=== PATIENT | female | born 1965 | race Caucasian/White ===

== ENCOUNTER 2023-12-18 06:44 | Day surgery (SDC) | payer MEDICARE, SELFPAY ==
[2023-11-27 14:46] VITALS: BMI 37.6
[2023-12-01 10:49] VITALS: BMI 36.8
--- NOTE | 2023-12-17 11:23 | P.PNAN_ITS ---
Anes - Initial Pre Proc Eval Procedure: Operation Date: 12/18/23 08:30 Proposed Procedures p Colonoscopy - Rosalino Hamlin MD Date/Time: 12/17/23 11:23 Surgeon: Rosalino Hamlin MD Pre Op Diagnosis: History of Colon Polyps Patient Data Age: 58 Gender: F Height: 1.73 m Weight: 110 kg Allergies Allergy/AdvReac Type Severity Reaction Status Date / Time lisinopril Allergy Severe Other Verified 12/18/23 07:38 erythromycin base Allergy Other Verified 12/18/23 07:38 metformin AdvReac Other Verified 12/18/23 07:38 thimerosal AdvReac Other Verified 12/18/23 07:38 Home Medications Medication Instructions Recorded Confirmed Type sodium,potassium,mag sulfates 17.5 See Rx Instructions PO .COMPLEX 11/27/23 12/18/23 Rx gram-3.13 gram-1.6 gram oral soln #354 mL (Suprep Bowel Prep Kit) Aleve 1 tab-cap PO PRN pain 12/01/23 12/18/23 History Colace 1 cap PO DAILY PRN Constipation 12/01/23 12/18/23 History Dulcolax (bisacodyl) 1 tablet PO DAILY PRN Constipation 12/01/23 12/18/23 History Laxative 1 tablet PO DAILY PRN Constipation 12/01/23 12/18/23 History amlodipine 5 mg tablet 5 mg PO DAILY 12/01/23 12/18/23 History atorvastatin 40 mg tablet 40 mg PO DAILY 12/01/23 12/18/23 History empagliflozin 25 mg tablet 25 mg PO DAILY 12/01/23 12/18/23 History (Jardiance) furosemide 20 mg tablet 20 mg PO PRN PRN swelling 12/01/23 12/18/23 History glimepiride 4 mg tablet 4 mg PO BID 12/01/23 12/18/23 History insulin detemir U-100 100 unit/mL 44 unit subcut HS 12/01/23 12/18/23 History (3 mL) subcutaneous pen (Levemir FlexPen) levothyroxine 150 mcg tablet 150 mcg PO DAILY 12/01/23 12/18/23 History sitagliptin phosphate 100 mg 100 mg PO DAILY 12/01/23 12/18/23 History tablet (Januvia) Patient hx anesthesia problems: none Family hx anesthesia problems: none Results Review: All pre-operative results and documents have been reviewed as part of the pre- operative evaluation. [facility] Past Medical History Medical History Diabetes Hyperlipidemia Hypertension Hypothyroid Social History Social History Smoking status: Never smoker Living arrangements: alone Spiritual care concerns: No Anes - Eval Final PreProcedure Day of Procedure 12/17/23 11:23 Patient weight: obese Heart: regular rate and rhythm Lungs: clear to auscultation Airway: Mallampati scale class II Neurological: alert and oriented Last oral intake: >/= 8 hours ASA classification: III Emergent: no Anesthetic plan: proceed Anesthesia type and monitoring: general GIVS and standard monitoring Results Review: All pre-operative results and documents have been reviewed as part of the pre- operative evaluation. Informed Consent: The patient's anesthetic plan and its attendant risks and benefits were discussed with the patient/family/POA. Questions were solicited and answers provided to the satisfaction of the patient/family/POA.
[2023-12-18 07:35] VITALS: BP 148/90; PULSE 80; RESP 20; TEMP 36.7; O2SAT 99
--- NOTE | 2023-12-18 07:52 | PM.HPGS ---
History of Present Illness History of Present Illness Consent: Risks, benefits, and alternatives have been discussed and questions answered. Patient agrees to proceed with procedure. Chief complaint: History of Colon Polyps Narrative: Monica Felder is a 58 year old female presents for screening colonoscopy. Patient was found to have adenomatous polyps at time of previous colonoscopy in [address] [place] [address]. Reports her current weight and appetite are normal does have a tendency towards constipation. Occasionally has left-sided abdominal pain. She is on no specific regimes. Family history noncontributory. Review of Systems Review of Systems: Review of systems noncontributory. [facility] Past Medical History Medical History Diabetes Hyperlipidemia Hypertension Hypothyroid Social History Social History Smoking status: Never smoker Living arrangements: alone Spiritual care concerns: No Meds Home Medications and Allergies Home Medications Medication Instructions Recorded Confirmed Type sodium,potassium,mag sulfates 17.5 See Rx Instructions PO .COMPLEX 11/27/23 12/18/23 Rx gram-3.13 gram-1.6 gram oral soln #354 mL (Suprep Bowel Prep Kit) Aleve 1 tab-cap PO PRN pain 12/01/23 12/18/23 History Colace 1 cap PO DAILY PRN Constipation 12/01/23 12/18/23 History Dulcolax (bisacodyl) 1 tablet PO DAILY PRN Constipation 12/01/23 12/18/23 History Laxative 1 tablet PO DAILY PRN Constipation 12/01/23 12/18/23 History amlodipine 5 mg tablet 5 mg PO DAILY 12/01/23 12/18/23 History atorvastatin 40 mg tablet 40 mg PO DAILY 12/01/23 12/18/23 History empagliflozin 25 mg tablet 25 mg PO DAILY 12/01/23 12/18/23 History (Jardiance) furosemide 20 mg tablet 20 mg PO PRN PRN swelling 12/01/23 12/18/23 History glimepiride 4 mg tablet 4 mg PO BID 12/01/23 12/18/23 History insulin detemir U-100 100 unit/mL 44 unit subcut HS 12/01/23 12/18/23 History (3 mL) subcutaneous pen (Levemir FlexPen) levothyroxine 150 mcg tablet 150 mcg PO DAILY 12/01/23 12/18/23 History sitagliptin phosphate 100 mg 100 mg PO DAILY 12/01/23 12/18/23 History tablet (Januvia) Allergies Allergy/AdvReac Type Severity Reaction Status Date / Time lisinopril Allergy Severe Other Verified 12/18/23 07:38 erythromycin base Allergy Other Verified 12/18/23 07:38 metformin AdvReac Other Verified 12/18/23 07:38 thimerosal AdvReac Other Verified 12/18/23 07:38 Vital Signs Vital Signs - 24 hr 12/18/23 07:35 Temperature 98.0 F Pulse Rate 80 Respiratory Rate 20 Blood Pressure 148/90 H Pulse Oximetry 99 Oxygen Delivery Room Air Exam Narrative: Physical exam reveals patient to be signs stable. HEENT exam is unremarkable. Patient is anicteric. Lungs are clear to auscultation and percussion. Heart is without murmur or extra sounds. Abdomen bowel sounds are present soft nontender with no organomegaly. Digital external rectal exam normal. Assessment and Plan Assessment and plan (1) History of colon polyps: Code(s): Z86.010 - Personal history of colonic polyps Status: Acute Assessment and Plan: Has a history of colon polyps most recently 2016. Plan for surveillance colonoscopy now. Consider follow-up at intervals (2) Constipation: Code(s): K59.00 - Constipation, unspecified Status: Acute Assessment and Plan: Patient with ongoing constipation. I would advise Metamucil or other stool softener daily. She should try MiraLax every 2-3 days as needed to maintain regular bowel movements.
[2023-12-18 08:05] LABS: Glucose Point of Care 255 mg/dl (65-105)
[2023-12-18] MEDS: LACTATED RINGERS 1,000 ML 150 ML IV CONT (08:08)
[2023-12-18 08:45] VITALS: BP 122/66; PULSE 70; RESP 16; O2SAT 99
[2023-12-18 08:55] VITALS: BP 132/72; PULSE 74; RESP 16; O2SAT 100
[2023-12-18 09:05] VITALS: BP 135/82; PULSE 75; RESP 18; O2SAT 100
--- NOTE | 2023-12-18 09:47 | WPDANESPN ---
Anes - Prog Note Post-Op Date/Time: 12/18/23 09:47 Cardiovascular status: normal Respiratory status: normal Airway patency: baseline Mental status: baseline Post-Op hydration status: normal Vital Signs: Last Vital Signs Temp 36.7 C 12/18/23 07:35 Pulse 75 12/18/23 09:05 Resp 18 12/18/23 09:05 BP 135/82 12/18/23 09:05 Pulse Ox 100 12/18/23 09:05 O2 Del Method Room Air 12/18/23 09:05 Pain Score (VAS): 0 I/O: Intake & Output 12/17/23 12/18/23 12/18/23 23:59 07:59 15:59 Intake Total 650 Balance 650 12/18/23 08:02 POC Capillary Glucose 255 H Patient Feedback: Patient satisfied with anesthetic care.
== END 2023-12-18 09:20 | disposition home or self-care (01) ==
PROVIDERS: PCP Internal Medicine; Visit Provider Internal Medicine Gastroenterology
PROC: 0DJD8ZZ Inspection of Lower Intestinal Tract, Via Natural or Artificial Opening Endoscopic (ICD-10-PCS; CPT 45378; principal; 2023-12-18 08:30)
DX: Z86.010 Personal history of colon polyps (principal); D12.2 Benign neoplasm of ascending colon; D12.3 Benign neoplasm of transverse colon; D12.5 Benign neoplasm of sigmoid colon; K64.8 Other hemorrhoids
CPT/HCPCS: 45385

== ENCOUNTER 2023-12-18 07:00 | Outpatient (NON) | payer MEDICARE, SELFPAY | END 2023-12-18 07:01 | disposition home or self-care (01) | PROVIDERS: PCP Internal Medicine; Visit Provider Internal Medicine Gastroenterology | DX: Z86.010 Personal history of colon polyps (principal) | CPT/HCPCS: 88305 ==

== ENCOUNTER 2024-01-15 08:52 | Day surgery (SDC) | payer MEDICARE, SELFPAY ==
[2024-01-02 13:05] VITALS: BMI 36.5
[2024-01-15 09:58] VITALS: BP 126/93; PULSE 79; RESP 20; TEMP 36.8; O2SAT 96
[2024-01-15 10:18] LABS: Glucose Point of Care 254 mg/dl (65-105)
[2024-01-15] MEDS: LACTATED RINGERS 1,000 ML 150 ML IV CONT (10:19)
--- NOTE | 2024-01-15 10:21 | PM.HPGS ---
History of Present Illness History of Present Illness Consent: Risks, benefits, and alternatives have been discussed and questions answered. Patient agrees to proceed with procedure. Chief complaint: Unspecified Abdominal Pain Narrative: Monica Felder is a 58 year old female is for EGD. Patient has rather vague epigastric discomfort. Occurs intermittently the epigastric and right upper quadrant she had has recently noticed some dysphagia with food catching in the upper portion of the esophagus. This happens with more solid foods. She denies any overt heartburn. She has had no weight loss or bleeding. Family history noncontributory. Review of Systems Review of Systems: Review of systems noncontributory. [facility] Past Medical History Medical History Diabetes Hyperlipidemia Hypertension Hypothyroid Social History Social History Smoking status: Never smoker Substance use type: does not use Living arrangements: alone Spiritual care concerns: No Meds Home Medications and Allergies Home Medications Medication Instructions Recorded Confirmed Type sodium,potassium,mag sulfates 17.5 See Rx Instructions PO .COMPLEX 11/27/23 01/15/24 Rx gram-3.13 gram-1.6 gram oral soln #354 mL (Suprep Bowel Prep Kit) Aleve 1 tab-cap PO PRN pain 12/01/23 01/15/24 History Colace 1 cap PO DAILY PRN Constipation 12/01/23 01/15/24 History Dulcolax (bisacodyl) 1 tablet PO DAILY PRN Constipation 12/01/23 01/15/24 History Laxative 1 tablet PO DAILY PRN Constipation 12/01/23 01/15/24 History amlodipine 5 mg tablet 5 mg PO DAILY 12/01/23 01/15/24 History atorvastatin 40 mg tablet 40 mg PO DAILY 12/01/23 01/15/24 History empagliflozin 25 mg tablet 25 mg PO DAILY 12/01/23 01/15/24 History (Jardiance) furosemide 20 mg tablet 20 mg PO PRN PRN swelling 12/01/23 01/15/24 History glimepiride 4 mg tablet 4 mg PO BID 12/01/23 01/15/24 History insulin detemir U-100 100 unit/mL 44 unit subcut HS 12/01/23 01/15/24 History (3 mL) subcutaneous pen (Levemir FlexPen) levothyroxine 150 mcg tablet 150 mcg PO DAILY 12/01/23 01/15/24 History sitagliptin phosphate 100 mg 100 mg PO DAILY 12/01/23 01/15/24 History tablet (Januvia) liraglutide 0.6 mg/0.1 mL (18 mg/3 0.3 mg subcut DIRECTED 01/05/24 01/15/24 History mL) subcutaneous pen injector (Victoza 2-Low) Allergies Allergy/AdvReac Type Severity Reaction Status Date / Time lisinopril Allergy Severe Other Verified 01/15/24 09:57 erythromycin base Allergy Other Verified 01/15/24 09:57 metformin AdvReac Other Verified 01/15/24 09:57 thimerosal AdvReac Other Verified 01/15/24 09:57 Vital Signs Vital Signs - 24 hr 01/15/24 09:58 Temperature 98.2 F Pulse Rate 79 Respiratory Rate 20 Blood Pressure 126/93 H Pulse Oximetry 96 Oxygen Delivery Room Air Exam Narrative: Physical exam reveals patient to be alert. Vital signs stable. HEENT exam is unremarkable. Patient is anicteric. Lungs are clear to auscultation and percussion sounds. Abdomen sounds are present soft nontender with no organomegaly. Assessment and Plan Assessment and plan (1) Dysphagia: Code(s): R13.10 - Dysphagia, unspecified Status: Acute Assessment and Plan: Patient with food catching on swallowing suggesting possible esophageal narrowing. EGD will be Performed. further recommendation will be given after endoscopy. (2) Epigastric abdominal pain: Code(s): R10.13 - Epigastric pain Status: Acute Assessment and Plan: Patient with rather vague epigastric pain. Not specifically related to eating. EGD is to be performed to evaluate more thoroughly.
--- NOTE | 2024-01-15 10:29 | SUR.PREOP ---
DR EDEN NOTIFIED OF PT'S BLOOD SUGAR OF 254.
--- NOTE | 2024-01-15 11:02 | WPDANESEPPF ---
Anes - Initial Pre Proc Eval Procedure: Operation Date: 01/15/24 11:30 Proposed Procedures p Esophagogastroduodenoscopy - Rosalino Hamlin MD Date/Time: 01/15/24 11:02 Surgeon: Rosalino Hamlin MD Pre Op Diagnosis: Unspecified Abdominal Pain Patient Data Age: 58 Gender: F Height: 1.73 m Weight: 108.8 kg Last Vital Signs Temp 36.8 C 01/15/24 09:58 Pulse 79 01/15/24 09:58 Resp 20 01/15/24 09:58 BP 126/93 H 01/15/24 09:58 Pulse Ox 96 01/15/24 09:58 O2 Del Method Room Air 01/15/24 09:58 Allergies Allergy/AdvReac Type Severity Reaction Status Date / Time lisinopril Allergy Severe Other Verified 01/15/24 09:57 erythromycin base Allergy Other Verified 01/15/24 09:57 metformin AdvReac Other Verified 01/15/24 09:57 thimerosal AdvReac Other Verified 01/15/24 09:57 Home Medications Medication Instructions Recorded Confirmed Type sodium,potassium,mag sulfates 17.5 See Rx Instructions PO .COMPLEX 11/27/23 01/15/24 Rx gram-3.13 gram-1.6 gram oral soln #354 mL (Suprep Bowel Prep Kit) Aleve 1 tab-cap PO PRN pain 12/01/23 01/15/24 History Colace 1 cap PO DAILY PRN Constipation 12/01/23 01/15/24 History Dulcolax (bisacodyl) 1 tablet PO DAILY PRN Constipation 12/01/23 01/15/24 History Laxative 1 tablet PO DAILY PRN Constipation 12/01/23 01/15/24 History amlodipine 5 mg tablet 5 mg PO DAILY 12/01/23 01/15/24 History atorvastatin 40 mg tablet 40 mg PO DAILY 12/01/23 01/15/24 History empagliflozin 25 mg tablet 25 mg PO DAILY 12/01/23 01/15/24 History (Jardiance) furosemide 20 mg tablet 20 mg PO PRN PRN swelling 12/01/23 01/15/24 History glimepiride 4 mg tablet 4 mg PO BID 12/01/23 01/15/24 History insulin detemir U-100 100 unit/mL 44 unit subcut HS 12/01/23 01/15/24 History (3 mL) subcutaneous pen (Levemir FlexPen) levothyroxine 150 mcg tablet 150 mcg PO DAILY 12/01/23 01/15/24 History sitagliptin phosphate 100 mg 100 mg PO DAILY 12/01/23 01/15/24 History tablet (Januvia) liraglutide 0.6 mg/0.1 mL (18 mg/3 0.3 mg subcut DIRECTED 01/05/24 01/15/24 History mL) subcutaneous pen injector (Victoza 2-Low) Laboratory Tests 01/15/24 10:15 POC Capillary Glucose 254 H mg/dl (65-105) Patient hx anesthesia problems: none Family hx anesthesia problems: none Results Review: All pre-operative results and documents have been reviewed as part of the pre-operative evaluation. [facility] Past Medical History Medical History Diabetes Hyperlipidemia Hypertension Hypothyroid Social History Social History Smoking status: Never smoker Substance use type: does not use Living arrangements: alone Spiritual care concerns: No Anes - Eval Final PreProcedure Day of Procedure 01/15/24 11:02 Patient weight: obese Heart: regular rate and rhythm Lungs: clear to auscultation Airway: Mallampati scale class III Neurological: alert and oriented Last oral intake: >/= 8 hours ASA classification: III Emergent: no Anesthetic plan: proceed Anesthesia type and monitoring: general GIVS and standard monitoring Results Review: All pre-operative results and documents have been reviewed as part of the pre-operative evaluation. Informed Consent: The patient's anesthetic plan and its attendant risks and benefits were discussed with the patient/family/POA. Questions were solicited and answers provided to the satisfaction of the patient/family/POA.
[2024-01-15 11:19] VITALS: BP 95/79; PULSE 65; RESP 14; O2SAT 97
--- NOTE | 2024-01-15 11:26 | WPDANESPN ---
Anes - Prog Note Post-Op Date/Time: 01/15/24 11:26 Cardiovascular status: normal Respiratory status: normal Airway patency: baseline Mental status: baseline Post-Op hydration status: normal Vital Signs: Last Vital Signs Temp 36.8 C 01/15/24 09:58 Pulse 65 01/15/24 11:19 Resp 14 01/15/24 11:19 BP 95/79 L 01/15/24 11:19 Pulse Ox 97 01/15/24 11:19 O2 Del Method Room Air 01/15/24 11:19 Pain Score (VAS): 0/10 I/O: Intake & Output 01/14/24 01/15/24 01/15/24 23:59 07:59 15:59 Intake Total 400 Balance 400 01/15/24 10:15 POC Capillary Glucose 254 H Patient Feedback: Patient satisfied with anesthetic care.
[2024-01-15 11:29] VITALS: BP 134/73; PULSE 64; RESP 14; O2SAT 96
[2024-01-15 11:39] VITALS: BP 131/81; PULSE 68; RESP 16; O2SAT 99
== END 2024-01-15 11:51 | disposition home or self-care (01) ==
PROVIDERS: PCP Internal Medicine; Visit Provider Internal Medicine Gastroenterology
PROC: 0DJ08ZZ Inspection of Upper Intestinal Tract, Via Natural or Artificial Opening Endoscopic (ICD-10-PCS; CPT 43235; principal; 2024-01-15 11:30)
DX: R10.13 Epigastric pain (principal); R13.19 Other dysphagia; K31.84 Gastroparesis
CPT/HCPCS: 43239; 43450

== ENCOUNTER 2024-02-03 07:18 | Outpatient (CLI) | payer MEDICARE, SELFPAY ==
--- NOTE | ~2024-02-03 | NM_ITS ---
EXAM: NM gastric emptying study DATE: 02/03/2024 12:43 INDICATION: Functional dyspepsia. TECHNIQUE: A gastric emptying study was performed using the methodology of Kristin LAZO, et al. J Nucl Med 2007; 48:568-572. The patient was given a meal consisting of 2 scrambled eggs labeled with 1.01 mCi Tc-99m sulfur colloid, 2 slices of toast, two packages of jam, and approximately 120 mL of water. Simultaneous anterior and posterior 1-min images of the abdomen were obtained with the patient supin e at multiple time points over a total period of 4 hours. The geometric mean of anterior and posterio r views was determined, and the percentage retention was calculated for each time point. COMPARISON: None. FINDINGS: Gastric retention of the radiotracer-labeled meal was 79%, 44%, and 28% at the 1-hour, 2-h our, and 4-hour time points, respectively. With this technique, apparent rapid gastric emptying is roman ggested by <30% gastric retention at 1 hour. Delayed gastric emptying is defined by gastric retention of >90% at 1 hour, >60% retention at 2 hours, or >10% retention at 4 hours. IMPRESSION: 1. Delayed gastric emptying. Reviewed, dictated and finalized at location E.
== END 2024-02-03 07:19 | disposition home or self-care (01) ==
PROVIDERS: Visit Provider Internal Medicine Gastroenterology
DX: K30 Functional dyspepsia (principal)
CPT/HCPCS: 78264; A9541

== ENCOUNTER 2024-04-29 07:50 | Outpatient (CLI) | payer MEDICARE, MEDICAID, SELFPAY ==
--- NOTE | ~2024-04-29 | XR_ITS ---
EXAMINATION: XR barium swallow w SBFT DATE: 04/29/2024 12:03 INDICATION: Dysphagia. Constipation. Epigastric abdominal pain. Vomiting. 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 TECHNIQUE: The patient drank thick barium, gas-producing crystals, and thin barium. Fluoroscopy of th e esophagus, stomach, and small bowel was performed. Fluoroscopy exposure time was 0.6 minutes. Radio graphs of the abdomen were obtained. The total number of images was 205. COMPARISON: None. FINDINGS: ESOPHAGRAM: There is no mass or stricture of the esophagus. There is decreased primary and secondary esophageal p eristalsis. Abnormal tertiary waves are noted. There is no hiatal hernia. There was no gastroesophage al reflux with provocative maneuvers. The stomach shows a normal folding pattern. SMALL BOWEL SERIES: The small bowel shows a normal folding pattern. Specifically, the terminal ileum is normal. Transit t mike to the colon was 3 hours and 30 minutes. IMPRESSION: 1. Severe esophageal dysmotility. 2. Normal small bowel series. Reviewed, dictated and finalized at location A.
== END 2024-04-29 07:51 | disposition home or self-care (01) ==
PROVIDERS: PCP Physician Assistant Medical; Visit Provider Nurse Practitioner Family
DX: E11.43 Type 2 diabetes mellitus with diabetic autonomic (poly)neuropathy (principal); K31.84 Gastroparesis; R10.13 Epigastric pain; R13.10 Dysphagia, unspecified
CPT/HCPCS: 74240

== ENCOUNTER 2024-12-17 07:51 | Observation (INO) | payer MEDICARE, SELFPAY ==
[2024-12-17] VITALS (33 sets, daily range): BP systolic 142–194; BP diastolic 57–97; PULSE 83–100; RESP 10–23; TEMP 36.6–36.7; O2SAT 41–100; BMI 35.4
--- NOTE | ~2024-12-17 | CT_ITS ---
EXAMINATION: CT abdomen pelvis w con DATE: 12/17/2024 09:56 INDICATION: Generalized abdominal pain. TECHNIQUE: Computed tomography (CT) of the abdomen and pelvis was performed with 100 mL Omnipaque 350 intravenous contrast. Automated exposure control and iterative reconstruction technique were employe d. The dose-length product was 1206.64 mGy-cm. COMPARISON: None. FINDINGS: The visualized portions of the lung bases demonstrate mild atelectasis. No pleural effusion . The heart size is normal. There are coronary artery calcifications. No pericardial effusion. The li kimmie, gallbladder, spleen, pancreas, adrenal glands, and right kidney are normal. There is a 2.0 cm ma ss in left kidney measuring soft tissue attenuation. The appendix is normal. There are no dilated loo ps of bowel. There are no pathologically enlarged lymph nodes. There is no free intraperitoneal fluid . There are widespread arterial calcifications. There are chronic bilateral L5 pars defects. There is 7 mm anterolisthesis of L5 on S1. There is severe lower lumbar spondylosis. IMPRESSION: 1. 2.0 cm left kidney mass, most likely a hemorrhagic cyst, but renal cell carcinoma cannot be exclud ed. Abdomen MRI without and with contrast is recommended. Reviewed, dictated and finalized at location A. ITY CLERK IMPRESSION: 1. 2.0 cm left kidney mass, most likely a hemorrhagic cyst, but renal cell carc inoma cannot be excluded. Abdomen MRI without and with contrast is recommended.
--- NOTE | ~2024-12-17 | MR_ITS ---
EXAMINATION: MR renal wo/w con DATE: 12/18/2024 13:10 INDICATION: Left kidney mass. TECHNIQUE: Magnetic resonance imaging (MRI) of the abdomen was performed without and with 20 mL Multi Ilana intravenous contrast. COMPARISON: CT abdomen and pelvis 12/17/2024 FINDINGS: There is diffuse hepatic steatosis. The gallbladder, spleen, pancreas, adrenal glands, and right kidn ey are normal. There is a 2.0 cm hemorrhagic cyst in left kidney. There are simple cysts in left kidn ey measuring up to 7 mm. There are no dilated loops of bowel. IMPRESSION: 1. Benign cysts in left kidney. Reviewed, dictated and finalized at location A. E CLEANER
--- NOTE | ~2024-12-17 | US_ITS ---
EXAMINATION: US abdomen limited DATE: 12/17/2024 10:08 INDICATION: Right upper quadrant abdominal pain. TECHNIQUE: Multiple grayscale and Doppler ultrasound images of the abdomen were obtained. COMPARISON: CT abdomen and pelvis 12/17/2024 FINDINGS: The visualized portions of the head, body, and tail of the pancreas are normal. There is di ffuse hepatic steatosis. There is normal flow in main portal vein. The gallbladder is normal in size. No gallstones or gallbladder wall thickening. There is no sonographic Anthony's sign. The common duct is normal and measures 3 mm. IMPRESSION: 1. Diffuse hepatic steatosis. Reviewed, dictated and finalized at location A. ATRIC PHYSICIAN
[2024-12-17 08:16] LABS: Basophils Percent Auto 0.1 % (0.2-1.2); Hematocrit 43.4 % (37.0-47.0); Hemoglobin 15.3 g/dL (12.0-15.0); Immature Granulocyte Absolute 0.08 K/mm3 (0.00-0.031); Immature Granulocyte Percent A 0.5 % (0-0.5); Lymphocytes Absolute Auto 2.37 K/mm3 (0.9-3.2); Mean Corpuscular HGB Conc 35.3 g/dl (32-36); Mean Corpuscular Hemoglobin 31.7 pg (26-34); Mean Corpuscular Volume 89.9 fl (80-100); Mean Platelet Volume 10.8 fl (7.4-10.4); Monocytes Absolute Auto 1.5 K/mm3 (0.1-0.6); Monocytes Percent Auto 8.6 % (2.6-8.5); Neutrophils Percent Auto 76.8 % (45.5-73.1); Platelet Count Result 276 k/mm3 (150-375); Red Blood Count 4.83 M/mm3 (4.2-5.4); Red Cell Distribution Width 11.9 % (11.5-14.5)
--- OUTSIDE RECORDS SUMMARY | 2024-12-17 08:22 | XMS_ITS | Data Portability ---
Author Organization [facility] Main Office Address [address] [place] [address] Assessment No assessment recorded. Plan of Treatment Reminders Order Date Submit Date Provider Last Modified By Organization Details Last Modified Time Details Appointments None record ed. Lab None record ed. Referral None record ed. Procedures None record ed. Surgeries None record ed. Imaging None record ed. Medication Orders None record ed. Patient TargetsNo targets recorded. Patient InstructionsNo instructions recorded. Reason for Referral None Reported. Results Created Date Observation Date Name Description Value Unit Range Abnormal Flag Note LastModifiedBy Organization Detail LastModifiedTime Result Notes None recorded. Problems Name Problem SNOMED Code Status Onset Date Resolution Date Notes Provider Name and Address Organization Details Recorded Time Paronychi a of toe of left foot 97111727433 056589 Active 2020 Not Available [facility] 3 00:54:47 Benign essential hypertens ion 3638554 Active Not Available [facility] 3 00:54:47 Celluliti s of foot 562230005 Completed 201902/14/2021 Not Available [facility] 3 00:54:47 Postopera tive visit 964384945 Active 2020 Not Available [facility] 3 00:54:47 Pure hyperchol esterolem ia 494187580 Active Not Available [facility] 3 00:54:47 Osteomyel itis of ankle AND/OR foot 80645205 Active 2019 Not Available [facility] 3 00:54:47 Ulcer of toe 837973045 Active 2020 Not Available [facility] 3 00:54:48 Diabetic foot ulcer 379940074 Active 2019 Not Available [facility] 3 00:54:48 Migraine 03266099 Active Not Available [facility] 3 00:54:48 Adhesive capsuliti s of shoulder 118687589 Active Not Available [facility] 3 00:54:48 Hypothyro idism 86307344 Active Not Available [facility] 3 00:54:48 Angioedem a 98759953 Active Not Available [facility] 3 00:54:48 Obesity 836706926 Active Not Available [facility] 3 00:54:48 Diabetic periphera l neuropath y 355653108 Active 2019 Not Available [facility] 3 00:54:48 Type 2 diabetes mellitus 80644771 Active Not Available [facility] 3 00:54:48 Uncontrol led type 2 diabetes mellitus 298034748 Active Not Available [facility] 3 00:54:48 Celluliti s of toe 06040306 Active 2020 Not Available [facility] 3 00:54:48 Diabetes mellitus 28376760 Active Not Available [facility] 3 00:54:48 Problem Notes None recorded. Medical Equipment None Reported. Allergies Allergen ID Allergen Name Allergen Category Reaction Reaction Severity Criticality Documentation Date Start Date Code Code System Note Provider Name and Address Organization Details Recorded Time 1207 thimerosa l medicatio n Not available Not available Not available 01/08/2023 26513 RxNorm Not Available [facility] 3 01:01:19 1208 tetracycl ine medicatio n other Not available Not available 01/08/2023 59043 RxNorm Not Available [facility] 3 01:01:19 1209 metformin medicatio n vomiting severe Not available 01/08/2023 6809 RxNorm Not Available [facility] 3 01:01:19 1210 lisinopri l medicatio n Not available Not available Not available 01/08/2023 26923 RxNorm Not Available [facility] 3 01:01:19 1211 erythromy norbert medicatio n Not available Not available Not available 01/08/2023 4053 RxNorm Not Available [facility] 3 01:01:19 Medications Name Sig Start Date Stop Date Status Note LastModified by Organization Details LastModified Time cyclobenzap rine 10 mg tablet 10/30 completed Not Available Not Available Not Available amoxicillin 500 mg capsule Take 1 capsule 3 times a day by oral route for 10 days. 01/02 completed Not Available Not Available Not Available atorvastati n 40 mg tablet 10/30 completed Not Available Not Available Not Available Augmentin 875 mg-125 mg tablet Take 1 tablet every 12 hours by oral route. 01/02 completed Not Available Not Available Not Available levothyroxi ne 137 mcg tablet 10/30 completed Not Available Not Available Not Available piperacilli n-tazobacta m 40.5 gram intravenous solution 10/30 completed Not Available Not Available Not Available Normal Saline Flush 0.9 % injection syringe 10/30 completed Not Available Not Available Not Available atorvastati n 10 mg tablet Take 1 tablet every day by oral route. 10/30 completed Not Available Not Available Not Available pravastatin 40 mg tablet Take 1 tablet every day by oral route at bedtime. 10/30 completed Not Available Not Available Not Available hydrocodone 5 mg-acetamin ophen 325 mg tablet 10/30 completed Not Available Not Available Not Available lisinopril 20 mg tablet TAKE ONE TABLET BY MOUTH ONCE DAILY active Not Available Not Available No t Available Lantus U-100 Insulin 100 unit/mL subcutaneou s solution inject 60 units at bedtime 01/02 completed Not Available Not Available Not Available Accu-Chek Softclix Lancets 10/30 completed Not Available Not Available Not Available amlodipine 5 mg tablet TAKE 1 TABLET BY MOUTH ONCE DAILY 10/30 completed Not Available Not Available Not Available simvastatin 40 mg tablet TAKE ONE TABLET BY MOUTH ONCE DAILY 01/02 completed Not Available Not Available Not Available Tessalon Perles 100 mg capsule Take 1 capsule 3 times a day by oral route. 01/02 completed Not Available Not Available Not Available prednisolon e acetate 1 % eye drops,suspe nsion 10/30 completed Not Available Not Available Not Available Silvadene 1 % topical cream APPLY A 1/16 INCH (1.5 MM) THICK LAYER TO ENTIRE wound AREA BY TOPICALRO CELESTINA 2 TIMES PER DAY 10/30 completed Not Available Not Available Not Available OneTouch Ultra Test strips 10/30 completed Not Available Not Available Not Available cephalexin 500 mg capsule 10/30 completed Not Available Not Available Not Available piperacilli n-tazobacta m 4.5 gram intravenous solution 10/30 completed Not Available Not Available Not Available levothyroxi ne 125 mcg tablet TAKE 1 TABLET BY MOUTH ONCE DAILY 01/02 completed Not Available Not Available Not Available glimepiride 4 mg tablet TAKE ONE TABLET BY MOUTH TWICE DAILY 10/30 completed Not Available Not Available Not Available Keflex 500 mg tablet Take 1 capsule every 6 hours by oral route. 10/30 completed Not Available Not Available Not Available levothyroxi ne 150 mcg tablet Take 1 tablet every day by oral route. 10/30 completed Not Available Not Available Not Available cephalexin 500 mg tablet Take 1 tablet every 6 hours by oral route for 30 days. 10/30 completed Not Available Not Available Not Available gabapentin 100 mg capsule 10/30 completed Not Available Not Available Not Available methylpredn isolone 4 mg tablets in a dose pack Take by oral route as per package insert active Not Available Not Available No t Available AmLactin 12 % lotion apply to affected are as needed daily 10/30 completed Not Available Not Available Not Available amoxicillin 500 mg-potassiu m clavulanate 125 mg tablet Take 1 tablet every 12 hours by oral route as directed for 10 days. 10/30 completed Not Available Not Available Not Available Novolog Mix 70-30 FlexPen U-100 Insulin 100 unit/mL subcutaneou s pen 07/03 completed Not Available Not Available Not Available Pen Needle 31 gauge x 5/16 07/03 completed Not Available Not Available Not Available heparin, porcine (PF) 10 unit/mL intravenous syringe 10/30 completed Not Available Not Available Not Available Januvia 50 mg tablet Take 1 tablet every day by oral route. 10/30 completed Not Available Not Available Not Available Januvia 100 mg tablet 10/30 completed Not Available Not Available Not Available Accu-Chek Mandi Plus Meter 10/30 completed Not Available Not Available Not Available TRUEplus Lancets 33 gauge 10/30 completed Not Available Not Available Not Available Levemir FlexTouch U-100 Insulin 100 unit/mL (3 mL) subcutaneou s pen Inject 30 units every day by subcutane ous route in the evening. 10/30 completed Not Available Not Available Not Available Jardiance 10 mg tablet Take 1 tablet every day by oral route. 10/30 completed Not Available Not Available Not Available Jardiance 25 mg tablet 10/30 completed Not Available Not Available Not Available TRUEplus Pen Needle 31 gauge x 3/16 10/30 completed Not Available Not Available Not Available OneTouch Delica Plus Lancet 30 gauge 10/30 completed Not Available Not Available Not Available Vitals Date Recorded Body height Body height Body height Body height Body height Heart rate Heart rate Heart rate Heart rate Heart rate Systolic blood pressure Diastolic blood pressure Systolic blood pressure Diastolic blood pressure Systolic blood pressure Diastolic blood pressure Systolic blood pressure Diastolic blood pressure Systolic blood pressure Diastolic blood pressure Provider Name and Address Organization Details Last Updated DateTime 3 175.26 cm 175.26 cm 175.26 cm 175.26 cm 175.26 cm 88 /min 85 /min 80 /min 80 /min 78 /min 137 mm[Hg] 76 mm[Hg] 129 mm[Hg] 92 mm[Hg] 134 mm[Hg] 89 mm[Hg] 109 mm[Hg] 81 mm[Hg] 153 mm[Hg] 94 mm[Hg] Not Available [facility] 3 00:52:38 Social History None recorded. Functional Status None recorded. Mental Status None recorded. Family History Nothing Reported Notes:Mother 68 Hyp othyroidism, DM, coronary artery disease and from metastatic ovarian cancer. Father 73 living with hx of HTN Brothers three one has hx of lymphoma Medical History No medical history recorded. Gynecological HistoryNo gynecological history recorded. Obstetrics History GPAL:G 0 P 0 0 0 0 Immunizations Vaccine Type Date Status Note Provider Nam e and Address Organization Details Recorded Time Influenza, split virus, trivalent, preservative 4 completed Not Available [facility] 01/08/2023 01:01:09 Past Encounters Encounter ID Performer Location Encounter Start Date Encounter Closed Date Diagnosis/Indication Diagnosis SNOMED-CT Code Diagnosis ICD10 Code Diagnosis Note [id number] [facility] [address] [place] [address] 01/17/2021 00:00:00 01/17/2021 15:12:48 [id number] [facility] [address] [place] [address] 01/24/2021 00:00:00 01/24/2021 16:16:00 [id number] [facility] [address], [place] [address] [place] [address] 01/31/2021 00:00:00 01/31/2021 09:44:47 [id number] [facility] [address] [place] [address] 02/14/2021 00:00:00 02/14/2021 15:32:55 [id number] [facility] [address] [place] [address] 02/21/2021 00:00:00 02/21/2021 15:04:55 [id number] [facility] [address] [place] [address] 02/28/2021 00:00:00 02/28/2021 16:02:56 [id number] [facility] [address] [place] [address] Rd, [facility] 4 [place] [address] 03/15/2021 00:00:00 03/15/2021 16:30:24 [id number] [facility] [address] [place] [address] 03/21/2021 00:00:00 03/21/2021 14:38:02 [id number] [facility] [address] [place] [address] 04/04/2021 00:00:00 04/04/2021 14:17:18 [id number] [facility] [address] [place] [address] Rd, [place] [address] [place] [address] 04/12/2021 00:00:00 04/12/2021 14:28:08 [id number] [facility] [address] [place] [address] Rd, [place] [address] [place] [address] 04/19/2021 00:00:00 04/20/2021 13:41:29 [id number] [facility] [address], [place] [address] [place] [address] 04/26/2021 00:00:00 04/26/2021 10:58:31 [id number] [facility] [address], [facility] 4 [place] [address] 06/28/2021 00:00:00 06/28/2021 10:59:03 [id number] [facility] [address], [facility] 4 [place] [address] 08/31/2021 00:00:00 09/06/2021 09:09:58 [id number] [facility] [address], [address] [address] 10/08/2021 00:00:00 10/08/2021 10:28:54 Health Concerns Section Related Observation LastModified by Organization Detai ls LastModified Time None Recorded Concern Status LastModified by Organization Details LastModified Time None Recorded Advance Directives Directive None Recorded Payers None recorded. OBGyn Episode No OBEpisode recorded.
--- OUTSIDE RECORDS SUMMARY | 2024-12-17 08:22 | XMS_ITS | Encounter Summary ---
Author Organization [facility] Address [address] [place] [address] Care Team Providers Care Cross Country/Track And Field Coach Name Role Phone Carlos Eduardo Chase Primary Care Provider Unavailabl e Encounter Details Date Type Department Care Team (Late st Contact Info) Description 09/30/2001 Outpatient Historical [facility] Bj Ayala MD [facility] [place] [address] Er, Authorized P NO ADDRESS ON FILE [place] (Primary Dx) Social History Tobacco Use Types Packs/Day Years Used Date Smoking Tobacco: Never Assessed Comments Unknown Sex and Gender Information Value Date Recorded Sex Assigned at Not on file Legal Sex Female 5:17 AM BILINGUAL CASE MANAGER Gender Identity Not on file Sexual Orientation Not on file documented as of this encounter Plan of Treatment Not on file documented as of this encounter Visit Diagnoses Diagnosis Sprain of thoracic region- Primary documented in this encounter Care Teams Cross Country/Track And Field Coach Relationship Specialty Start Date End Date Carlos Eduardo Chase PCP - General 09/30/01 documented as of this encounter
--- OUTSIDE RECORDS SUMMARY | 2024-12-17 08:22 | XMS_ITS | Encounter Summary ---
Author Organization [facility] Address [address] [place] [address] Care Team Providers Care [employer] Art Teacher Name Role Phone Carlos Eduardo Chase Primary Care Provider Unavailabl e Encounter Details Date Type Department Care Team (Late st Contact Info) Description 12/17/2000 Outpatient Historical [facility], [address] Social History Tobacco Use Types Packs/Day Years Used Date Smoking Tobacco: Never Assessed Comments Unknown Sex and Gender Information Value Date Recorded Sex Assigned at Not on file Legal Sex Female 5:17 AM SECURITIES COUNSELOR Gender Identity Not on file Sexual Orientation Not on file documented as of this encounter Plan of Treatment Not on file documented as of this encounter Visit Diagnoses Not on filedocumented in this encounter Care Teams [employer] Art Teacher Relationship Specialty Start Date End Date Carlos Eduardo Chase PCP - General 09/30/01 documented as of this encounter
--- OUTSIDE RECORDS SUMMARY | 2024-12-17 08:22 | XMS_ITS | Clinical Summary ---
Author Organization [facility] Address [address] [facility] Attn: Epic Prelude ADT [place] [phone] Care Team Providers Care Sinter Feeder Name Role Phone Carlos Eduardo Chase Primary Care Provider Unavailabl e Social History Tobacco Use Types Packs/Day Years Used Date Smoking Tobacco: Never Assessed Comments Unknown Sex and Gender Information Value Date Recorded Sex Assigned at Not on file Legal Sex Female 5:17 AM SOFTWARE IMPLEMENTATION SPECIALIST Gender Identity Not on file Sexual Orientation Not on file Plan of Treatment Health Maintenance Due Date Last Done Comments DTAP/TDAP/TD VACCINES (1 - Tdap) 1984 HEPATITIS B VACCINES (1 of 3 - 19+ 3-dose series) 10/12 CERVICAL CANCER SCREENING 1995 BREAST CANCER SCREENING 2005 COLORECTAL SCREENING 2010 Colorectal Cancer Screening 2010 FIT-DNA Q 3 years 2010 FIT/FOBT Q 1 year 2010 Flex Sig/CT Colonography Q 5 years 2010 ZOSTER VACCINE (1 of 2) 2015 INFLUENZA VACCINE (#1) 2024 Care Teams Sinter Feeder Relationship Specialty Start Date End Date Carlos Eduardo Chase PCP - General 09/30/01
--- OUTSIDE RECORDS SUMMARY | 2024-12-17 08:22 | XMS_ITS | Patient Health Record ---
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 Name Role Phone Ronny Mathew Unavailable [phone] REASON FOR REFERRAL No Information MEDICATIONS Medication SIG (Take, Route, Frequency, Duration) Notes Start Date End Date Status Ergocalciferol 1.25 MG (91742 UT) 1 capsule Orally Once a week for 90 day(s) 04/02/2024 12/27/2024 Active Calcitriol 0.25 MCG 1 capsule Orally Onc e a day for 90 day(s) 04/02/2024 12/27/2024 Active Losartan Potassium 25 MG 1 tablet Orally Once a day for 90 day(s) 04/02/2024 Active SOCIAL HISTORY Sex Assigned At : Social History Observation Description Sex Assigned At Female PROBLEMS Problem Type ICD Code Onset Dates Problem Status W/U Status Risk SNOMED Code Notes Problem Type 2 diabetes mellitus with hyperglycemia (E11.65) Active confirmed Hyperglycemia d ue to type 2 diabetes mellitus (945414024478768) Problem Obesity, unspecified (E66.9) Active confirmed Obesity (288402788) Problem Anxiety disorder, unspecified (F41.9) Active confirmed Anxiety disorde r (111792736) Problem Essential (primary) hypertension (I10) Active confirmed Essential hypertension (33477046) Problem Renal osteodystrophy (N25.0) Active confirmed Renal osteodystrophy (24512094) Problem Edema, unspecified (R60.9) Active confirmed Edema (71426147) Problem Chronic kidney disease, stage 3 unspecified (N18.30) Active confirmed Chronic kidney disease stage 3 (disorder) (005848557) Problem Chronic kidney disease, stage 3a (N18.31) Active confirmed Chronic kidney disease stage 3A (disorder) (384355464) Encounters Encounter Location Date Provider Diagnosis [facility] [address] [facility] [address] [place] [address] 03/17/2024 Ronny Mathew Chronic kidney disea se, stage 3a N18.31 ; Anxiety disorder, unspecified F41.9 ; Obesity, unspecified E66.9 ; Edema, unspecified R60.9 and Essential (primary) hypertension I10 [facility] [address] [place] [address] 04/02/2024 Ronny Mathew Chronic kidney disea se, stage 3a N18.31 ; Anxiety disorder, unspecified F41.9 ; Obesity, unspecified E66.9 ; Edema, unspecified R60.9 and Essential (primary) hypertension I10 [facility] [address] [place] [address] 06/25/2024 Ronny Singh Chronic kidney disea se, stage 3 unspecified N18.30 ; Essential (primary) hypertension I10 ; Type 2 diabetes mellitus with hyperglycemia E11.65 ; Renal osteodystrophy N25.0 ; Anxiety disorder, unspecified F41.9 ; Obesity, unspecified E66.9 and Edema, unspecified R60.9 [facility] [address] [place] [address] 08/27/2024 Ronny [facility] [address] [place] [address] 04/02/2024 Ronny Mathew ASSESSMENTS Encounter Date Diagnosis Assessment Notes Treatment Notes Treatment Clinical Notes Section Notes 03/17/2024 Chronic kidney disease, stage 3a (ICD-10 - N18.31) 04/02/2024 Chronic kidney disease, stage 3a (ICD-10 - N18.31) 06/25/2024 Chronic kidney disease, stage 3 unspecified (ICD-10 - N18.30) 06/25/2024 Essential (primary) hypertension (ICD-10 - I10) 04/02/2024 Anxiety disorder, unspecified (ICD-10 - F41.9) 03/17/2024 Anxiety disorder, unspecified (ICD-10 - F41.9) 03/17/2024 Obesity, unspecified (ICD-10 - E66.9) 04/02/2024 Obesity, unspecified (ICD-10 - E66.9) 06/25/2024 Type 2 diabetes mellitus with hyperglycemia (ICD-10 - E11.65) 04/02/2024 Edema, unspecified (ICD-10 - R60.9) 06/25/2024 Renal osteodystrophy (ICD-10 - N25.0) 03/17/2024 Edema, unspecified (ICD-10 - R60.9) 03/17/2024 Essential (primary) hypertension (ICD-10 - I10) 04/02/2024 Essential (primary) hypertension (ICD-10 - I10) 06/25/2024 Anxiety disorder, unspecified (ICD-10 - F41.9) 06/25/2024 Obesity, unspecified (ICD-10 - E66.9) 06/25/2024 Edema, unspecified (ICD-10 - R60.9) PLAN OF TREATMENT No Information
--- OUTSIDE RECORDS SUMMARY | 2024-12-17 08:22 | XMS_ITS | Encounter Summary ---
Author Organization [facility] Address 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
--- OUTSIDE RECORDS SUMMARY | 2024-12-17 08:23 | XMS_ITS | Patient Health Summary ---
Author Organization [facility] Address [address] [place] [address] Care Team Providers Care Color Weigher Name Role Phone Martín Gusman MD Primary Care Provider [phone] Note from [facility],non-owned Affiliates and Associated Physician Practices is amultiple site organization consisting of ambulatory clinics and hospital sitesin [place], [place], [place] and [place]. This disclosure is being madepursuant to the Care Everywhere program and may not contain all information available regarding this patient. Last updated 18.[facility] Allergies * Azithromycin(Unknown) * Glipizide(Nausea and/or Vomiting) * Lisinopril(Angioedema) -High Criticality Social History Tobacco Use Types Packs/Day Years Used Date Smoking Tobacco: Never Smokeless Tobacco: Never Alcohol Use Standard Drinks/Week Comments Never 0 (1 standard drink = 0.6 oz pur e alcohol) AUDIT-C Answer Date Recorded Frequency of Alcohol Consumption Never 08/18/2019 Average Number of Drinks Not on file 019 Frequency of Binge Drinking Not on file 07/2019 Sex and Gender Information Value Date Recorded Sex Assigned at Not on file Gender Identity Not on file Sexual Orientation Not on file Last Filed Vital Signs Vital Sign Reading Time Taken Comments Blood Pressure 139/67 08/18/2019 8:00 PM CDT Pulse 79 08/18/2019 8:00 PM CDT Temperature 36.5 C (97.7 F) 08/18/2019 4:59 PM CDT Respiratory Rate 24 08/18/2019 5:15 PM CDT Oxygen Saturation 99% 08/18/2019 8:00 PM CDT Inhaled Oxygen Concentration - - Weight - - Height - - Body Mass Index - - Procedures * URINE DRUG SCREEN IMMUNOASSAY(Performed 08/18/2019) * CT LUMBAR SPINE WO CONTRAST(Performed 08/18/2019) Performed for Fall (on) (from) other stairs and steps, initial encounter * CT THORACIC SPINE WO CONTRAST(Performed 08/18/2019) Performed for Fall (on) (from) other stairs and steps, initial encounter * CT CERVICAL SPINE WO CONTRAST(Performed 08/18/2019) Performed for Fall (on) (from) other stairs and steps, initial encounter * CT CHEST ABDOMEN PELVIS W CONT(Performed 08/18/2019) Performed for Fall (on) (from) other stairs and steps, initial encounter * CT HEAD WO CONTRAST(Performed 08/18/2019) Performed for Fall (on) (from) other stairs and steps, initial encounter * XR CHEST 1VW PORTABLE(Performed 08/18/2019) Performed for Fall (on) (from) other stairs and steps, initial encounter * XR PELVIS 1 OR 2VW(Performed 08/18/2019) Performed for Fall (on) (from) other stairs and steps, initial encounter * TYPE + SCREEN PANEL(Performed 08/18/2019) * CK BLOOD(Performed 08/18/2019) * PTT [facility](Performed 08/18/2019) * PT-INR [facility](Performed 08/18/2019) * COMPREHENSIVE METABOLIC PANEL(Performed 08/18/2019) * CBC W AUTO DIFFERENTIAL(Performed 08/18/2019) * ALCOHOL ETHYL BLOOD(Performed 08/18/2019) Results * DRUG SCREEN TOX URINE PANEL (08/18/2019 6:30 PM CDT) Pathologist [facility] Amphetamines Screen Urine Negative Negative: < 1000 ng/mL 08/18/2019 7:04 PM CDT [facility] Barbiturates Screen Urine Negative Negative: < 200 ng/mL 08/18/2019 7:04 PM [facility] Benzodiazepine Screen Urine Negative Negative: < 200 ng/mL 08/18/2019 7:04 PM [facility] Opiates Urine Negative Negative: < 300 ng/mL 08/18/2019 7:04 PM [facility] Cocaine Metabolites Urine Negative Negative: < 300 ng/mL 08/18/2019 7:04 PM CDT [facility] Phencyclidine Screen Urine Negative Negative: < 25 ng/ml 08/18/2019 7:04 PM CDT [facility] Cannabinoids Screen Urine Negative Negative: <50 ng/mL 08/18/2019 7:04 PM CDT [facility] Methadone Screen Urine Negative Negative: < 300 ng/mL 08/18/2019 7:04 PM CDT [facility] Urine URINE / Unknown Collection / Unknown 08/18/2019 6:30 PM CDT 08/18/2019 6:42 PM CDT Narrative [facility] - 08/18/2019 7:04 PM CDT The Urine Toxicology Screening Panel does not screen for Propoxyphene, Meprobamate, Carisoprodol, Trazodone, [id number] medications and/or volatiles (Acetone, Isopropanol, Methanol or Ethylene Glycol). Ethanol, Salicylate, Acetaminophen, Tricyclic Antidepressants and several therapeutic drugs may be individually assayed in serum or plasma specimen. Toxicology testing by the [facility] is an aid to medical diagnosis and treatment of patients. No documented chain of custody was maintained. Results are intended to be used for clinical purposes only. Maxine Porter MD LAB - URINE CHEMISTR Y ORDERABLES [address] [phone] * CT CHEST ABDOMEN PELVIS W CONT (08/18/2019 5:49 PM CDT) Anatomical Region Laterality Modality Chest, Abdomen, Pelvis Computed Tomography 08/18/2019 6:04 PM CDT Impressions 08/19/2019 8:52 AM CDT IMPRESSION: 1. No acute visceral, vascular, or osseus injury identified in the chest, abdomen, or pelvis. 2. Bilateral rim calcified thyroid nodules. Recommend further evaluation with nonemergent thyroid ultrasound. 3. Diffuse hepatic steatosis. 4. Hypoattenuating 1.2 cm lesion within the left kidney lower pole is difficult to adequately characterize due to small size but is likely benign. Follow-up renal ultrasound may be obtained to further characterize. 5. A 3 mm right perifissural nodule is likely benign. If the patient has risk factors for lung malignancy, a follow-up CT chest may be considered in one year. An incidental findings note regarding the left renal lesion in the right lung nodule was placed in the ED communication system at 8:51 AM 08/19/2019 Dictated by Ondina Ferrari MD (global president). I, Dr. CHRISTINA BOATENG M.D. have personally reviewed and interpreted this examination/study. This report was electronically signed by CHRISTINA BOATENG M.D. on 08/19/2019 8:52 AM . Narrative 08/19/2019 8:52 AM CDT EXAMINATION: Computed tomography (CT) of the chest, abdomen, and pelvis with contrast HISTORY: Chest, abdomen, and pelvic pain after injury TECHNIQUE: CT of the chest, abdomen, and pelvis was performed after the uneventful administration of 100 mL of Isovue-370 intravenous contrast according to standard protocol. COMPARISON: No prior study is available for comparison. FINDINGS: Vascular: There is a left-sided three-vessel aortic arch. The aorta and main pulmonary arteries are normal in course and caliber. The coronary arteries and aorta are atherosclerotic. Chest: The lungs are clear of focal consolidation. No pleural effusion or focal pleural thickening is identified. There is no evidence of pneumothorax. There is 3 mm nodule along the right horizontal fissure (series 3 image 55). The trachea is patent and midline. The heart size is normal. No pericardial effusion is present. No mediastinal, hilar, supraclavicular, or axillary lymphadenopathy is seen. There are bilateral rim calcified thyroid nodules, the largest on the left measures 1.5 cm. Abdomen/pelvis: The liver is diffusely hypoattenuating consistent with diffuse hepatic steatosis. Focal sparing is noted adjacent to the gallbladder fossa. Otherwise the liver enhances homogenously without focal lesion. The gallbladder is normal without evidence of wall thickening, pericholecystic fluid, or gallstones. The intrahepatic and extrahepatic bile ducts are nondilated. The spleen enhances homogenously without focal lesion. The pancreas and adrenal glands are normal. The kidneys enhance symmetrically. There is no evidence of renal calculus or hydronephrosis. Hypoattenuating lesion within the left kidney lower pole is difficult to characterize due to small size but is statistically benign. The esophagus and stomach appear normal. A few scattered colonic diverticula are present. Otherwise, the small bowel and large bowel are normal in caliber without evidence of wall thickening or obstruction. The appendix appears normal without appendicolith or surrounding inflammatory changes. No free air or free fluid is identified within the abdomen. There is no abdominal lymphadenopathy. The urinary bladder is distended with fluid and appears normal. The uterus is normal. No free fluid is seen within the pelvis. There is no pelvic lymphadenopathy. Few scattered sclerotic foci in the pelvis likely representing bone island. The visible osseous structures are intact. Mild multilevel degenerative changes are noted in the spine. There is a linear band of soft tissue attenuation in the left back subcutaneous tissues (series 4 image 80), likely posttraumatic. Procedure Note Christina Boateng MD - 08/19/2019 EXAMINATION: Computed tomography (CT) of the chest, abdomen, and pelvis with contrast HISTORY: Chest, abdomen, and pelvic pain after injury TECHNIQUE: CT of the chest, abdomen, and pelvis was performed after the uneventful administration of 100 mL of Isovue-370 intravenous contrast according to standard protocol. COMPARISON: No prior study is available for comparison. FINDINGS: Vascular: There is a left-sided three-vessel aortic arch. The aorta and main pulmonary arteries are normal in course and caliber. The coronaryarteries and aorta are atherosclerotic. Chest: The lungs are clear of focal consolidation. No pleural effusion or focal pleural thickening is identified. There is no evidence of pneumothorax. There is 3 mm nodule along the right horizontal fissure (series 3 image 55). The trachea is patent and midline. The heart size is normal. No pericardial effusion is present. No mediastinal, hilar, supraclavicular, or axillary lymphadenopathy isseen. There are bilateral rim calcified thyroid nodules, the largest on theleft measures 1.5 cm. Abdomen/pelvis: The liver is diffusely hypoattenuating consistent with diffuse hepatic steatosis. Focal sparing is noted adjacent to the gallbladder fossa. Otherwise the liver enhances homogenously without focal lesion. The gallbladder is normal without evidence of wall thickening,pericholecystic fluid, or gallstones. The intrahepatic and extrahepatic bile ducts are nondilated. The spleen enhances homogenously without focal lesion. The pancreas and adrenal glands are normal. The kidneys enhancesymmetrically. There is no evidence of renal calculus or hydronephrosis.Hypoattenuating lesion within the left kidney lower pole is difficult to characterizedue to small size but is statistically benign. The esophagus and stomach appear normal. A few scattered colonic diverticula are present. Otherwise, the small bowel and large bowel are normal in caliber without evidence of wall thickening or obstruction.The appendix appears normal without appendicolith or surroundinginflammatory changes. No free air or free fluid is identified within the abdomen.There is no abdominal lymphadenopathy. The urinary bladder is distended with fluid and appears normal. Theuterus is normal. No free fluid is seen within the pelvis. There is no pelvic lymphadenopathy. Few scattered sclerotic foci in the pelvis likely representing bone island. The visible osseous structures are intact. Mild multilevel degenerative changes are noted in the spine. There is a linear band of soft tissue attenuation in the left back subcutaneous tissues (series 4 image 80), likely posttraumatic. IMPRESSION: 1. No acute visceral, vascular, or osseus injury identified in thechest, abdomen, or pelvis. 2. Bilateral rim calcified thyroid nodules. Recommend further evaluation with nonemergent thyroid ultrasound. 3. Diffuse hepatic steatosis. 4. Hypoattenuating 1.2 cm lesion within the left kidney lower pole is difficult to adequately characterize due to small size but is likely benign. Follow-up renal ultrasound may be obtained to further characterize. 5. A 3 mm right perifissural nodule is likely benign. If the patient has risk factors for lung malignancy, a follow-up CT chest may be considered in one year. An incidental findings note regarding the left renal lesion in the right lung nodule was placed in the ED communication system at 8:51 AM 08/19/2019 Dictated by Ondina Ferrari MD (global president). I, Dr. CHRISTINA BOATENG M.D. have personally reviewed and interpretedthis examination/study. This report was electronically signed by CHRISTINA BOATENG M.D. on 08/19/2019 8:52 AM . Maxine Porter MD CT ORDERABLES * CT LUMBAR SPINE WO CONTRAST (08/18/2019 5:49 PM CDT) Anatomical Region Laterality Modality Spine Computed Tomogra phy 08/19/2019 7:11 AM CDT Impressions 08/19/2019 12:39 PM CDT IMPRESSION: 1.No acute intracranial hemorrhage, midline shift, or mass effect. 2.No evidence of acute fracture in the cervical, thoracic, or lumbar spine. 3.Calcified nodules in the thyroid gland. A nonemergent thyroid ultrasound is recommended for further evaluation. Please refer to dedicated body CT report for findings in the chest, abdomen, and pelvis. Report dictated by Ulises Ferguson MD (global president) This report was approved by Ulises Ferguson on 08/19/2019 12:39 PM . I, Dr. RAND PARRY have personally reviewed and interpreted this examination/study. This report was electronically signed by RAND PARRY on 08/19/2019 12:39 PM . Narrative 08/19/2019 12:[address] HEAD WO CONTRAST, CT LUMBAR SPINE WO CONTRAST, CT THORACIC SPINE WO CONTRAST, CT CERVICAL SPINE WO CONTRAST DATE: 08/18/2019 5:49 PM EXAMINATION: 1.Computed tomography (CT) of the head without contrast 2.CT of the cervical spine without contrast 3.CT of the thoracic spine without contrast 4.CT of the lumbar spine without contrast HISTORY: TRAUMA TECHNIQUE: CT of the head and cervical spine was performed without contrast according to standard protocol. Reformatted axial, sagittal, and coronal images of the thoracic and lumbar spine were obtained by the technologist from a concurrently performed body CT and sent to the workstation for review. FINDINGS: No prior study is available for comparison at the time of this dictation. Head: No acute intra- or extra-axial fluid collections are identified. There is subjective mild age-appropriate cerebral volume loss with associated ex vacuo ventricular dilatation. The basilar cisterns are patent. No mass effect or midline shift is seen. The howell-white matter differentiation is normal. Periventricular white matter hypoattenuation is indicative of chronic small vessel ischemic disease. There is vascular calcification of the carotid siphons. No acute calvarial fracture is identified.. The orbits appear normal. A nasal septal bony spur projects to the right. There is mild paranasal sinus disease. There is mild mucosal periosteal thickening of the maxillary sinuses. Mild sclerosis of the right mastoid air cells. The remaining right mastoid air cells are grossly clear. The left mastoid air cells are grossly clear. No soft tissue abnormality is identified. Cervical spine: The alignment is normal. Vertebral bodies are normal in height without evidence of acute fracture. Other than middle atlantoaxial joint osteoarthritis, the craniocervical junction appears normal. There is mild degenerative disc disease. Mild to moderate central canal stenosis seen at varying levels, likely congenital, and worse at C4-C5 due to disc bulge. There are varying degrees of mild facet osteoarthritis. There are varying degrees of mild uncovertebral joint osteoarthritis with the same degree of neural foraminal stenosis at these levels. There are multiple calcified thyroid nodules in bilateral thyroid lobes. Thoracic spine: The alignment is maintained. Vertebral bodies are normal in height without evidence of acute fracture. The intervertebral discs appear normal. No central canal stenosis is seen. There is mild facet osteoarthritis at multiple levels. No significant neural foraminal stenosis is seen. There is atherosclerotic calcification of the thoracic aorta and its branch vessels. Lumbar spine: Mild anterolisthesis of L5 over S1 with uncovering of the disc. Chronic appearing bilateral pars defect of the L5 vertebral body with. The remaining vertebral bodies are normal in height without evidence of acute fracture. There is mild degenerative disc disease, worst at L5-S1. Mild spinal canal stenosis at L1-L2 and L2-L3 related to disc bulge, facet hypertrophy, and ligamentum flavum thickening. There is moderate facet osteoarthritis at multiple levels. There are varying degrees of neural foraminal stenosis at multiple levels, worst at L5-S1 bilaterally. There is atherosclerotic calcification of the abdominal aorta and its branch vessels. Nonspecific outpouching adjacent to the distal splenic artery with associated calcifications, (series 1, images 195-198) is nonspecific but may represent a small aneurysm. Additional findings in the abdomen and pelvis are detailed in the concurrent dedicated CT chest, abdomen and pelvis. Procedure Note Rand Parry MD - 08/19/2019 CT HEAD WO CONTRAST, CT LUMBAR SPINE WO CONTRAST, CT THORACIC SPINE WO CONTRAST, CT CERVICAL SPINE WO CONTRAST DATE: 08/18/2019 5:49 PM EXAMINATION: 1.Computed tomography (CT) of the head without contrast 2.CT of the cervical spine without contrast 3.CT of the thoracic spine without contrast 4.CT of the lumbar spine without contrast HISTORY: TRAUMA TECHNIQUE: CT of the head and cervical spine was performed without contrast according to standard protocol. Reformatted axial, sagittal,and coronal images of the thoracic and lumbar spine were obtained by the technologist from a concurrently performed body CT and sent to the workstation for review. FINDINGS: No prior study is available for comparison at the time of this dictation. Head: No acute intra- or extra-axial fluid collections are identified. Thereis subjective mild age-appropriate cerebral volume loss with associated ex vacuo ventricular dilatation. The basilar cisterns are patent. No mass effect or midline shift is seen. The howell-white matter differentiationis normal. Periventricular white matter hypoattenuation is indicative of chronic small vessel ischemic disease. There is vascular calcificationof the carotid siphons. No acute calvarial fracture is identified.. The orbits appear normal. A nasal septal bony spur projects to the right. There is mild paranasal sinus disease. There is mild mucosal periosteal thickening of the maxillary sinuses. Mild sclerosis of the right mastoid air cells. The remaining right mastoid air cells are grossly clear. The left mastoid air cells are grossly clear. No soft tissue abnormality is identified. Cervical spine: The alignment is normal. Vertebral bodies are normal in height without evidence of acute fracture. Other than middle atlantoaxial joint osteoarthritis, the craniocervical junction appears normal. There ismild degenerative disc disease. Mild to moderate central canal stenosis seenat varying levels, likely congenital, and worse at C4-C5 due to disc bulge. There are varying degrees of mild facet osteoarthritis. There arevarying degrees of mild uncovertebral joint osteoarthritis with the same degreeof neural foraminal stenosis at these levels. There are multiple calcified thyroid nodules in bilateral thyroid lobes. Thoracic spine: The alignment is maintained. Vertebral bodies are normal in heightwithout evidence of acute fracture. The intervertebral discs appear normal. No central canal stenosis is seen. There is mild facet osteoarthritis at multiple levels. No significant neural foraminal stenosis is seen. There is atherosclerotic calcification of the thoracic aorta and its branch vessels. Lumbar spine: Mild anterolisthesis of L5 over S1 with uncovering of the disc. Chronic appearing bilateral pars defect of the L5 vertebral body with. The remaining vertebral bodies are normal in height without evidence ofacute fracture. There is mild degenerative disc disease, worst at L5-S1. Mild spinal canal stenosis at L1-L2 and L2-L3 related to disc bulge, facet hypertrophy, and ligamentum flavum thickening. There is moderate facet osteoarthritis at multiple levels. There are varying degrees of neural foraminal stenosis at multiple levels, worst at L5-S1 bilaterally. There is atherosclerotic calcification of the abdominal aorta and its branch vessels. Nonspecific outpouching adjacent to the distal splenic artery with associated calcifications, (series 1, images [id number]) isnonspecific but may represent a small aneurysm. Additional findings in the abdomenand pelvis are detailed in the concurrent dedicated CT chest, abdomen and pelvis. IMPRESSION: 1.No acute intracranial hemorrhage, midline shift, or mass effect. 2.No evidence of acute fracture in the cervical, thoracic, or lumbarspine. 3.Calcified nodules in the thyroid gland. A nonemergent thyroidultrasound is recommended for further evaluation. Please refer to dedicated body CT report for findings in the chest, abdomen, and pelvis. Report dictated by Ulises Ferguson MD (global president) This report was approved by Ulises Ferguson on 08/19/2019 12:39 PM . I, Dr. RAND PARRY have personally reviewed and interpreted this examination/study. This report was electronically signed by RAND PARRY on 08/19/2019 12:39 PM . Maxine Porter MD CT ORDERABLES * CT THORACIC SPINE WO CONTRAST (08/18/2019 5:49 PM CDT) Anatomical Region Laterality Modality Spine Computed Tomogra phy 08/19/2019 7:11 AM CDT Impressions 08/19/2019 12:39 PM CDT IMPRESSION: 1.No acute intracranial hemorrhage, midline shift, or mass effect. 2.No evidence of acute fracture in the cervical, thoracic, or lumbar spine. 3.Calcified nodules in the thyroid gland. A nonemergent thyroid ultrasound is recommended for further evaluation. Please refer to dedicated body CT report for findings in the chest, abdomen, and pelvis. Report dictated by Ulises Ferguson MD (global president) This report was approved by Ulises Ferguson on 08/19/2019 12:[address] RAND Ojeda have personally reviewed and interpreted this examination/study. This report was electronically signed by RAND PARRY on 08/19/2019 12:39 PM . Narrative 08/19/2019 12:[address] HEAD WO CONTRAST, CT LUMBAR SPINE WO CONTRAST, CT THORACIC SPINE WO CONTRAST, CT CERVICAL SPINE WO CONTRAST DATE: 08/18/2019 5:49 PM EXAMINATION: 1.Computed tomography (CT) of the head without contrast 2.CT of the cervical spine without contrast 3.CT of the thoracic spine without contrast 4.CT of the lumbar spine without contrast HISTORY: TRAUMA TECHNIQUE: CT of the head and cervical spine was performed without contrast according to standard protocol. Reformatted axial, sagittal, and coronal images of the thoracic and lumbar spine were obtained by the technologist from a concurrently performed body CT and sent to the workstation for review. FINDINGS: No prior study is available for comparison at the time of this dictation. Head: No acute intra- or extra-axial fluid collections are identified. There is subjective mild age-appropriate cerebral volume loss with associated ex vacuo ventricular dilatation. The basilar cisterns are patent. No mass effect or midline shift is seen. The howell-white matter differentiation is normal. Periventricular white matter hypoattenuation is indicative of chronic small vessel ischemic disease. There is vascular calcification of the carotid siphons. No acute calvarial fracture is identified.. The orbits appear normal. A nasal septal bony spur projects to the right. There is mild paranasal sinus disease. There is mild mucosal periosteal thickening of the maxillary sinuses. Mild sclerosis of the right mastoid air cells. The remaining right mastoid air cells are grossly clear. The left mastoid air cells are grossly clear. No soft tissue abnormality is identified. Cervical spine: The alignment is normal. Vertebral bodies are normal in height without evidence of acute fracture. Other than middle atlantoaxial joint osteoarthritis, the craniocervical junction appears normal. There is mild degenerative disc disease. Mild to moderate central canal stenosis seen at varying levels, likely congenital, and worse at C4-C5 due to disc bulge. There are varying degrees of mild facet osteoarthritis. There are varying degrees of mild uncovertebral joint osteoarthritis with the same degree of neural foraminal stenosis at these levels. There are multiple calcified thyroid nodules in bilateral thyroid lobes. Thoracic spine: The alignment is maintained. Vertebral bodies are normal in height without evidence of acute fracture. The intervertebral discs appear normal. No central canal stenosis is seen. There is mild facet osteoarthritis at multiple levels. No significant neural foraminal stenosis is seen. There is atherosclerotic calcification of the thoracic aorta and its branch vessels. Lumbar spine: Mild anterolisthesis of L5 over S1 with uncovering of the disc. Chronic appearing bilateral pars defect of the L5 vertebral body with. The remaining vertebral bodies are normal in height without evidence of acute fracture. There is mild degenerative disc disease, worst at L5-S1. Mild spinal canal stenosis at L1-L2 and L2-L3 related to disc bulge, facet hypertrophy, and ligamentum flavum thickening. There is moderate facet osteoarthritis at multiple levels. There are varying degrees of neural foraminal stenosis at multiple levels, worst at L5-S1 bilaterally. There is atherosclerotic calcification of the abdominal aorta and its branch vessels. Nonspecific outpouching adjacent to the distal splenic artery with associated calcifications, (series 1, images [id number]) is nonspecific but may represent a small aneurysm. Additional findings in the abdomen and pelvis are detailed in the concurrent dedicated CT chest, abdomen and pelvis. Procedure Note Rand Parry MD - 08/19/2019 CT HEAD WO CONTRAST, CT LUMBAR SPINE WO CONTRAST, CT THORACIC SPINE WO CONTRAST, CT CERVICAL SPINE WO CONTRAST DATE: 08/18/2019 5:49 PM EXAMINATION: 1.Computed tomography (CT) of the head without contrast 2.CT of the cervical spine without contrast 3.CT of the thoracic spine without contrast 4.CT of the lumbar spine without contrast HISTORY: TRAUMA TECHNIQUE: CT of the head and cervical spine was performed without contrast according to standard protocol. Reformatted axial, sagittal,and coronal images of the thoracic and lumbar spine were obtained by the technologist from a concurrently performed body CT and sent to the workstation for review. FINDINGS: No prior study is available for comparison at the time of this dictation. Head: No acute intra- or extra-axial fluid collections are identified. Thereis subjective mild age-appropriate cerebral volume loss with associated ex vacuo ventricular dilatation. The basilar cisterns are patent. No mass effect or midline shift is seen. The howell-white matter differentiationis normal. Periventricular white matter hypoattenuation is indicative of chronic small vessel ischemic disease. There is vascular calcificationof the carotid siphons. No acute calvarial fracture is identified.. The orbits appear normal. A nasal septal bony spur projects to the right. There is mild paranasal sinus disease. There is mild mucosal periosteal thickening of the maxillary sinuses. Mild sclerosis of the right mastoid air cells. The remaining right mastoid air cells are grossly clear. The left mastoid air cells are grossly clear. No soft tissue abnormality is identified. Cervical spine: The alignment is normal. Vertebral bodies are normal in height without evidence of acute fracture. Other than middle atlantoaxial joint osteoarthritis, the craniocervical junction appears normal. There ismild degenerative disc disease. Mild to moderate central canal stenosis seenat varying levels, likely congenital, and worse at C4-C5 due to disc bulge. There are varying degrees of mild facet osteoarthritis. There arevarying degrees of mild uncovertebral joint osteoarthritis with the same degreeof neural foraminal stenosis at these levels. There are multiple calcified thyroid nodules in bilateral thyroid lobes. Thoracic spine: The alignment is maintained. Vertebral bodies are normal in heightwithout evidence of acute fracture. The intervertebral discs appear normal. No central canal stenosis is seen. There is mild facet osteoarthritis at multiple levels. No significant neural foraminal stenosis is seen. There is atherosclerotic calcification of the thoracic aorta and its branch vessels. Lumbar spine: Mild anterolisthesis of L5 over S1 with uncovering of the disc. Chronic appearing bilateral pars defect of the L5 vertebral body with. The remaining vertebral bodies are normal in height without evidence ofacute fracture. There is mild degenerative disc disease, worst at L5-S1. Mild spinal canal stenosis at L1-L2 and L2-L3 related to disc bulge, facet hypertrophy, and ligamentum flavum thickening. There is moderate facet osteoarthritis at multiple levels. There are varying degrees of neural foraminal stenosis at multiple levels, worst at L5-S1 bilaterally. There is atherosclerotic calcification of the abdominal aorta and its branch vessels. Nonspecific outpouching adjacent to the distal splenic artery with associated calcifications, (series 1, images [id number]) isnonspecific but may represent a small aneurysm. Additional findings in the abdomenand pelvis are detailed in the concurrent dedicated CT chest, abdomen and pelvis. IMPRESSION: 1.No acute intracranial hemorrhage, midline shift, or mass effect. 2.No evidence of acute fracture in the cervical, thoracic, or lumbarspine. 3.Calcified nodules in the thyroid gland. A nonemergent thyroidultrasound is recommended for further evaluation. Please refer to dedicated body CT report for findings in the chest, abdomen, and pelvis. Report dictated by Ulises Ferguson MD (global president) This report was approved by Ulises Ferguson on 08/19/2019 12:39 PM . I, Dr. RAND PARRY have personally reviewed and interpreted this examination/study. This report was electronically signed by RAND PARRY on 08/19/2019 12:39 PM . Maxine Porter MD CT ORDERABLES * CT CERVICAL SPINE WO CONTRAST (08/18/2019 5:49 PM CDT) Anatomical Region Laterality Modality Spine Computed Tomogra phy 08/19/2019 7:11 AM CDT Impressions 08/19/2019 12:39 PM CDT IMPRESSION: 1.No acute intracranial hemorrhage, midline shift, or mass effect. 2.No evidence of acute fracture in the cervical, thoracic, or lumbar spine. 3.Calcified nodules in the thyroid gland. A nonemergent thyroid ultrasound is recommended for further evaluation. Please refer to dedicated body CT report for findings in the chest, abdomen, and pelvis. Report dictated by Ulises Ferguson MD (global president) This report was approved by Ulises Ferguson on 08/19/2019 12:39 PM . I, Dr. RAND PARRY have personally reviewed and interpreted this examination/study. This report was electronically signed by RAND PARRY on 08/19/2019 12:39 PM . Narrative 08/19/2019 12:[address] HEAD WO CONTRAST, CT LUMBAR SPINE WO CONTRAST, CT THORACIC SPINE WO CONTRAST, CT CERVICAL SPINE WO CONTRAST DATE: 08/18/2019 5:49 PM EXAMINATION: 1.Computed tomography (CT) of the head without contrast 2.CT of the cervical spine without contrast 3.CT of the thoracic spine without contrast 4.CT of the lumbar spine without contrast HISTORY: TRAUMA TECHNIQUE: CT of the head and cervical spine was performed without contrast according to standard protocol. Reformatted axial, sagittal, and coronal images of the thoracic and lumbar spine were obtained by the technologist from a concurrently performed body CT and sent to the workstation for review. FINDINGS: No prior study is available for comparison at the time of this dictation. Head: No acute intra- or extra-axial fluid collections are identified. There is subjective mild age-appropriate cerebral volume loss with associated ex vacuo ventricular dilatation. The basilar cisterns are patent. No mass effect or midline shift is seen. The howell-white matter differentiation is normal. Periventricular white matter hypoattenuation is indicative of chronic small vessel ischemic disease. There is vascular calcification of the carotid siphons. No acute calvarial fracture is identified.. The orbits appear normal. A nasal septal bony spur projects to the right. There is mild paranasal sinus disease. There is mild mucosal periosteal thickening of the maxillary sinuses. Mild sclerosis of the right mastoid air cells. The remaining right mastoid air cells are grossly clear. The left mastoid air cells are grossly clear. No soft tissue abnormality is identified. Cervical spine: The alignment is normal. Vertebral bodies are normal in height without evidence of acute fracture. Other than middle atlantoaxial joint osteoarthritis, the craniocervical junction appears normal. There is mild degenerative disc disease. Mild to moderate central canal stenosis seen at varying levels, likely congenital, and worse at C4-C5 due to disc bulge. There are varying degrees of mild facet osteoarthritis. There are varying degrees of mild uncovertebral joint osteoarthritis with the same degree of neural foraminal stenosis at these levels. There are multiple calcified thyroid nodules in bilateral thyroid lobes. Thoracic spine: The alignment is maintained. Vertebral bodies are normal in height without evidence of acute fracture. The intervertebral discs appear normal. No central canal stenosis is seen. There is mild facet osteoarthritis at multiple levels. No significant neural foraminal stenosis is seen. There is atherosclerotic calcification of the thoracic aorta and its branch vessels. Lumbar spine: Mild anterolisthesis of L5 over S1 with uncovering of the disc. Chronic appearing bilateral pars defect of the L5 vertebral body with. The remaining vertebral bodies are normal in height without evidence of acute fracture. There is mild degenerative disc disease, worst at L5-S1. Mild spinal canal stenosis at L1-L2 and L2-L3 related to disc bulge, facet hypertrophy, and ligamentum flavum thickening. There is moderate facet osteoarthritis at multiple levels. There are varying degrees of neural foraminal stenosis at multiple levels, worst at L5-S1 bilaterally. There is atherosclerotic calcification of the abdominal aorta and its branch vessels. Nonspecific outpouching adjacent to the distal splenic artery with associated calcifications, (series 1, images [id number]) is nonspecific but may represent a small aneurysm. Additional findings in the abdomen and pelvis are detailed in the concurrent dedicated CT chest, abdomen and pelvis. Procedure Note Rand Parry MD - 08/19/2019 CT HEAD WO CONTRAST, CT LUMBAR SPINE WO CONTRAST, CT THORACIC SPINE WO CONTRAST, CT CERVICAL SPINE WO CONTRAST DATE: 08/18/2019 5:49 PM EXAMINATION: 1.Computed tomography (CT) of the head without contrast 2.CT of the cervical spine without contrast 3.CT of the thoracic spine without contrast 4.CT of the lumbar spine without contrast HISTORY: TRAUMA TECHNIQUE: CT of the head and cervical spine was performed without contrast according to standard protocol. Reformatted axial, sagittal,and coronal images of the thoracic and lumbar spine were obtained by the technologist from a concurrently performed body CT and sent to the workstation for review. FINDINGS: No prior study is available for comparison at the time of this dictation. Head: No acute intra- or extra-axial fluid collections are identified. Thereis subjective mild age-appropriate cerebral volume loss with associated ex vacuo ventricular dilatation. The basilar cisterns are patent. No mass effect or midline shift is seen. The howell-white matter differentiationis normal. Periventricular white matter hypoattenuation is indicative of chronic small vessel ischemic disease. There is vascular calcificationof the carotid siphons. No acute calvarial fracture is identified.. The orbits appear normal. A nasal septal bony spur projects to the right. There is mild paranasal sinus disease. There is mild mucosal periosteal thickening of the maxillary sinuses. Mild sclerosis of the right mastoid air cells. The remaining right mastoid air cells are grossly clear. The left mastoid air cells are grossly clear. No soft tissue abnormality is identified. Cervical spine: The alignment is normal. Vertebral bodies are normal in height without evidence of acute fracture. Other than middle atlantoaxial joint osteoarthritis, the craniocervical junction appears normal. There ismild degenerative disc disease. Mild to moderate central canal stenosis seenat varying levels, likely congenital, and worse at C4-C5 due to disc bulge. There are varying degrees of mild facet osteoarthritis. There arevarying degrees of mild uncovertebral joint osteoarthritis with the same degreeof neural foraminal stenosis at these levels. There are multiple calcified thyroid nodules in bilateral thyroid lobes. Thoracic spine: The alignment is maintained. Vertebral bodies are normal in heightwithout evidence of acute fracture. The intervertebral discs appear normal. No central canal stenosis is seen. There is mild facet osteoarthritis at multiple levels. No significant neural foraminal stenosis is seen. There is atherosclerotic calcification of the thoracic aorta and its branch vessels. Lumbar spine: Mild anterolisthesis of L5 over S1 with uncovering of the disc. Chronic appearing bilateral pars defect of the L5 vertebral body with. The remaining vertebral bodies are normal in height without evidence ofacute fracture. There is mild degenerative disc disease, worst at L5-S1. Mild spinal canal stenosis at L1-L2 and L2-L3 related to disc bulge, facet hypertrophy, and ligamentum flavum thickening. There is moderate facet osteoarthritis at multiple levels. There are varying degrees of neural foraminal stenosis at multiple levels, worst at L5-S1 bilaterally. There is atherosclerotic calcification of the abdominal aorta and its branch vessels. Nonspecific outpouching adjacent to the distal splenic artery with associated calcifications, (series 1, images [id number]) isnonspecific but may represent a small aneurysm. Additional findings in the abdomenand pelvis are detailed in the concurrent dedicated CT chest, abdomen and pelvis. IMPRESSION: 1.No acute intracranial hemorrhage, midline shift, or mass effect. 2.No evidence of acute fracture in the cervical, thoracic, or lumbarspine. 3.Calcified nodules in the thyroid gland. A nonemergent thyroidultrasound is recommended for further evaluation. Please refer to dedicated body CT report for findings in the chest, abdomen, and pelvis. Report dictated by Ulises Ferguson MD (global president) This report was approved by Ulises Ferguson on 08/19/2019 12:39 PM . IDr. RAND have personally reviewed and interpreted this examination/study. This report was electronically signed by RAND PARRY on 08/19/2019 12:39 PM . Maxine Porter MD CT ORDERABLES * CT HEAD WO CONTRAST (08/18/2019 5:49 PM CDT) Anatomical Region Laterality Modality Head Computed Tomogra phy 08/19/2019 7:11 AM CDT Impressions 08/19/2019 12:39 PM CDT IMPRESSION: 1.No acute intracranial hemorrhage, midline shift, or mass effect. 2.No evidence of acute fracture in the cervical, thoracic, or lumbar spine. 3.Calcified nodules in the thyroid gland. A nonemergent thyroid ultrasound is recommended for further evaluation. Please refer to dedicated body CT report for findings in the chest, abdomen, and pelvis. Report dictated by Ulises Ferguson MD (global president) This report was approved by Ulises Ferguson on 08/19/2019 12:39 PM . I, Dr. RAND PARRY have personally reviewed and interpreted this examination/study. This report was electronically signed by RAND PARRY on 08/19/2019 12:39 PM . Narrative 08/19/2019 12:[address] HEAD WO CONTRAST, CT LUMBAR SPINE WO CONTRAST, CT THORACIC SPINE WO CONTRAST, CT CERVICAL SPINE WO CONTRAST DATE: 08/18/2019 5:49 PM EXAMINATION: 1.Computed tomography (CT) of the head without contrast 2.CT of the cervical spine without contrast 3.CT of the thoracic spine without contrast 4.CT of the lumbar spine without contrast HISTORY: TRAUMA TECHNIQUE: CT of the head and cervical spine was performed without contrast according to standard protocol. Reformatted axial, sagittal, and coronal images of the thoracic and lumbar spine were obtained by the technologist from a concurrently performed body CT and sent to the workstation for review. FINDINGS: No prior study is available for comparison at the time of this dictation. Head: No acute intra- or extra-axial fluid collections are identified. There is subjective mild age-appropriate cerebral volume loss with associated ex vacuo ventricular dilatation. The basilar cisterns are patent. No mass effect or midline shift is seen. The howell-white matter differentiation is normal. Periventricular white matter hypoattenuation is indicative of chronic small vessel ischemic disease. There is vascular calcification of the carotid siphons. No acute calvarial fracture is identified.. The orbits appear normal. A nasal septal bony spur projects to the right. There is mild paranasal sinus disease. There is mild mucosal periosteal thickening of the maxillary sinuses. Mild sclerosis of the right mastoid air cells. The remaining right mastoid air cells are grossly clear. The left mastoid air cells are grossly clear. No soft tissue abnormality is identified. Cervical spine: The alignment is normal. Vertebral bodies are normal in height without evidence of acute fracture. Other than middle atlantoaxial joint osteoarthritis, the craniocervical junction appears normal. There is mild degenerative disc disease. Mild to moderate central canal stenosis seen at varying levels, likely congenital, and worse at C4-C5 due to disc bulge. There are varying degrees of mild facet osteoarthritis. There are varying degrees of mild uncovertebral joint osteoarthritis with the same degree of neural foraminal stenosis at these levels. There are multiple calcified thyroid nodules in bilateral thyroid lobes. Thoracic spine: The alignment is maintained. Vertebral bodies are normal in height without evidence of acute fracture. The intervertebral discs appear normal. No central canal stenosis is seen. There is mild facet osteoarthritis at multiple levels. No significant neural foraminal stenosis is seen. There is atherosclerotic calcification of the thoracic aorta and its branch vessels. Lumbar spine: Mild anterolisthesis of L5 over S1 with uncovering of the disc. Chronic appearing bilateral pars defect of the L5 vertebral body with. The remaining vertebral bodies are normal in height without evidence of acute fracture. There is mild degenerative disc disease, worst at L5-S1. Mild spinal canal stenosis at L1-L2 and L2-L3 related to disc bulge, facet hypertrophy, and ligamentum flavum thickening. There is moderate facet osteoarthritis at multiple levels. There are varying degrees of neural foraminal stenosis at multiple levels, worst at L5-S1 bilaterally. There is atherosclerotic calcification of the abdominal aorta and its branch vessels. Nonspecific outpouching adjacent to the distal splenic artery with associated calcifications, (series 1, images [id number]) is nonspecific but may represent a small aneurysm. Additional findings in the abdomen and pelvis are detailed in the concurrent dedicated CT chest, abdomen and pelvis. Procedure Note Rand Parry MD - 08/19/2019 CT HEAD WO CONTRAST, CT LUMBAR SPINE WO CONTRAST, CT THORACIC SPINE WO CONTRAST, CT CERVICAL SPINE WO CONTRAST DATE: 08/18/2019 5:49 PM EXAMINATION: 1.Computed tomography (CT) of the head without contrast 2.CT of the cervical spine without contrast 3.CT of the thoracic spine without contrast 4.CT of the lumbar spine without contrast HISTORY: TRAUMA TECHNIQUE: CT of the head and cervical spine was performed without contrast according to standard protocol. Reformatted axial, sagittal,and coronal images of the thoracic and lumbar spine were obtained by the technologist from a concurrently performed body CT and sent to the workstation for review. FINDINGS: No prior study is available for comparison at the time of this dictation. Head: No acute intra- or extra-axial fluid collections are identified. Thereis subjective mild age-appropriate cerebral volume loss with associated ex vacuo ventricular dilatation. The basilar cisterns are patent. No mass effect or midline shift is seen. The howell-white matter differentiationis normal. Periventricular white matter hypoattenuation is indicative of chronic small vessel ischemic disease. There is vascular calcificationof the carotid siphons. No acute calvarial fracture is identified.. The orbits appear normal. A nasal septal bony spur projects to the right. There is mild paranasal sinus disease. There is mild mucosal periosteal thickening of the maxillary sinuses. Mild sclerosis of the right mastoid air cells. The remaining right mastoid air cells are grossly clear. The left mastoid air cells are grossly clear. No soft tissue abnormality is identified. Cervical spine: The alignment is normal. Vertebral bodies are normal in height without evidence of acute fracture. Other than middle atlantoaxial joint osteoarthritis, the craniocervical junction appears normal. There ismild degenerative disc disease. Mild to moderate central canal stenosis seenat varying levels, likely congenital, and worse at C4-C5 due to disc bulge. There are varying degrees of mild facet osteoarthritis. There arevarying degrees of mild uncovertebral joint osteoarthritis with the same degreeof neural foraminal stenosis at these levels. There are multiple calcified thyroid nodules in bilateral thyroid lobes. Thoracic spine: The alignment is maintained. Vertebral bodies are normal in heightwithout evidence of acute fracture. The intervertebral discs appear normal. No central canal stenosis is seen. There is mild facet osteoarthritis at multiple levels. No significant neural foraminal stenosis is seen. There is atherosclerotic calcification of the thoracic aorta and its branch vessels. Lumbar spine: Mild anterolisthesis of L5 over S1 with uncovering of the disc. Chronic appearing bilateral pars defect of the L5 vertebral body with. The remaining vertebral bodies are normal in height without evidence ofacute fracture. There is mild degenerative disc disease, worst at L5-S1. Mild spinal canal stenosis at L1-L2 and L2-L3 related to disc bulge, facet hypertrophy, and ligamentum flavum thickening. There is moderate facet osteoarthritis at multiple levels. There are varying degrees of neural foraminal stenosis at multiple levels, worst at L5-S1 bilaterally. There is atherosclerotic calcification of the abdominal aorta and its branch vessels. Nonspecific outpouching adjacent to the distal splenic artery with associated calcifications, (series 1, images [id number]) isnonspecific but may represent a small aneurysm. Additional findings in the abdomenand pelvis are detailed in the concurrent dedicated CT chest, abdomen and pelvis. IMPRESSION: 1.No acute intracranial hemorrhage, midline shift, or mass effect. 2.No evidence of acute fracture in the cervical, thoracic, or lumbarspine. 3.Calcified nodules in the thyroid gland. A nonemergent thyroidultrasound is recommended for further evaluation. Please refer to dedicated body CT report for findings in the chest, abdomen, and pelvis. Report dictated by Ulises Ferguson MD (global president) This report was approved by Ulises Ferguson on 08/19/2019 12:[address] RAND Ojeda have personally reviewed and interpreted this examination/study. This report was electronically signed by RAND PARRY on 08/19/2019 12:39 PM . Maxine Porter MD CT ORDERABLES * XR CHEST 1VW PORTABLE (08/18/2019 5:32 PM CDT) Anatomical Region Laterality Modality Chest Radiographic Rosa ging 08/18/2019 5:26 PM CDT Impressions 08/19/2019 8:11 AM CDT IMPRESSION: 1.No acute pulmonary process is seen. Report drafted by Ajay Whitehead M.D. (resident) Dr. MICHAEL Ojeda have personally reviewed and interpreted this examination/study. This report was electronically signed by MICHAEL FREDERICK on 08/19/2019 8:11 AM . Narrative 08/19/2019 8:11 AM CDT EXAMINATION: XR CHEST 1VW PORTABLE HISTORY: trauma COMPARISON: None. FINDINGS: No focal consolidation, pleural effusion, or pneumothorax is seen. The cardiomediastinal silhouette is normal. No acute fractures are seen. Procedure Note Michael Frederick, DO - 08/19/2019 EXAMINATION: XR CHEST 1VW PORTABLE HISTORY: trauma COMPARISON: None. FINDINGS: No focal consolidation, pleural effusion, or pneumothorax is seen. The cardiomediastinal silhouette is normal. No acute fractures are seen. IMPRESSION: 1.No acute pulmonary process is seen. Report drafted by Ajay Whitehead M.D. (resident) Dr. MICHAEL Ojeda have personally reviewed and interpreted this examination/study. This report was electronically signed by MICHAEL FREDERICK on 08/19/2019 8:11 AM . Maxine Porter MD DIAGNOSTIC IMAGING O RDERABLES * XR PELVIS 1 OR 2VW (08/18/2019 5:31 PM CDT) Anatomical Region Laterality Modality Pelvis Radiographic Rosa ging 08/18/2019 5:27 PM CDT Impressions 08/19/2019 8:10 AM CDT IMPRESSION: No acute osseous abnormality. Report drafted by Ajay Whitehead M.D. (resident) Dr. MICHAEL Ojeda have personally reviewed and interpreted this examination/study. This report was electronically signed by MICHAEL FREDERICK on 08/19/2019 8:10 AM . Narrative 08/19/2019 8:10 AM CDT EXAMINATION: XR PELVIS 1 OR 2VW HISTORY: trauma COMPARISON: None. FINDINGS: No acute fracture is identified. The femoral heads appear well-seated within their respective acetabula. The joint spaces are preserved. The pubic symphysis is intact. The osseous architecture and density are normal. The sacroiliac joints are normal. Procedure Note Michael Frederick DO - 08/19/2019 EXAMINATION: XR PELVIS 1 OR 2VW HISTORY: trauma COMPARISON: None. FINDINGS: No acute fracture is identified. The femoral heads appear well-seated within their respective acetabula. The joint spaces are preserved. The pubic symphysis is intact. The osseous architecture and density are normal. The sacroiliac joints are normal. IMPRESSION: No acute osseous abnormality. Report drafted by Ajay Whitehead M.D. (resident) Dr. MICHAEL Ojeda have personally reviewed and interpreted this examination/study. This report was electronically signed by MICHAEL FREDERICK on 08/19/2019 8:10 AM . Maxine Porter MD DIAGNOSTIC IMAGING O RDERABLES * PTT [facility] (08/18/2019 5:11 PM CDT) APTT 26.6 23.0 - 38.4 Seconds 08/18/2019 5:37 PM CDT [facility] Comment: * Please Note: New therapeutic range for heparin therapy. * Suggested therapeutic range for full dose I.V. heparin therapy for venous thromboembolism is 65 to 103 seconds. Blood BLOOD SPECIMEN / Unknown Venipuncture / Unknown 08/18/2019 5:11 PM CDT 08/18/2019 5:21 PM CDT Maxine Porter MD LAB - COAGULATION OR DERABLES Performing Organization Address [facility] Co de Phone Number [address] [phone] * PT-INR [facility] (08/18/2019 5:11 PM CDT) Pathologist [facility] PT 12.6 12.1 - 14.8 Seconds 08/18/2019 5:43 PM CDT [facility] INR 1.0 See Comment 08/18/2019 5:43 PM CDT [facility] Comment: The suggested therapeutic range for standard coumadin (warfarin) therapy is an INR of 2.0-3.0. For high-risk patients (Mechanical Mitral Valve Prosthesis, etc.), the suggested prophylactic therapeutic range is an INR of 2.5-3.5. Blood BLOOD SPECIMEN / Unknown Venipuncture / Unknown 08/18/2019 5:11 PM CDT 08/18/2019 5:21 PM CDT Maxine Porter MD LAB - COAGULATION OR DERABLES Performing Organization Address [facility] Co de Phone Number [address] [phone] * TYPE + SCREEN PANEL (08/18/2019 5:11 PM CDT) Antibody Screen NEG 9 6:17 PM CDT [facility] B[facility]OD [facility]ANK LAB ABO Rh O POS 08/18/2019 6:17 PM CDT [facility] LAB Blood Bank BLOOD SPECIMEN / Unknown Venipuncture / Unknown 08/18/2019 5:11 PM CDT 08/18/2019 5:29 PM CDT Maxine Porter MD LAB - BLOOD BANK ORD ERABLES [facility] [address] [place] [address], [facility] * (ABNORMAL) CBC W AUTO DIFFERENTIAL (08/18/2019 5:11 PM CDT) WBC 11.6(H) 3.5 - 10.5 10 3/uL 08/18/2019 5:23 PM [facility] RBC 5.27(H) 3.90 - 5.00 10 6/uL 08/18/2019 5:23 PM [facility] Hemoglobin 16.3(H) 12.0 - 15.5 g/dL 08/18/2019 5:23 PM [facility] Hematocrit 46.7(H) 35.0 - 45.0 % 08/18/2019 5:23 PM [facility] MCV 88.6 81.0 - 97.0 fL 08/18/2019 5:23 PM [facility] MCH 30.9 28.0 - 34.0 pg 08/18/2019 5:23 PM [facility] MCHC 34.9 32.0 - 36.0 g/dL 08/18/2019 5:23 PM [facility] Platelet Count 216 150 - 400 10 3/uL 08/18/2019 5:23 PM [facility] RDW-SD 39.5 36.0 - 50.0 fL 08/18/2019 5:23 PM [facility] RDW-CV 12.2 11.2 - 14.8 % 08/18/2019 5:23 PM [facility] MPV 11.0 9.3 - 12.8 fL 08/18/2019 5:23 PM [facility] nRBC Absolute 0.00 0 10 3/uL 08/18/2019 5:23 PM [facility] nRBC Auto 0.0 0 /100 WBC 08/18/2019 5:23 PM [facility] Neutrophils % 71.2(H) 35.0 - 70.0 % 08/18/2019 5:23 PM [facility] Lymphocytes % 18.9(L) 19.7 - 55.1 % 08/18/2019 5:23 PM T [facility] Monocytes % 7.1 3.0 - 15.0 % 08/18/2019 5:23 PM [facility] Eosinophils % 1.7 0.0 - 6.0 % 08/18/2019 5:23 PM T [facility] Basophil % 0.5 0.0 - 1.5 % 08/18/2019 5:23 PM T [facility] Neutrophils Absolute 8.3(H) 1.6 - 7.0 10 3/uL 08/18/2019 5:23 PM T [facility] Lymphocyte Absolute 2.2 0.8 - 2.9 10 3/uL 08/18/2019 5:23 PM T [facility] Monocytes Absolute 0.83(H) 0.14 - 0.66 10 3/uL 08/18/2019 5:23 PM T [facility] Eosinophils Absolute 0.20 0.00 - 0.45 10 3/uL 08/18/2019 5:23 PM T [facility] Basophils Absolute 0.06 0.00 - 0.06 10 3/uL 08/18/2019 5:23 PM T [facility] Immature Granulocytes % 0.6 0.0 - 1.0 % 08/18/2019 5:23 PM [facility] Blood BLOOD SPECIMEN / Unknown Venipuncture / Unknown 08/18/2019 5:11 PM CDT 08/18/2019 5:20 PM CDT Maxine Porter MD LAB - HEMATOLOGY ORD ERABLES [facility] [address] [phone] * (ABNORMAL) COMPREHENSIVE METABOLIC PANEL (08/18/2019 5:11 PM CDT) BUN 13 7 - 26 mg/dL 08/18/2019 5:45 PM [facility] Creatinine 0.9 0.6 - 1.2 mg/dL 08/18/2019 5:45 PM [facility] Sodium 136 136 - 145 mmol/L 08/18/2019 5:45 PM [facility] Potassium 4.3 3.5 - 4.5 mmol/L 08/18/2019 5:45 PM [facility] Chloride 96(L) 98 - 107 mmol/L 08/18/2019 5:45 PM [facility] CO2 25 22 - 29 mmol/L 08/18/2019 5:45 PM [facility] Glucose 348(H) 70 - 115 mg/dL 08/18/2019 5:45 PM [facility] Calcium 10.3(H) 8.4 - 10.2 mg/dL 08/18/2019 5:45 PM [facility] Protein Total 7.8 6.0 - 8.3 g/dL 08/18/2019 5:45 PM [facility] Albumin 3.9 3.4 - 5.0 g/dL 08/18/2019 5:45 PM [facility] Bilirubin Total 0.7 0.2 - 1.2 mg/dL 08/18/2019 5:45 PM [facility] Alkaline Phosphatase 117 40 - 150 Units/L 08/18/2019 5:45 PM [facility] ALT 43 0 - 55 Units/L 08/18/2019 5:45 PM [facility] AST 25 5 - 34 Units/L 08/18/2019 5:45 PM [facility] Anion Gap 19(H) 8 - 18 08/18/2019 5:45 PM [facility] BUN/Creatinine Ratio 14 7 - 23 08/18/2019 5:45 PM [facility] Osmolality Calculated 296 270 - 300 mOsm/kg 08/18/2019 5:45 PM [facility] Albumin/Globulin Ratio 1.0(L) 1.1 - 2.3 08/18/2019 5:45 PM [facility] eGFR >60 >60 mL/min/1.7 3 m2 08/18/2019 5:45 PM [facility] Blood BLOOD SPECIMEN / Unknown Venipuncture / Unknown 08/18/2019 5:11 PM CDT 08/18/2019 5:20 PM CDT Maxine Porter MD LAB - [place] [address], [facility] [phone] * CK BLOOD (08/18/2019 5:11 PM CDT) CK Total 103 30 - 200 Units/L 08/18/2019 7:22 PM CDT [facility] Blood BLOOD SPECIMEN / Unknown Venipuncture / Unknown 08/18/2019 5:11 PM CDT 08/18/2019 6:57 PM CDT Elgin Lira MD LAB - CHEMISTRY OLLIE ROGEL Performing Organization Address [facility]/[place] [address], [facility] [phone] * ALCOHOL ETHYL BLOOD (08/18/2019 5:11 PM CDT) Pathologist [facility] Interpretation Ethanol None Detected None Detected mg/dL 08/18/2019 5:45 PM CDT [facility] Comment: Ethanol levels less than 10 mg/dL are resulted as None detected . Blood BLOOD SPECIMEN / Unknown Venipuncture / Unknown 08/18/2019 5:11 PM CDT 08/18/2019 5:20 PM CDT Maxine Porter MD LAB - [place] [address], [facility] [phone] Care Teams Color Weigher Relationship Specialty Start Date End Date Martín Gusman MD [address] [place] [address] PCP - General Internal Medicine 08/18/19
--- OUTSIDE RECORDS SUMMARY | 2024-12-17 08:23 | XMS_ITS | Encounter Summary ---
Author Organization [facility] Address [address] [facility] Attn: Epic Prelude ADT [place] [address] Care Team Providers Care Simonizer Name Role Phone Carlos Eduardo Chase Primary Care Provider Unavailabl e Encounter Details Date Type Department Care Team (Late st Contact Info) Description 06/29/1998 Outpatient Historical Conversion, History Social History Tobacco Use Types Packs/Day Years Used Date Smoking Tobacco: Never Assessed Comments Unknown Sex and Gender Information Value Date Recorded Sex Assigned at Not on file Legal Sex Female 5:17 AM MEDICAL LIBRARY ASSISTANT Gender Identity Not on file Sexual Orientation Not on file documented as of this encounter Plan of Treatment Not on file documented as of this encounter Visit Diagnoses Not on filedocumented in this encounter Care Teams Simonizer Relationship Specialty Start Date End Date Carlos Eduardo Chase PCP - General 09/30/01 documented as of this encounter
--- OUTSIDE RECORDS SUMMARY | 2024-12-17 08:23 | XMS_ITS ---
Author Organization [facility] Address [address] [address] [place] [address] Care Team Providers Care Elementary Vocal Music Teacher Name Role Phone Ronny Mathew Unavailable [phone] MEDICATIONS Medication SIG (Take, Route, Frequency, Duration) Notes Start Date End Date Status Calcitriol 0.25 MCG 1 capsule Orally Onc e a day for 90 day(s) 04/02/2024 12/27/2024 Active Ergocalciferol 1.25 MG (15398 UT) 1 capsule Orally Once a week for 90 day(s) 04/02/2024 12/27/2024 Active Losartan Potassium 25 MG 1 tablet Orally Once a day for 90 day(s) 04/02/2024 Active SOCIAL HISTORY Sex Assigned At : Social History Observation Description Sex Assigned At Female Encounters Encounter Location Date Provider Diagnosis [place] [facility] [address] [facility] [address] [place] [address] 04/02/2024 Ronny Mathew PLAN OF TREATMENT Medication Medication Name Sig Start Date Stop Date Notes Calcitriol 0.25 MCG 1 capsule Orally Onc e a day for 90 day(s) 04/02/2024 12/27/2024 Ergocalciferol 1.25 MG (5000 0 UT) 1 capsule Orally Once a week for 90 day(s) 04/02/2024 12/27/2024 Losartan Potassium 25 MG 1 tablet Orally Once a day for 90 day(s) 04/02/2024 Progress Notes * Clifford CHANDRAAnnamarieB: [birth year] (58 yo F)Acc No.[id number]:04/02/2024 Patient: Monica CHANDRA :1965 Age:58 Y Sex:Female Address:[address] [place] [address] * Refills Start Ergocalciferol Capsule, 1.25 MG (03626 UT), Orally, 13, 1 capsule, Once a week, 90 day(s), Refills=2 Start Losartan Potassium Tablet, 25 MG, Orally, 90 Tablet, 1 tablet, Once a day, 90 day(s), Refills=2 Start Calcitriol Capsule, 0.25 MCG, Orally, 90 Capsule, 1 capsule, Once a day, 90 day(s), Refills=2 * true * Date:
--- OUTSIDE RECORDS SUMMARY | 2024-12-17 08:23 | XMS_ITS | Referral Summary ---
Author Organization [facility] Address [address] [place] [address] Care Team Providers Care Chemistry Physics Teacher Name Role Phone Martín Gusman MD Primary Care Provider [phone] Source Comments [facility],non-owned Affiliates and Associated Physician Practices is amultiple site organization consisting of ambulatory clinics and hospital sitesin [place], [place], [place] and [place]. This disclosure is being madepursuant to the Care Everywhere program and may not contain all information available regarding this patient. Last updated 18.[facility] Encounters Date Type Department Care Team Description 09/20/2024 Transcribe Orders [facility] - Centralized Scheduling [address] [place] [address] Donte Landaverde Type 2 diabetes mellitus with hyperglycemia, unspecified whether usp insulin use (HCC) from Last 3 Months Allergies Active Allergy Reactions Criticality Noted Date Comments Azithromycin Unknown 08/18/2019 Glipizide Nausea and/or Vomiting 08/18/2019 Lisinopril Angioedema High 08/18/2019 Social History Tobacco Use Types Packs/Day Years [...] - - Body Mass Index - - Plan of Treatment Not on file Care Teams Chemistry Physics Teacher Relationship Specialty Start Date End Date Martín Gusman MD [address] [place] [address] PCP - General Internal Medicine 08/18/19
--- OUTSIDE RECORDS SUMMARY | 2024-12-17 08:23 | XMS_ITS | Encounter Summary ---
Author Organization [facility] Address [address] [place] [address] Care Team Providers Care Cab Supervisor Name Role Phone Carlos Eduardo Chase Primary Care Provider Unavailabl e Encounter Details Date Type Department Care Team (Late st Contact Info) Description 02/11/2000 Outpatient Historical [facility] Srinivasa Graham [place] [facility] [place] [address] Er, Authorized P NO ADDRESS ON FILE Other specified noninflammatory disorder of vagina (Primary Dx) Social History Tobacco Use Types Packs/Day Years Used Date Smoking Tobacco: Never Assessed Comments Unknown Sex and Gender Information Value Date Recorded Sex Assigned at Not on file Legal Sex Female 5:17 AM HACKLER DOLL WIGS Gender Identity Not on file Sexual Orientation Not on file documented as of this encounter Plan of Treatment Not on file documented as of this encounter Visit Diagnoses Diagnosis Other specified noninflammatory disorder of vagina- Primary documented in this encounter Care Teams Cab Supervisor Relationship Specialty Start Date End Date Carlos Eduardo Chase PCP - General 09/30/01 documented as of this encounter
--- OUTSIDE RECORDS SUMMARY | 2024-12-17 08:23 | XMS_ITS | Encounter Summary ---
Author Organization [facility] Address [address] [place] [address] Care Team Providers Care Dynamite Shooter Name Role Phone Carlos Eduardo Chase Primary Care Provider Unavailabl e Encounter Details Date Type Department Care Team (Latest Contact Info) Description 02/15/2000 Outpatient Historical [facility] LUCY Turner, Vivian Ball MD NO ADDRESS ON FILE Absence of menstruation (Primary Dx) Social History Tobacco Use Types Packs/Day Years Used Date Smoking Tobacco: Never Assessed Comments Unknown Sex and Gender Information Value Date Recorded Sex Assigned at Not on file Legal Sex Female 5:17 AM STATISTICIAN APPLIED Gender Identity Not on file Sexual Orientation Not on file documented as of this encounter Plan of Treatment Not on file documented as of this encounter Visit Diagnoses Diagnosis Absence of menstruation- Primary documented in this encounter Care Teams Dynamite Shooter Relationship Specialty Start Date End Date Carlos Eduardo Chase PCP - General 09/30/01 documented as of this encounter
--- OUTSIDE RECORDS SUMMARY | 2024-12-17 08:23 | XMS_ITS | Encounter Summary ---
Author Organization [facility] Address [address] [place] [address] Care Team Providers Care Cloth Layer Name Role Phone Carlos Eduardo Chase Primary Care Provider Unavailabl e Encounter Details Date Type Department Care Team (Late st Contact Info) Description 02/11/2000 Outpatient Historical [facility] Deysi Brennan MD NO ADDRESS ON FILE Er, Authorized P NO ADDRESS ON FILE Excessive or frequent menstruation (Primary Dx) Social History Tobacco Use Types Packs/Day Years Used Date Smoking Tobacco: Never Assessed Comments Unknown Sex and Gender Information Value Date Recorded Sex Assigned at Not on file Legal Sex Female 5:17 AM RECOVERY COLLECTOR Gender Identity Not on file Sexual Orientation Not on file documented as of this encounter Plan of Treatment Not on file documented as of this encounter Visit Diagnoses Diagnosis Excessive or frequent menstruation- Primary documented in this encounter Care Teams Cloth Layer Relationship Specialty Start Date End Date Carlos Eduardo Chase PCP - General 09/30/01 documented as of this encounter
--- OUTSIDE RECORDS SUMMARY | 2024-12-17 08:23 | XMS_ITS | Clinical Summary ---
Author Organization [facility] Address [address] [facility] [place] [address] Care Team Providers Care Fitter Welder Name Role Phone Martín Gusman MD Primary Care Provider [phone] Source Comments [facility],non-owned Affiliates and Associated Physician Practices is amultiple site organization consisting of ambulatory clinics and hospital sitesin [place], [place], [place] and [place]. This disclosure is being madepursuant to the Care Everywhere program and may not contain all information available regarding this patient. Last updated 18.[facility] Kuaidi Dache Allergies Active Allergy Reactions Criticality Noted Date Comments Azithromycin Unknown 08/18/2019 Glipizide Nausea and/or Vomiting 08/18/2019 Lisinopril Angioedema High 08/18/2019 Encounters Date Type Department Care Team Description 09/20/2024 Transcribe Orders [facility] - Centralized Scheduling [address] [place] [address] Donte Landaverde Type 2 diabetes mellitus with hyperglycemia, unspecified whether intermediate insulin use (HCC) from Last 3 Months Social History Tobacco Use Types Packs/Day Years [...] Mass Index - - Plan of Treatment Health Maintenance Due Date Last Done Comments COLOGUARD (AGES 45-75) - COL ON CA SCREENING 1965 COLON MONITORING 1965 COLONOSCOPY - COLON CA SCREENING 1965 CT COLONOGRAPHY - COLON CA SCREENING 1965 Colorectal Cancer Screening 1965 FIT - COLON CA SCREENING 1965 FLEX SIG - COLON CA SCREENING 1965 LIPID TESTING 1965 MAMMOGRAM 1965 PAP SMEAR 1965 HIV SCREENING 1980 HEPATITIS C SCREENING 11/05/1983 DTAP/TDAP/TD VACCINES (1 - Tdap) 1984 HEPATITIS B VACCINE (1 of 3 - 19+ 3-dose series) 1984 PNEUMOCOCCAL VACCINE 50+ (1 of 2 - PCV) 1984 PNEUMOCOCCAL VACCINE (1 of 2 - PCV) 1984 ZOSTER VACCINE (1 of 2) 2015 COVID-19 VACCINE (1 - 2023-2 5 season) 2024 INFLUENZA VACCINE (#1) 2024 10/11/2014 DEPRESSION SCREENING 11/10/2024 MEDICARE AWV CALENDAR YEAR 2024 HIB VACCINE Aged Out No longer eligi ble based on patient's age to complete this topic HPV VACCINE Aged Out No longer eligi ble based on patient's age to complete this topic MENINGOCOCCAL (Group B) VACCINE Aged Out No longer eligible based on patient's age to complete this topic MENINGOCOCCAL VACCINE Aged Out No jonas grisel eligible based on patient's age to complete this topic Care Teams Fitter Welder Relationship Specialty Start Date End Date Martín Gusman MD [address] [place] [address] PCP - General Internal Medicine 08/18/19
--- OUTSIDE RECORDS SUMMARY | 2024-12-17 08:23 | XMS_ITS ---
Author Organization [facility] Address [address] [address] [place] [address] Care Team Providers Care Laborer Cement Gun Placing Name Role Phone Quincy Ronny Unavailable [phone] MEDICATIONS Medication SIG (Take, Route, Frequency, Duration) Notes Start Date End Date Status Ergocalciferol 1.25 MG (07132 UT) 1 capsule Orally Once a week [...] W/U Status Risk SNOMED Code Notes Problem Chronic kidney disease, stage 3 unspecified (N18.30) Active confirmed Chronic kidney disease stage 3 (disorder) (399658432) Problem Type 2 diabetes mellitus with hyperglycemia (E11.65) Active confirmed Hyperglycemia d ue to type 2 diabetes mellitus (894047636648211) Problem Renal osteodystrophy (N25.0) Active confirmed Renal osteodystrophy (81925622) Encounters Encounter Location Date Provider Diagnosis [place] [facility] [address] [facility] [address] [place] [address] 06/25/2024 Ronny Mathew Chronic kidney disea se, stage 3 unspecified N18.30 ; Essential (primary) hypertension I10 ; Type 2 diabetes mellitus with hyperglycemia E11.65 ; Renal osteodystrophy N25.0 ; Anxiety disorder, unspecified F41.9 ; Obesity, unspecified E66.9 and Edema, unspecified R60.9 ASSESSMENTS Encounter Date Diagnosis Assessment Notes Treatment [...] - R60.9) PLAN OF TREATMENT No Information Progress Notes * Clifford FELDERaDOB: [birth year] (59 yo F)Acc No.[id number]:06/25/2024 Progress Notes Patient: Monica FELDER Provider: MD SARA, F.A.C.P, F.A.S.N. :1965 Age:58 Y Sex:Female Date:06/25/2024 Address:[address] [place] [address] Subjective: * Chief Complaints: * * Medical History: * Medications: Taking Ergocalciferol 1.25 MG (74709 UT) Capsule 1 capsule Orally Once a week , stop date 12/27/2024, Taking Losartan Potassium 25 MG Tablet 1 tablet Orally Once a day , Taking Calcitriol 0.25 MCG Capsule 1 capsule Orally Once a day , stop date 12/27/2024 Objective: Assessment: * Assessment: 1. Chronic kidney disease, stage 3 unspecified - N18.30 2. Essential (primary) hypertension - I10 3. Type 2 diabetes mellitus with hyperglycemia - E11.65 4. Renal osteodystrophy - N25.0 5. Anxiety disorder, unspecified - F41.9 6. Obesity, unspecified - E66.9 7. Edema, unspecified - R60.9 Plan: * Treatment: * Billing Information: * Visit Code: 41282 Office Visit, Est Pt., Level 4. * Procedure Codes: * EL STAVE INSPECTOR Sign off status: Pending * Provider: MD SARA, F.A.C.P, F.A.S.N. Date: 06/25/2024
--- OUTSIDE RECORDS SUMMARY | 2024-12-17 08:23 | XMS_ITS | Encounter Summary ---
Author Organization [facility] Address [address] [facility] [place] [address] Care Team Providers Care Mold Closer Helper Name Role Phone Martín Gusman MD Primary Care Provider [phone] Reason for Referral * Consultation (Routine) - Closed Specialty Diagnoses / Procedures Referred By Contac t Referred To Contact Endocrinology Diagnoses Type 2 diabetes mellitus with hyperglycemia, unspecified whether moth exterminator insulin use (HCC) Unknown, Provider Lou Sheppard [facility] [address] [place] [address] Referral ID Status Reason Start Date Expiration Date V isits Requested Visits Authorized [id number] Closed Specialty Services Required 09/20/2024 09/20/2025 1 1 VISION REPAIRER Encounter Details Date Type Department Care Team (Latest Contact Info) Description 09/20/2024 Transcribe Orders [facility] - Centralized Scheduling [address] [place] [id number] Donte Landaverde [address] [place] [address] Type 2 diabetes mellitus with hyperglycemia, unspecified whether moth exterminator insulin use (HCC) Social History Tobacco Use Types Packs/Day Years [...] as of this encounter Plan of Treatment Scheduled Referrals Name Type Priority Associated Diagnoses Order Schedule AMB REFERRAL TO ENDOCRINOLOGY Outpatient Referral Routine Type 2 diabetes mellitus with hyperglycemia, unspecified whether assisted insulin use (HCC) 1 Occurrences starting 09/20/2024 until 09/20/2025 documented as of this encounter Visit Diagnoses Diagnosis Type 2 diabetes mellitus with hyperglycemia, unspecified whether moth exterminator insulin use (HCC)- Primary documented in this encounter Care Teams Mold Closer Helper Relationship Specialty Start Date End Date Martín Gusman MD [address] [place] [address] PCP - General Internal Medicine 08/18/19 documented as of this encounter
--- OUTSIDE RECORDS SUMMARY | 2024-12-17 08:23 | XMS_ITS | Encounter Summary ---
[facility] Organization [facility] Address [address] [place] [address] Care Team Providers Care Utilization Supervisor Name Role Phone Carlos Eduardo Chase Primary Care Provider Unavailabl e Encounter Details Date Type Department Care Team (Latest Contact Info) Description 12/08/2000 Outpatient Historical [facility] Conversion, History Sprain of hand, unspecified site (Primary Dx) Social History Tobacco Use Types Packs/Day Years Used Date Smoking Tobacco: Never Assessed Comments Unknown Sex and Gender Information Value Date Recorded Sex Assigned at Not on file Legal Sex Female 5:17 AM PROSTHETIC AIDES TEACHER Gender Identity Not on file Sexual Orientation Not on file documented as of this encounter Plan of Treatment Not on file documented as of this encounter Visit Diagnoses Diagnosis Sprain of hand, unspecified site- Primary documented in this encounter Care Teams Utilization Supervisor Relationship Specialty Start Date End Date Carlos Eduardo Chase PCP - General 09/30/01 documented as of this encounter
--- OUTSIDE RECORDS SUMMARY | 2024-12-17 08:23 | XMS_ITS ---
Author Organization [facility] Address [address] [place] [address] Care Team Providers Care Linux Engineer Name Role Phone Ronny Mathew Unavailable [phone] SOCIAL HISTORY Sex Assigned At : Social History Observation Description Sex Assigned At Female Encounters Encounter Location Date Provider Diagnosis [facility] [address] [facility] [address] [place] [address] 08/27/2024 Ronny Mathew PLAN OF TREATMENT No Information Progress Notes * José Miguel FELDERB: 965 (59 yo F)Acc No.[id number]:08/27/2024 Progress Notes Patient: Monica FELDER Provider: MD SARA, Ulysses.Marko.C.P, F.A.S.N. :1965 Age:58 Y Sex:Female Date:08/27/2024 Address:[address] [place] [address] Subjective: * Chief Complaints: * * Medical History: Objective: Assessment: Plan: * Treatment: * Billing Information: * Visit Code: * Procedure Codes: * EE SHOP MANAGER Sign off status: Pending * Provider: MD SARA, F.Marko.C.P, F.A.S.N. Date: 08/27/2024
--- OUTSIDE RECORDS SUMMARY | 2024-12-17 08:24 | XMS_ITS | Continuity of Care Document ---
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 [address] [place] [address] , [address], [place], [address], [place]. tel:[phone] [facility], [address] [place] [address] [address], [place], [place], [id number], [place] tel:[phone] [facility] No Information 0 [facility] . [address], [address], [place], [place], [id number], [place]. tel:[phone] Referring Provider: Rosalino Zhu, [address] [place] [address] [address], [place], [address]. tel:[phone] sulting Provider: Madeline Remy, [address] [place], [address]. tel:[phone] Family History Family Member Type Diagnosis Age At Onset No Information Payers Payer name Insurance type Covered alliance party ID Authoriza tion(s) No Information Social History Type Description Quantity Date Captured Comments Sex Female Smoking Status No Information Chief Complaint And Reason For Visit No Information Reason For Referral Reason For Referral No Information History Of Present Illness Encounter Date Complaint History Of Prese nt Illness No Information Functional Status Date Functional Assessmen t No Information Instructions Date Instruction Additional Infor mation No Information Assessments Type Assessment Date No Information Patient Care Teams Name Effective Dates (start - stop) Status Members No Information
--- OUTSIDE RECORDS SUMMARY | 2024-12-17 08:24 | XMS_ITS | Data Portability ---
Author Organization [facility] Address [address] [place] [address] Care Team Providers Care Surgical Services Manager Name Role Phone MARTÍN ESPARZA Primary Care Provider [phone] Assessment No assessment recorded. Plan of Treatment Reminders Order Date Submit Date Provider Last Modified By Organization Details Last Modified Time Details Appointments ANY 30 2024 01:30P M JERROD BARLOW PA-C Not available Not available Not available Lab HbA1c (hemoglo bin A1c), blood 2022 023 [facility] In-Office Order, Internal Use Only DO Not Attach Compendium DO Not Attach Compendium, Do Not Delete/merge, [id number] 03/03/2023 17:39:59 HbA1c (hemoglo bin A1c), blood 2023 024 [facility] In-Office Order, Internal Use Only DO Not Attach Compendium DO Not Attach Compendium, Do Not Delete/merge, [id number] 11/18/2023 18:25:14 HbA1c (hemoglo bin A1c), blood 2023 024 [email or web address] In-Office Order, Internal Use Only DO Not Attach Compendium DO Not Attach Compendium, Do Not Delete/merge, [id number] 02/17/2024 15:08:49 albumin/ creatini ne, mass ratio, urine 2023 024 [facility], [address] [place] [address], [address], [place], [address], 02/18/2024 11:14:25 CMP, serum or plasma 2023 024 [facility], [address], [address], [place], [address], 02/18/2024 11:14:27 TSH + free T4, serum 2023 024 [facility], [place] [address], [address], [place], [address], 02/18/2024 11:14:26 T3, free, serum or plasma 2023 024 [facility], [address], [address], [place], [address], 02/18/2024 11:14:28 lipid panel, serum 2023 024 [facility], [address], [address], [place], [address], 02/18/2024 11:14:26 HbA1c (hemoglo bin A1c), blood 2023 024 In-Office Order, Internal Use Only DO Not Attach Compendium DO Not Attach Compendium, Do Not Delete/merge, [id number] 08/03/2024 15:51:23 HbA1c (hemoglo bin A1c), blood 2024 025 In-Office Order, Internal Use Only DO Not Attach Compendium DO Not Attach Compendium, Do Not Delete/merge, [id number] 12/06/2024 15:21:06 CBC w/ auto diff 2024 025 [facility], [address], [address], [place], [address], 12/06/2024 15:21:24 iron + total iron-bin ding capacity (TIBC), serum 2024 025 [facility], [place] [address], [address], [place], [address], 12/06/2024 15:21:25 cobalami n and folate panel, serum 2024 025 [facility], [address], [address], [place], [address], 12/06/2024 15:21:23 ferritin , serum or plasma 2024 025 [facility], [address], [address], [place], [address], 12/06/2024 15:21:24 albumin/ creatini ne, mass ratio, urine 2024 025 [facility], [address], [address], [place], [address], 12/06/2024 15:21:24 TSH + free T4, serum 2024 025 [facility], [address], [address], [place], [address], 12/06/2024 15:21:23 T3, free, serum or plasma 2024 025 [facility], [address] [facility], [address], [place], [address], 12/06/2024 15:21:[address] referral - Please call patient for appointm ent, thanks! EGD 2023 024 [facility] Hamlin MD, [address], [address], [place], [address], 10/06/2024 10:27:[address] referral - Please call patient for appointm ent, ]thanks! 2023 024 [email or web address] Mallory MD, [address], [address], [place], [address], 06/21/2024 17:01:37 Procedures None recorded . Surgeries None recorded . Imaging MAMMO, screenin g, bilatera l 2023 024 [facility] ([facility]), [address] [place], [address], 01/05/2024 08:45:29 Medication Orders amoxicil liset 500 mg-potas sium clavulan ate 125 mg tablet 2022 023 [facility], [address] [place] [address], [id number], 11/18/2023 17:57:31 Ozempic 0.25 mg or 0.5 mg (2 mg/1.5 mL) subcutan eous pen injector 2022 023 [facility], [address] [place] [address], [id number], 03/25/2023 10:11:21 furosemi de 20 mg tablet 2022 023 [facility], [address] [place] [address], [id number], 07/03/2023 12:09:50 glimepir valerio 4 mg tablet 2023 024 [facility], [address] [place] [address], [id number], 12/22/2023 12:31:05 Januvia 100 mg tablet 2023 024 [facility], [address] [place] [address], [id number], 12/22/2023 12:31:04 Jardianc e 25 mg tablet 2023 024 [facility], [address] [place] [address], [id number], 12/22/2023 12:31:07 Ozempic 0.25 mg or 0.5 mg (2 mg/1.5 mL) subcutan eous pen injector 2023 024 [facility], [address] [place] [address], [id number], 11/20/2023 14:56:53 Victoza 2-Low 0.6 mg/0.1 mL (18 mg/3 mL) subcutan eous pen injector 2023 024 [facility], [address] [place] [address], [id number], 08/03/2024 15:41:36 Levemir FlexPen 100 unit/mL (3 mL) solution subcutan eous insulin pen [address] [facility], [address] [place] [address], [id number], 09/13/2024 14:34:05 atorvast atin 40 mg tablet 2023 024 [facility], [address] [place] [address], [id number], 12/22/2023 12:31:08 amlodipi ne 5 mg tablet 2023 024 [facility], [address] [place] [address], [id number], 12/22/2023 12:31:06 levothyr oxine 150 mcg tablet 2023 024 [facility], [address] [place] [address], [id number], 12/22/2023 12:31:06 furosemi de 20 mg tablet 2023 024 [facility], [address] [place] [address], [id number], 12/22/2023 12:31:02 glimepir valerio 4 mg tablet 2023 024 [facility], [address] [place] [address], [id number], 08/06/2024 13:10:59 Januvia 100 mg tablet 2023 024 [facility], [address] [place] [address], [id number], 08/06/2024 13:11:02 Jardianc e 25 mg tablet 2023 024 [facility], [address] [place] [address], [id number], 08/06/2024 13:11:03 amlodipi ne 5 mg tablet 2023 024 [facility], [address] [place] [address], [id number], 08/06/2024 13:11:01 levothyr oxine 150 mcg tablet 2023 024 [facility], [address] [place] [address], [id number], 08/06/2024 13:11:00 atorvast atin 40 mg tablet 2023 024 [facility], [address] [place] [address], [id number], 08/06/2024 13:11:01 glimepir valerio 4 mg tablet 2023 024 [facility], [address] [place] [address], [id number], 11/05/2024 15:38:34 Januvia 100 mg tablet 2023 024 [facility], [address] [place] [address], [id number], 11/05/2024 15:38:33 Jardianc e 25 mg tablet 2023 024 [facility], [address] [place] [address], [id number], 11/05/2024 15:38:32 Ozempic 0.25 mg or 0.5 mg (2 mg/1.5 mL) subcutan eous pen injector 2023 024 [facility], [address] [place] [address], [id number], 08/06/2024 13:11:00 Ozempic 1 mg/dose (4 mg/3 mL) subcutan eous pen injector 2023 024 [facility], [address] [place] [address], [id number], 12/01/2024 16:33:47 atorvast atin 40 mg tablet 2023 024 [facility], [address] [place] [address], [id number], 11/05/2024 15:38:33 amlodipi ne 5 mg tablet 2023 024 [facility], [address] [place] [address], [id number], 11/05/2024 15:38:35 levothyr oxine 150 mcg tablet 2023 024 [facility], [address] [place] [address], [id number], 11/05/2024 15:38:32 furosemi de 20 mg tablet 2023 024 [facility], [address] [place] [address], [id number], 11/05/2024 15:38:34 glimepir valerio 4 mg tablet 2024 025 [facility], [address] [place] [address], [id number], 12/06/2024 17:09:37 Januvia 100 mg tablet 2024 025 [facility], [address] [place] [address], [id number], 12/06/2024 17:09:36 Jardianc e 25 mg tablet 2024 025 [facility], [address] [place] [address], [id number], 12/06/2024 17:09:36 Ozempic 2 mg/dose (8 mg/3 mL) subcutan eous pen injector 2024 [facility], [address] [place] [address], [id number], 12/06/2024 17:19:39 atorvast atin 40 mg tablet 2024 025 [facility], [address] [place] [address], [id number], 12/06/2024 17:09:37 amlodipi ne 5 mg tablet 2024 025 [facility], [address] [place] [address], [id number], 12/06/2024 17:09:38 levothyr oxine 150 mcg tablet 2024 025 [facility], [address] [place] [address], [id number], 12/06/2024 17:09:35 furosemi de 20 mg tablet 2024 025 [facility], [address] [place] [address], [id number], 12/06/2024 17:09:38 Patient TargetsNo targets recorded. Patient Instructions Encounter Date Encounter Id Patient Instructions Last Modified By Organization Details Last Modified Time 03/03/2023 [id number] learning about type 2 diabetes jhsieh Not available 03/03/2023 17:39:59 type 2 diabetes: care instructions jhsieh Not available 03/03/2023 17:39:59 tetanus and diphtheria booster: care instructions sieh Not available 03/03/2023 17:39:59 11/18/2023 [id number] mammogram: about this test si Not available 11/18/2023 17:44:27 type 2 diabetes: care instructions jhsieh Not available 11/18/2023 18:25:09 02/17/2024 [id number] learning about type 2 diabetes [email or web address] Not available 02/17/2024 15:08:46 type 2 diabetes: care instructions [email or web address] Not available 02/17/2024 15:08:46 body mass index: care instructions [email or web address] Not available 02/17/2024 15:08:46 learning about healthy weight [email or web address] Not available 02/17/2024 15:08:46 08/03/2024 [id number] influenza (flu) vaccine: care instructions [email or web address] Not available 08/03/2024 15:51:19 learning about type 2 diabetes [email or web address] Not available 08/03/2024 15:51:19 type 2 diabetes: care instructions Not available 08/03/2024 15:51:19 albumin-creatini n e ratio: about this test [email or web address] Not available 08/03/2024 15:51:19 body mass index: care instructions [email or web address] Not available 08/03/2024 15:51:19 learning about healthy weight [email or web address] Not available 08/03/2024 15:51:19 12/06/2024 [id number] learning about type 2 diabetes [email or web address] Not available 12/06/2024 15:21:06 type 2 diabetes: care instructions [email or web address] Not available 12/06/2024 15:21:07 A healthy lifestyle: care instructions [email or web address] Not available 12/06/2024 15:21:07 albumin-creatini n e ratio: about this test Not available 12/06/2024 15:21:07 Reason for Referral Cap Sewer Referral for Adenomatous polyp of colon Please call patient for appointment, ]thanks! Referring Physician: Martín Esparza, Internal Medicine, Encounter Date: 11/18/2023 Cap Sewer Referral for Chronic abdominal pain Please call patient for appointment, thanks! EGD Referring Physician: Martín Esparza, Internal Medicine, Encounter Date: 11/18/2023 Results Created Date Observation Date Name Description Value Unit Range Abnormal Flag Note LastModifiedBy Organization Detail LastModifiedTime 03/03/20 23 03/03/2023 HbA1c (hemo globi n A1c), blood HbA1c 10.0% Not Available In-Office Order Internal Use Only DO Not Attach Compendium DO Not Attach Compendium, Do Not Delete/merge, [id number] 03/03/2023 17:15:50 11/18/19 24 11/18/2023 HbA1c (hemo globi n A1c), blood HbA1c 10.8 Not Available In-Office Order Internal Use Only DO Not Attach Compendium DO Not Attach Compendium, Do Not Delete/merge, [id number] 11/18/2023 17:45:17 02/17/20 24 02/18/2024 ALBUM IN/CR EATIN INE RATIO ,URIN E creatinine, urine 52.7 mg/dL notest ab. Not Available [facility] ([facility]) [address] [facility], [place], [address], 02/18/2024 11:14:25 02/17/20 24 02/18/2024 ALBUM IN/CR EATIN INE RATIO ,URIN E albumin, urine 631.6 ug/mL notest ab. Resul ts confi rmed on dilut ion. Not Available [facility] ([facility]) [address] [facility], [place], [address], 02/18/2024 11:14:25 02/17/20 24 02/18/2024 ALBUM IN/CR EATIN INE RATIO ,URIN E alb/creat ratio 1198 mg/g_ creat 0-29 above high normal Maria Del Rosario l: 0 - 29 Moder ately incre ased: 30 - 300 Sever tee incre ased: >300 Not Available [facility] ([facility]) [address] [facility], [place], [address], 02/18/2024 11:14:25 02/17/20 24 02/18/2024 TSH+F REE T4 TSH 5.130 uIU/m L 0.450- 4.500 above high normal Not Available [facility] ([facility]) [address] [place], [address], 02/18/2024 11:14:25 02/17/20 24 02/18/2024 TSH+F REE T4 T4,free(dire ct) 1.20 NG/dL 0.82-1 .77 Not Available [facility] ([facility]) [address] [place], [address], 02/18/2024 11:14:25 02/17/20 24 02/18/2024 LIPID PANEL cholesterol, total 209 mg/dL 100-19 9 above high normal Not Available [facility] ([facility]) [address] [place], [address], 02/18/2024 11:14:26 02/17/20 24 02/18/2024 LIPID PANEL triglyceride s 189 mg/dL 0-149 above high normal Not Available [facility] ([facility]) [address] [place], [address], 02/18/2024 11:14:26 02/17/20 24 02/18/2024 LIPID PANEL HDL cholesterol 35 mg/dL >39 below low normal Not Available [facility] ([facility]) [address] [place], [address], 02/18/2024 11:14:26 02/17/20 24 02/18/2024 LIPID PANEL VLDL cholesterol maurisio 34 mg/dL 5-40 Not Available [facility] ([facility]) [address] [place], [address], 02/18/2024 11:14:26 02/17/20 24 02/18/2024 LIPID PANEL LDL chol calc ([facility]) 140 mg/dL 0-99 above high normal Not Available [facility] ([facility]) [address] [facility] [place], [address], 02/18/2024 11:14:26 02/17/20 24 02/18/2024 COMP. METAB OLIC PANEL (14) glucose 212 mg/dL 70-99 above high normal Not Available [facility] ([facility]) [address] [facility] [place], [address], 02/18/2024 11:14:27 02/17/20 24 02/18/2024 COMP. METAB OLIC PANEL (14) BUN 27 mg/dL 6-24 above high normal Not Available [facility] ([facility]) [address] [facility] [place], [address], 02/18/2024 11:14:27 02/17/20 24 02/18/2024 COMP. METAB OLIC PANEL (14) creatinine 1.01 mg/dL 0.57-1 .00 above high normal Not Available [facility] ([facility]) [address] [facility] [place], [address], 02/18/2024 11:14:27 02/17/20 24 02/18/2024 COMP. METAB OLIC PANEL (14) eGFR 65 mL/mi n/1.7 3 >59 Not Available [facility] ([facility]) [address] [facility] [place], [address], 02/18/2024 11:14:27 02/17/20 24 02/18/2024 COMP. METAB OLIC PANEL (14) BUN/creatini ne ratio 27 9-23 above high normal Not Available [facility] ([facility]) [address] [place] [place], [address], 02/18/2024 11:14:27 02/17/20 24 02/18/2024 COMP. METAB OLIC PANEL (14) sodium 141 mmol/ L 134-14 4 Not Available [facility] ([facility]) [address] [place] [place], [address], 02/18/2024 11:14:27 02/17/20 24 02/18/2024 COMP. METAB OLIC PANEL (14) potassium 4.8 mmol/ L 3.5-5. 2 Not Available [facility] ([facility]) [address] [facility], [place], [address], 02/18/2024 11:14:27 02/17/20 24 02/18/2024 COMP. METAB OLIC PANEL (14) chloride 100 mmol/ L 96-106 Not Available [facility] ([facility]) [address] [place], [address], 02/18/2024 11:14:27 02/17/20 24 02/18/2024 COMP. METAB OLIC PANEL (14) carbon dioxide, total 24 mmol/ L 20-29 Not Available [facility] ([facility]) [address] [place] [place], [address], 02/18/2024 11:14:27 02/17/20 24 02/18/2024 COMP. METAB OLIC PANEL (14) calcium 9.7 mg/dL 8.7-10 .2 Not Available [facility] ([facility]) [address] [facility], [place], [address], 02/18/2024 11:14:27 02/17/20 24 02/18/2024 COMP. METAB OLIC PANEL (14) protein, total 6.7 g/dL 6.0-8. 5 Not Available [facility] ([facility]) [address] [place] [place], [address], 02/18/2024 11:14:27 02/17/20 24 02/18/2024 COMP. METAB OLIC PANEL (14) albumin 3.9 g/dL 3.8-4. 9 Not Available [facility] ([facility]) [address] [place], [address], 02/18/2024 11:14:27 02/17/20 24 02/18/2024 COMP. METAB OLIC PANEL (14) globulin, total 2.8 g/dL 1.5-4. 5 Not Available [facility] ([facility]) [address] [place], [address], 02/18/2024 11:14:27 02/17/20 24 02/18/2024 COMP. METAB OLIC PANEL (14) A/G ratio 1.4 1.2-2. 2 Not Available [facility] ([facility]) [address] [facility], [place], [address], 02/18/2024 11:14:27 02/17/20 24 02/18/2024 COMP. METAB OLIC PANEL (14) bilirubin, total 0.6 mg/dL 0.0-1. 2 Not Available [facility] ([facility]) [address] [place], [address], 02/18/2024 11:14:27 02/17/20 24 02/18/2024 COMP. METAB OLIC PANEL (14) alkaline phosphatase 106 IU/L 44-121 Not Available [facility] ([facility]) [address] [place], [address], 02/18/2024 11:14:27 02/17/20 24 02/18/2024 COMP. METAB OLIC PANEL (14) AST (SGOT) 16 IU/L 0-40 Not Available [facility] ([facility]) [address] [place], [address], 02/18/2024 11:14:27 02/17/20 24 02/18/2024 COMP. METAB OLIC PANEL (14) ALT (SGPT) 21 IU/L 0-32 Not Available [facility] ([facility]) [address] [place], [address], 02/18/2024 11:14:27 02/17/20 24 02/18/2024 TRIIO DOTHY ROCK E (T3), FREE triiodothyro nine (T3), free 2.3 pg/mL 2.0-4. 4 Not Available [facility] ([facility]) [address] [facility], [place], [address], 02/18/2024 11:14:28 02/17/20 24 02/17/2024 HbA1c (hemo globi n A1c), blood HbA1c 9.7% Not Available In-Office Order Internal Use Only DO Not Attach Compendium DO Not Attach Compendium, Do Not Delete/merge, [id number] 02/17/2024 14:18:26 08/03/20 24 08/03/2024 HbA1c (hemo globi n A1c), blood HbA1c 10.6 Not Available In-Office Order Internal Use Only DO Not Attach Compendium DO Not Attach Compendium, Do Not Delete/merge, [id number] 08/03/2024 15:26:16 12/06/19 25 12/06/2024 HbA1c (hemo globi n A1c), blood HbA1c 11.1 Not Available In-Office Order Internal Use Only DO Not Attach Compendium DO Not Attach Compendium, Do Not Delete/merge, [id number] 12/06/2024 14:53:20 01/05/20 24 01/02/2024 MAMMO , scree maureen, bilat eral No observ ation record ed. [facility] [address] [place], [address], 01/05/2024 10:47:21 03/24/20 24 03/24/2024 US, renal No observ ation record ed. [address] [place], [address], 03/30/2024 08:29:54 04/29/20 24 04/29/2024 alfa cuevas study No observ ation record ed. [address] [facility] [address], [place], [address], 05/11/2024 14:05:08 Result Notes None recorded. Problems Name Problem SNOMED Code Status Onset Date Resolution Date Notes Provider Name and Address Organization Details Recorded Time Acute folliculi tis 042705468 Completed 201703/03/2020 ARTIE DUFF Attn: Accounting ,[address] [place], [address] , [facility] 0 09:19:10 Type 2 diabetes mellitus 54421883 Active 2017 JERROD BARLOW PA-C Attn: Accounting ,[address] [place], [address] , [facility] 4 15:52:38 Hypothyro idism 28975999 Active 2017 JERROD BARLOW PA-C Attn: Accounting ,[address] [place], [address] , [facility] 4 15:51:49 Essential hypertens ion 12224386 Active 2017 JERROD BARLOW PA-C Attn: Accounting ,[address] [place], [address] , [facility] 4 14:50:34 History of angioedem a 16680022528 08 Active 2017 Not Available [facility] 3 21:30:28 Adult health examinati on Active 2017 Not Available [facility] 3 21:30:28 Hyperlipi demia 90390027 Active 2017 JERROD BARLOW PA-C Attn: Accounting ,[address] [place], [address] , [facility] 4 15:51:46 Insomnia 884025475 Active 2017 Not Available [facility] 3 21:30:27 Neuropath y 427039089 Active 2017 Not Available [facility] 3 21:30:28 Spasm of back muscles 408352547 Active 2017 Not Available [facility] 3 21:30:27 Hammer toe 613861451 Active 2018 Not Available [facility] 3 21:30:27 Contact dermatiti s 60843683 Active 2018 Not Available [facility] 3 21:30:28 Microalbu minuria 956838783 Active 2019 Not Available [facility] 3 21:30:28 Uncontrol led type 2 diabetes mellitus 811727345 Active 2023 JERROD BARLOW PA-C Attn: Accounting ,[address] [facility], [place], [address] , [facility] 4 15:33:10 Notes:Some problems listed i n Document: #[id number] could not be added to this patient's chart. Please review this document and add these problems to the patient's chart manually as needed. Problem Notes None recorded. Procedures Surgical History Date Name Laterality Status Provider Name and Address Organization Details Recorded Time 02/09/20 20 amputation of toe completed Kath Tuttle [facility] 03/03/2023 17:00:13 01/09/20 20 amputation of toe completed Kath Tuttle [facility] 03/03/2023 16:59:57 11/10/19 20 amputation of toe completed Kath Tuttle [facility] 03/03/2023 16:59:30 10/10/20 19 amputation of toe completed Kath Tuttle [facility] 03/03/2023 16:59:14 11/10/18 83 Dilation and Curettage completed Usha Beckwith [facility] 08/26/2018 11:02:35 11/10/18 72 Tonsillectomy completed Usha Beckwith MA [facility] 08/26/2018 11:01:36 Imaging Results Imaging Date Name Status LastModified by Organiz ation Details LastModified Time 01/02/2024 MAMMO, screening, bilateral completed [email or web address] [address] [place], [address], 01/05/2024 10:47:21 03/24/2024 US, renal completed [email or web address] [place] [address] [address] [place], [address], 03/30/2024 08:29:54 04/29/2024 barium swallow study completed [address], [place], [address], 05/11/2024 14:05:08 Procedure Notes None recorded. Medical Equipment None Reported. Allergies Allergen ID Allergen Name Allergen Category Reaction Reaction Severity Criticality Documentation Date Start Date Code Code System Note Provider Name and Address Organization Details Recorded Time 628652 erythromy norbert medicatio n Not available Not available Not available 08/26/2018 4053 RxNorm Other react ions and sever ities : 'Adve rse react ion to subst ance' . Not Available Not Available Not Available 622683 lisinopri l medicatio n Not available Not available Not available 08/26/2018 93768 RxNorm Other react ions and sever ities : 'Adve rse react ion to subst ance - Sever e'. Not Available Not Available Not Available 925176 metformin medicatio n Not available Not available Not available 08/26/2018 6809 RxNorm Other react ions and sever ities : 'Drug -conrad destiney nause a and vomit ing - Sever e', and 'Adve rse react ion to subst ance' . Not Available Not Available Not Available 530439 thimerosa l medicatio n Not available Not available Not available 08/26/2018 92439 RxNorm Other react ions and sever ities : 'Adve rse react ion to subst ance' . Not Available Not Available Not Available Medications Name Sig Start Date Stop Date Status Note LastModified by Organization Details LastModified Time cyclobenzap rine 10 mg tablet TAKE ONE TABLET BY MOUTH AT BEDTIME NEEDED FOR MUSCLE SPASMS 03/03 completed Not Available Not Available Not Available atorvastati n 40 mg tablet Take 1 tablet every day by oral route at bedtime for 301 days, for Cholester ol. 2024 active Not Available Not Available Not Avai lable silver sulfadiazin e 1 % topical cream 12/20 completed Not Available Not Available Not Available levothyroxi ne 137 mcg tablet TAKE 1 TABLET(S) EVERY DAY BY ORAL ROUTE IN THE MORNING FOR THYROID 03/08 completed Not Available Not Available Not Available gabapentin 600 mg tablet Take 1 tablet 3 times a day by oral route as directed for 30 days. 03/03 completed Not Available Not Available Not Available piperacilli n-tazobacta m 40.5 gram intravenous solution 02/05 completed Not Available Not Available Not Available atorvastati n 20 mg tablet Take 1 tablet every day by oral route at dinner for 30 days. 03/03 completed Not Available Not Available Not Available clindamycin HCl 300 mg capsule Take 1 capsule every 6 hours by oral route after meals for 10 days. 03/03 completed Not Available Not Available Not Available Normal Saline Flush 0.9 % injection syringe 02/05 completed Not Available Not Available Not Available triamcinolo ne acetonide 0.5 % topical cream APPLY TO THE AFFECTED AREA(S) ON SKIN every 6-8 hours NEEDED UP TO FOUR TIMES DAILY FOR itching/i rritation 06/06 completed Not Available Not Available Not Available pravastatin 40 mg tablet TAKE 1 TABLET(S) EVERY DAY BY ORAL ROUTE WITH MEALS TO LOWER CHOLESTER OL 03/08 completed Not Available Not Available Not Available benzonatate 200 mg capsule Take 1 capsule 3 times a day by oral route as needed for 10 days. 12/20 completed Not Available Not Available Not Available hydrocodone 5 mg-acetamin ophen 325 mg tablet 08/30 completed Not Available Not Available Not Available prednisone 20 mg tablet Take 2 tablets twice a day by oral route for 2 days. 03/03 completed Not Available Not Available Not Available Lantus U-100 Insulin 100 unit/mL subcutaneou s solution Inject 30 units every day by subcutane ous route at bedtime for 30 days. 11/08 completed Not Available Not Available Not Available Accu-Chek Softclix Lancets 03/03 completed Not Available Not Available Not Available amlodipine 5 mg tablet Take 1 tablet every day by oral route for 30 days, for blood pressure. 2024 active Not Available Not Available Not Avai lable allopurinol 100 mg tablet TAKE ONE TABLET BY MOUTH EVERY MORNING FOR GOUT active Not Available Not Available No t Available sulfamethox azole 800 mg-trimetho prim 160 mg tablet Take 1 tablet every 12 hours by oral route for 10 days. 03/03 completed Not Available Not Available Not Available acyclovir 800 mg tablet Take 1 tablet 5 times a day by oral route as directed for 10 days. 03/03 completed Not Available Not Available Not Available prednisolon e acetate 1 % eye drops,suspe nsion 06/06 completed Not Available Not Available Not Available cephalexin 500 mg capsule 02/05 completed Not Available Not Available Not Available piperacilli n-tazobacta m 4.5 gram intravenous solution 02/05 completed Not Available Not Available Not Available diphenhydra mine 25 mg capsule Take 1 capsule twice a day by oral route as needed for 30 days. 03/03 completed Not Available Not Available Not Available levothyroxi ne 125 mcg tablet Take 1 tablet every day by oral route in the morning for 30 days. 03/03 completed Not Available Not Available Not Available glimepiride 4 mg tablet Take 1 tablet twice a day by oral route before meal(s) for 30 days, for diabetes. 2024 active Not Available Not Available Not Avai lable levothyroxi ne 150 mcg tablet Take 1 tablet every day by oral route for 30 days, for thyroid. 2024 active Not Available Not Available Not Avai lable losartan 25 mg tablet TAKE ONE TABLET BY MOUTH EVERY DAY FOR BLOOD PRESSURE active Not Available Not Available No t Available alcohol swabs USE TO CLEAN THE INJECTION SITE OF INSULIN AND WHEN CHECKING BLOOD SUGAR active Not Available Not Available No t Available furosemide 20 mg tablet Take 1 tablet every day by oral route as needed for 30 days. 2024 active Not Available Not Available Not Avai lable gabapentin 100 mg capsule TAKE 1 CAPSULE 3 TIMES A DAY BY ORAL ROUTE DIRECTED FOR 30 DAYS. 03/03 completed Not Available Not Available Not Available ergocalcife rol (vitamin D2) 1,250 mcg (50,000 unit) capsule TAKE ONE CAPSULE BY MOUTH EVERY WEEK FOR VITAMIN DEFICIANC Y active Not Available Not Available No t Available epinephrine 0.3 mg/0.3 mL injection, auto-inject or TAKE 1 AUTO NEEDED BY INJECTION ROUTE FOR 1 DAY. active Not Available Not Available No t Available levofloxaci n 750 mg tablet TAKE 1 TABLET EVERY DAY BY ORAL ROUTE AFTER MEALS FOR 7 DAYS. 03/03 completed Not Available Not Available Not Available calcitriol 0.25 mcg capsule TAKE ONE CAPSULE BY MOUTH EVERY DAY active Not Available Not Available No t Available metoclopram valerio 10 mg tablet TAKE ONE TABLET BY MOUTH THREE TIMES DAILY, MORNING, MIDDAY & IN THE EVENING active Not Available Not Available No t Available amoxicillin 500 mg-potassiu m clavulanate 125 mg tablet TAKE ONE TABLET EVERY TWELVE HOURS BY MOUTH WITH MEALS FOR 7 DAYS 11/18 completed Not Available Not Available Not Available omega-3 acid ethyl esters 1 gram capsule 02/05 completed Not Available Not Available Not Available Lyrica 50 mg capsule Take 1 capsule every day by oral route at bedtime for 7 days. 03/03 completed Not Available Not Available Not Available Lyrica 150 mg capsule Take 1 capsule twice a day by oral route for 30 days. 03/03 completed Not Available Not Available Not Available Levemir FlexPen 100 unit/mL (3 mL) solution subcutaneou s insulin pen INJECT 10 UNITS UNDER THE SKIN EVERY MORNING AND 40 UNITS AT BEDTIME FOR DIABETES 09/13 completed Not Available Not Available Not Available heparin, porcine (PF) 10 unit/mL intravenous syringe 02/05 completed Not Available Not Available Not Available Fish Oil 300 mg-1,000 mg capsule Take 1 capsule twice a day by oral route with meals for 30 days. 02/05 completed Not Available Not Available Not Available Januvia 100 mg tablet Take 1 tablet every day by oral route for 30 days, for diabetes. 2024 active Not Available Not Available Not Avai lable Lantus Solostar U-100 Insulin 100 unit/mL (3 mL) subcutaneou s pen INJECT 10 UNITS SUBCUTANE OUSLY EVERY MORNING AND 40 UNITS EVERY NIGHT AT BEDTIME FOR DIABETES active Not Available Not Available No t Available sodium,pota ssium,mag sulfates 17.5 gram-3.13 gram-1.6 gram oral soln DIRECTED active Not Available Not Available No t Available OneTouch Verio test strips USE TO CHECK BLOOD SUGAR THREE TIMES DAILY active Not Available Not Available No t Available Linzess 145 mcg capsule TAKE ONE CAPSULE BY MOUTH EVERY DAY active Not Available Not Available No t Available Victoza 2-Low 0.6 mg/0.1 mL (18 mg/3 mL) subcutaneou s pen injector INJECT 0.3 MG UNDER THE SKIN EVERY DAY 08/03 completed Not Available Not Available Not Available Nesina 25 mg tablet 02/16 completed Not Available Not Available Not Available Jardiance 25 mg tablet Take 1 tablet every day by oral route for 30 days, for diabetes. 2024 active Not Available Not Available Not Avai lable OneTouch Verio Flex Meter USE DIRECTED active Not Available Not Available No t Available TRUEplus Pen Needle 31 gauge x 3/16 USE DIRECTED active Not Available Not Available No t Available Linzess 72 mcg capsule TAKE ONE CAPSULE DAILY active Not Available Not Available No t Available Ozempic 0.25 mg or 0.5 mg (2 mg/1.5 mL) subcutaneou s pen injector Inject 0.5 mg every week by subcutane ous route for 30 days, for diabetes. 2023 active Not Available Not Available Not Avai lable OneTouch Delica Plus Lancet 33 gauge USE TO CHECK BLOOD SUGAR FOUR TIMES DAILY active Not Available Not Available No t Available OneTouch Delica Plus Lancet 30 gauge USE TO CHECK BLOOD SUGAR FOUR TIMES DAILY active Not Available Not Available No t Available Ozempic 1 mg/dose (4 mg/3 mL) subcutaneou s pen injector INJECT 1mg UNDER THE SKIN EVERY WEEK FOR DIABETES active Not Available Not Available No t Available Ozempic 2 mg/dose (8 mg/3 mL) subcutaneou s pen injector Inject 2 mg every week by subcutane ous route for 30 days, for diabetes. 2024 active Not Available Not Available Not Avai lable Ozempic 0.25 mg or 0.5 mg (2 mg/3 mL) subcutaneou s pen injector INJECT 0.5MG SUBCUTANE OUSLY EVERY WEEK DIRECTED FOR DIABETES active Not Available Not Available No t Available Vitals Date Recorded Body height Body mass index (BMI) Body weight Oxygen saturation Oxygen saturation in Arterial blood by Pulse oximetry Heart rate Systolic blood pressure Diastolic blood pressure Provider Name and Address Organization Details Last Updated DateTime 3 170.82 cm 39.1 kg/m2 328331. 56 g 96 % 96 % 77 /min 138 mm[Hg] 70 mm[Hg] Kath Tuttle MA [facility] 3 17:05:32 Date Recorded Body height Body mass index (BMI) Body weight Heart rate Oxygen saturation Oxygen saturation in Arterial blood by Pulse oximetry Systolic blood pressure Diastolic blood pressure Provider Name and Address Organization Details Last Updated DateTime 4 170.82 cm 37.6 kg/m2 869079. 35 g 96 /min 96 % 96 % 116 mm[Hg] 76 mm[Hg] Alem Silva MA [facility] 4 17:03:22 Date Recorded Body height Body mass index (BMI) Body weight Oxygen saturation Oxygen saturation in Arterial blood by Pulse oximetry Heart rate Systolic blood pressure Diastolic blood pressure Provider Name and Address Organization Details Last Updated DateTime 4 170.82 cm 37.6 kg/m2 982912. 35 g 95 % 95 % 76 /min 128 mm[Hg] 76 mm[Hg] Kath Tuttle MA [facility] 4 14:12:40 Date Recorded Body height Body mass index (BMI) Body weight Oxygen saturation Oxygen saturation in Arterial blood by Pulse oximetry Heart rate Systolic blood pressure Diastolic blood pressure Provider Name and Address Organization Details Last Updated DateTime 4 170.82 cm 37.7 kg/m2 964550. 51 g 97 % 97 % 79 /min 122 mm[Hg] 68 mm[Hg] Kath Tuttle MA [facility] 4 15:20:46 Date Recorded Body height Body mass index (BMI) Body weight Body temperature Oxygen saturation Oxygen saturation in Arterial blood by Pulse oximetry Heart rate Systolic blood pressure Diastolic blood pressure Provider Name and Address Organization Details Last Updated DateTime 5 170.82 cm 38.8 kg/m2 548555. 73 g 97.9 [degF] 95 % 95 % 77 /min 126 mm[Hg] 64 mm[Hg] Kath Tuttle MA [facility] 5 14:47:12 Social History Question Answer Notes LastModified by Organizat ion Details LastModified Time Tobacco Smoking Status Never Smoker PRISCILA Desai, [facility] 08/26/2018 11:01:13 Do You Have An Advance Directive? No Information not available 11/18/2023 What Is Your Level Of Alcohol Consumption? None Information not available 11/18/2023 Are You Blind Or Do You Have Difficulty Seeing? Yes Wears Glasses Information not available 11/18/2023 What Is Your Level Of Caffeine Consumption? None Information not available 11/18/2023 Are You Currently Employed? No Information not available 11/18/2023 Are You Deaf Or Do You Have Serious Difficulty Hearing? No Information not available 11/18/2023 What Type Of Diet Are You Following? REGULAR Information not available 11/18/2023 What Is The Highest Grade Or Level Of School You Have Completed Or The Highest Degree You Have Received? [id number] Information not available 11/18/2023 What Was The Date Of Your Most Recent Tobacco Screening? 12/06/2024 [email or web address] Information not available 12/06/2024 What Is Your Relationship Status? Single Information not available 11/18/2023 Do You Use Your Seat Belt Or Car Seat Routinely? Yes Information not available 11/18/2023 Do You Feel Stressed (tense, Restless, Nervous, Or Anxious, Or Unable To Sleep At Night)? [id number] Information not available 11/18/2023 Do You Use Any Illicit Or Recreational Drugs? No Information not available 11/18/2023 Sex: Female Functional Status Question Answer Note LastModified by Organization D etails LastModified Time Are you able to care for yourself? Yes Information n ot available 11/18/2023 What is your exercise level? None Information not available 11/18/2023 Mental Status None recorded. Family History Nothing Reported. Medical History Condition Response Coronary Artery Disease N High Blood Pressure Y Atrial Fibrillation N Kidney or Bladder Problems N Thyroid Problems Y GI Problems N Depression Y COPD N Blood Clots N Skin Problems N Anemia N Heart Attack (SC) N Anxiety Disorder N Diabetes Y Muscle, Joint, or Bone Problems Y Seizures/Epilepsy N Acid Reflux (GERD) N Cancer N Stroke N Asthma N Allergies N High Cholesterol Y Hepatitis N Liver Disease Y Headaches Y Heart Failure N Osteoporosis N Gynecological History Statement/Question Response Menses Monthly N Obstetrics History GPAL:G 0 P 0 0 0 0 Immunizations Vaccine Type Date Status Note Provider Nam e and Address Organization Details Recorded Time COVID-19 vaccine, vector-nr, rS-Ad26, PF, 0.5 mL 1 completed Not Available [facility] 10/27/2023 21:30:28 COVID-19 vaccine, vector-nr, rS-Ad26, PF, 0.5 mL 1 completed Not Available [facility] 10/27/2023 21:30:28 Influenza, split virus, quadrivalent, PF 0 completed Not Available [facility] 10/27/2023 21:30:28 Pneumococcal conjugate PCV20, polysaccharide PGP691 conjugate, adjuvant, PF 4 completed PRISCILA Serrano, [place] - [facility] 12/06/2024 14:43:09 Influenza, split virus, quadrivalent, preservative 1 completed Martín Esparza MD Attn: [address] [place], [address], [place] - [facility] 08/30/2021 18:05:17 Tdap 3 completed PRISCILA Serrano, [place] - [facility] 03/04/2023 12:01:30 Influenza, split virus, trivalent, preservative 4 completed JERROD BARLOW PA-C Attn: [address] [place], [address], [place] - [facility] 08/03/2024 17:15:01 Past Encounters Encounter ID Performer Location Encounter Start Date Encounter Closed Date Diagnosis/Indication Diagnosis SNOMED-CT Code Diagnosis ICD10 Code Diagnosis Note [id number] MOISÉS Andres (Adult Med) [address] [place] [address] [id number] 08/26/2018 10:46:47 08/26/2018 11:22:44 Acute folliculitis 851882357 L73.9 Type 2 shari betes mellitus 51572281 E11.42 [id number] MOISÉS Andres (Adult Med) [address] [place] [address] [id number] 10/20/2018 15:39:23 10/21/2018 10:20:17 Type 2 diabetes mellitus 60969337 E11.42 Hyperlipidemia 35292687 E78.5 Insomnia 576344266 G47.0 0 Neuropathy 696981469 G62 .9 Essential hypertension 56259449 I10 Hypothyroidism 58853628 E03.9 [id number] MOISÉS Andres (Adult Med) [address] [place] [address] [id number] 01/20/2019 12:20:18 01/21/2019 11:50:14 Essential hypertension 34835511 I10 Hypothyroidism 25171255 E03.9 Type 2 shari betes mellitus 56037613 E11.42 Accucheck Glucometer Hyperlipidemia 20751308 E78.5 Insomnia 690786350 G47.0 0 Neuropathy 812072241 G62 .9 Hammer toe 934684730 M20 .40 Spasm of back muscles 20 7173496 M62.830 Low back pain 629228199 M54.5 [id number] MD Iwona Wise (Adult Med) [address] [place] [address] [id number] 07/01/2019 14:11:36 07/02/2019 12:15:56 Type 2 diabetes mellitus 21360236 E11.40 Diabetic diet, excercise and lose weight. Has enough medication s refill. She will see a ophthalmol ogit in the near future. Dyslipidem ia due to type 2 diabetes mellitus 2193882907 02 E78.5 Will change to atorvastat in [facility] [place]. She agreed. Diabetic p eripheral neuropathy 927851969 E11.40 lyrica not working, she stopped. Essential hypertension 35889792 I10 Low salt dist. On amlodipine . [id number] ARTIE DUFF (Adult Med) [address] [place] [address] [id number] 03/03/2020 09:13:50 03/06/2020 12:29:50 Essential hypertension 15761756 I10 BP Today: 128/60c/w amlodipine 5 mg Discussed DASH diet Advised 30 minutes of exercise minimum daily Advised tobacco, alcohol, caffeine all increase BP Advised goal for BP is <140/90 Contact office if BP is > 140/90 consistent ly DIscussed consequenc es of HTN including kidney, eye, heart damage, stroke, and even - RTC 6 months for BP check Type 2 shari fred mellitus 46291440 E11.21 Last A1C: 11.1% today in the office Fasting BG range: does not check at home Current Therapy: Taking glimepirid e 4 mg BID, Januvia 100 mg qd, and jardiance 25 mg qd, supposed to be taking 65 units of insulin but has not been taking x many months Statin: pravastati n 40 mg LITA/ARB: Had angioedema with lisinopril Pt was counseled on low carbohydra te diet to better manage diabetes. We went discussed pt's diet at length and I made specific dietary recommenda tions. I also encouraged regular exercise of 30-60 minutes most days of the week. Pt was encouraged to get yearly diabetic eye exams as well. - discussed her diabetes in depth and the severity of the complicati ons that can occur if she does not get her diabetes better controlled - will check labs- will renew medication s- will restart her on insulin, was on 65 units at one time but since she does not check her BS at home, I encouraged her to restart with 30 units and gradually increase Spasm of back muscles 20 7281818 M62.830 C/w cyclobenza rosa daily for back spasms Hypothyroidism 57150222 E03.9 Hx of hypothyroi dismCurren tly taking levothyrox ine 137 mcg- will check levels Hyperlipidemia 31271897 E78.5 - c/w statin therapy Adult heal th examination 922911824 Z00.00 Body mass index 30+ - obesity 720620573 Z68.38 BMI 38.1- Advised decreased portion sizes, good food choices, limited eating out or fast food and eliminate soda and juice from diet. Advised physical activity daily and offered encouragem ent to continue with positive changes made so far. Screening for malignant neoplasm of breast 969056886 Z12.39 No prior mammograms - discussed the importance of breast cancer screenings - Provided patient with mammogram order, she understand s she needs to call and schedule appointmen t Screening for malignant neoplasm of colon 438411923 Z12.11 Due for repeat colonoscop y- encouraged her to f/u with GI once COVID-19 crisis has calmed down Screening for malignant neoplasm of cervix 521045104 Z12.4 It has been many many years since I have completed my last pap smear - encouraged patient to make f/u visit with me or OBGYN for screening [id number] MD Iwona Wise (Adult Med) [address] [place] [address] [id number] 10/17/2020 16:16:22 10/18/2020 14:20:27 Acute respiratory infections 192716493 J22 Discussed with patient, she agreed to try antibiotic s as ordered. [id number] MD Iwona Wise (Adult Med) [address] [place] [address] [id number] 02/05/2021 08:16:20 02/06/2021 11:36:11 Essential hypertension 83848176 I10 Low salt dist. On amlodipine . Hyperlipidemia 64325737 E78.5 Low animal fat diet. and atorvastat in Hypothyroidism 33796579 E03.9 On thyroid hormone. Insomnia 359502210 G47.0 0 On cyclobenza prin. Microalbuminuria 8637746 06 R80.9 On amlodipine . Neuropathy 476226068 G62 .9 Stable. Type 2 shari betes mellitus 81084211 E11.40 Diabetic diet, exercise and lose weight. Has enough medication s refill. She will see a ophthalmol ogit in the near future. Increase levemir to 30 units./day . Amputee 12424125 Z89.9 Toes of right foot. amputated. Under the care of her podiatry. [id number] [facility] [address] [place] [address] [id number] 03/27/2021 15:58:09 03/29/2021 10:14:21 Type 2 diabetes mellitus 63949426 E11.40 Diabetic diet, exercise and lose weight. Has enough medication s refill. She will see a ophthalmol ogist in the near future. Increase levemir to 30 units./day . Wants diabetic shoes. 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 Peripheral arterial occlusive disease 448272213 I73.9 impalpable pulses of dorsalis and posterior tibalis. Will do the arterial dupple. Dyslipidem ia due to type 2 diabetes mellitus 7747388984 02 E78.5 Will change to atorvastat in for marie pathak. She agreed. [id number] Martín Esparza MD [facility] (Adult Med) [address] [place] [address] [id number] 08/30/2021 15:14:41 09/05/2021 13:26:22 Type 2 diabetes mellitus 37262640 E11.40 Diabetic diet, exercise and lose weight. Has enough medication s refill. She will see a ophthalmol ogist in the near future. Increase levemir to 30 units./day . Wants diabetic shoes. Diabetic p eripheral neuropathy 657891870 E11.40 lyrica not working, she stopped. Screening mammography 24 786016 Z12.31 Wants mammogram. Administra tion of influenza vaccine 13499743 Z23 Patient tolerated shot well. Amputee 93629229 Z89.9 Toes of right foot. amputated. Under the care of her podiatry. 4 toes are gone, wound well healed. [id number] Martín Esparza MD [facility] (Adult Med) [address] [place] [address] [id number] 12/20/2021 12:07:13 12/21/2021 11:28:40 Essential hypertension 43895555 I10 Low salt dist. On amlodipine . blood pressure is well controlled . Hyperlipidemia 48634159 E78.5 Low animal fat diet. and atorvastat in Hypothyroidism 75220405 E03.9 On thyroid hormone. Insomnia 549062124 G47.0 0 On cyclobenza prin. Microalbuminuria 4141954 06 R80.9 On amlodipine . Neuropathy 722544410 G62 .9 Stable. Type 2 shari betes mellitus 75652705 E11.40 Diabetic diet, exercise and lose weight. Has enough medication s refill. She will see a ophthalmol ogist in the near future. Increase levemir to 30 units./day . Wants diabetic shoes. History of angioedema 63 53052855 108 Z86.79 Stable. Diabetic p eripheral neuropathy 835944391 E11.40 lyrica not working, she stopped. Renewal of prescription 549062689 Z76.0 Will increase levemir and will renew. Spasm of back muscles 20 0163378 M62.830 Controlled with cyclobenza prim. Unsteady w hen standing 879771141 R26.81 Due to amputee of right foot, first , second , 3rd and 4th toes. [id number] MD Iwona Wise (Adult Med) [address] [place] [address] [id number] 02/28/2022 09:58:08 03/01/2022 13:04:50 Essential hypertension 08504080 I10 Low salt dist. On amlodipine . blood pressure is well controlled . 114/70 mm HG today 02-28-2022 . Hyperlipidemia 33512233 E78.5 Low animal fat diet. and atorvastat in Insomnia 188554695 G47.0 0 On cyclobenza prin. Microalbuminuria 1577540 06 R80.9 On amlodipine . Neuropathy 951342366 G62 .9 Stable. Type 2 shari betes mellitus 75849031 E11.40 Diabetic diet, exercise and lose weight. Has enough medication s refill. She will see a ophthalmol ogist in the near future. Increase levemir to 30 units./day . Wants diabetic shoes. [id number] [facility] [address] [place] [address] [id number] 06/06/2022 11:05:09 06/07/2022 14:53:12 Type 2 diabetes mellitus 41867373 E11.40 patient needs new glucometer . Edema of l ower extremity 216748499 R60.0 Will chek renal functions. 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 Under the care of her retina specialist , Amputated toe of right foot 902849984 Z89.421 Wounds healed. [id number] MD Iwona Wise (Adult Med) [address] [place] [address] [id number] 12/09/2022 12:46:04 12/10/2022 14:23:30 Obesity 524302903 E66.9 Last BMI is 37.5, diabetic diet, exercise and keep the weight down. Type 2 shari betes mellitus 20885201 E11.40 patient needs new glucometer . Done. Diabetic diet, exercise and keep the weight down. )n glimepirid e, januvia, jardiance and levemir insulin shot. and nesina . Amputated toe of right foot 075234523 Z89.421 Wounds healed. Acquired p tosis of left eyelid 2406452876 6665357 H02.402 She is concering the myasthenia gravis, appointmen t with ophthalmol ogist made. Dyslipidem ia due to type 2 diabetes mellitus 1486136926 02 E78.5 Will change to atorvastat in for pravastati n. She agreed. Hypothyroidism 56756419 E03.9 On thyroid hormone. [id number] Martín Esparza MD [facility] (Adult Med) [address] [place] [address] [id number] 03/03/2023 16:39:03 03/04/2023 11:40:21 Administration of diphtheria, pertussis, and tetanus vaccine 714632679 Z23 She tolerated shot well. Type 2 shari betes mellitus 97043954 E11.40 patient needs new glucometer . Done. Diabetic diet, exercise and keep the weight down. )n glimepirid e, januvia, jardiance and levemir insulin shot. and nesina . Bilateral lower leg edema 742948671 R60.0 She agreed for the furosemide . Acute resp iratory infections 104819643 J22 Discussed with patient, she agreed to try antibiotic s as ordered. [id number] Martín Esparza MD [facility] (Adult Med) [address] [place] [address] [id number] 11/18/2023 16:27:10 11/20/2023 12:11:29 Chronic abdominal pain [id number] R10.9 Will refer to to her GI specialist , she agreed. Right and left upper quadrants. Will refer to Her GI to evaluate. She agreed. Adenomatou s polyp of colon [id number] D12.6 Had colonoscop ic ex about 5 years ago. needs to be repeat, Dr Mallory. Chronic insomnia 3722561 04 F51.04 She wants to try OTC benadryl to go to sleep. Screening mammography 24 911293 Z12.31 Wants mammogram. Uncontroll ed type 2 diabetes mellitus [id number] E11.65 Out of all med for one month. Essential hypertension 10734399 I10 Low salt dist. On amlodipine . blood pressure is well controlled . 114/70 mm HG today 02-28-2022 . Hyperlipidemia 96832444 E78.5 Low animal fat diet. and atorvastat in History of angioedema 63 [id number] 108 Z86.79 Stable.. SHE HAS NOT REFILL FOR ONE YEAR. Bilateral lower leg edema 379544883 R60.0 She agreed for the furosemide . Type 2 shari betes mellitus 34932552 E11.40 patient needs new glucometer . Done. Diabetic diet, exercise and keep the weight down. )n glimepirid e, januvia, jardiance and levemir insulin shot. and nesina . Renewal of prescription 968805507 Z76.0 Will increase levemir and will renew. Hypothyroidism 64557472 E03.9 On thyroid hormone. Amputated toe of right foot 216139632 Z89.421 Wounds healed. [id number] MOISÉS IBANEZ (Adult Med) [address] [place] [address] [phone] 02/17/2024 14:00:50 02/19/2024 09:55:51 Type 2 diabetes mellitus 64004792 E11.40 Last A1C:Today 9.7 (02/17/24)Go al A1C less than:{{7.0 %* 8.0%}}C urrent Therapy:gl imepiride 4mg, januvia 100mg, jardiance 25mg, Victoza/Oz empic (insurance stopped paying for victoza and switched patient to ozempic)St atin: Atorvastat in 40mgACE/AR B:{{yes no * no due to negative nephropath y screening contraindi cated decl ined due to adverse reaction/a llergy dec lined}}Jaqueline t Exam: Completed 11/18/23Neph ropathy Screening: {{complete d in the past 12 months- negative c ompleted in the past 12 months- positive d ue*}} ordered todayPneum ovax 23:{{UTD D eclined No t given*}}Ey e Exam:{{com pleted in the last 12 months- negative c ompleted in the last 12 months- positive* completed per patient report due - recommende d annual dilated eye exam}} due ati ent Education: healthy diet:yesex ercise:yes weight loss:yesfo ot care:yesco mplication s of uncontroll ed diabetes:y esmedicati on compliance :yes Keep a food diaryFollo w a healthy heart low fat low cholestero l dietExerci se 50-60 minutes 5-6 times per weekIncrea se water intakeStop concentrat ed sugarsTake your diabetes medication dailyCheck blood sugars fasting and post prandial --keep a log--bring to next appointmen tStop concentrat ed sugars--fo llow 1500 meal planExerci se 50-60 minutes daily on most daysCheck your feet for sores, cuts, etc.See eye doctor once a yearsee dentist every 6 months Next Visit: {{1 2 3* 4 5 6 7 8 9 10 11 12} } {{week(s) month(s)*} }C/W glimepirid e 4mg, januvia 100mg, jardiance 25mg, OzempicPat ient to get labs today- will call with results Body mass index 30+ - obesity [id number] Z68.37 BMI 37.6 Depression screening 171 686469 Z13.31 PHQ9- {{Negative * Positive Mild Mode rate Sever e}} (2 out of 27) Mental hea lth screening 639959970 Z13.39 GAD7- {{Negative * Positive Mild Mode rate Sever e}} (0 out of 21) Essential hypertension 08568575 I10 BP today 128/76 BP Goal: {{Less than 140/90* Le ss than 150/90}}BP Controlled : {{yes* no} }Healthy Weight: {{4'10= 91-118 lbs 4'11= 94-123 lbs 5'= 97-127 lbs 5'1= 100-131 lbs 5'2= 104-135 5' 3= 107-140 lbs 5'4= 110-144 lbs 5'5= 115-149 lbs 5'6= 118-154 lbs 5'7= 121-158 lbs* 5'8= 125-163 lbs 5'9= 128-168 lbs 5'10= 132-173 lbs 5'11= 136-178 lbs 6'= 140-183 lbs 6'1= 144-188 lbs 6'2= 148-193 lbs 6'3= 152-199 lbs 6'4= 156-204 lbs}}Discu ssed: Low sodium balanced diet, moderate exercise at least 3-4 times per week for an average of 40 minutes, limiting alcohol to 1 drink per day (F) or 2 drinks per day (M), and smoking cessation if currently smoking. Uncontroll ed Hypertensi on potential risks, heart attack, , stroke, kidney failure etc. Hypertensi on is the silent Killer Take your Hypertensi on medication daily keep appointmen ts stop concentrat ed sugars--fo llow 1500 meal plan exercise 50-60 minutes daily on most days see eye doctor once a year see dentist every 6 monthsNext Visit: {{1 2 3* 4 5 6 7 8 9 10 11 12} }{{week(s) month(s)* }}C/W amlodipine 5mg Hyperlipidemia 69663885 E78.5 C/w atorvastat in 40mg dailyLabs today Hypothyroidism 24919615 E03.9 labs todayC/w levothyrox ine 150mcg [id number] MOISÉS IBANEZ (Adult Med) [address] [place] [address] [phone] 08/03/2024 14:28:36 08/06/2024 15:26:12 Type 2 diabetes mellitus 02644881 E11.40 Last A1C:Today 10.6 (08/03/24). 9.7 (02/17/24)Go al A1C less than:{{7.0 %* 8.0%}}C urrent Therapy:gl imepiride 4mg, januvia 100mg, jardiance 25mg, OzempicSta tin: Atorvastat in 40mgACE/AR B:Losartan 25mgFoot Exam: Completed 11/18/23Neph ropathy Screening: {{complete d in the past 12 months- negative c ompleted in the past 12 months- positive* due}} 02/17/24 Pneumovax 23:{{UTD D eclined No t given*}}Ey e Exam:{{com pleted in the last 12 months- negative c ompleted in the last 12 months- positive* completed per patient report due - recommende d annual dilated eye exam}} due ati ent Education: healthy diet:yesex ercise:yes weight loss:yesfo ot care:yesco mplication s of uncontroll ed diabetes:y esmedicati on compliance :yes Keep a food diaryFollo w a healthy heart low fat low cholestero l dietExerci se 50-60 minutes 5-6 times per weekIncrea se water intakeStop concentrat ed sugarsTake your diabetes medication dailyCheck blood sugars fasting and post prandial --keep a log--bring to next appointmen tStop concentrat ed sugars--fo llow 1500 meal planExerci se 50-60 minutes daily on most daysCheck your feet for sores, cuts, etc.See eye doctor once a yearsee dentist every 6 months Next Visit: {{1 2 3* 4 5 6 7 8 9 10 11 12} } {{week(s) month(s)*} }C/W glimepirid e 4mgC/W januvia 100mgC/W jardiance 25mgIncrea se Ozempic to 0.5mg weekly x 4 weeks then to 1mg weekly Essential hypertension 89376684 I10 BP today 122/68 BP Goal: {{Less than 140/90* Le ss than 150/90}}BP Controlled : {{yes* no} }Healthy Weight: {{4'10= 91-118 lbs 4'11= 94-123 lbs 5'= 97-127 lbs 5'1= 100-131 lbs 5'2= 104-135 5' 3= 107-140 lbs 5'4= 110-144 lbs 5'5= 115-149 lbs 5'6= 118-154 lbs 5'7= 121-158 lbs* 5'8= 125-163 lbs 5'9= 128-168 lbs 5'10= 132-173 lbs 5'11= 136-178 lbs 6'= 140-183 lbs 6'1= 144-188 lbs 6'2= 148-193 lbs 6'3= 152-199 lbs 6'4= 156-204 lbs}}Discu ssed: Low sodium balanced diet, moderate exercise at least 3-4 times per week for an average of 40 minutes, limiting alcohol to 1 drink per day (F) or 2 drinks per day (M), and smoking cessation if currently smoking. Uncontroll ed Hypertensi on potential risks, heart attack, , stroke, kidney failure etc. Hypertensi on is the silent Killer Take your Hypertensi on medication daily keep appointmen ts stop concentrat ed sugars--fo llow 1500 meal plan exercise 50-60 minutes daily on most days see eye doctor once a year see dentist every 6 monthsNext Visit: {{1 2 3* 4 5 6 7 8 9 10 11 12} }{{week(s) month(s)* }}C/W amlodipine 5mg Hyperlipidemia 63475195 E78.5 C/w atorvastat in 40mg daily Hypothyroidism 77420699 E03.9 C/w levothyrox ine 150mcg Body mass index 30+ - obesity 719638788 Z68.37 BMI 37.7 Depression screening 171 208410 Z13.31 PHQ9- {{Negative * Positive Mild Mode rate Sever e}} (2 out of 27) Mental hea lth screening 371817914 Z13.39 GAD7- {{Negative * Positive Mild Mode rate Sever e}} (0 out of 21) Administra tion of influenza vaccine 37261385 Z23 Microalbuminuria 3814149 06 R80.9 Advised patient to increase water intake and to have better control of DM and HTN Bilateral lower leg edema 063277558 R60.0 [id number] MOISÉS IBANEZ (Adult Med) [address] [place] [address] [phone] 12/06/2024 14:30:56 12/09/2024 09:56:46 Type 2 diabetes mellitus 49310930 E11.40 Last A1C:Today 11.1 (12/06/24) 10.6 (08/03/24). 9.7 (02/17/24)Go al A1C less than:{{7.0 %* 8.0%}}C urrent Therapy:gl imepiride 4mg, januvia 100mg, jardiance 25mg, OzempicSta tin: Atorvastat in 40mgACE/AR B:Losartan 25mgFoot Exam: Completed 12/06/24Nep hropathy Screening: {{complete d in the past 12 months- negative c ompleted in the past 12 months- positive* due}} 02/17/24Pneu movax 23:Prevnar 20 09/02/24Ey e Exam:{{com pleted in the last 12 months- negative c ompleted in the last 12 months- positive* completed per patient report due - recommende d annual dilated eye exam}} due ati ent Education: healthy diet:yesex ercise:yes weight loss:yesfo ot care:yesco mplication s of uncontroll ed diabetes:y esmedicati on compliance :yes Keep a food diaryFollo w a healthy heart low fat low cholestero l dietExerci se 50-60 minutes 5-6 times per weekIncrea se water intakeStop concentrat ed sugarsTake your diabetes medication dailyCheck blood sugars fasting and post prandial --keep a log--bring to next appointmen tStop concentrat ed sugars--fo llow 1500 meal planExerci se 50-60 minutes daily on most daysCheck your feet for sores, cuts, etc.See eye doctor once a yearsee dentist every 6 months Next Visit: {{1 2 3* 4 5 6 7 8 9 10 11 12} } {{week(s) month(s)*} }C/W glimepirid e 4mgC/W januvia 100mgC/W jardiance 25mgIncrea se Ozempic from 1mg weekly to 2mg weekly Essential hypertension 50344442 I10 BP today 126/64 BP Goal: {{Less than 140/90* Le ss than 150/90}}BP Controlled : {{yes* no} }Healthy Weight: {{4'10= 91-118 lbs 4'11= 94-123 lbs 5'= 97-127 lbs 5'1= 100-131 lbs 5'2= 104-135 5' 3= 107-140 lbs 5'4= 110-144 lbs 5'5= 115-149 lbs 5'6= 118-154 lbs 5'7= 121-158 lbs* 5'8= 125-163 lbs 5'9= 128-168 lbs 5'10= 132-173 lbs 5'11= 136-178 lbs 6'= 140-183 lbs 6'1= 144-188 lbs 6'2= 148-193 lbs 6'3= 152-199 lbs 6'4= 156-204 lbs}}Discu ssed: Low sodium balanced diet, moderate exercise at least 3-4 times per week for an average of 40 minutes, limiting alcohol to 1 drink per day (F) or 2 drinks per day (M), and smoking cessation if currently smoking. Uncontroll ed Hypertensi on potential risks, heart attack, , stroke, kidney failure etc. Hypertensi on is the silent Killer Take your Hypertensi on medication daily keep appointmen ts stop concentrat ed sugars--fo llow 1500 meal plan exercise 50-60 minutes daily on most days see eye doctor once a year see dentist every 6 monthsNext Visit: {{1 2 3* 4 5 6 7 8 9 10 11 12} }{{week(s) month(s)* }}C/W amlodipine 5mg Hyperlipidemia 00832898 E78.5 C/w atorvastat in 40mg daily Hypothyroidism 24076751 E03.9 Labs 02/17/24: TSH 5.130, T4 1.20, T3 2.3C/w levothyrox ine 150mcgrepe at labs today Microalbuminuria 5966719 06 R80.9 Advised patient to increase water intake and to have better control of DM and HTN Depression screening 171 988016 Z13.31 PHQ9- {{Negative * Positive Mild Mode rate Sever e}} (2 out of 27) Mental hea [facility] screening 495288170 Z13.39 GAD7- {{Negative * Positive Mild Mode rate Sever e}} (0 out of 21) Bilateral lower leg edema 420973884 R60.0 Intolerant of cold 93699 000 R68.89 Obesity 376118073 E66.9 BMI 38.8 Health Concerns Section Related Observation LastModified by Organization Detai ls LastModified Time None Recorded Concern Status LastModified by Organization Details LastModified Time None Recorded Advance Directives Directive N: Payers Encounter Date Sequence Insurance Name Policy Number Policy Akins Covered Member ID Akins Member ID Guarantor Name 03/03/2023 1 [facility] (MEDICAID REPLACEMENT - HMO) [id number] Monica Felder [id number] Monica Felder 11/18/2023 1 [facility] (MEDICARE REPLACEMENT/A DVANTAGE - HMO) [id number] Monica Porter Emerita [id number] Monica Felder 02/17/2024 1 [facility] (MEDICARE REPLACEMENT/A DVANTAGE - HMO) [id number] Monica Porter Naheedjose [id number] Monica Felder 08/03/2024 1 [facility] (MEDICARE REPLACEMENT/A DVANTAGE - HMO) [id number] Monica Porter Emerita [id number] Monica Felder 12/06/2024 1 [facility] (MEDICARE REPLACEMENT/A DVANTAGE - HMO) [id number] Monica Porter Naheedjose [id number] Monica Porter Naheedjose Notes Date Note Type Note Provider Name and Address Organization Details Recorded Time 03/03/2023 text/html Office visit, al lergic to erythromycin base, lisinopril , metformin and thimerosal. cough, not a smoker, going to have laser therapy for the left eye diabetic retinopathy next week. Will adjust therapy to help her A1 c to go under 7%. Martín Esparza MD Attn: Accounting,[address], [place], [address], [facility] 03/03/2023 17:46:06 11/18/2023 text/html Office visit,all ergic to erythromycin base. lisinopril , metformin and thimerosal, Ran out all med for one month, A1c went up to 10.05 today. Type 2 DM, macular edema. 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 No pain on hands or feet, can not sleep well. no chest pain, no shortness of breathing. no fever, ROS as noted in HPI. Martín Esparza MD Attn: Accounting,[address] [facility], [place], [address], [facility] 11/18/2023 18:25:17 02/17/2024 text/html 58-year-old Cauc female here to establish care. Pt was seeing Dr. Flowers for chronic conditions. Patient is needing refills on medication. Patient denies any new problems or concerns. Denies LAZO, CP, SOB. Does have N/D but d/t gastroparesis. JERROD BARLOW PA-C Attn: Accounting,[address], [place], [address], [facility] 02/17/2024 15:53:04 08/03/2024 text/html Diabetes F/URepo rted bypatient.Labs:last A1C result: 10.6 Context:seeing eye doctor regularly; checking feet regularly;home blood sugar range high Associated Symptoms:no weight gain; no weight loss; no dizziness; no sweats; no headaches; no confusion; no increased thirst; no increased appetite; no increased urination; no blurred vision; no numbness of feet; no calluses on feetHypertension F/UReported bypatient.Associated Symptoms:no dizziness; no lightheadedness; no chest pain; no shortness of breath; no palpitations; no edema; no calf pain with exertion Lifestyle:regular exercise; limiting/avoiding salt Medications:taking medications as directed; no side effects from medication 58 y/o F here for f/u. Pt states that her blood sugars have been high ever since she was switched over to the Ozempic from Victoza. She does not understand why this medication has not been helping with her blood sugars. She has been using the 0.25mg weekly and does not think it has been helping her lose weight either. She is drinking plenty of water. Pt needs paperwork filled out for mckenzie. JERROD BARLOW PA-C Attn: Accounting,[address], [place], [address], [facility] 08/03/2024 17:16:13 12/06/2024 text/html Diabetes F/URepo rted bypatient.Labs:last A1C result: 11.1 Context:missing doses of medication Associated Symptoms:no weight gain; no weight loss; no dizziness; no sweats; no headaches; no confusion; no increased thirst; no increased appetite; no increased urination; no blurred vision; no numbness of feet; no calluses on feetHypertension F/UReported bypatient.Associated Symptoms:no dizziness; no lightheadedness; no chest pain; no shortness of breath; no palpitations; no edema; no calf pain with exertion Lifestyle:regular exercise; limiting/avoiding salt Medications:taking medications as directed; no side effects from medication 59-year-old female here for follow-up chronic conditions. Patient admits to not taking medication daily, misses dosages sometimes. Patient also states she has not been doing well with diet. States blood sugar is high a lot. Denies FRANCOISE, LAZO, CP. Does admit that she has been very cold recently. JERROD BARLOW PA-C Attn: Accounting,[address] [place], [address], [facility] 12/06/2024 15:21:50 OBGyn Episode No OBEpisode recorded.
--- OUTSIDE RECORDS SUMMARY | 2024-12-17 08:24 | XMS_ITS | Clinical Summary ---
Author Organization [facility] Address [address] [place] [address] Care Team Providers Care Medical Appointment Scheduler Name Role Phone Unavailable Primary Care Provider Unavailabl e Social History Tobacco Use Types Packs/Day Years Used Date Smoking Tobacco: Never Assessed Comments Unknown Sex and Gender Information Value Date Recorded Sex Assigned at Not on file Legal Sex Female 12:08 PM [employer] Gender Identity Not on file Sexual Orientation Not on file Plan of Treatment Health Maintenance Due Date Last Done Comments Hepatitis C Virus (HCV) Screening 1965 TdaP Immunization 1965 Hepatitis B Immunization (1 of 3 - 19+ 3-dose series) 1984 Pap Smear 1986 Cervical Cancer Screening (CCS) 1995 HPV/Cotest 1995 Colonoscopy 2010 Colorectal Cancer Screening 2010 Cologuard 2015 Immunochemical Fecal Occult Blood 2015 Mammogram 2015 Pneumococcal Immunization (5 0+ years) (1 of 1 - PCV) 2015 Zoster Immunization (1 of 2) 2015 Influenza Immunization (#1) 2024 SARS-COV-2 Immunization ( season) 2024 Respiratory Syncytial Virus (RSV) Immunization (Adult) (1 - 1-dose 75+ series) 2040 Meningococcal Immunization (ACWY) Aged Out No longer eligible based on patient's age to complete this topic Pneumococcal Immunization Combined Aged Out No longer eligible based on patient's age to complete this topic Rotavirus Immunization Aged Out No lo nger eligible based on patient's age to complete this topic
[2024-12-17 08:28] LABS: Alanine Aminotransferase 22 U/L (6-35); Albumin Level 4.3 g/dL (3.5-5.1); Alkaline Phosphatase 89 U/L (38-126); Anion Gap 19 mmol/L (4-12); Aspartate Amino Transferase 26 U/L (14-36); Bilirubin,Total 1.5 mg/dL (0.2-1.3); Blood Urea Nitrogen 52 mg/dL (7-17); Calcium 10.9 mg/dL (8.4-10.2); Carbon Dioxide 25 mmol/L (22-30); Chloride 89 mmol/L (98-107); Estimated CRCL calculation 47 ml/min; Estimated Glomerular Filt Rate 36; Glucose 308 mg/dL (65-110); Potassium 4.3 mmol/L (3.4-5.0); Sodium 133 mmol/L (137-145)
[2024-12-17] MEDS: SODIUM CHLORIDE 0.9% IV 1,000 ML 999 ML IV CONT (08:51)
[2024-12-17] MEDS: ONDANSETRON INJ 4 MG/2 ML VIAL IV PUSH (08:51)
[2024-12-17] MEDS: HYDROmorphone HCL INJ (*CRX) 1 MG/ML SYR 0.5 MG IV PUSH (09:22)
--- NOTE | 2024-12-17 09:24 | ED_ITS ---
HPI - General Adult General Chief complaint: Nausea/Vomiting/Diarrhea Stated complaint: N/V Time Seen by Provider: 12/17/24 07:57 History of Present Illness HPI narrative: 59-year-old female presenting to the emergency department for evaluation for nausea vomiting diarrhea and diffuse abdominal pain. Patient reports that she did have a fall last night but patient denies any current pain or injury. Patient states he did not strike her head and had loss of consciousness. Patient states he did have abrasions to her knees but declined imaging of her knees. Patient does have a history of poorly controlled diabetes and states her blood sugars typically run in the 200s. Related Data Home Medications ?Medication ?Instructions ?Recorded ?Confirmed ?Last Taken ?Type Laxative 1 tablet PO DAILY PRN Constipation 12/01/23 12/17/24 Unknown History amlodipine 5 mg tablet 5 mg PO DAILY 12/01/23 12/17/24 01/15/24 History atorvastatin 40 mg tablet 40 mg PO DAILY 12/01/23 12/17/24 01/05/24 History empagliflozin 25 mg tablet 25 mg PO DAILY 12/01/23 12/17/24 01/05/24 History (Jardiance) furosemide 20 mg tablet 20 mg PO PRN PRN swelling 12/01/23 12/17/24 12/01/23 History glimepiride 4 mg tablet 4 mg PO BID 12/01/23 12/17/24 01/05/24 History levothyroxine 150 mcg tablet 150 mcg PO DAILY 12/01/23 12/17/24 01/15/24 History sitagliptin phosphate 100 mg 100 mg PO DAILY 12/01/23 12/17/24 01/05/24 History tablet (Januvia) semaglutide 0.25 mg or 0.5 mg (2 2 mg subcut WEEKLY 04/13/24 12/17/24 12/09/24 History mg/3 mL) subcutaneous pen injector (Ozempic) allopurinol 100 mg tablet 100 mg PO Q12H 12/17/24 12/17/24 Unknown History calcitriol 0.25 mcg capsule 0.25 mcg PO DAILY 12/17/24 12/17/24 Unknown History ergocalciferol (vitamin D2) 1,250 50,000 unit PO WEEKLY 12/17/24 12/17/24 12/06/24 History mcg (50,000 unit) capsule insulin detemir U-100 100 unit/mL 48 unit subcut HS 12/17/24 12/17/24 Unknown History (3 mL) subcutaneous pen losartan 25 mg tablet 25 mg PO DAILY 12/17/24 12/17/24 Unknown History Allergies Allergy/AdvReac Type Severity Reaction Status Date / Time lisinopril Allergy Severe Other Verified 12/17/24 08:01 erythromycin base Allergy Other Verified 12/17/24 08:01 metformin AdvReac Other Verified 12/17/24 08:01 thimerosal AdvReac Other Verified 12/17/24 08:01 Review of Systems 2 Review of Systems: All systems reviewed & are unremarkable except as noted in HPI and below PMFSH Past Medical History Medical History Gout Hypothyroid Diabetes Hypertension Hyperlipidemia Social History Social History Smoking status: Never smoker Alcohol intake: never Substance use: never Substance use type: does not use Do You Feel Safe in your Home?: Yes Lack of Transportation: No Lack of Food: Never True Current Housing: I Have Housing Concerned About Future Housing: No Difficulty Paying Gas/Electric Bills: No Difficulty Paying for Meds: No Currently Unemployed: No Education: Bachelor's Degree Difficulty w/ Childcare or Family Care: YES Living arrangements: alone Spiritual care concerns: No Exam 2 Narrative: APPEARANCE: Well appearing, no pain, no distress, well-nourished. HEAD: normocephalic, atraumatic. EYES: PERRLA/EOMI, conjunctivae clear. NOSE: Normal no drainage EARS:TMS clear with good light reflex. THROAT: Pharynx clear, no exudate. NECK: Supple. No adenopathy, no masses. RESPIRATORY: Airway patent, respirations nonlabored. Clear to auscultation bilaterally, no rales, rhonchi, wheezing. CARDIOVASCULAR: Regular rate and rhythm without murmurs rubs or gallops. ABDOMINAL: Soft, nontender, nondistended, normal bowel sounds MUSCULOSKELETAL: Moves all extremities. Strength/ROM intact, No edema, No calf tenderness. NEURO: Alert. Cranial nerves II through XII intact. SKIN: Warm, dry. Normal Color Course Vital Signs Vital signs: Vital Signs Temperature 97.8 F 12/17/24 07:46 Pulse Rate 93 12/17/24 07:46 Respiratory Rate 20 12/17/24 07:46 Blood Pressure 162/91 H 12/17/24 07:46 Pulse Oximetry 100 12/17/24 07:46 Oxygen Delivery Room Air 12/17/24 07:46 Temperature 98.1 F 12/17/24 14:38 Pulse Rate 89 12/17/24 14:38 Respiratory Rate 10 L 12/17/24 14:38 Blood Pressure 183/86 H 12/17/24 14:38 Pulse Oximetry 94 12/17/24 14:38 Oxygen Delivery Room Air 12/17/24 15:30 Oxygen Flow Rate 2 12/17/24 10:53 Medical Decision Making MDM Narrative Medical decision making narrative: 59-year-old female presents emergency department for evaluation for epigastric abdominal pain associated with nausea vomiting and diarrhea. Patient is afebrile but does have a white blood cell count of 17 and a stable hemoglobin 15.3. Patient has a creatinine of 1.48 and a BUN of 52. No previous lab values are on file. Patient does have history of gastroparesis and poorly controlled diabetes with associated hypertension hypertension high cholesterol. Was treated with IV fluids. UA does have some hematuria with otherwise negative. Ultrasound of the gallbladder showed diffuse hepatic steatosis. CT of abdomen pelvis showed a 2 cm kidney mass most likely hemorrhagic cyst but renal cell carcinoma cannot be excluded. 2 cm left kidney mass was identified, most likely hemorrhagic cyst, but renal cell carcinoma cannot be excluded. Abdomen MRI without and with contrast is recommended. Patient has no pain at left CVA but patient does have epigastric and right upper chronic abdominal pain. Suspect this is gastritis, esophagitis secondary to her nausea and vomiting. Patient was unable to ambulate due to persistent weakness. I discussed the case with hospitalist patient was accepted for admission. Differential Diagnosis Differential Diagnosis: Hyperglycemia, nausea, vomiting, dehydration, and generalized weakness Vital Signs Vital Signs: Vital Signs Temperature 97.8 F 12/17/24 07:46 Pulse Rate 93 12/17/24 07:46 Respiratory Rate 20 12/17/24 07:46 Blood Pressure 162/91 H 12/17/24 07:46 Pulse Oximetry 100 12/17/24 07:46 Oxygen Delivery Room Air 12/17/24 07:46 Temperature 98.1 F 12/17/24 14:38 Pulse Rate 89 12/17/24 14:38 Respiratory Rate 10 L 12/17/24 14:38 Blood Pressure 183/86 H 12/17/24 14:38 Pulse Oximetry 94 12/17/24 14:38 Oxygen Delivery Room Air 12/17/24 15:30 Oxygen Flow Rate 2 12/17/24 10:53 Lab Data Lab results reviewed: Yes I reviewed the patient's lab results. 12/17/24 08:11 12/17/24 14:31 Labs: Lab Results 12/17/24 12/17/24 12/17/24 Range/Units 08:11 09:08 12:12 WBC 17.0 H (4.5-10.0) K/mm3 RBC 4.83 (4.2-5.4) M/mm3 Hgb 15.3 H (12.0-15.0) g/dL Hct 43.4 (37.0-47.0) % MCV 89.9 (80-100) fl MCH 31.7 (26-34) pg MCHC 35.3 (32-36) g/dl RDW 11.9 (11.5-14.5) % Plt Count 276 (150-375) k/mm3 MPV 10.8 H (7.4-10.4) fl Immature Gran % (Auto) 0.5 (0-0.5) % Neut % (Auto) 76.8 H (45.5-73.1) % Lymph % (Auto) 14.0 L (18.3-44.2) % Gilliam % (Auto) 8.6 H (2.6-8.5) % Eos % (Auto) 0.0 (0-4.4) % Baso % (Auto) 0.1 L (0.2-1.2) % Lymph # (Auto) 2.37 (0.9-3.2) K/mm3 Gilliam # (Auto) 1.5 H (0.1-0.6) K/mm3 Eos # (Auto) 0.0 (0-0.3) K/mm3 Baso # (Auto) 0.0 (0.0-0.1) K/mm3 Abs Immat Gran (auto) 0.08 H (0.00-0.031) K/mm3 Absolute Neuts (auto) 13.0 H (1.3-6.7) K/mm3 Absolute Nucleated RBC 0.000 (0.0-0.012) K/mm3 Nucleated RBC % 0.0 (0.0-0.2) % Sodium 133 L (137-145) mmol/L Potassium 4.3 (3.4-5.0) mmol/L Chloride 89 L (98-107) mmol/L Carbon Dioxide 25 (22-30) mmol/L Anion Gap 19 H (4-12) mmol/L BUN 52 H (7-17) mg/dL Creatinine 1.48 H (0.7-1.0) mg/dL Estim Creat Clear Calc 47 ml/min Estimated GFR 36 L (59 - ) Glucose 308 H (65-110) mg/dL Calcium 10.9 H (8.4-10.2) mg/dL Total Bilirubin 1.5 H (0.2-1.3) mg/dL AST 26 (14-36) U/L ALT 22 (6-35) U/L Alkaline Phosphatase 89 (38-126) U/L Total Creatine Kinase 129 (30-135) U/L Total Protein 8.0 (6.3-8.2) g/dL Albumin 4.3 (3.5-5.1) g/dL TSH (Reflex) 7.550 H (0.465-4.68) uIU/mL Free T4 Pending Urine Color Yellow (Yellow) Urine Appearance Clear (Clear) Urine pH 5.0 (5.0-9.0) Ur Specific [place] 1.029 (1.001-1.035) Urine Protein 3+ H (Negative) mg/dL Urine Glucose (UA) 3+ H (Negative) mg/dL Urine Ketones 2+ H (Negative) mg/dL Ur Blood (Man) 2+ H (Negative) Urine Nitrate Negative (Negative) Urine Bilirubin Negative (Negative) Urine Urobilinogen 0.2 (<2.0) mg/dL Add Ur Microanalysis Reviewed Leukocyte Esterase Rfl Negative (Negative) OANH/UL Urine RBC 0-2 (0-2) /hpf Urine WBC 0-5 (0-3) /hpf Ur Squamous Epith Cells None seen (Few) /hpf Urine Bacteria None seen /hpf Urine Casts 11-20 Influenza A (RT-PCR) Negative (Negative) Influenza B (RT-PCR) Negative (Negative) RSV (RT-PCR) Negative (Negative) SARS-CoV-2 RNA (RT-PCR) Negative (Negative) Imaging Data Radiologist's impression: Impressions Abdomen/Pelvis CT 12/17/24 09:56 IMPRESSION: 1. 2.0 cm left kidney mass, most likely a hemorrhagic cyst, but renal cell carcinoma cannot be excluded. Abdomen MRI without and with contrast is recommended. Abdomen Ultrasound 12/17/24 10:14 IMPRESSION: 1. Diffuse hepatic steatosis. Discharge Plan Discharge Clinical Impression: Diabetic gastroparesis, Nausea vomiting and diarrhea, Generalized weakness, ULYSSES (acute kidney injury) Patient Disposition: Still a Patient Condition: Serious
[2024-12-17 09:27] LABS: Add Urine Microscopic? YES; Appearance Urine Clear (Clear); Bacteria Urine None Seen /hpf; Bilirubin Urine Negative (Negative); Blood Urine 2+ (Negative); Color Urine Yellow (Yellow); Glucose Urine UA 3+ mg/dL (Negative); Ketones Urine 2+ mg/dL (Negative); Leukocyte Esterase Ur Negative LEU/UL (Negative); Need Manual Microscopic Reviewed; Nitrate Urine Negative (Negative); Protein Urine 3+ mg/dL (Negative); RBC Urine 0-2 /hpf (0-2); Specific Grav Ur 1.029 (1.001-1.035); Squamous Epithelial Cell Urine None Seen /hpf (Few); Urobilinogen Urine 0.2 mg/dL (<2.0); WBC Urine 0-5 /hpf (0-3)
[2024-12-17] MEDS: LACTATED RINGERS 1,000 ML 999 ML IV CONT (10:08)
[2024-12-17] MEDS: FAMOTIDINE 20 MG/2 ML VIAL IV PUSH (12:20)
[2024-12-17] MEDS: METOCLOPRAMIDE HCL INJ 10 MG/2 ML VIAL IV PUSH (12:20)
[2024-12-17] MEDS: PANTOPRAZOLE SODIUM IV 40 MG VIAL IV PUSH (12:21)
--- NOTE | 2024-12-17 12:35 | PC.NURSE ---
1230--Dr Thomas made aware that patient failed her road test - only made it to end of stretcher before feeling very weak and dizzy with a headache. Patient placed back on stretcher, call ortega in reach
[2024-12-17 12:56] LABS: Influenza A QL RT-PCR Negative (Negative); Influenza B QL RT-PCR Negative (Negative); RSV RNA, RT-PCR Negative (Negative); SARS-CoV-2 RNA PCR Negative (Negative)
[2024-12-17 13:03] LABS: Creatine Kinase 129 U/L (30-135)
[2024-12-17] MEDS: SODIUM CHLORIDE 0.9% IV 1,000 ML 125 ML IV CONT ×2 (13:32→22:23)
[2024-12-17 14:51] LABS: Lactic Acid Reflex 1.1 mmol/L (0.7-2.0)
[2024-12-17 14:52] LABS: Anion Gap 13 mmol/L (4-12); Blood Urea Nitrogen 49 mg/dL (7-17); Calcium 9.7 mg/dL (8.4-10.2); Carbon Dioxide 27 mmol/L (22-30); Chloride 94 mmol/L (98-107); Estimated CRCL calculation 58 ml/min; Estimated Glomerular Filt Rate 46; Glucose 295 mg/dL (65-110); Potassium 3.9 mmol/L (3.4-5.0); Sodium 134 mmol/L (137-145)
[2024-12-17 14:54] LABS: Hemoglobin A1C 10.5 % (<5.7)
[2024-12-17 15:00] LABS: Beta-Hydroxybutyrate/Acetoacetate 3.84 mmol/L (0.02-0.27)
--- NOTE | 2024-12-17 15:10 | ADMGEN ---
This patient, Monica Felder, was admitted to 2 Medical Room 241-01. Patient/family oriented to hospital policies and general routines including ID bracelet, bed and alarms, visiting hours, pain management, procedures, bathroom and other care routines, personal items, smoking policy, room service/diet, and visiting hours. Information on how to activate the Rapid Response Team has been discussed. Patient/Family are encouraged to report perceived risks to care and to ask questions if they do not understand what they are told or what they should do.
--- NOTE | 2024-12-17 15:14 | PM.IMHP ---
H&P: HPI History of Present Illness Date/Time: 12/17/24 15:14 Chief Complaint: Vomiting, abdominal pain and weakness Narrative: This is a 59-year-old female patient with a past history of diabetes gout gastroparesis hypothyroidism hyperlipidemia who is brought to the emergency department today due to severe weakness, fall last night and spent all night on the ground as well as vomiting for the last 8 days. Patient states that she is on Ozempic as well as multiple other diabetic medications with poor control of her diabetes. Recently her Ozempic dose was increased from 1 mg to 2 mg and she took that new dose on December 09. The following day patient began vomiting and has been unable to eat any food since. She has felt anorexia as well as ongoing vomiting. She has forced herself to drink some water but has not taken any of her home medications including her Levemir insulin for the last 8 days. Last night patient stated that she began to get shaky all over with increased generalized weakness. She states that when she was walking back from the bathroom she fell to her knees and was too weak to get herself off the ground. Patient states that she found some nearby clothing and used it to make a pillow and slept on the floor all night. She also continued to vomit overnight. This morning she was able to muster enough strength to sit up and reach her cellphone that was on the bedside table to call for help. Patient lives alone. She denies injury from her fall states that she landed on knees has small abrasions but otherwise no injury. Patient declined imaging of the knees while in the emergency department. She did receive CT scan of the head which was unremarkable as well as CT scan of the abdomen and pelvis which found an incidental finding of a 2 cm left renal mass versus hemorrhagic cyst. Radiology recommended MRI with and without contrast for further evaluation. Laboratory assessment in the emergency department notes elevated creatinine at 1.48 elevated BUN at 52 elevated anion gap at 19 elevated glucose at 308 and elevated white blood cell count at 17. Patient received 2 L of IV fluids and started on fluids at 125 mL/hr. She did not receive any insulin while in the emergency department. Urinalysis showed 3+ urine glucose and 2+ ketones. On review of labs I noticed an elevated anion gap and ketones in the urine. I requested beta hydroxybutyrate, lactic acid and repeat metabolic panel prior to patient coming to the floor. On repeat metabolic panel anion gap had decreased to 13 while the ULYSSES made some improvement. Patient was on the floor before ED provider could order any insulin. Review of Systems Review of Systems: All systems reviewed & are unremarkable except as noted in HPI and below PMFSH Past Medical History Medical History Gout Hypothyroid Diabetes Hypertension Hyperlipidemia Social History Social History Smoking status: Never smoker Alcohol intake: never Substance use: never Substance use type: does not use Do You Feel Safe in your Home?: Yes Lack of Transportation: No Lack of Food: Never True Current Housing: I Have Housing Concerned About Future Housing: No Difficulty Paying Gas/Electric Bills: No Difficulty Paying for Meds: No Currently Unemployed: No Education: Bachelor's Degree Difficulty w/ Childcare or Family Care: YES Living arrangements: alone Spiritual care concerns: No Meds Home Medications and Allergies Home Medications ?Medication ?Instructions ?Recorded ?Confirmed ?Type Laxative 1 tablet PO DAILY PRN Constipation 12/01/23 12/17/24 History amlodipine 5 mg tablet 5 mg PO DAILY 12/01/23 12/17/24 History atorvastatin 40 mg tablet 40 mg PO DAILY 12/01/23 12/17/24 History empagliflozin 25 mg tablet 25 mg PO DAILY 12/01/23 12/17/24 History (Jardiance) furosemide 20 mg tablet 20 mg PO PRN PRN swelling 12/01/23 12/17/24 History glimepiride 4 mg tablet 4 mg PO BID 12/01/23 12/17/24 History levothyroxine 150 mcg tablet 150 mcg PO DAILY 12/01/23 12/17/24 History sitagliptin phosphate 100 mg 100 mg PO DAILY 12/01/23 12/17/24 History tablet (Januvia) semaglutide 0.25 mg or 0.5 mg (2 2 mg subcut WEEKLY 04/13/24 12/17/24 History mg/3 mL) subcutaneous pen injector (Ozempic) metoclopramide HCl 10 mg tablet See Rx Instructions .Route 08/19/24 12/17/24 Rx .COMPLEX #90 tabs linaclotide 72 mcg capsule See Rx Instructions .Route 09/30/24 12/17/24 Rx (Linzess) .COMPLEX #30 caps allopurinol 100 mg tablet 100 mg PO Q12H 12/17/24 12/17/24 History calcitriol 0.25 mcg capsule 0.25 mcg PO DAILY 12/17/24 12/17/24 History ergocalciferol (vitamin D2) 1,250 50,000 unit PO WEEKLY 12/17/24 12/17/24 History mcg (50,000 unit) capsule insulin detemir U-100 100 unit/mL 48 unit subcut HS 12/17/24 12/17/24 History (3 mL) subcutaneous pen losartan 25 mg tablet 25 mg PO DAILY 12/17/24 12/17/24 History Allergies Allergy/AdvReac Type Severity Reaction Status Date / Time lisinopril Allergy Severe Other Verified 12/17/24 08:01 erythromycin base Allergy Other Verified 12/17/24 08:01 metformin AdvReac Other Verified 12/17/24 08:01 thimerosal AdvReac Other Verified 12/17/24 08:01 Vital Signs Vital Signs - 24 hr 12/17/24 07:46 12/17/24 08:01 12/17/24 08:15 Temperature 36.6 C Pulse Rate 93 92 88 Respiratory Rate 20 21 H 15 Blood Pressure 162/91 H Pulse Oximetry 100 100 99 Oxygen Delivery Room Air Oxygen Flow Rate 12/17/24 08:53 12/17/24 08:53 12/17/24 09:00 Temperature Pulse Rate 92 91 91 Respiratory Rate 20 23 H 17 Blood Pressure 180/94 H Pulse Oximetry 99 99 97 Oxygen Delivery Oxygen Flow Rate 12/17/24 09:17 12/17/24 09:32 12/17/24 10:01 Temperature Pulse Rate 89 83 88 Respiratory Rate 12 16 12 Blood Pressure Pulse Oximetry 97 93 93 Oxygen Delivery Oxygen Flow Rate 12/17/24 10:09 12/17/24 10:19 12/17/24 10:30 Temperature Pulse Rate 89 86 86 Respiratory Rate 16 12 10 L Blood Pressure 186/97 H Pulse Oximetry 96 81 L 41 L Oxygen Delivery Oxygen Flow Rate 12/17/24 10:47 12/17/24 10:53 12/17/24 10:54 Temperature Pulse Rate 85 86 Respiratory Rate 12 12 Blood Pressure 194/89 H Pulse Oximetry 98 96 96 Oxygen Delivery Nasal Cannula Oxygen Flow Rate 2 12/17/24 11:09 12/17/24 11:15 12/17/24 11:42 Temperature Pulse Rate 84 84 85 Respiratory Rate 12 12 12 Blood Pressure Pulse Oximetry 98 98 Oxygen Delivery Oxygen Flow Rate 12/17/24 11:51 12/17/24 12:01 12/17/24 12:15 Temperature Pulse Rate 85 92 86 Respiratory Rate 12 11 L 11 L Blood Pressure Pulse Oximetry 96 89 L Oxygen Delivery Oxygen Flow Rate 12/17/24 12:30 12/17/24 12:31 12/17/24 12:45 Temperature Pulse Rate 91 88 84 Respiratory Rate 13 11 L 12 Blood Pressure 142/84 H Pulse Oximetry 94 92 88 L Oxygen Delivery Oxygen Flow Rate 12/17/24 12:57 12/17/24 13:00 12/17/24 13:19 Temperature Pulse Rate 100 85 85 Respiratory Rate 16 11 L 12 Blood Pressure 142/84 H Pulse Oximetry 93 91 90 Oxygen Delivery Oxygen Flow Rate 12/17/24 13:31 12/17/24 14:00 12/17/24 14:12 Temperature Pulse Rate 84 85 83 Respiratory Rate 13 12 12 Blood Pressure 169/80 H Pulse Oximetry 89 L 93 91 Oxygen Delivery Oxygen Flow Rate 12/17/24 14:15 12/17/24 14:30 12/17/24 14:38 Temperature 36.7 C Pulse Rate 84 87 89 Respiratory Rate 12 13 10 L Blood Pressure 183/86 H Pulse Oximetry 90 97 94 Oxygen Delivery Oxygen Flow Rate Exam Narrative: GENERAL: Well-appearing, well-nourished, and in no acute distress. HEAD: Normocephalic, atraumatic. ENT:? Mucous membranes tacky. CHEST: Clear to auscultation.? No respiratory distress. HEART: Regular rate and rhythm. ? Normal peripheral pulses. ABDOMEN: Soft, nondistended, epigastric tenderness to palpation, occasional hiccups EXTREMITIES: Normal range of motion. No peripheral edema. SKIN: Warm dry normal color NEURO: Alert and oriented x3. PSYCH: Normal mood and affect H&P: Results Labs Labs: Short CBC 12/17/24 Range/Units 08:11 WBC 17.0 H (4.5-10.0) K/mm3 Hgb 15.3 H (12.0-15.0) g/dL Hct 43.4 (37.0-47.0) % Plt Count 276 (150-375) k/mm3 [facility] 12/17/24 12/17/24 08:11 14:31 Sodium 133 L 134 L Potassium 4.3 3.9 Chloride 89 L 94 L Carbon Dioxide 25 27 BUN 52 H 49 H Creatinine 1.48 H 1.20 H Glucose 308 H 295 H Calcium 10.9 H 9.7 Cardiac Enzymes 12/17/24 Range/Units 08:11 Total Creatine Kinase 129 (30-135) U/L Liver Function 12/17/24 Range/Units 08:11 Total Bilirubin 1.5 H (0.2-1.3) mg/dL AST 26 (14-36) U/L ALT 22 (6-35) U/L Alkaline Phosphatase 89 (38-126) U/L Albumin 4.3 (3.5-5.1) g/dL Urine 12/17/24 Range/Units 09:08 Urine Color Yellow (Yellow) Urine Appearance Clear (Clear) Urine pH 5.0 (5.0-9.0) Ur Specific [place] 1.029 (1.001-1.035) Urine Protein 3+ H (Negative) mg/dL Urine Glucose (UA) 3+ H (Negative) mg/dL Pulse Oximetry SpO2 results: 94-100% on room air Attestation: I personally reviewed and interpreted this pulse oximetry as follows: Interpretation: No need for supplemental oxygenation at this time Imaging CT scan - abdomen: Radiologist's impression: EXAMINATION: CT abdomen pelvis w con DATE: 12/17/2024 09:56 INDICATION: Generalized abdominal pain. TECHNIQUE: Computed tomography (CT) of the abdomen and pelvis was performed with 100 mL Omnipaque 350 intravenous contrast. Automated exposure control and iterative reconstruction technique were employed. The dose-length product was 1206.64 mGy-cm. COMPARISON: None. FINDINGS: The visualized portions of the lung bases demonstrate mild atelectasis. No pleural effusion. The heart size is normal. There are coronary artery calcifications. No pericardial effusion. The liver, gallbladder, spleen, pancreas, adrenal glands, and right kidney are normal. There is a 2.0 cm mass in left kidney measuring soft tissue attenuation. The appendix is normal. There are no dilated loops of bowel. There are no pathologically enlarged lymph nodes. There is no free intraperitoneal fluid. There are widespread arterial calcifications. There are chronic bilateral L5 pars defects. There is 7 mm anterolisthesis of L5 on S1. There is severe lower lumbar spondylosis. IMPRESSION: 1. 2.0 cm left kidney mass, most likely a hemorrhagic cyst, but renal cell carcinoma cannot be excluded. Abdomen MRI without and with contrast is recommended. Reviewed, dictated and finalized at location A. KMAN US - abdomen: Radiologist's impression: EXAMINATION: US abdomen limited DATE: 12/17/2024 10:08 INDICATION: Right upper quadrant abdominal pain. TECHNIQUE: Multiple grayscale and Doppler ultrasound images of the abdomen were obtained. COMPARISON: CT abdomen and pelvis 12/17/2024 FINDINGS: The visualized portions of the head, body, and tail of the pancreas are normal. There is diffuse hepatic steatosis. There is normal flow in main portal vein. The gallbladder is normal in size. No gallstones or gallbladder wall thickening. There is no sonographic Anthony's sign. The common duct is normal and measures 3 mm. IMPRESSION: 1. Diffuse hepatic steatosis. Reviewed, dictated and finalized at location A. KMAN Assessment and Plan Assessment and plan (1) DKA (diabetic ketoacidosis): Code(s): E11.10 - Type 2 diabetes mellitus with ketoacidosis without coma Status: Acute Assessment and Plan: -Anion gap 19, urine ketones 2+, beta-hydroxybuturate added after 2 liters of fluids was 3.84 -This is likely starvation ketosis due to no oral intake for 8 days rather than a result of elevated blood glucose -Repeat anion gap was 13, patient was moved to the floor before receiving insulin in ER -Lantus 40 units at night and every 4 hour fingerstick glucose with high-dose sliding scale (2) Nausea vomiting and diarrhea: Code(s): R11.2 - Nausea with vomiting, unspecified; R19.7 - Diarrhea, unspecified Status: Acute Assessment and Plan: -Stop Ozempic; patient states increased from 1 mg to 2 mg on 12/09/24 -Started vomiting on 12/10/24 with no food intake and forced water intake only -History of gastroparesis due to diabetes -Patient stopped all meds including Levemir insulin while she was vomiting (3) ULYSSES (acute kidney injury): Code(s): N17.9 - Acute kidney failure, unspecified Status: Acute Assessment and Plan: -Related to dehydration from vomiting and unable to tolerate oral intake for 8 days -Improvement already noted after 2 liters IV fluids -Initial eGFR 36 and increased to 46 after fluids -No baseline labs on file (4) Diabetic gastroparesis: Code(s): E11.43 - Type 2 diabetes mellitus with diabetic autonomic (poly)neuropathy; K31.84 - Gastroparesis Status: Acute Assessment and Plan: -Resume metoclopramide TIDWM -Clear liquid diet to start (5) Left kidney mass: Code(s): N28.89 - Other specified disorders of kidney and ureter Status: Acute Assessment and Plan: -New finding of left renal mass, incidental finding s/p scan for diffuse abdominal pain -MRI with and without contrast recommended by Radiology (6) Generalized weakness: Code(s): R53.1 - Weakness Status: Acute Assessment and Plan: -Reports history of right leg weakness diagnosed as myasthenia gravis -Patient fell on 12/16 at home due to full body weakness/shaking, unable to get up for 10 hours -Finally able to reach cell phone to call for help after 10 hours on the ground -PT/OT consult, SNF may be needed (7) Hypertension: Code(s): I10 - Essential (primary) hypertension Status: Acute Assessment and Plan: -Elevated blood pressure on admit, resume home medications and give daily dose this evening and tomorrow -Patient reports she has not taken her home medications since 12/09/24 due to vomiting and no food intake (8) Hyperlipidemia: Code(s): E78.5 - Hyperlipidemia, unspecified Status: Chronic Assessment and Plan: -Resume home medications (9) Hypothyroid: Code(s): E03.9 - Hypothyroidism, unspecified Status: Chronic Assessment and Plan: -Resume home medications -Check TSH with Reflex T4 Plan Patient had vomiting for 8 days, not taking home medications This put her in to ketoacidosis with elevated anion gap but normal CO2 Patient will require continued IV fluids as well as advanced diet as tolerated She will need carbohydrates to get her out of ketosis but this will also raise her glucose Monitor closely as patient may end up requiring insulin drip with dextrose containing fluids if vomiting continues Quality VTE Prophylaxis VTE prophylaxis: pharmacologic ordered Due to a high probability of clinically significant, life threatening deterioration, the patient required my highest level of preparedness to intervene emergently and I personally spent this critical care time directly and personally managing the patient. This critical care time included obtaining a history; examining the patient; pulse oximetry; ordering and review of studies; arranging urgent treatment with development of a management plan; evaluation of patient's response to treatment; frequent reassessment; and discussions with other providers. It was exclusive of separately billable procedures and treating other patients and teaching time. Please see Assessment and Plan section and the rest of the note for further information on patient assessment and treatment. Critical Care time: 40 minutes Hospitalist MIPS Advance Care Plan I have confirmed that the patient's Advanced Care Plan is present, code status is documented, or surrogate decision maker is listed in patient medical record.: Yes Medication Reconciliation I have utilized all available resources to obtain, update and review the patients current medications (includes all prescriptions, OTC, herbals, cannabis, and nutritional supplements).: Yes
[2024-12-17 17:43] LABS: Creatine Kinase 132 U/L (30-135)
[2024-12-17 17:49] LABS: Glucose Point of Care 341 mg/dl (65-105)
[2024-12-17] MEDS: amLODIPine BESYLATE 5 MG TABLET PO (18:15)
[2024-12-17] MEDS: INSULIN ASPART (*BKC) 100 UNITS/ML SUB-Q ×2 (18:16→21:32)
[2024-12-17] MEDS: METOCLOPRAMIDE HCL 10 MG TABLET PO (18:16)
[2024-12-17] MEDS: LOSARTAN POTASSIUM 25 MG TABLET PO (18:16)
[2024-12-17 18:18] LABS: Lipase 125 U/L (23-300)
[2024-12-17] MEDS: INSULIN GLARGINE (*BKC) 100 UNITS/ML 40 UNITS SUB-Q (21:33)
[2024-12-17 21:39] LABS: Glucose Point of Care 306 mg/dl (65-105)
[2024-12-18] MEDS: INSULIN ASPART (*BKC) 100 UNITS/ML SUB-Q ×2 (01:11→11:53)
[2024-12-18 01:12] LABS: Glucose Point of Care 208 mg/dl (65-105)
[2024-12-18 04:48] VITALS: BP 136/60; PULSE 76; RESP 14; TEMP 36.9; O2SAT 93
[2024-12-18 05:37] LABS: Basophils Percent Auto 0.2 % (0.2-1.2); Eosinophils Percent Auto 0.4 % (0-4.4); Hematocrit 38.3 % (37.0-47.0); Hemoglobin 12.9 g/dL (12.0-15.0); Immature Granulocyte Absolute 0.03 K/mm3 (0.00-0.031); Immature Granulocyte Percent A 0.4 % (0-0.5); Lymphocytes Absolute Auto 2.85 K/mm3 (0.9-3.2); Lymphocytes Percent Auto 34.3 % (18.3-44.2); Mean Corpuscular HGB Conc 33.7 g/dl (32-36); Mean Corpuscular Hemoglobin 31.3 pg (26-34); Mean Platelet Volume 10.6 fl (7.4-10.4); Monocytes Absolute Auto 1.1 K/mm3 (0.1-0.6); Monocytes Percent Auto 12.9 % (2.6-8.5); Neutrophils Absolute Auto 4.3 K/mm3 (1.3-6.7); Neutrophils Percent Auto 51.8 % (45.5-73.1); Platelet Count Result 184 k/mm3 (150-375); Red Blood Count 4.12 M/mm3 (4.2-5.4); White Blood Count 8.3 K/mm3 (4.5-10.0)
[2024-12-18 06:02] LABS: Alanine Aminotransferase 16 U/L (6-35); Albumin Level 3.2 g/dL (3.5-5.1); Alkaline Phosphatase 65 U/L (38-126); Anion Gap 6 mmol/L (4-12); Aspartate Amino Transferase 22 U/L (14-36); Bilirubin,Total 0.9 mg/dL (0.2-1.3); Blood Urea Nitrogen 42 mg/dL (7-17); Carbon Dioxide 33 mmol/L (22-30); Chloride 97 mmol/L (98-107); Estimated CRCL calculation 60 ml/min; Estimated Glomerular Filt Rate 48; Glucose 161 mg/dL (65-110); Lipase 186 U/L (23-300); Magnesium 2.3 mg/dL (1.6-2.3); Potassium 3.3 mmol/L (3.4-5.0); Sodium 136 mmol/L (137-145)
[2024-12-18] MEDS: LEVOTHYROXINE SODIUM 150 MCG TABLET PO (06:13)
[2024-12-18] MEDS: SODIUM CHLORIDE 0.9% IV 1,000 ML 125 ML IV CONT (06:13)
[2024-12-18 06:45] LABS: Free T4 Free Thyroxine Reflex 1.53 ng/dL (0.78-2.19)
[2024-12-18 07:07] LABS: Glucose Point of Care 168 mg/dl (65-105)
[2024-12-18 07:41] LABS: Total Triiodothyronine (T3) 0.82 NG/ML (0.97-1.69)
[2024-12-18 08:11] LABS: Glucose Point of Care 168 mg/dl (65-105)
[2024-12-18] MEDS: METOCLOPRAMIDE HCL 10 MG TABLET PO ×3 (08:38→17:25)
[2024-12-18] MEDS: amLODIPine BESYLATE 5 MG TABLET PO (08:38)
[2024-12-18] MEDS: SITagliptin PHOSPHATE 100 MG TABLET PO (08:39)
[2024-12-18] MEDS: ATORVASTATIN 40 MG TABLET PO (08:39)
[2024-12-18] MEDS: GLIMEPIRIDE 2 MG TABLET 4 MG PO (08:39)
[2024-12-18] MEDS: ENOXAPARIN 40 MG/0.4 ML SYRINGE SUB-Q (08:39)
[2024-12-18] MEDS: EMPAGLIFLOZIN 25 MG TABLET PO (08:39)
[2024-12-18] MEDS: LOSARTAN POTASSIUM 25 MG TABLET PO (08:39)
[2024-12-18] MEDS: PANTOPRAZOLE SODIUM IV 40 MG VIAL IV PUSH (08:40)
[2024-12-18] MEDS: calcitrioL 0.25 MCG CAPSULE PO (08:45)
[2024-12-18 11:42] LABS: Glucose Point of Care 295 mg/dl (65-105)
--- NOTE | 2024-12-18 11:49 | PM.IMPN ---
Progress Note: A&P Assessment and Plan (1) DKA (diabetic ketoacidosis): Code(s): E11.10 - Type 2 diabetes mellitus with ketoacidosis without coma Status: Acute Assessment and Plan: DC insulin drip continue IVF -Lantus 40 units at night - SSI (2) Nausea vomiting and diarrhea: Code(s): R11.2 - Nausea with vomiting, unspecified; R19.7 - Diarrhea, unspecified Status: Acute Assessment and Plan: -Stop Ozempic; patient states increased from 1 mg to 2 mg on 12/09/24 -Started vomiting on 12/10/24 with no food intake and forced water intake only -History of gastroparesis due to diabetes -continue antiemetics (3) ULYSSES (acute kidney injury): Code(s): N17.9 - Acute kidney failure, unspecified Status: Acute Assessment and Plan: -resolved creat is 1.1 on fluids (4) Diabetic gastroparesis: Code(s): E11.43 - Type 2 diabetes mellitus with diabetic autonomic (poly)neuropathy; K31.84 - Gastroparesis Status: Acute Assessment and Plan: -Resume metoclopramide TIDWM -Clear liquid diet to start (5) Left kidney mass: Code(s): N28.89 - Other specified disorders of kidney and ureter Status: Acute Assessment and Plan: -New finding of left renal mass, incidental finding s/p scan for diffuse abdominal pain -MRI with and without contrast recommended by Radiology of renal system (6) Generalized weakness: Code(s): R53.1 - Weakness Status: Acute Assessment and Plan: -Reports history of right leg weakness diagnosed as myasthenia gravis -PT/OT consult, SNF may be needed (7) Hypertension: Code(s): I10 - Essential (primary) hypertension Status: Acute Assessment and Plan: -Elevated blood pressure on admit, resume home medications and give daily dose this evening and tomorrow -Patient reports she has not taken her home medications since 12/09/24 due to vomiting and no food intake (8) Hyperlipidemia: Code(s): E78.5 - Hyperlipidemia, unspecified Status: Chronic Assessment and Plan: -Resume home medications (9) Hypothyroid: Code(s): E03.9 - Hypothyroidism, unspecified Status: Chronic Assessment and Plan: -Resume home medications -Check TSH with Reflex T4 Plan Patient had vomiting for 8 days, not taking home medications This put her in to ketoacidosis with elevated anion gap but normal CO2 Patient will require continued IV fluids as well as advanced diet as tolerated She will need carbohydrates to get her out of ketosis but this will also raise her glucose Monitor closely as patient may end up requiring insulin drip with dextrose containing fluids if vomiting continues Subjective Date/time seen: 12/18/24 11:49 Interval history: 59-year-old female patient with a past history of diabetes, MS gout gastroparesis hypothyroidism hyperlipidemia who is brought to the emergency department today due to severe weakness, fall last night and spent all night on the ground as well as vomiting for the last 8 days. Patient states that she is on Ozempic as well as multiple other diabetic medications with poor control of her diabetes. Pt having severe nausea and vomiting secondary ? to increasing her Ozempic dosing Pt states her diarrhea is better today but still feels nauseated today Sugars are stable today at 161. Pt advised to continue clear diet. Review of Systems Review of Systems: Ongoing nausea and vomiting Exam Narrative: GENERAL: Well-appearing, well-nourished, and in no acute distress. Overweight tired weak lying in bed CHEST: Clear to auscultation.? No respiratory distress. HEART: Regular rate and rhythm. ? Normal peripheral pulses. ABDOMEN: Soft, nondistended, epigastric tenderness to palpation, occasional hiccups EXTREMITIES: Normal range of motion. No peripheral edema. SKIN: Warm dry normal color NEURO: Alert and oriented x3. PSYCH: Normal mood and affect Objective Data Vital Signs Vital Signs: Vital Signs - 24 hr 12/17/24 11:51 12/17/24 12:01 12/17/24 12:15 Temperature Pulse Rate 85 92 86 Respiratory Rate 12 11 L 11 L Blood Pressure Pulse Oximetry 96 89 L Oxygen Delivery 12/17/24 12:30 12/17/24 12:31 12/17/24 12:45 Temperature Pulse Rate 91 88 84 Respiratory Rate 13 11 L 12 Blood Pressure 142/84 H Pulse Oximetry 94 92 88 L Oxygen Delivery 12/17/24 12:57 12/17/24 13:00 12/17/24 13:19 Temperature Pulse Rate 100 85 85 Respiratory Rate 16 11 L 12 Blood Pressure 142/84 H Pulse Oximetry 93 91 90 Oxygen Delivery 12/17/24 13:31 12/17/24 14:00 12/17/24 14:12 Temperature Pulse Rate 84 85 83 Respiratory Rate 13 12 12 Blood Pressure 169/80 H Pulse Oximetry 89 L 93 91 Oxygen Delivery 12/17/24 14:15 12/17/24 14:30 12/17/24 14:38 Temperature 36.7 C Pulse Rate 84 87 89 Respiratory Rate 12 13 10 L Blood Pressure 183/86 H Pulse Oximetry 90 97 94 Oxygen Delivery 12/17/24 15:30 12/17/24 19:54 12/18/24 04:48 Temperature 36.6 C 36.9 C Pulse Rate 88 76 Respiratory Rate 14 14 Blood Pressure 148/57 H 136/60 Pulse Oximetry 93 93 Oxygen Delivery Room Air 12/18/24 08:40 Temperature Pulse Rate Respiratory Rate Blood Pressure Pulse Oximetry Oxygen Delivery Room Air Intake/Output Intake/Output: Intake & Output 12/15/24 12/16/24 12/17/24 12/18/24 23:59 23:59 23:59 23:59 Intake Total 4030 2209.2 Output Total 150 400 Balance 3880 1809.2 Meds/Results Medications: Active Medications Generic Name Dose Route Start Last Admin Trade Name Freq PRN Reason Stop Dose Admin Amlodipine Besylate 5 mg 12/17/24 17:10 12/18/24 08:38 Amlodipine Besylate 5 Mg Tablet PO 5 mg DAILY MARLON Administration Atorvastatin Calcium 40 mg 12/18/24 09:00 12/18/24 08:39 Atorvastatin 40 Mg Tablet PO 40 mg DAILY MARLON Administration Calcitriol 0.25 mcg 12/18/24 09:00 12/18/24 08:45 Calcitriol 0.25 Mcg Capsule PO 0.25 mcg DAILY MARLON Administration Dextrose 12.5 gm 12/17/24 17:01 Dextrose 50% 25 Gm/50 Ml Syringe IV PUSH PRN PRN Hypoglycemia Protocol Empagliflozin 25 mg 12/18/24 09:00 12/18/24 08:39 Empagliflozin 25 Mg Tablet PO 25 mg DAILY MARLON Administration Enoxaparin Sodium 40 mg 12/18/24 09:00 12/18/24 08:39 Enoxaparin 40 Mg/0.4 Ml Syringe SUB-Q 40 mg DAILY MARLON Administration Glimepiride 4 mg 12/18/24 09:00 12/18/24 08:39 Glimepiride 2 Mg Tablet PO 4 mg BID MARLON Administration Glucagon 1 mg 12/17/24 17:01 Glucagon For Inj 1 Mg Vial IM PRN PRN Hypoglycemia Protocol Glucose 15 gm 12/17/24 17:01 Glucose Oral Gel 15 Gm Of Glucse In 37.5 Gm Tube PO PRN PRN Hypoglycemia Protocol Sodium Chloride 1,000 mls @ 125 mls/hr 12/17/24 12:55 12/18/24 06:13 Normal Saline Iv IV CONT 125 mls/hr .Q8H MARLON Administration Dextrose 1,000 mls @ 100 mls/hr 12/17/24 17:01 Dextrose 5% 1,000 Ml IVPB PRN PRN Hypoglycemia Protocol Insulin Aspart 4 - 8 units 12/18/24 08:00 12/18/24 08:31 Insulin Aspart (*Bkc) 100 Units/Ml SUB-Q Not Given Q4H MARLON Protocol Insulin Glargine 40 units 12/17/24 21:00 12/17/24 21:33 Insulin Glargine (*Bkc) 100 Units/Ml SUB-Q 40 units HS MARLON Administration Levothyroxine Sodium 150 mcg 12/18/24 06:30 12/18/24 06:13 Levothyroxine Sodium 150 Mcg Tablet PO 150 mcg DAILY@0630 MARLON Administration Losartan Potassium 25 mg 12/17/24 17:10 12/18/24 08:39 Losartan Potassium 25 Mg Tablet PO 25 mg DAILY MARLON Administration Metoclopramide HCl 10 mg 12/17/24 17:10 12/18/24 08:38 Metoclopramide Hcl 10 Mg Tablet PO 10 mg TIDWM MARLON Administration Ondansetron HCl 4 mg 12/17/24 12:54 Ondansetron Inj 4 Mg/2 Ml Vial IV PUSH Q4H PRN Nausea Pantoprazole Sodium 40 mg 12/18/24 09:00 12/18/24 08:40 Pantoprazole Sodium Iv 40 Mg Vial IV PUSH 40 mg QAM MARLON Administration Sitagliptin Phosphate 100 mg 12/18/24 09:00 12/18/24 08:39 Sitagliptin Phosphate 100 Mg Tablet PO 100 mg DAILY MARLON Administration Radiology Results: ITS Impressions Abdomen/Pelvis CT 12/17/24 09:56 IMPRESSION: 1. 2.0 cm left kidney mass, most likely a hemorrhagic cyst, but renal cell carcinoma cannot be excluded. Abdomen MRI without and with contrast is recommended. Abdomen Ultrasound 12/17/24 10:14 IMPRESSION: 1. Diffuse hepatic steatosis. Labs Labs: Laboratory Results - last 24 hr 12/17/24 12/17/24 12/17/24 08:11 12:12 14:31 WBC RBC Hgb Hct MCV MCH MCHC RDW Plt Count MPV Immature Gran % (Auto) Neut % (Auto) Lymph % (Auto) [place] % (Auto) Eos % (Auto) Baso % (Auto) Lymph # (Auto) [place] # (Auto) Eos # (Auto) Baso # (Auto) Abs Immat Gran (auto) Absolute Neuts (auto) Absolute Nucleated RBC Nucleated RBC % Sodium 134 L Potassium 3.9 Chloride 94 L Carbon Dioxide 27 Anion Gap 13 H BUN 49 H Creatinine 1.20 H Estim Creat Clear Calc 58 Estimated GFR 46 L Glucose 295 H POC Capillary Glucose Hemoglobin A1c 10.5 H Lactic Acid 1.1 Calcium 9.7 Magnesium Total Bilirubin AST ALT Alkaline Phosphatase Total Creatine Kinase 129 132 Total Protein Albumin Lipase 125 Beta-Hydroxybutyrate/Acetoacetate 3.84 H TSH (Reflex) 7.550 H Free T4 1.53 Total T3 0.82 L Influenza A (RT-PCR) Negative Influenza B (RT-PCR) Negative RSV (RT-PCR) Negative SARS-CoV-2 RNA (RT-PCR) Negative 12/17/24 12/17/24 12/18/24 17:46 21:22 00:53 WBC RBC Hgb Hct MCV MCH MCHC RDW Plt Count MPV Immature Gran % (Auto) Neut % (Auto) Lymph % (Auto) [place] % (Auto) Eos % (Auto) Baso % (Auto) Lymph # (Auto) [place] # (Auto) Eos # (Auto) Baso # (Auto) Abs Immat Gran (auto) Absolute Neuts (auto) Absolute Nucleated RBC Nucleated RBC % Sodium Potassium Chloride Carbon Dioxide Anion Gap BUN Creatinine Estim Creat Clear Calc Estimated GFR Glucose POC Capillary Glucose 341 H 306 H 208 H Hemoglobin A1c Lactic Acid Calcium Magnesium Total Bilirubin AST ALT Alkaline Phosphatase Total Creatine Kinase Total Protein Albumin Lipase Beta-Hydroxybutyrate/Acetoacetate TSH (Reflex) Free T4 Total T3 Influenza A (RT-PCR) Influenza B (RT-PCR) RSV (RT-PCR) SARS-CoV-2 RNA (RT-PCR) 12/18/24 12/18/24 12/18/24 04:48 05:24 08:09 WBC 8.3 RBC 4.12 L Hgb 12.9 Hct 38.3 MCV 93.0 MCH 31.3 MCHC 33.7 RDW 12.0 Plt Count 184 MPV 10.6 H Immature Gran % (Auto) 0.4 Neut % (Auto) 51.8 Lymph % (Auto) 34.3 [place] % (Auto) 12.9 H Eos % (Auto) 0.4 Baso % (Auto) 0.2 Lymph # (Auto) 2.85 [place] # (Auto) 1.1 H Eos # (Auto) 0.0 Baso # (Auto) 0.0 Abs Immat Gran (auto) 0.03 Absolute Neuts (auto) 4.3 Absolute Nucleated RBC 0.000 Nucleated RBC % 0.0 Sodium 136 L Potassium 3.3 L Chloride 97 L Carbon Dioxide 33 H Anion Gap 6 BUN 42 H Creatinine 1.15 H Estim Creat Clear Calc 60 Estimated GFR 48 L Glucose 161 H POC Capillary Glucose 168 H 168 H Hemoglobin A1c Lactic Acid Calcium 9.0 Magnesium 2.3 Total Bilirubin 0.9 AST 22 ALT 16 Alkaline Phosphatase 65 Total Creatine Kinase Total Protein 6.0 L Albumin 3.2 L Lipase 186 Beta-Hydroxybutyrate/Acetoacetate TSH (Reflex) Free T4 Total T3 Influenza A (RT-PCR) Influenza B (RT-PCR) RSV (RT-PCR) SARS-CoV-2 RNA (RT-PCR) 12/18/24 11:35 WBC RBC Hgb Hct MCV MCH MCHC RDW Plt Count MPV Immature Gran % (Auto) Neut % (Auto) Lymph % (Auto) [place] % (Auto) Eos % (Auto) Baso % (Auto) Lymph # (Auto) [place] # (Auto) Eos # (Auto) Baso # (Auto) Abs Immat Gran (auto) Absolute Neuts (auto) Absolute Nucleated RBC Nucleated RBC % Sodium Potassium Chloride Carbon Dioxide Anion Gap BUN Creatinine Estim Creat Clear Calc Estimated GFR Glucose POC Capillary Glucose 295 H Hemoglobin A1c Lactic Acid Calcium Magnesium Total Bilirubin AST ALT Alkaline Phosphatase Total Creatine Kinase Total Protein Albumin Lipase Beta-Hydroxybutyrate/Acetoacetate TSH (Reflex) Free T4 Total T3 Influenza A (RT-PCR) Influenza B (RT-PCR) RSV (RT-PCR) SARS-CoV-2 RNA (RT-PCR)
--- NOTE | 2024-12-18 12:25 | PC.NURSE ---
Patient to MRI via wheelchair.
[2024-12-18 14:00] VITALS: BP 88/54; PULSE 82; RESP 14; TEMP 36.6; O2SAT 96
[2024-12-18 16:57] LABS: Glucose Point of Care 144 mg/dl (65-105)
[2024-12-18] MEDS: POTASSIUM CHLORIDE 20 MEQ PACKET (FOR LIQUID) 40 MEQ PO (17:25)
[2024-12-18] MEDS: SODIUM CHLORIDE 0.9% IV 1,000 ML 70 ML IV CONT (19:58)
[2024-12-18] MEDS: INSULIN GLARGINE (*BKC) 100 UNITS/ML 40 UNITS SUB-Q (21:25)
[2024-12-18 21:30] VITALS: PULSE 78; RESP 18; O2SAT 98
[2024-12-18 21:31] LABS: Glucose Point of Care 172 mg/dl (65-105)
[2024-12-18 21:39] VITALS: BP 150/62; PULSE 78; RESP 18; TEMP 36.6; O2SAT 98
[2024-12-19 00:02] LABS: Glucose Point of Care 121 mg/dl (65-105)
[2024-12-19 04:41] VITALS: BP 150/57; PULSE 73; RESP 16; TEMP 36.4; O2SAT 96
[2024-12-19 05:35] LABS: Anion Gap 5 mmol/L (4-12); Blood Urea Nitrogen 27 mg/dL (7-17); Calcium 8.5 mg/dL (8.4-10.2); Carbon Dioxide 30 mmol/L (22-30); Chloride 102 mmol/L (98-107); Estimated CRCL calculation 77 ml/min; Estimated Glomerular Filt Rate > 60; Glucose 79 mg/dL (65-110); Magnesium 2.3 mg/dL (1.6-2.3); Potassium 3.1 mmol/L (3.4-5.0); Sodium 137 mmol/L (137-145)
[2024-12-19] MEDS: LEVOTHYROXINE SODIUM 150 MCG TABLET PO (05:43)
[2024-12-19 06:15] LABS: Glucose Point of Care 81 mg/dl (65-105)
[2024-12-19 08:13] VITALS: BP 176/90; PULSE 78; RESP 16; TEMP 36.3; O2SAT 98
[2024-12-19] MEDS: amLODIPine BESYLATE 5 MG TABLET PO (08:17)
[2024-12-19] MEDS: ENOXAPARIN 40 MG/0.4 ML SYRINGE SUB-Q (08:17)
[2024-12-19] MEDS: POTASSIUM CHLORIDE 20 MEQ PACKET (FOR LIQUID) 40 MEQ PO ×2 (08:17→16:23)
[2024-12-19 08:18] VITALS: O2SAT 98
[2024-12-19] MEDS: LOSARTAN POTASSIUM 25 MG TABLET PO (08:18)
[2024-12-19] MEDS: PANTOPRAZOLE SOD SESQUIHYDRATE 20 MG TAB PO (08:18)
[2024-12-19] MEDS: METOCLOPRAMIDE HCL 10 MG TABLET PO ×3 (08:18→16:23)
[2024-12-19] MEDS: ATORVASTATIN 40 MG TABLET PO (08:18)
[2024-12-19] MEDS: calcitrioL 0.25 MCG CAPSULE PO (08:18)
[2024-12-19 08:29] LABS: Glucose Point of Care 102 mg/dl (65-105)
[2024-12-19 12:23] LABS: Glucose Point of Care 205 mg/dl (65-105)
[2024-12-19] MEDS: INSULIN ASPART (*BKC) 100 UNITS/ML SUB-Q ×2 (12:30→20:10)
--- NOTE | 2024-12-19 14:10 | PM.IMPN ---
Progress Note: A&P Assessment and Plan (1) DKA (diabetic ketoacidosis): Code(s): E11.10 - Type 2 diabetes mellitus with ketoacidosis without coma Status: Acute Assessment and Plan: S/p Insulin and IVF infusion -Lantus 40 units at night - SSI monitor resolved (2) Nausea vomiting and diarrhea: Code(s): R11.2 - Nausea with vomiting, unspecified; R19.7 - Diarrhea, unspecified Status: Acute Assessment and Plan: -Stop Ozempic; patient states increased from 1 mg to 2 mg on 12/09/24 resolved (3) ULYSSES (acute kidney injury): Code(s): N17.9 - Acute kidney failure, unspecified Status: Acute Assessment and Plan: -resolved creat is 1.1 on fluids (4) Diabetic gastroparesis: Code(s): E11.43 - Type 2 diabetes mellitus with diabetic autonomic (poly)neuropathy; K31.84 - Gastroparesis Status: Acute Assessment and Plan: -Resume metoclopramide TIDWM -tolerating regular diet (5) Left kidney mass: Code(s): N28.89 - Other specified disorders of kidney and ureter Status: Acute Assessment and Plan: ruled out MRI showed benign renal cyst (6) Generalized weakness: Code(s): R53.1 - Weakness Status: Acute Assessment and Plan: -Reports history of right leg weakness diagnosed as myasthenia gravis -PT/OT improved (7) Hypertension: Code(s): I10 - Essential (primary) hypertension Status: Acute Assessment and Plan: Continue Amlodipine and Losartan started on HCTZ adjust with clinical course (8) Hyperlipidemia: Code(s): E78.5 - Hyperlipidemia, unspecified Status: Chronic Assessment and Plan: -Resume home medications (9) Hypothyroid: Code(s): E03.9 - Hypothyroidism, unspecified Status: Chronic Assessment and Plan: -Resume home medications -Check TSH with Reflex T4 Plan DVT prophylaxis on Sq Lovenox Subjective Date/time seen: 12/19/24 14:10 Interval history: Patient noted she is feeling quite well today however noted she does not have any help at home today adn will like to discharge tomorrow when help will be available Review of Systems Review of Systems: Ongoing nausea and vomiting All systems reviewed & are unremarkable except as noted in HPI and below Exam Narrative: GENERAL: Well-appearing, well-nourished, and in no acute distress. Overweight tired weak lying in bed CHEST: Clear to auscultation.? No respiratory distress. HEART: Regular rate and rhythm. ? Normal peripheral pulses. ABDOMEN: Soft, nondistended, epigastric tenderness to palpation, occasional hiccups EXTREMITIES: Normal range of motion. No peripheral edema. SKIN: Warm dry normal color NEURO: Alert and oriented x3. PSYCH: Normal mood and affect Objective Data Vital Signs Vital Signs: Vital Signs - 24 hr 12/18/24 15:01 12/18/24 15:45 12/18/24 21:30 Temperature Pulse Rate 78 Respiratory Rate 18 Blood Pressure Pulse Oximetry 98 Oxygen Delivery Room Air Room Air Room Air 12/18/24 21:39 12/19/24 04:41 12/19/24 08:13 Temperature 97.8 F 97.6 F 97.4 F L Pulse Rate 78 73 78 Respiratory Rate 18 16 16 Blood Pressure 150/62 H 150/57 H 176/90 H Pulse Oximetry 98 96 98 Oxygen Delivery 12/19/24 08:18 Temperature Pulse Rate Respiratory Rate Blood Pressure Pulse Oximetry 98 Oxygen Delivery Room Air Intake/Output Intake/Output: Intake & Output 12/16/24 12/17/24 12/18/24 12/19/24 23:59 23:59 23:59 23:59 Intake Total 4030 4169.2 800 Output Total 150 850 Balance 3880 3319.2 800 Meds/Results Medications: Active Medications Generic Name Dose Route Start Last Admin Trade Name Freq PRN Reason Stop Dose Admin Amlodipine Besylate 5 mg 12/17/24 17:10 12/19/24 08:17 Amlodipine Besylate 5 Mg Tablet PO 5 mg DAILY MARLON Administration Atorvastatin Calcium 40 mg 12/18/24 09:00 12/19/24 08:18 Atorvastatin 40 Mg Tablet PO 40 mg DAILY MARLON Administration Calcitriol 0.25 mcg 12/18/24 09:00 12/19/24 08:18 Calcitriol 0.25 Mcg Capsule PO 0.25 mcg DAILY MARLON Administration Dextrose 12.5 gm 12/17/24 17:01 Dextrose 50% 25 Gm/50 Ml Syringe IV PUSH PRN PRN Hypoglycemia Protocol Enoxaparin Sodium 40 mg 12/18/24 09:00 12/19/24 08:17 Enoxaparin 40 Mg/0.4 Ml Syringe SUB-Q 40 mg DAILY MARLON Administration Glucagon 1 mg 12/17/24 17:01 Glucagon For Inj 1 Mg Vial IM PRN PRN Hypoglycemia Protocol Glucose 15 gm 12/17/24 17:01 Glucose Oral Gel 15 Gm Of Glucse In 37.5 Gm Tube PO PRN PRN Hypoglycemia Protocol Dextrose 1,000 mls @ 100 mls/hr 12/17/24 17:01 Dextrose 5% 1,000 Ml IVPB PRN PRN Hypoglycemia Protocol Insulin Aspart 4 - 8 units 12/18/24 08:00 12/19/24 12:30 Insulin Aspart (*Bkc) 100 Units/Ml SUB-Q 4 units Q4H MARLON Administration Protocol Insulin Glargine 40 units 12/17/24 21:00 12/18/24 21:25 Insulin Glargine (*Bkc) 100 Units/Ml SUB-Q 40 units HS MARLON Administration Levothyroxine Sodium 150 mcg 12/18/24 06:30 12/19/24 05:43 Levothyroxine Sodium 150 Mcg Tablet PO 150 mcg DAILY@0630 MARLON Administration Loperamide HCl 2 mg 12/18/24 11:55 Loperamide Hcl 2 Mg Capsule PO PRN PRN Diarrhea Losartan Potassium 25 mg 12/17/24 17:10 12/19/24 08:18 Losartan Potassium 25 Mg Tablet PO 25 mg DAILY MARLON Administration Metoclopramide HCl 10 mg 12/17/24 17:10 12/19/24 12:31 Metoclopramide Hcl 10 Mg Tablet PO 10 mg TIDWM MARLON Administration Ondansetron HCl 4 mg 12/17/24 12:54 Ondansetron Inj 4 Mg/2 Ml Vial IV PUSH Q4H PRN Nausea Pantoprazole Sodium 20 mg 12/19/24 09:00 12/19/24 08:18 Pantoprazole Sod Sesquihydrate 20 Mg Tab PO 20 mg QAM MARLON Administration Potassium Chloride 40 meq 12/18/24 17:00 12/19/24 08:17 Potassium Chloride 20 Meq Packet (For Liquid) PO 40 meq BID MARLON Administration Radiology Results: ITS Impressions Abdomen/Pelvis CT 12/17/24 09:56 IMPRESSION: 1. 2.0 cm left kidney mass, most likely a hemorrhagic cyst, but renal cell carcinoma cannot be excluded. Abdomen MRI without and with contrast is recommended. Abdomen Ultrasound 12/17/24 10:14 IMPRESSION: 1. Diffuse hepatic steatosis. Kidney MRI 12/18/24 13:16 IMPRESSION: 1. Benign cysts in left kidney. Labs Labs: Laboratory Results - last 24 hr 12/18/24 12/18/24 12/18/24 16:39 21:23 23:45 Sodium Potassium Chloride Carbon Dioxide Anion Gap BUN Creatinine Estim Creat Clear Calc Estimated GFR Glucose POC Capillary Glucose 144 H 172 H 121 H Calcium Magnesium 12/19/24 12/19/24 12/19/24 04:45 04:46 07:46 Sodium 137 Potassium 3.1 L Chloride 102 Carbon Dioxide 30 Anion Gap 5 BUN 27 H D Creatinine 0.88 Estim Creat Clear Calc 77 Estimated GFR > 60 Glucose 79 POC Capillary Glucose 81 102 Calcium 8.5 Magnesium 2.3 12/19/24 12:13 Sodium Potassium Chloride Carbon Dioxide Anion Gap BUN Creatinine Estim Creat Clear Calc Estimated GFR Glucose POC Capillary Glucose 205 H Calcium Magnesium Quality VTE Prophylaxis VTE prophylaxis: pharmacologic ordered
[2024-12-19 15:10] VITALS: BP 147/67; PULSE 87; RESP 16; TEMP 36.3; O2SAT 94
[2024-12-19] MEDS: hydroCHLOROthiazide 12.5 MG CAPSULE PO (15:12)
[2024-12-19 17:03] LABS: Glucose Point of Care 199 mg/dl (65-105)
[2024-12-19 20:05] VITALS: BP 149/63; PULSE 84; RESP 18; TEMP 37; O2SAT 97
[2024-12-19 20:10] VITALS: PULSE 84; RESP 18; O2SAT 97
[2024-12-19] MEDS: INSULIN GLARGINE (*BKC) 100 UNITS/ML 40 UNITS SUB-Q (20:10)
[2024-12-19 22:12] LABS: Glucose Point of Care 262 mg/dl (65-105)
[2024-12-20 00:18] LABS: Glucose Point of Care 181 mg/dl (65-105)
[2024-12-20 04:16] LABS: Glucose Point of Care 172 mg/dl (65-105)
[2024-12-20 05:00] VITALS: BP 153/77; PULSE 80; RESP 18; TEMP 37.1; O2SAT 95
[2024-12-20] MEDS: LEVOTHYROXINE SODIUM 150 MCG TABLET PO (05:49)
[2024-12-20 08:07] VITALS: BP 164/67; PULSE 83; RESP 16; TEMP 37; O2SAT 95
[2024-12-20] MEDS: ACETAMINOPHEN 325 MG TABLET 650 MG PO (08:09)
[2024-12-20] MEDS: amLODIPine BESYLATE 5 MG TABLET PO (08:10)
[2024-12-20] MEDS: hydroCHLOROthiazide 12.5 MG CAPSULE PO (08:10)
[2024-12-20] MEDS: METOCLOPRAMIDE HCL 10 MG TABLET PO ×2 (08:10→12:23)
[2024-12-20] MEDS: ATORVASTATIN 40 MG TABLET PO (08:10)
[2024-12-20] MEDS: PANTOPRAZOLE SOD SESQUIHYDRATE 20 MG TAB PO (08:10)
[2024-12-20] MEDS: ENOXAPARIN 40 MG/0.4 ML SYRINGE SUB-Q (08:11)
[2024-12-20] MEDS: calcitrioL 0.25 MCG CAPSULE PO (08:11)
[2024-12-20] MEDS: LOSARTAN POTASSIUM 25 MG TABLET PO (08:11)
[2024-12-20] MEDS: POTASSIUM CHLORIDE 20 MEQ PACKET (FOR LIQUID) 40 MEQ PO (08:11)
[2024-12-20 08:27] LABS: Glucose Point of Care 121 mg/dl (65-105)
[2024-12-20 12:15] LABS: Glucose Point of Care 203 mg/dl (65-105)
[2024-12-20] MEDS: INSULIN ASPART (*BKC) 100 UNITS/ML SUB-Q (12:23)
--- NOTE | 2024-12-20 13:02 | P.DS_ITS ---
DS: Admitting Diagnosis Discharge Date 12/20/24 Admitting Diagnosis Vomiting, abdominal pain and weakness DS: Discharge Diagnosis Discharge Diagnosis (1) DKA (diabetic ketoacidosis): Code(s): E11.10 - Type 2 diabetes mellitus with ketoacidosis without coma Status: Acute (2) ULYSSES (acute kidney injury): Code(s): N17.9 - Acute kidney failure, unspecified Status: Acute DS: Summary Hospital Course Hospital Course: This is a 59-year-old female patient with a past history of diabetes gout gastroparesis hypothyroidism hyperlipidemia who is brought to the emergency department today due to severe weakness, fall last night and spent all night on the ground as well as vomiting for the last 8 days. Patient states that she is on Ozempic as well as multiple other diabetic medications with poor control of her diabetes. Recently her Ozempic dose was increased from 1 mg to 2 mg and she took that new dose on December 09. The following day patient began vomiting and has been unable to eat any food since. She has felt anorexia as well as ongoing vomiting. She has forced herself to drink some water but has not taken any of her home medications including her Levemir insulin for the last 8 days. Last night patient stated that she began to get shaky all over with increased generalized weakness. She states that when she was walking back from the bathroom she fell to her knees and was too weak to get herself off the ground. Patient states that she found some nearby clothing and used it to make a pillow and slept on the floor all night. She also continued to vomit overnight. This morning she was able to muster enough strength to sit up and reach her cellphone that was on the bedside table to call for help. Patient lives alone. She denies injury from her fall states that she landed on knees has small abrasions but otherwise no injury. ER eval Cr 1.48, BUN 58, anion gap 19, BG 308 and elevated WBC 17. CT head and AP were unremarkable except ofr 2 cm renal mass. Patient was managed for DKA with IVF and insulin drip, successfully transitioned to subcut regimen and today discharged on her home regimen except for Ozempic. Given that increment in dose of Ozempic appeared to have caused her vomiting which led to her not taking her antidiabetics for 7 days leading to DKA, patient will stay off meds for now and follow up with her PCP and endocrinology. nausea and vomiting resolved, Ulysses resolved with rehydration. MRI abd showed simple renal cyst thus renal mass ruled out. Adjust antihypertensives by adding HCTZ 12.5mg, f/u wi PCP for further adjustment. F/u wt PCP in 3-5 days, continue follow up with primary endocrinology patient counseled about diabetic diet Time Spent with Patient Time attestation: Total time spent providing and/or coordinating discharge services: DS: Data Data Completed and Pending Labs on day of discharge: Labs from last 24 hours 12/20/24 12/20/24 12/20/24 11:55 08:07 04:04 POC Capillary Glucose 203 H 121 H 172 H 12/20/24 12/19/24 12/19/24 00:08 20:03 16:46 POC Capillary Glucose 181 H 262 H 199 H Discharge Plan Discharge Diet: diabetic Patient Language: [place] Follow-up/Referrals: Akhil,ARTIE Michelle [Primary Care Provider] - (F/u with PCP in 3-5 days ) Discharge Medications: New hydrochlorothiazide 12.5 mg Capsule 12.5 mg PO QAM 30 Days Qty: 30 0RF Continued Ozempic 0.25 mg or 0.5 mg (2 mg/3 mL) pen injector 2 mg subcut WEEKLY Rx Instructions: for 4 weeks allopurinol 100 mg tablet 100 mg PO Q12H calcitriol 0.25 mcg capsule 0.25 mcg PO DAILY losartan 25 mg tablet 25 mg PO DAILY ergocalciferol (vitamin D2) 1,250 mcg (50,000 unit) capsule 50,000 unit PO WEEKLY Patient Comments: Takes on Mondays insulin detemir U-100 100 unit/mL (3 mL) insulin pen 48 unit subcut HS metoclopramide HCl 10 mg tablet See Rx Instructions .ROUTE .COMPLEX Qty: 90 2RF Dose Instruction: TAKE ONE TABLET BY MOUTH THREE TIMES DAILY Rx Instructions: TAKE ONE TABLET BY MOUTH THREE TIMES DAILY Linzess 72 mcg capsule See Rx Instructions .ROUTE .COMPLEX Qty: 30 3RF Dose Instruction: TAKE ONE CAPSULE DAILY Rx Instructions: TAKE ONE CAPSULE DAILY atorvastatin 40 mg tablet 40 mg PO DAILY amlodipine 5 mg tablet 5 mg PO DAILY glimepiride 4 mg tablet 4 mg PO BID levothyroxine 150 mcg tablet 150 mcg PO DAILY furosemide 20 mg tablet 20 mg PO PRN PRN (Reason: swelling) Januvia 100 mg tablet 100 mg PO DAILY Jardiance 25 mg tablet 25 mg PO DAILY Laxative 1 tablet PO DAILY PRN (Reason: Constipation) Date of admission: 12/17/24 12:54 Primary Care Provider: AkhilDonte Admitting Provider: Alexandria Moya Attending physician on admission: Alexandria Moya Condition: Serious
== END 2024-12-20 13:57 | disposition home or self-care (01) ==
LOC: ANHED 12:54 → ANH3MEDSUR 13:35 → ANH2MED 14:42
PROVIDERS: Family Medicine; Nurse Practitioner; Admitting Provider Internal Medicine; Emergency Provider Emergency Medicine; PCP Physician Assistant Medical; Visit Provider Internal Medicine
DX: E11.10 Type 2 diabetes mellitus with ketoacidosis without coma (principal); N17.9 Acute kidney failure, unspecified; R53.1 Weakness; R11.2 Nausea with vomiting, unspecified; R19.7 Diarrhea, unspecified; W18.30XA Fall on same level, unspecified, initial encounter; E11.43 Type 2 diabetes mellitus with diabetic autonomic (poly)neuropathy; K31.84 Gastroparesis; G70.00 Myasthenia gravis without (acute) exacerbation; N28.1 Cyst of kidney, acquired; M10.9 Gout, unspecified; E03.9 Hypothyroidism, unspecified; I10 Essential (primary) hypertension; E78.5 Hyperlipidemia, unspecified; Z20.822 Contact with and (suspected) exposure to COVID-19; Z79.4 Long term (current) use of insulin; Z79.84 Long term (current) use of oral hypoglycemic drugs; Z79.85 Long-term (current) use of injectable non-insulin antidiabetic drugs
CPT/HCPCS: 36415; 74177; 74183; 76705; 80048; 80053; 81001; 82010; 82550; 82948; 83036; 83605; 83690; 83735; 84439; 84443; 84480; 85025; 87637; 96361; 96372; 96374; 96375; 96376; 97161; 97165; 99285; A9270; A9577; G0378; J1171; J1650; J1815; J2405; J2470; J2765; J7030; J7120; Q9967

== ENCOUNTER 2025-05-23 14:14 | Outpatient (CLI) | payer MEDICARE, SELFPAY ==
--- OUTSIDE RECORDS SUMMARY | 2025-05-23 14:24 | XMS_ITS | Encounter Summary ---
Author Organization [facility] Address [address] [place] [address] Care Team Providers Care Internship Coordinator Name Role Phone Carlos Eduardo Chase Primary [...] on file Legal Sex Female 5:17 AM SCRIPT READER Gender Identity Not on file Sexual Orientation Not on file documented as of this encounter Plan of Treatment Not on file documented as of this encounter Visit Diagnoses Diagnosis Sprain of hand, unspecified site- Primary documented in this encounter Care Teams Internship Coordinator Relationship Specialty Start Date End Date Carlos Eduardo Chase PCP - General 09/30/01 documented as of this encounter
--- OUTSIDE RECORDS SUMMARY | 2025-05-23 14:24 | XMS_ITS | Clinical Summary ---
Author Organization [facility] Address 5 [facility] Attn: Epic Prelude ADT [place] [phone] Care Team Providers Care Die Presser Name Role Phone Carlos Eduardo Chase Primary Care Provider Unavailabl e Social History Tobacco Use Types Packs/Day Years Used Date Smoking Tobacco: Never Assessed Comments Unknown Sex and Gender Information Value Date Recorded Sex Assigned at Not on file Legal Sex Female 5:17 AM BOX PRINTER Gender Identity Not on file Sexual Orientation Not on file Plan of Treatment Health Maintenance Due Date Last Done Comments DTAP/TDAP/TD VACCINES (1 - Tdap) 1984 HEPATITIS B VACCINES (1 of 3 - 19+ 3-dose series) 10/12 HPV/Cotest (21-29) 1986 CERVICAL CANCER SCREENING 1995 HPV/Cotest (30-65) 1995 PAP SMEAR 1995 BREAST CANCER SCREENING 2005 COLORECTAL SCREENING 2010 Colorectal Cancer Screening 2010 FIT-DNA Q 3 years 2010 FIT/FOBT Q 1 year 2010 Flex Sig/CT Colonography Q 5 years 2010 ZOSTER VACCINE (1 of 2) 2015 INFLUENZA VACCINE (#1) 2025 Care Teams Die Presser Relationship Specialty Start Date End Date Carlos Eduardo Chase PCP - General 09/30/01
--- OUTSIDE RECORDS SUMMARY | 2025-05-23 14:24 | XMS_ITS | Continuity of Care Document ---
Author Organization [facility] Address [address] [place] [address] Phone Care Team Providers Care Stone Rubber Name Role Phone Tariq RODRIGUEZ, FACC, Chetan Unavailable Unavail able Allergies, Adverse Reactions, Alerts Substance Reaction Status Criticality thimerosal Active No Information azithromycin Active No Information metformin Active No Information lisinopril Active No Information Medications Medication Instructions Dosage Effective Dates (start - stop) Status Comments losartan 50 mg tablet take 1 tablet by oral route every day 50 MG - Active furosemide 40 mg tablet - Ac tive acetaminophen 300 mg-codeine 30 mg tablet - Active atorvastatin 40 mg tablet TAKE ONE TABLE T BY MOUTH EVERY NIGHT AT BEDTIME TO LOWER CHOLESTEROL - Active calcitriol 0.25 mcg capsule - Active ergocalciferol (vitamin D2) 1,250 mcg (50,000 unit) capsule TAKE ONE CAPSULE BY MOUTH EVERY WEEK FOR VITAMIN DEFICIANCY - Active levothyroxine 150 mcg tablet - Active metoclopramide 10 mg tablet - Active amlodipine 5 mg tablet - No Longer Active ciprofloxacin 500 mg tablet TAKE ONE TABLET BY MOUTH TWICE DAILY EVERY MORNING & EVENING FOR INFECTION - No Longer Active losartan 25 mg tablet - No Longer Active furosemide 20 mg tablet - No Longer Active glimepiride 4 mg tablet - No Longer Active alcohol swabs No Longer Active ketorolac 0.5 % eye drops Ap No Longer Active Lantus Solostar U-100 Insulin 100 unit/mL (3 mL) subcutaneous pen No Longer Active OneTouch Delica Plus Lancet 33 gauge USE TO CHECK BLOOD SUGAR THREE TIMES A DAY, MORNING, MIDDAY AND BEDTIME No Longer Active OneTouch Ultra Test strips No Longer Active pioglitazone 30 mg tablet TAKE 1 TABLET BY MOUTH ONCE DAILY IN THE MORNING FOR DIABETES No Longer Active TRUEplus Pen Needle 31 gauge x 16 No Longer Active pioglitazone 15 mg tablet TAKE 1 TABLET BY MOUTH ONCE DAILY FOR 30 DAYS FOR DIABETES No Longer Active ClikthroughTouch Ultra2 Meter No Longer Active lactulose 10 gram/15 mL oral solution No Longer Active hydrochlorothiazide 12.5 mg capsule No Longer Active Januvia 100 mg tablet TAKE 1 TABLET BY MOUTH ONCE DAILY FOR DIABETES No Longer Active Jardiance 25 mg tablet TAKE 1 TABLET BY MOUTH ONCE DAILY FOR DIABETES No Longer Active Linzess 72 mcg capsule TAKE ONE CAPSULE DAILY No Longer Active Ozempic 1 mg/dose (4 mg/3 mL) subcutaneous pen injector INJECT 1mg UNDER THE SKIN EVERY WEEK FOR DIABETES No Longer Active allopurinol 100 mg tablet TAKE ONE TABLE T BY MOUTH EVERY MORNING FOR GOUT No Longer Active Ozempic 0.25 mg or 0.5 mg (2 mg/3 mL) subcutaneous pen injector INJECT 0.5MG SUBCUTANEOUSLY EVERY WEEK DIRECTED FOR DIABETES - No Longer Active Levemir FlexPen 100 unit/mL (3 mL) solution subcutaneous insulin pen INJECT 10 UNITS UNDER THE SKIN EVERY MORNING AND 40 UNITS AT BEDTIME FOR DIABETES - No Longer Active Procedures Procedure Date Complex e/m visit add on OFFICE/OUTPATIENT VISIT, NEW ELECTROCARDIOGRAM, COMPLETE Advance Directives Directive Yes / No Effective Date File Name No Information Encounters Encounter Description Practice Location Reason(s) For Visit Diagnoses Date Provider Providers Copied on Encounter OFFICE/OUTPAT IENT VISIT, [facility], [address] [place] [address], [id number], tel:[phone] [facility] swelling amanda legs (chief complaint)f luid on neck and back (chief complaint)p alpitations (chief complaint) Essential (primary) hypertension Tariq Benton. [address] [place] [address], [id number], . tel:[phone] Referring Provider: Ronny Mathew, [address], [place], [address]. tel:[phone] Family History Family Member Type Diagnosis Age At Onset Mother Problem (finding) Cancer, lung Father Problem (finding) Cancer, prostate Mother Problem (finding) Coronary artery disease Father Problem (finding) Hypertension Brother Problem (finding) Diabetes mellitus Mother Problem (finding) 8 bypasses Payers Payer name Insurance type Covered constitution party ID Authorteresaa rios(s) [facility]TE [facility]ARE [id number] O C [id number] Social History Type Description Quantity Date Captured Comments Alcohol Use Details No Caffeine Use Details soda 24 oz per day Tobacco Use Status Current non-smoker Smoking Status Never smoker Non-Smoking Tobacco Use Details : No Details Available : No Details Available Sex Female Vital Signs Date / Time: Height Weight BMI Pulse Rate Blood Pressure Temperature Respiratory Rate Body Surface Area Head Circumference Head Circ. Percentile Wt./Abraham. Percentile BMI percentile Pulse Ox Inhaled Ox 3:47 PM 68.00 in 129.727 kg (286.00 lbs) 43.4 9 kg/m eter (2) 75 /min 172/82 mm[Hg] 12 /min 97 % Chief Complaint And Reason For Visit From encounter dated '05/17/2025 14:30'. swelling amanda legs (chief complaint) fluid on neck and back (chief complaint) palpitations (chief complaint). Description: The patient complains of palpitations. Reason For Referral Reason For Referral No Information Plan Of Treatment Date Type Action Status Appointment Monica Felder BOOKED Appointment Monica Felder BOOKED Appointment Monica Felder BOOKED Future Order: Lab Order BNP-B Ty pe Natriaretic Peptide ([id number]), Ordered on: Ordered Future Order: Lab Order PT/INR ( [id number]), Ordered on: Ordered Future Order: Lab Order Thyroid [place] Profile ([id number]), Ordered on: Ordered Future Order: Lab Order Lipid Pa vikki ([id number]), Ordered on: Ordered Future Order: Radiology Order Ec hocardiogram, Complete Transthoracic ([id number]), Ordered on: Ordered Future Order: Radiology Order Du plex scan of extremity veins; unilateral or limited study ([id number]), Ordered on: Ordered Future Order: Radiology Order PE T/CT ([id number]), Ordered on: Ordered Future Order: Lab Order CMP ([id number]), Ordered on: Ordered Future Order: Lab Order Lipid Pr ofile ([id number]), Ordered on: Ordered Future Order: Lab Order Hemoglob in A1c ([id number]), Ordered on: Ordered History Of Present Illness Encounter Date Complaint History Of Prese nt Illness swelling amanda legs fluid on neck and back palpitations The patient comp lains of palpitations. Functional Status Date Functional Assessmen t No Information Instructions Date Instruction Additional Infor mation No Information Assessments Type Assessment Date assessment Essential (primary) hypertension Patient Care Teams Name Effective Dates (start - stop) Status Members No Information
--- OUTSIDE RECORDS SUMMARY | 2025-05-23 14:24 | XMS_ITS | Patient Health Record ---
Author Organization [facility] Address [address] [place] [address] Care Team Providers Care Engineering Design Manager Name Role Phone Ronny Mathew Unavailable [phone] Reason For Referral No Information Medications Medication SIG (Take, Route, Frequency, Duration) Notes Start Date End Date Status Losartan Potassium 25 mg TAKE ONE TABLET BY MOUTH EVERY DAY EVERY NIGHT AT BEDTIME FOR BLOOD PRESSURE; Duration: 90 Active Calcitriol 0.25 mcg TAKE ONE CAPSULE BY MOUTH EVERY DAY IN THE MORNING; Duration: 90 Active Vitamin D (Ergocalciferol) 1.25 MG (46931 UT) TAKE ONE CAPSULE BY MOUTH EVERY WEEK FOR VITAMIN DEFICIANCY; Duration: 90 Active Social History Sex Assigned At : Social History Observation Description Sex Assigned At Female Problems Problem Type SNOMED Code ICD Code Onset Dates Problem Status W/U Status Risk Notes Problem Type 2 diabetes mellitus with hyperglycemia (E11.65) Active confirmed Problem Obesity (439160910) Obesity, unspecified (E66.9) Active confirmed Problem Metabolic disorder (90458122) Metabolic disorder, unspecified (E88.9) Active confirmed Problem Anxiety disorder (985386879) Anxiety disorder, unspecified (F41.9) Active confirmed Problem Essential hypertension (22772242) Essential (primary) hypertension (I10) Active confirmed Problem Renal osteodystrophy (73927710) Renal osteodystrophy (N25.0) Active confirmed Problem Edema (63676800) Edema, unspecified (R60.9) Active confirmed Problem Chronic kidney disease stage 3A (disorder) (101168237) Chronic kidney disease, stage 3a (N18.31) Active confirmed Encounters Encounter Location Date Provider Diagnosis [place] [facility] 2043 [facility] 15 [place] [address] 06/25/2024 Ronny Mathew Chronic kidney disea se, stage 3 unspecified N18.30 ; Essential (primary) hypertension I10 ; Type 2 diabetes mellitus with hyperglycemia E11.65 ; Renal osteodystrophy N25.0 ; Anxiety disorder, unspecified F41.9 ; Obesity, unspecified E66.9 and Edema, unspecified R60.9 [facility] [address] [address] 04/08/2025 Ronny Mathew Chronic kidney disea se, stage 3a N18.31 ; Anxiety disorder, unspecified F41.9 ; Obesity, unspecified E66.9 ; Edema, unspecified R60.9 ; Essential (primary) hypertension I10 ; Chronic kidney disease, stage 3 unspecified N18.30 ; Type 2 diabetes mellitus with hyperglycemia E11.65 and Renal osteodystrophy N25.0 [facility] [address] [address] 05/11/2025 Ronny Mathew Assessments Encounter Date Diagnosis (ICD Code) Assessment Notes Treatment Notes Treatment Clinical Notes Section Notes 06/25/2024 Chronic kidney disease, stage 3 unspecified (ICD-10 - N18.30) 04/08/2025 Chronic kidney disease, stage 3a (ICD-10 - N18.31) 04/08/2025 Anxiety disorder, unspecified (ICD-10 - F41.9) 06/25/2024 Essential (primary) hypertension (ICD-10 - I10) 06/25/2024 Type 2 diabetes mellitus with hyperglycemia (ICD-10 - E11.65) 04/08/2025 Obesity, unspecified (ICD-10 - E66.9) 04/08/2025 Edema, unspecified (ICD-10 - R60.9) 06/25/2024 Renal osteodystrophy (ICD-10 - N25.0) 06/25/2024 Anxiety disorder, unspecified (ICD-10 - F41.9) 04/08/2025 Essential (primary) hypertension (ICD-10 - I10) 04/08/2025 Chronic kidney disease, stage 3 unspecified (ICD-10 - N18.30) 06/25/2024 Obesity, unspecified (ICD-10 - E66.9) 06/25/2024 Edema, unspecified (ICD-10 - R60.9) 04/08/2025 Type 2 diabetes mellitus with hyperglycemia (ICD-10 - E11.65) 04/08/2025 Renal osteodystrophy (ICD-10 - N25.0) Plan Of Treatment Next Appt Details Provider Name:Ronny Mathew , 06/15/2025 03:45:00 PM, [address] [place], [facility], [place], [address],
--- OUTSIDE RECORDS SUMMARY | 2025-05-23 14:24 | XMS_ITS | Encounter Summary ---
Author Organization [facility] Address 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
--- OUTSIDE RECORDS SUMMARY | 2025-05-23 14:24 | XMS_ITS ---
Author Organization [facility] Address [address] [place] [address] Care Team Providers Care Architect Naval Name Role Phone Quincy Ronny Unavailable [phone] Social History Sex Assigned At : Social History Observation Description Sex Assigned At Female Encounters Encounter Location Date Provider Diagnosis [place] [facility] 2043 [facility] 15 [place] [address] 04/08/2025 Ronny Mathew Chronic kidney disea se, [...] Name:Ronny Mathew , 06/15/2025 03:45:00 PM, 2043 [facility], [facility], [place], [address], Progress Notes * Clifford FELDERaDOB: [birth year] (59 yo F)Acc No.[id number]:04/08/2025 Progress Notes Patient: Monica MORA Provider: Lynette WILDE MD, Ulysses.Marko.C.P, F.A.S.N. :1965 A ge:59 Y S ex:Female Date:04/08/2025 Address:[address] [place] [address] Subjective: * Chief Complaints: * * Medical [...] Treatment: * Billing Information: * Visit Code: 25975 Office Visit, Est Pt., Level 4. * Procedure Codes: * Electronic signature of Kylee Mathew MD on 05/23/2025 at 02:24 PM CDT Sign off status: Pending * Provider: Lynette WILDE MD, F.Marko.C.P, F.A.S.N. Date: 04/08/2025 Generated for Printing/Faxing/eTransmitting on: 0 05/23/2025 02:24 PM CDT
--- OUTSIDE RECORDS SUMMARY | 2025-05-23 14:24 | XMS_ITS | Continuity of Care Document ---
Author Organization [facility] Address [address] [facility] [address] [place] [address] Phone Care Team Providers Care Shake Feeder Name Role Phone Migeul OD, Rosalino Unavailable Unavailable Procedures Procedure Date Eye Exam & Treatment Refraction Progressive Lens, Polycarb Frames Deluxe Tax - Medical Advance Directives Directive Yes / No Effective Date File Name No Information Encounters Encounter Description Practice Location Reason(s) For Visit Diagnoses Date Provider Providers Copied on Encounter [facility], [address] [place] [address] [address], [place], [place], [id number], [place] tel:[phone] [facility] No Information 0 Miguel OD Rosalino. [address] [place] [address] , [address], [place], [address], [place]. tel:[phone] [facility], [address] [place] [address] [address], [place], [place], [id number], [place] tel:[phone] [facility] No Information 0 [facility] . [address] [facility], [address], [place], [place], [id number], [place]. tel:[phone] Referring Provider: Rosalino Zhu, [address] [place] [address] [address], [place], [address]. tel:[phone] sulting Provider: Madeline Remy, [address] [place], [address]. tel:[phone] Family History Family Member Type Diagnosis Age At Onset No Information Payers Payer name Insurance type Covered libertarian ID Authoriza tion(s) No Information Social History [...]
--- OUTSIDE RECORDS SUMMARY | 2025-05-23 14:24 | XMS_ITS | Encounter Summary ---
Author Organization [facility] Address [address] [place] [address] Care Team Providers Care Client Solutions Manager Name Role Phone Carlos Eduardo Chase Primary Care Provider Unavailabl e Encounter Details Date Type Department Care Team (Late st Contact Info) Description 09/30/2001 Outpatient Historical [facility] Bj Ayala MD [facility] [place] [address] Er, Authorized P NO ADDRESS ON FILE [place] (Primary Dx) Social History Tobacco Use Types Packs/Day Years Used Date Smoking Tobacco: Never Assessed Comments Unknown Sex and Gender Information Value Date Recorded Sex Assigned at Not on file 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
--- OUTSIDE RECORDS SUMMARY | 2025-05-23 14:25 | XMS_ITS | Encounter Summary ---
Author Organization [facility] Address [address] [place] [address] Care Team Providers Care Fill Plant Operator Name Role Phone Carlos Eduardo Chase Primary Care Provider Unavailabl e Encounter Details Date Type Department Care Team (Late st Contact Info) Description 02/11/2000 Outpatient Historical [facility] Srinivasa Graham [place] [facility] [place] [address] Er, Authorized P NO ADDRESS ON FILE Other specified noninflammatory disorder of vagina (Primary Dx) Social History Tobacco Use Types Packs/Day Years Used Date Smoking Tobacco: Never Assessed Comments Unknown Sex and Gender Information Value Date Recorded Sex Assigned at Not on file 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
--- OUTSIDE RECORDS SUMMARY | 2025-05-23 14:25 | XMS_ITS ---
Author Organization [facility] Address [address] [facility] [address] [facility] [address] [place] [address] Care Team Providers Care Preparation Operator Name Role Phone Quincy Ronny Unavailable [phone] Social History Sex Assigned At : Social History Observation Description Sex Assigned At Female Problems Problem Type SNOMED Code ICD Code Onset Dates Problem Status W/U Status Risk Notes Problem Chronic kidney disease stage 3A (disorder) (061498776) Chronic kidney disease, stage 3a (N18.31) Active confirmed Problem Metabolic disorder (31894168) Metabolic disorder, unspecified (E88.9) Active confirmed Encounters Encounter Location Date Provider Diagnosis [place] [facility] [address] [place] [address] 05/11/2025 Ronny Mathew Plan Of Treatment Next Appt Details Provider Name:Ronny Mathew , 06/15/2025 03:45:00 PM, [address] [address], [place], [place], [facility], Progress Notes * José Miguel FELDERB: 9[birth year] (59 yo F)Acc No.[id number]:05/11/2025 Progress Notes Patient: Monica MORA Provider: Lynette WILDE MD, F.A.C.P, F.A.S.N. :1965 A ge:59 Y S ex:Female Date:05/11/2025 Address:[address] [place] [address] Subjective: * Chief Complaints: * * Medical History: Objective: * Vitals: Assessment: Plan: * Treatment: * Billing Information: * Visit Code: 44827 Office Visit, Est Pt., Level 4. * Procedure Codes: * Electronic signature of Kylee Mathew MD on 05/23/2025 at 02:24 PM CDT Sign off status: Pending * Provider: Lynette WILDE MD, F.A.C.P, F.A.S.N. Date: 05/11/2025 Generated for Printing/Faxing/eTransmitting on: 05/23/2025 02:24 PM CDT
--- OUTSIDE RECORDS SUMMARY | 2025-05-23 14:25 | XMS_ITS | Clinical Summary ---
Author Organization [facility] Address [address] [facility] [place] [address] Care Team Providers Care Marine Specialist Name Role Phone Martín Gusman MD Primary Care Provider [phone] Source Comments [facility],non-owned Affiliates and Associated Physician Practices is amultiple site organization consisting of ambulatory clinics and hospital sitesin [place], [place], [place] and [place]. This disclosure is being madepursuant to the Care Everywhere program and may not contain all information available regarding this patient. 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 Gender Identity Not on file Sexual [...] SCREENING 1965 LIPID TESTING 1965 MAMMOGRAM 1965 HIV SCREENING 1980 HEPATITIS C SCREENING 11/05/1983 DTAP/TDAP/TD VACCINES (1 - Tdap) 1984 HEPATITIS B VACCINE (1 of 3 - 19+ 3-dose series) 1984 PNEUMOCOCCAL VACCINE 50+ (1 of 2 - PCV) 1984 PAP SMEAR 1986 ZOSTER VACCINE (1 of 2) 2015 COVID-19 VACCINE (1 - 2023-2 5 season) 2024 DEPRESSION SCREENING 11/10/2024 MEDICARE AWV CALENDAR YEAR 2024 INFLUENZA VACCINE (#1) 2025 10/11/2014 HIB VACCINE Aged Out No longer eligi ble based on patient's age to complete this topic HPV VACCINE Aged Out No longer eligi ble based on patient's age to complete this topic MENINGOCOCCAL (Group B) VACC INE SHARED DECISION-MAKING Aged Out No longer eligibl e based on patient's age to complete this topic MENINGOCOCCAL GROUPS A/C/Y/W VACCINE Aged Out No longer eligible b ased on patient's age to complete this topic Insurance [facility] MANAGED MEDICARE [place] [address] [address] [place] [address] [place] [address] Care Teams Marine Specialist Relationship Specialty Start Date End Date Martín Gusman MD [address] [place] [address] PCP - General Internal Medicine 08/18/19
--- OUTSIDE RECORDS SUMMARY | 2025-05-23 14:25 | XMS_ITS ---
Author Organization [facility] Address [address] [facility] [address] [facility] [address] [place] [address] Care Team Providers Care Sales Estimator Name Role Phone Quincy Ronny Unavailable [phone] Social History Sex Assigned At : Social History Observation Description Sex Assigned At Female Encounters Encounter Location Date Provider Diagnosis [facility] [address] [place] [address] 08/27/2024 Ronny Mathew Plan Of Treatment Next Appt Details Provider Name:Ronny Mathew , 06/15/2025 03:45:00 PM, [address], [facility], Progress Notes * Clifford FELDERAnnamareiB: [birth year] (59 yo F)Acc No.[id number]:08/27/2024 Progress Notes Patient: Monica MORA Provider: Lynette WILDE MD, Ulysses.Marko.C.P, F.A.S.N. :1965 A ge:58 Y S ex:Female Date:08/27/2024 Address:[address] [place] [address] Subjective: * Chief Complaints: * * Medical History: Objective: * Vitals: Assessment: Plan: * Treatment: * Billing Information: * Visit Code: * Procedure Codes: * Electronic signature of Kylee Mathew MD on 05/23/2025 at 02:24 PM CDT Sign off status: Pending * Provider: Lynette WILDE MD, F.Marko.C.P, F.A.S.N. Date: Generated for Printing/Faxing/eTransmitting on: 05/23/2025 02:24 PM CDT
--- OUTSIDE RECORDS SUMMARY | 2025-05-23 14:25 | XMS_ITS | Encounter Summary ---
Author Organization [facility] Address 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
--- OUTSIDE RECORDS SUMMARY | 2025-05-23 14:25 | XMS_ITS | Encounter Summary ---
Author Organization [facility] Address [address] [place] [address] Care Team Providers Care Nursery School Teacher Name Role Phone Martín Gusman MD Primary Care Provider [phone] Reason for Referral * Consultation (Routine) - Closed Specialty Diagnoses / Procedures Referred By Contac t Referred To Contact Endocrinology Diagnoses Type 2 diabetes mellitus with hyperglycemia, unspecified whether fci insulin use (HCC) Unknown, Provider [facility] - Endocrinology [address] [place] [address] Phone: tel: fax: Referral ID Status Reason Start Date Expiration Date V isits Requested Visits Authorized [id number] Closed Specialty Services Required 09/20/2024 09/20/2025 1 1 GER OF MAINTENANCE Encounter Details Date Type Department Care Team (Latest Contact Info) Description 09/20/2024 Transcribe Orders [facility] - Centralized Scheduling [facility] [place] [id number] Donte Landaverde [address] [place] [address] Type 2 diabetes mellitus with hyperglycemia, unspecified whether fci insulin use Social History Tobacco Use Types Packs/Day Years [...] on file 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 Gender Identity Not on file Sexual Orientation Not on file documented as of this encounter Plan of Treatment Scheduled Referrals Name Type Priority Associated Diagnoses Order Schedule AMB REFERRAL TO ENDOCRINOLOGY Outpatient Referral Routine Type 2 diabetes mellitus with hyperglycemia, unspecified whether fci insulin use 1 Occurrences starting 09/20/2024 until 09/20/2025 documented as of this encounter Visit Diagnoses Diagnosis Type 2 diabetes mellitus with hyperglycemia, 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
--- OUTSIDE RECORDS SUMMARY | 2025-05-23 14:25 | XMS_ITS | Data Portability ---
Author Organization [facility] Main Office Address [address] [place] [address] Assessment No assessment recorded. Plan of Treatment [...] Paronychi a of toe of left foot [id number] 975970 Active 2020 Not Available [facility] 3 00:54:47 Benign essential hypertens ion 5843652 Active Not Available [facility] 3 00:54:47 Celluliti s of foot 034130363 Completed 201902/14/2021 Not Available [facility] 3 00:54:47 Postopera tive visit 164166882 Active 2020 Not Available [facility] 3 00:54:47 Pure hyperchol esterolem ia 727362116 Active Not Available [facility] 3 00:54:47 Osteomyel itis of ankle AND/OR foot 97107505 Active 2019 Not Available [facility] 3 00:54:47 Ulcer of toe 831226016 Active 2020 Not Available [facility] 3 00:54:48 Diabetic foot ulcer 375592834 Active 2019 Not Available [facility] 3 00:54:48 Migraine 90136600 Active Not Available [facility] 3 00:54:48 Adhesive capsuliti s of shoulder 512004979 Active Not Available [facility] 3 00:54:48 Hypothyro idism 25823644 Active Not Available [facility] 3 00:54:48 Angioedem a 81501350 Active Not Available [facility] 3 00:54:48 Obesity 710149169 Active Not Available [facility] 3 00:54:48 Diabetic periphera l neuropath y 095769535 Active 2019 Not Available [facility] 3 00:54:48 Type 2 diabetes mellitus 92077578 Active Not Available [facility] 3 00:54:48 Uncontrol led type 2 diabetes mellitus 165803748 Active Not Available [facility] 3 00:54:48 Celluliti s of toe 05679073 Active 2020 Not Available [facility] 3 00:54:48 Diabetes mellitus 15543448 Active Not Available [facility] 3 00:54:48 Problem Notes None recorded. Medical Equipment None Reported. Allergies Allergen ID Allergen Name Allergen Category Reaction Reaction Severity Criticality Documentation Date Start Date Code Code System Note Provider Name and Address Organization Details Recorded Time 1207 thimerosa l medicatio n Not available Not available Not available 01/08/2023 01732 RxNorm Not Available [facility] 3 01:01:19 1208 tetracycl ine medicatio n other Not available Not available 01/08/2023 42866 RxNorm Not Available [facility] 3 01:01:19 1209 metformin medicatio n vomiting severe Not available 01/08/2023 6809 RxNorm Not Available [facility] 3 01:01:19 1210 lisinopri l medicatio n Not available Not available Not available 01/08/2023 91217 RxNorm Not Available [facility] 3 01:01:19 1211 erythromy norbert medicatio n Not available Not available Not available 01/08/2023 4053 RxNorm Not Available [facility] 3 01:01:19 Medications Name Sig Start Date [...] Available TRUEplus Pen Needle 31 gauge x 316 10/30 completed Not Available Not Available Not Available OneTouch Delica Plus Lancet 30 gauge 10/30 completed Not Available Not Available Not Available Vitals Date Recorded Body height Heart rate Systolic And Diastolic Provider Name and Address Organization Details Last Updated DateTime 04/19/2021 175.26 cm 88 /min 137/76 mm[Hg] Not Available [facility] 01/08/2023 00:52:37 Date Recorded Body height Heart rate Systolic And Diastolic Provider Name and Address Organization Details Last Updated DateTime 04/26/2021 175.26 cm 85 /min 129/92 mm[Hg] Not Available [facility] 01/08/2023 00:52:38 Date Recorded Body height Heart rate Systolic And Diastolic Provider Name and Address Organization Details Last Updated DateTime 06/28/2021 175.26 cm 80 /min 134/89 mm[Hg] Not Available [facility] 01/08/2023 00:52:38 Date Recorded Body height Heart rate Systolic And Diastolic Provider Name and Address Organization Details Last Updated DateTime 08/31/2021 175.26 cm 80 /min 109/81 mm[Hg] Not Available [facility] 01/08/2023 00:52:38 Date Recorded Body height Heart rate Systolic And Diastolic Provider Name and Address Organization Details Last Updated DateTime 10/08/2021 175.26 cm 78 /min 153/94 mm[Hg] Not Available [facility] 01/08/2023 00:52:38 Social History None recorded. Functional Status [...] virus, trivalent, preservative 4 completed Not Available [facility] 01/08/2023 01:01:09 Past Encounters Encounter ID Performer Location Encounter Start Date Encounter Closed Date Diagnosis/Indication Diagnosis SNOMED-CT Code Diagnosis ICD10 Code Diagnosis Note [id number] Alfredito Muse DPM [facility] [address] [place] [address] 01/17/2021 00:00:00 01/17/2021 15:12:48 [id number] Alfredito Muse DPM [facility] [address] [place] [address] 01/24/2021 00:00:00 01/24/2021 16:16:00 [id number] Alfredito Muse DPM [facility] [address] [place] [id number] 01/31/2021 00:00:00 01/31/2021 09:44:47 [id number] Alfredito Muse DPM [facility] [address] [place] [address] 02/14/2021 00:00:00 02/14/2021 15:32:55 [id number] Alfredito Muse DPM [facility] [address] [place] [address] 02/21/2021 00:00:00 02/21/2021 15:04:55 [id number] Alfredito Muse DPM [facility] [address] [place] [address] 02/28/2021 00:00:00 02/28/2021 16:02:56 [id number] Alfredito Muse DPM [facility] [address] [place] [id number] 03/15/2021 00:00:00 03/15/2021 16:30:24 [id number] Alfredito Muse DPM [facility] [address] [place] [address] 03/21/2021 00:00:00 03/21/2021 14:38:02 [id number] Alfredito Muse DPM [facility] [address] [place] [address] 04/04/2021 00:00:00 04/04/2021 14:17:18 [id number] Alfredito Muse DPM [facility] [address] [place] [address] 04/12/2021 00:00:00 04/12/2021 14:28:08 [id number] Alfredito Muse DPM [facility] [address] [place] [id number] 04/19/2021 00:00:00 04/20/2021 13:41:29 [id number] Alfredito Muse DPM [facility] [address] [place] [address] 04/26/2021 00:00:00 04/26/2021 10:58:31 [id number] Alfredito Muse DPM [facility] [address] [place] [id number] 06/28/2021 00:00:00 06/28/2021 10:59:03 [id number] Alfredito Muse DPM [facility] [address] [place] [id number] 08/31/2021 00:00:00 09/06/2021 09:09:58 [id number] Alfredito Muse DPM [facility] [address] [address] 10/08/2021 00:00:00 10/08/2021 10:28:54 Health Concerns Section Related Observation LastModified by Organization Detai ls LastModified Time None Recorded Concern Status LastModified by Organization Details LastModified Time None Recorded Advance Directives Directive None Recorded Payers Insurance Date Sequence Insurance Name Policy Number Policy Akins Covered Member ID Akins Member ID Guarantor Name 01/08/2023 1 [facility] (MEDICAID REPLACEMENT - HMO) [id number] Monica Felder [id number] Monica Felder OBGyn Episode No OBEpisode recorded.
--- OUTSIDE RECORDS SUMMARY | 2025-05-23 14:25 | XMS_ITS | Encounter Summary ---
Author Organization [facility] Address 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
--- OUTSIDE RECORDS SUMMARY | 2025-05-23 14:25 | XMS_ITS | Encounter Summary ---
Author Organization [facility] Address 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
--- OUTSIDE RECORDS SUMMARY | 2025-05-23 14:25 | XMS_ITS | Encounter Summary ---
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
--- OUTSIDE RECORDS SUMMARY | 2025-05-23 14:26 | XMS_ITS | Clinical Summary ---
Author Organization [facility] Address [address] [place] [address] Care Team Providers Care Video Camera Operator Name Role Phone Unavailable Primary Care Provider Unavailabl e Social History Tobacco Use Types Packs/Day Years Used Date Smoking Tobacco: Never Assessed Comments Unknown Sex and Gender Information Value Date Recorded Sex Assigned at Not on file Legal Sex Female 12:08 PM READING AIDE Gender Identity Not on file Sexual Orientation [...]
--- OUTSIDE RECORDS SUMMARY | 2025-05-23 14:26 | XMS_ITS | Data Portability ---
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 Name Role Phone MARTÍN ESPARZA Primary Care Provider Assessment Encounter Date Assessment Date Assessment LastModified by Organization Details LastModified Time 03/09/2025 03/09/2025 JOVANNI Glez [email or web address] Not available 03/09/2025 15:25:49 Plan of Treatment Reminders Order Date Submit Date Provider Last Modified By Organization Details Last Modified Time Details Appointments ANY 2024 02:45P Lizzy BARLOW PA-C Not available Not available Not available Lab albumin /creati nine, mass ratio, urine 2024 025 KIKO DRISCOLL, [address], [address], [place], [address], 03/10/2025 13:27:25 HbA1c (hemogl obin A1c), blood 2024 025 [email or web address] In-Office Order, Internal Use Only DO Not Attach Compendium DO Not Attach Compendium, Do Not Delete/merge, [id number] 03/09/2025 15:24:14 TSH + free T4, serum 2024 025 KIKO DRISCOLL, Elizabeth [facility] [address], [address], [place], [address], 03/10/2025 13:27:26 T3, free, serum or plasma 2024 025 KIKO DRISCOLL, [address] [place], [place] [address]ot [address], [address], [place], [address], 03/10/2025 13:27:27 HbA1c (hemogl obin A1c), blood 2024 025 [email or web address] In-Office Order, Internal Use Only DO Not Attach Compendium DO Not Attach Compendium, Do Not Delete/merge, [id number] 12/06/2024 15:21:06 CBC w/ auto diff 2024 025 KIKO [facility], [address], [address], [place], [address], 12/28/2024 09:15:26 iron + total iron-bi nding capacit y (TIBC), serum 2024 025 [facility], [facility] [address], [address], [place], [address], 12/28/2024 09:15:23 cobalam in and folate panel, serum 2024 025 [facility], [facility] [address], [address], [place], [address], 12/28/2024 09:15:21 ferriti n, serum or plasma 2024 025 [facility], [facility] [address], [address], [place], [address], 12/28/2024 09:15:25 albumin /creati nine, mass ratio, urine 2024 025 [email or web address] [facility], [address], [address], [place], [address], 03/29/2025 11:40:02 TSH + free T4, serum 2024 025 [facility], [facility] [address], [address], [place], [address], 12/28/2024 09:15:20 T3, free, serum or plasma 2024 025 [facility], [address], [address], [place], [address], 12/28/2024 09:15:28 HbA1c (hemogl obin A1c), blood 2023 024 [email or web address] In-Office Order, Internal Use Only DO Not Attach Compendium DO Not Attach Compendium, Do Not Delete/merge, [id number] 08/03/2024 15:51:23 Referral None recorde d. Procedures None recorde d. Surgeries None recorde d. Imaging None recorde d. Medication Orders amlodip ine 5 mg tablet 2024 025 [facility], [address] [place] [address], [id number], 04/12/2025 16:45:37 levothy roxine 150 mcg tablet 2024 025 [facility], [address] [place] [address], [id number], 04/12/2025 16:45:36 pioglit azone 30 mg tablet 2024 025 [facility], [address] [place] [address], [id number], 04/06/2025 15:05:32 amlodip ine 5 mg tablet 2024 025 [facility], [address] [place] [address], [id number], 03/09/2025 15:35:56 levothy roxine 150 mcg tablet 2024 025 [facility], [address] [place] [address], [id number], 03/09/2025 15:35:58 atorvas tatin 40 mg tablet 2024 025 [facility], [address] [place] [address], [id number], 03/09/2025 15:35:56 furosem valerio 20 mg tablet 2024 025 [facility], [address] [place] [address], [id number], 04/12/2025 15:50:19 pioglit azone 15 mg tablet 2024 025 [facility], [address] [place] [address], [id number], 01/13/2025 14:32:28 pioglit azone 30 mg tablet [address] [facility], [address] [place] [address], [id number], 04/06/2025 14:46:09 cyanoco balamin (vit B-12) 1,000 mcg/mL injecti on solutio n 2024 025 [email or web address] Not available 01/06/2025 16:44:53 glimepi ride 4 mg tablet 2024 025 [facility], [address] [place] [address], [id number], 04/06/2025 15:05:33 Januvia 100 mg tablet 2024 025 [facility], [address] [place] [address], [id number], 01/06/2025 16:38:19 Jardian ce 25 mg tablet 2024 025 [facility], [address] [place] [address], [id number], 01/06/2025 16:38:19 Ozempic 2 mg/dose (8 mg/3 mL) subcuta neous pen injecto r 2024 025 [facility], [address] [place] [address], [id number], 01/06/2025 16:41:30 atorvas tatin 40 mg tablet 2024 025 [facility], [address] [place] [address], [id number], 04/12/2025 15:14:54 amlodip ine 5 mg tablet 2024 025 [facility], [address] [place] [address], [id number], 04/12/2025 15:14:55 levothy roxine 150 mcg tablet 2024 025 [facility], [address] [place] [address], [id number], 05/04/2025 11:09:48 furosem valerio 20 mg tablet 2024 025 [facility] [address] [place] [address], [id number], 04/12/2025 15:25:57 glimepi ride 4 mg tablet 2023 024 [email or web address] [facility], [address] [place] [address], [id number], 04/06/2025 14:45:53 Januvia 100 mg tablet 2023 024 [email or web address] [facility], [address] [place] [address], [id number], 01/06/2025 16:24:17 Jardian ce 25 mg tablet 2023 024 [facility], [address] [place] [address], [id number], 01/06/2025 16:24:10 Ozempic 0.25 mg or 0.5 mg (2 mg/1.5 mL) subcuta neous pen injecto r 2023 025 [facility], [address] [place] [address], [id number], 01/06/2025 16:41:31 Ozempic 1 mg/dose (4 mg/3 mL) subcuta neous pen injecto r 2023 025 [facility], [address] [place] [address], [id number], 01/06/2025 16:41:32 atorvas tatin 40 mg tablet 2023 024 [facility], [address] [place] [address], [id number], 02/03/2025 13:14:34 amlodip ine 5 mg tablet 2023 024 [facility], [address] [place] [address], [id number], 02/03/2025 13:14:28 levothy roxine 150 mcg tablet 2023 024 [facility], [address] [place] [address], [id number], 02/03/2025 13:14:32 furosem valerio 20 mg tablet 2023 024 [facility], [address] [place] [address], [id number], 04/12/2025 15:25:57 Patient TargetsNo targets recorded. Patient Instructions Encounter Date Encounter Id Patient Instructions Last Modified By Organization Details Last Modified Time 08/03/2024 [id number] influenza (flu) vaccine: care instructions [email or web address] Not available 08/03/2024 15:51:19 learning about type 2 diabetes Not available 08/03/2024 15:51:19 type 2 diabetes: care instructions [email or web address] Not available 08/03/2024 15:51:19 albumin-creatini n e ratio: about this test [email or web address] Not available 08/03/2024 15:51:19 body mass index: care instructions [email or web address] Not available 08/03/2024 15:51:19 learning about healthy weight [email or web address] Not available 08/03/2024 15:51:19 12/06/2024 [id number] learning about type 2 diabetes [email or web address] Not available 12/06/2024 15:21:06 type 2 diabetes: care instructions [email or web address] Not available 12/06/2024 15:21:07 A healthy lifestyle: care instructions [email or web address] Not available 12/06/2024 15:21:07 albumin-creatini n e ratio: about this test [email or web address] Not available 12/06/2024 15:21:07 01/06/2025 [id number] A healthy lifestyle: care instructions [email or web address] Not available 01/06/2025 16:38:12 nausea and vomiting: care instructions [email or web address] Not available 01/06/2025 16:38:12 03/09/2025 [id number] A healthy lifestyle: care instructions Not available 03/09/2025 15:24:15 albumin-creatini n e ratio: about this test [email or web address] Not available 03/09/2025 15:24:15 learning about type 2 diabetes [email or web address] Not available 03/09/2025 15:24:15 type 2 diabetes: care instructions [email or web address] Not available 03/09/2025 15:24:15 04/12/2025 [id number] albumin-creatini n e ratio: about this test [email or web address] Not available 04/12/2025 16:08:10 learning about high blood pressure [email or web address] Not available 04/12/2025 16:08:10 A healthy lifestyle: care instructions [email or web address] Not available 04/12/2025 16:08:10 Reason for Referral None Reported. Results Created Date Observation Date Name Description Value Unit Range Abnormal Flag Note LastModifiedBy Organization Detail LastModifiedTime 08/03/20 24 08/03/2024 HbA1c (hemo globi n A1c), blood HbA1c 10.6 Not Available In-Office Order Internal Use Only DO Not Attach Compendium DO Not Attach Compendium, Do Not Delete/merge, [id number] 08/03/2024 15:26:16 12/06/19 12/06/2024 HbA1c (hemo globi n A1c), blood HbA1c 11.1 Not Available In-Office Order Internal Use Only DO Not Attach Compendium DO Not Attach Compendium, Do Not Delete/merge, [id number] 12/06/2024 14:53:20 12/27/19 25 12/28/2024 TSH+F REE T4 TSH 10.300 uIU/m L 0.450- 4.500 above high normal Not Available [facility] ([facility]) [address] [facility], [place], [address], 12/28/2024 09:15:20 12/27/19 25 12/28/2024 TSH+F REE T4 T4,free(dire ct) 0.87 NG/dL 0.82-1 .77 Not Available [facility] ([facility]) [address] [facility], [place], [address], 12/28/2024 09:15:20 12/27/19 25 12/28/2024 VITAM IN B12 AND FOLAT E vitamin B12 487 pg/mL 232-12 45 Not Available [facility] ([facility]) [address] [facility], [place], [address], 12/28/2024 09:15:21 12/27/1912/28/2024 VITAM IN B12 AND FOLAT E folate (folic acid), serum 9.8 NG/mL >3.0 A serum folat e david ntrat ion of less than 3.1 ng/mL is consi dered to repre sent clini maurisio defic iency . Not Available [facility] ([facility]) [address] [facility], [place], [address], 12/28/2024 09:15:21 12/27/1912/28/2024 IRON AND TIBC iron bind.cap.(TI BC) 235 ug/dL 250-45 0 below low normal Not Available [facility] ([facility]) [address] [facility], [place], [address], 12/28/2024 09:15:23 12/27/19 25 12/28/2024 IRON AND TIBC UIBC 170 ug/dL 131-42 5 Not Available [facility] ([facility]) [address] [place], [address], 12/28/2024 09:15:23 12/27/19 25 12/28/2024 IRON AND TIBC iron 65 ug/dL 27-159 Not Available [facility] ([facility]) [address] [place], [address], 12/28/2024 09:15:23 12/27/19 25 12/28/2024 IRON AND TIBC iron saturation 28 % 15-55 Not Available [facility] ([facility]) [address] [place], [address], 12/28/2024 09:15:23 12/27/19 25 12/28/2024 HEMOG LOBIN A1C hemoglobin A1C 10.5 % 4.8-5. 6 above high normal Predi abete s: 5.7 - 6.4 Diabe alin: >6.4 Glyce rob contr ol for adult s with diabe alin: <7.0 Not Available [facility] ([facility]) [address] [place], [address], 12/28/2024 09:15:24 12/27/19 25 12/28/2024 ALFIE TIN ferritin 677 NG/mL 15-150 above high normal Not Available [facility] ([facility]) [address] [place], [address], 12/28/2024 09:15:25 12/27/19 25 12/28/2024 CBC WITH DIFFE RENTI AL/PL ATELE T WBC 6.9 x10e3 /uL 3.4-10 .8 Not Available [facility] ([facility]) [address] [place], [address], 12/28/2024 09:15:26 12/27/19 25 12/28/2024 CBC WITH DIFFE RENTI AL/PL ATELE T RBC 4.42 x10e6 /uL 3.77-5 .28 Not Available [facility] ([facility]) [address] [facility], [place], [address], 12/28/2024 09:15:26 12/27/19 25 12/28/2024 CBC WITH DIFFE RENTI AL/PL ATELE T hemoglobin 13.5 g/dL 11.1-1 5.9 Not Available [facility] ([facility]) [address] [facility], [place], [address], 12/28/2024 09:15:26 12/27/1912/28/2024 CBC WITH DIFFE RENTI AL/PL ATELE T hematocrit 41.1 % 34.0-4 6.6 Not Available [facility] ([facility]) [address] [place], [address], 12/28/2024 09:15:26 12/27/1912/28/2024 CBC WITH DIFFE RENTI AL/PL ATELE T MCV 93 fL 79-97 Not Available [facility] ([facility]) [address] [place], [address], 12/28/2024 09:15:26 12/27/1912/28/2024 CBC WITH DIFFE RENTI AL/PL ATELE T MCH 30.5 pg 26.6-3 3.0 Not Available [facility] ([facility]) [address] [place], [address], 12/28/2024 09:15:26 12/27/1912/28/2024 CBC WITH DIFFE RENTI AL/PL ATELE T MCHC 32.8 g/dL 31.5-3 5.7 Not Available [facility] ([facility]) [address] [place], [address], 12/28/2024 09:15:26 12/27/19 25 12/28/2024 CBC WITH DIFFE RENTI AL/PL ATELE T RDW 12.8 % 11.7-1 5.4 Not Available [facility] ([facility]) [address] [facility], [place], [address], 12/28/2024 09:15:26 12/27/19 25 12/28/2024 CBC WITH DIFFE RENTI AL/PL ATELE T platelets 320 x10e3 /uL 150-45 0 Not Available [facility] ([facility]) [address] [facility], [place], [address], 12/28/2024 09:15:26 12/27/19 25 12/28/2024 CBC WITH DIFFE RENTI AL/PL ATELE T neutrophils 61 % notest ab. Not Available [facility] ([facility]) [address] [facility], [place], [address], 12/28/2024 09:15:26 12/27/19 25 12/28/2024 CBC WITH DIFFE RENTI AL/PL ATELE T lymphs 29 % notest ab. Not Available [facility] ([facility]) [address] [facility], [place], [address], 12/28/2024 09:15:26 12/27/19 25 12/28/2024 CBC WITH DIFFE RENTI AL/PL ATELE T monocytes 8 % notest ab. Not Available [facility] ([facility]) [address] [facility], [place], [address], 12/28/2024 09:15:26 12/27/19 25 12/28/2024 CBC WITH DIFFE RENTI AL/PL ATELE T eos 2 % notest ab. Not Available [facility] ([facility]) [address] [facility], [place], [address], 12/28/2024 09:15:26 12/27/19 25 12/28/2024 CBC WITH DIFFE RENTI AL/PL ATELE T basos 0 % notest ab. Not Available [facility] ([facility]) [address] [facility], [place], [address], 12/28/2024 09:15:26 12/27/19 25 12/28/2024 CBC WITH DIFFE RENTI AL/PL ATELE T neutrophils (absolute) 4.1 x10e3 /uL 1.4-7. 0 Not Available [facility] ([facility]) [address] [facility], [place], [address], 12/28/2024 09:15:26 12/27/19 25 12/28/2024 CBC WITH DIFFE RENTI AL/PL ATELE T lymphs (absolute) 2.0 x10e3 /uL 0.7-3. 1 Not Available [facility] ([facility]) [address] [facility], [place], [address], 12/28/2024 09:15:26 12/27/19 25 12/28/2024 CBC WITH DIFFE RENTI AL/PL ATELE T monocytes(ab solute) 0.5 x10e3 /uL 0.1-0. 9 Not Available [facility] ([facility]) [address] [facility], [place], [address], 12/28/2024 09:15:26 12/27/19 25 12/28/2024 CBC WITH DIFFE RENTI AL/PL ATELE T eos (absolute) 0.2 x10e3 /uL 0.0-0. 4 Not Available [facility] ([facility]) [address] [place], [address], 12/28/2024 09:15:26 12/27/19 25 12/28/2024 CBC WITH DIFFE RENTI AL/PL ATELE T baso (absolute) 0.0 x10e3 /uL 0.0-0. 2 Not Available [facility] ([facility]) [address] [place], [address], 12/28/2024 09:15:26 12/27/19 25 12/28/2024 CBC WITH DIFFE RENTI AL/PL ATELE T immature granulocytes 0 % notest ab. Not Available [facility] ([facility]) [address] [facility], [place], [address], 12/28/2024 09:15:26 12/27/19 25 12/28/2024 CBC WITH DIFFE RENTI AL/PL ATELE T immature grans (abs) 0.0 x10e3 /uL 0.0-0. 1 Not Available [facility] ([facility]) [address] [facility], [place], [address], 12/28/2024 09:15:26 12/27/19 25 12/28/2024 TRIIO DOTHY ROCK E (T3), FREE triiodothyro nine (T3), free 2.5 pg/mL 2.0-4. 4 Not Available [facility] ([facility]) [address] [facility], [place], [address], 12/28/2024 09:15:28 03/09/20 25 03/10/2025 ALBUM IN/CR EATIN INE RATIO ,URIN E creatinine, urine 58.8 mg/dL notest ab. Not Available [facility] ([facility]) [address] [facility], [place], [address], 03/10/2025 13:27:24 03/09/20 25 03/10/2025 ALBUM IN/CR EATIN INE RATIO ,URIN E albumin, urine 732.4 ug/mL notest ab. Resul ts confi rmed on dilut ion. Not Available [facility] ([facility]) [address] [place], [address], 03/10/2025 13:27:24 03/09/20 25 03/10/2025 ALBUM IN/CR EATIN INE RATIO ,URIN E alb/creat ratio 1246 mg/g_ creat 0-29 above high normal Maria Del Rosario l: 0 - 29 Moder ately incre ased: 30 - 300 Sever tee incre ased: >300 Not Available [facility] ([facility]) [address] [facility], [place], [address], 03/10/2025 13:27:24 03/09/20 25 03/10/2025 TSH+F REE T4 TSH 1.560 uIU/m L 0.450- 4.500 Not Available [facility] ([facility]) [address] [facility], [place], [address], 03/10/2025 13:27:26 03/09/20 25 03/10/2025 TSH+F REE T4 T4,free(dire ct) 1.27 NG/dL 0.82-1 .77 Not Available [facility] ([facility]) [address] [facility], [place], [address], 03/10/2025 13:27:26 03/09/20 25 03/10/2025 TRIIO DOTHY ROCK E (T3), FREE triiodothyro nine (T3), free 2.2 pg/mL 2.0-4. 4 Not Available [facility] ([facility]) [address] [facility], [place], [address], 03/10/2025 13:27:27 03/09/20 25 03/09/2025 HbA1c (hemo globi n A1c), blood HbA1c 10.0% Not Available In-Office Order Internal Use Only DO Not Attach Compendium DO Not Attach Compendium, Do Not Delete/merge, [id number] 03/09/2025 15:01:35 12/17/19 25 12/17/2024 US, abdom en No observ ation record ed. [address] [facility] [address], [place], [address], 01/06/2025 16:38:33 12/18/19 25 12/18/2024 MRI, kidne y, w/wo contr ast No observ ation record ed. [address], [place], [address], 01/06/2025 16:38:33 12/21/19 25 12/17/2024 CT, abdom en + pelvi s, w/ contr ast No observ ation record ed. [address], [place], [address], 01/06/2025 16:38:33 12/21/19 25 12/18/2024 imagi ng/di agnos tic resul t No observ ation record ed. [place] [id number] [facility] [address], [place], [address], 01/06/2025 16:38:33 12/21/19 25 12/17/2024 US, abdom en No observ ation record ed. [place] [id number] [facility] [address], [place], [address], 01/06/2025 16:38:33 Result Notes None recorded. Problems Name Problem SNOMED Code Status Onset Date Resolution Date Notes Provider Name and Address Organization Details Recorded Time Acute folliculi tis 142063619 Completed 201703/03/2020 ARTIE DUFF Attn: Accounting ,[address] [place], [address] , [facility] 0 09:19:10 Type 2 diabetes mellitus 24454132 Active 2017 JERROD BARLOW PA-C Attn: Accounting ,[address] [place], [address] , [facility] 4 15:52:38 Hypothyro idism 15742765 Active 2017 JERROD BARLOW PA-C Attn: Accounting ,[address] [place], [address] , [facility] 4 15:51:49 Essential hypertens ion 39659334 Active 2017 JERROD BARLOW PA-C Attn: Accounting ,[address] [place], [address] , [facility] 4 14:50:34 History of angioedem a 64050202302 08 Active 2017 Not Available [facility] 3 21:30:28 Adult health examinati on Active 2017 Not Available [facility] 3 21:30:28 Hyperlipi demia 36125540 Active 2017 JERROD BARLOW PA-C Attn: Accounting ,[address] [facility], [place], [address] , [facility] 4 15:51:46 Insomnia 729465326 Active 2017 Not Available [facility] 3 21:30:27 Neuropath y 282176646 Active 2017 Not Available [facility] 3 21:30:28 Spasm of back muscles 373384302 Active 2017 Not Available [facility] 3 21:30:27 Hammer toe 869984801 Active 2018 Not Available [facility] 3 21:30:27 Contact dermatiti s 35648813 Active 2018 Not Available [facility] 3 21:30:28 Microalbu minuria 982280269 Active 2019 Not Available [facility] 3 21:30:28 Uncontrol led type 2 diabetes mellitus 015007057 Active 2023 JERROD BARLOW PA-C Attn: Accounting ,[address] [facility], [place], [address] , [facility] 4 15:33:10 Notes:Some problems listed i n Document: #[id number] could not be added to this patient's chart. Please review this document and add these problems to the patient's chart manually as needed. Problem Notes None recorded. Procedures Surgical History Date Name Laterality Status Provider Name and Address Organization Details Recorded Time 02/09/20 20 amputation of toe completed Kath Tuttle MA [facility] 03/03/2023 17:00:13 01/09/20 20 amputation of toe completed Kath Tuttle MA [facility] 03/03/2023 16:59:57 11/10/19 20 amputation of toe completed PRISCILA Serrano HF 03/03/2023 16:59:30 10/10/20 19 amputation of toe completed Kathdanish Tuttle MA [facility] 03/03/2023 16:59:14 11/10/18 83 Dilation and Curettage completed Usha BeckwithPRISCILA [facility] 08/26/2018 11:02:35 11/10/18 72 Tonsillectomy completed Usha Beckwith [facility] 08/26/2018 11:01:36 Imaging Results None recorded. Procedure Notes None recorded. Medical Equipment None Reported. Allergies Allergen ID Allergen Name Allergen Category Reaction Reaction Severity Criticality Documentation Date Start Date Code Code System Note Provider Name and Address Organization Details Recorded Time 809318 erythromy norbert medicatio n Not available Not available Not available 08/26/2018 4053 RxNorm Other react ions and sever ities : 'Adve rse react ion to subst ance' . JERROD BARLOW PA-C Attn: Accountbrielle g,[address] [place], [place], [address] [place] [address] 2, [facility] 4 15:32:22 [id number] lisinopri l medicatio n Not available Not available Not available 08/26/2018 51141 RxNorm Other react ions and sever ities : 'Adve rse react ion to subst ance - Sever e'. JERROD BARLOW PA-C Attn: Accountin g,[address] [place], [place], [address] [place] [address] 2, [facility] 4 15:32:22 [id number] metformin medicatio n Not available Not available Not available 08/26/2018 6809 RxNorm Other react ions and sever ities : 'Drug -conrad destiney nause a and vomit ing - Sever e', and 'Adve rse react ion to subst ance' . JERROD BARLOW PA-C Attn: Accountin g,[address] [place], [place], [address] [place] [address] 2, [facility] 4 15:32:22 [id number] thimerosa l medicatio n Not available Not available Not available 08/26/2018 55653 RxNorm Other react ions and sever ities : 'Adve rse react ion to subst ance' . JERROD BARLOW PA-C Attn: Chio medina,[address] [facility], [place], [address], [facility] 4 15:32:22 Medications Name Sig Start Date Stop Date Status Note LastModified by Organization Details LastModified Time cyclobenzap rine 10 mg tablet TAKE ONE TABLET BY MOUTH AT BEDTIME NEEDED FOR MUSCLE SPASMS 03/03 completed Not Available Not Available Not Available furosemide 40 mg tablet Take 1 tablet every day by oral route. active Not Available Not Available No t Available pioglitazon e 15 mg tablet TAKE 1 TABLET BY MOUTH ONCE DAILY FOR 30 DAYS FOR DIABETES active Not Available Not Available No t Available atorvastati n 40 mg tablet TAKE ONE TABLET BY MOUTH EVERY NIGHT AT BEDTIME TO LOWER CHOLESTER OL active Not Available Not Available No t Available silver sulfadiazin e 1 % topical cream [...] completed Not Available Not Available Not Available acetaminoph en 300 mg-codeine 30 mg tablet TAKE ONE TABLET FOUR TIMES DAILY NEEDED FOR PAIN active Not Available Not Available No t Available amlodipine 5 mg tablet Take 1 tablet every day by oral route for 30 days, for blood pressure. 2024 active Not Available Not Available Not Avai lable allopurinol 100 mg tablet TAKE ONE TABLET BY MOUTH EVERY MORNING FOR GOUT active Not Available Not Available No t Available ciprofloxac in 500 mg tablet TAKE ONE TABLET BY MOUTH TWICE DAILY EVERY MORNING & EVENING FOR INFECTION active Not Available Not Available No t Available sulfamethox azole 800 mg-trimetho prim 160 mg tablet Take 1 tablet every 12 hours by oral route for 10 days. 03/03 completed Not Available Not Available Not Available acyclovir 800 mg tablet Take 1 tablet 5 times a day by oral route as directed for 10 days. 03/03 completed Not Available Not Available Not Available ketorolac 0.5 % eye drops INSTILL ONE DROP IN EACH EYE THREE TIMES A DAY, MORNING, MIDDAY AND BEDTIME STARTING AFTER SURGERY. USE FOR TWO WEEKS active Not Available Not Available No t Available prednisolon e acetate 1 % eye [...] completed Not Available Not Available Not Available cyanocobala min (vit B-12) 1,000 mcg/mL injection solution Inject 1 mL every month by subcutane ous route for 1 day. 2024 active Not Available Not Available Not Avai lable levothyroxi ne 125 mcg tablet Take 1 tablet every day by oral route in the morning for 30 days. 03/03 completed Not Available Not Available Not Available glimepiride 4 mg tablet TAKE 1 TABLET BY MOUTH TWICE DAILY BEFORE MEALS FOR DIABETES 04/06 completed Not Available Not Available Not Available levothyroxi ne 150 mcg tablet Take 1 tablet every day by oral route for 30 days, for thyroid. 2024 active Not Available Not Available Not Avai lable losartan 25 mg tablet TAKE ONE TABLET BY MOUTH EVERY MORNING FOR BLOOD PRESSURE active Not Available Not Available No t Available hydrochloro thiazide 12.5 mg capsule TAKE 1 TABLET BY MOUTH EVERY MORNING FOR BLOOD PRESSURE AND FLUID RETENTION active Not Available Not Available No t Available alcohol swabs USE TO CHECK BLOOD SUGAR THREE TIMES A DAY, MORNING, MIDDAY AND BEDTIME active Not Available Not Available No t Available furosemide 20 mg tablet TAKE ONE TABLET BY MOUTH EVERY MORNING FOR FLUID RETENTION 04/12 completed Not Available Not Available Not Available gabapentin 100 mg capsule TAKE 1 CAPSULE [...] completed Not Available Not Available Not Available pioglitazon e 30 mg tablet TAKE 1 TABLET BY MOUTH ONCE DAILY IN THE MORNING FOR DIABETES 04/06 completed Not Available Not Available Not Available calcitriol 0.25 mcg capsule TAKE ONE CAPSULE BY MOUTH EVERY MORNING FOR KIDNEY active Not Available Not Available No t Available metoclopram valerio 10 mg tablet TAKE ONE TABLET BY MOUTH THREE TIMES A DAY, MORNING, MIDDAY AND BEDTIME FOR STOMACH active Not Available Not Available No t Available amoxicillin 500 mg-potassiu m clavulanate 125 mg tablet TAKE ONE TABLET EVERY TWELVE HOURS BY MOUTH WITH MEALS FOR 7 DAYS 11/18 completed Not Available Not Available Not Available lactulose 10 gram/15 mL oral solution TAKE 30ML BY MOUTH EVERY DAY NEEDED FOR CONSTIPAT ION active Not Available Not Available No t Available omega-3 acid ethyl esters 1 gram [...] oral route for 30 days, for diabetes. 01/06 completed Not Available Not Available Not Available Lantus Solostar U-100 Insulin 100 unit/mL (3 mL) subcutaneou s pen INJECT 10 UNITS SUBCUTANE OUSLY EVERY MORNING AND 40 UNITS EVERY NIGHT AT BEDTIME FOR DIABETES 04/06 completed Not Available Not Available Not Available sodium,pota ssium,mag sulfates 17.5 gram-3.13 gram-1.6 gram oral soln DIRECTED active Not Available Not Available No t Available Linzess 145 mcg capsule TAKE ONE CAPSULE BY MOUTH EVERY DAY 01/06 completed Not Available Not Available Not Available Victoza 2-Low 0.6 mg/0.1 mL (18 mg/3 mL) subcutaneou s pen injector INJECT 0.3 MG UNDER THE SKIN EVERY DAY 08/03 completed Not Available Not Available Not Available Nesina 25 mg tablet 02/16 completed Not Available Not Available Not Available Jardiance 25 mg tablet Take 1 tablet every day by oral route for 30 days, for diabetes. 01/06 completed Not Available Not Available Not Available TRUEplus Pen Needle 31 gauge x 3/16 USE DIRECTED 2024 active Not Available Not Available Not Avai lable Linzess 72 mcg capsule TAKE ONE CAPSULE DAILY 01/06 completed Not Available Not Available Not Available Ozempic 0.25 mg or 0.5 mg (2 mg/1.5 mL) subcutaneou s pen injector Inject 0.5 mg every week by subcutane ous route for 30 days, for diabetes. 01/06 completed Not Available Not Available Not Available OneTouch Ultra2 Meter USE TO CHECK BLOOD SUGAR THREE TIMES A DAY, MORNING, MIDDAY AND BEDTIME 05/18 completed Not Available Not Available Not Available OneTouch Delica Plus Lancet 33 gauge USE TO CHECK BLOOD SUGAR THREE TIMES A DAY, MORNING, MIDDAY AND BEDTIME 05/18 completed Not Available Not Available Not Available OneTouch Delica Plus Lancet 30 gauge USE TO CHECK BLOOD SUGAR FOUR TIMES DAILY 05/18 completed Not Available Not Available Not Available Ozempic 1 mg/dose (4 mg/3 mL) subcutaneou s pen injector INJECT 1mg UNDER THE SKIN EVERY WEEK FOR DIABETES 01/06 completed Not Available Not Available Not Available Ozempic 2 mg/dose (8 mg/3 mL) subcutaneou s pen injector Inject 2 mg every week by subcutane ous route for 30 days, for diabetes. 01/06 completed Not Available Not Available Not Available Ozempic 0.25 mg or 0.5 mg (2 mg/3 mL) subcutaneou s pen injector INJECT 0.5MG SUBCUTANE OUSLY EVERY WEEK DIRECTED FOR DIABETES 01/06 completed Not Available Not Available Not Available Contour Plus Test Strip USE TO CHECK BLOOD SUGAR THREE TIMES A DAY, MORNING, MIDDAY AND BEDTIME 2024 active Not Available Not Available Not Avai lable Vitals Date Recorded Body height Body mass index (BMI) Body weight Body temperature Oxygen saturation Oxygen saturation in Arterial blood by Pulse oximetry Heart rate Systolic And Diastolic Provider Name and Address Organization Details Last Updated DateTime 5 170.82 cm 38.8 kg/m2 162072. 73 g 97.9 [degF] 95 % 95 % 77 /min 126/64 mm[Hg] Kath Tuttle MA [facility] 5 14:47:12 Date Recorded Body height Body mass index (BMI) Body weight Body temperature Oxygen saturation Oxygen saturation in Arterial blood by Pulse oximetry Heart rate Systolic And Diastolic Provider Name and Address Organization Details Last Updated DateTime 5 170.82 cm 37.3 kg/m2 435326. 17 g 98 [degF] 98 % 98 % 88 /min 124/62 mm[Hg] Kath Tuttle MA [facility] 5 15:56:23 Date Recorded Body height Body mass index (BMI) Body weight Oxygen saturation Oxygen saturation in Arterial blood by Pulse oximetry Heart rate Systolic And Diastolic Provider Name and Address Organization Details Last Updated DateTime 5 170.82 cm 38.1 kg/m2 468830. 13 g 97 % 97 % 72 /min 140/72 mm[Hg] Usha Beckwith MA [facility] 5 14:45:41 Date Recorded Body height Body mass index (BMI) Body weight Oxygen saturation Oxygen saturation in Arterial blood by Pulse oximetry Heart rate Systolic And Diastolic Provider Name and Address Organization Details Last Updated DateTime 5 170.82 cm 41.8 kg/m2 819242. 35 g 97 % 97 % 74 /min 140/68 mm[Hg] Usha Beckwith MA [facility] 5 15:31:39 Date Recorded Body height Body mass index (BMI) Body weight Oxygen saturation Oxygen saturation in Arterial blood by Pulse oximetry Heart rate Systolic And Diastolic Provider Name and Address Organization Details Last Updated DateTime 4 170.82 cm 37.7 kg/m2 416991. 51 g 97 % 97 % 79 /min 122/68 mm[Hg] Kath Tuttle [place] - [facility] 15:20:46 Social History Question Answer Notes LastModified by Organizat ion Details LastModified Time Tobacco Smoking Status Never Smoker PRISCILA Desai, [place] - [facility] 08/26/2018 11:01:13 Do You Have An Advance Directive? No Information not available 11/18/2023 Are You Blind Or Do You Have Difficulty Seeing? Yes Wears Glasses Information not available 11/18/2023 What Is Your Level Of Caffeine Consumption? None Information not available 11/18/2023 Are You Deaf Or Do You Have Serious Difficulty Hearing? No Information not available 11/18/2023 What Type Of Diet Are You Following? REGULAR Information not available 11/18/2023 What Is The Highest Grade Or Level Of School You Have Completed Or The Highest Degree You Have Received? [id number] Information not available 11/18/2023 What Was The Date Of Your Most Recent Tobacco Screening? 01/06/2025 [email or web address] Information not available 01/06/2025 What Is Your Relationship Status? Single Information not available 11/18/2023 Do You Use Your Seat Belt Or Car Seat Routinely? Yes Information not available 11/18/2023 Sex: Female Functional Status Question Answer Note LastModified by Organizat ion Details LastModified Time Do you use any illicit or recreational drugs? No Information not available 11/18/2023 What is your level of alcohol consumption? None Information not available 11/18/2023 Are you currently employed? No Information not available 11/18/2023 Are you able to care for yourself? Yes Information not available 11/18/2023 What is your exercise level? None Information not available 11/18/2023 Mental Status Question Answer Note LastModified by Organization D etails LastModified Time Do you feel stressed (tense, restless, nervous, or anxious, or unable to sleep at night)? [id number] Information not available 11/18/2023 Family History Nothing Reported. Medical History Condition Response Coronary Artery Disease N High Blood Pressure Y Atrial Fibrillation N Thyroid Problems Y Kidney or Bladder Problems N GI Problems N Depression Y COPD N Blood Clots N Skin Problems N Anemia N Heart Attack (IA) N Diabetes Y Anxiety Disorder N Muscle, Joint, or Bone Problems Y Seizures/Epilepsy N Acid Reflux (GERD) N Cancer N Stroke N Asthma N Allergies N High Cholesterol Y Hepatitis N Liver Disease Y Headaches Y Osteoporosis N Heart Failure N Gynecological History Statement/Question Response Menses Monthly N Obstetrics History GPAL:G 0 P 0 0 0 0 Immunizations Vaccine Type Date Status Note Provider Nam e and Address Organization Details Recorded Time COVID-19 vaccine, vector-nr, rS-Ad26, PF, 0.5 mL 1 completed Not Available [facility] 10/27/2023 21:30:28 COVID-19 vaccine, vector-nr, rS-Ad26, PF, 0.5 mL 1 completed Not Available [facility] 10/27/2023 21:30:28 Influenza, split virus, quadrivalent, PF 0 completed Not Available [facility] 10/27/2023 21:30:28 Pneumococcal conjugate PCV20, polysaccharide [id number] conjugate, adjuvant, PF 4 completed Kath Tuttle [place] null, [place] - [facility] 12/06/2024 14:43:09 Influenza, split virus, quadrivalent, PF 3 completed Not Available [facility] 04/12/2025 15:02:14 Pneumococcal conjugate PCV20, polysaccharide [id number] conjugate, adjuvant, PF 3 completed Not Available [facility] 04/12/2025 15:02:14 Influenza, split virus, quadrivalent, preservative 1 completed Martín Esparza MD Attn: Accounting[address] [place], [address], [place] - [facility] 08/30/2021 18:05:17 Tdap 3 completed Kath Tuttle [place] null, [place] - [facility] 03/04/2023 12:01:30 Influenza, split virus, trivalent, preservative 4 completed JERROD BARLOW PA-C Attn: Accounting[address] [facility], [address], [facility] - [facility] 08/03/2024 17:15:01 Past Encounters Encounter ID Performer Location Encounter Start Date Encounter Closed Date Diagnosis/Indication Diagnosis SNOMED-CT Code Diagnosis ICD10 Code Diagnosis Note [id number] MD [facility] (Adult Med) [address] [place] [address] [phone] 0 08/26/2018 10:46:47 08/26/2018 11:22:44 Acute folliculitis 663265023 L73.9 Type 2 shari betes mellitus 62259236 E11.42 [id number] Martín Esparza MD [facility] (Adult Med) [address] [place] [address] [phone] 10/20/2018 15:39:23 10/21/2018 10:20:17 Type 2 diabetes mellitus 57993210 E11.42 Hyperlipidemia 99854101 E78.5 Insomnia 592196991 G47.0 0 Neuropathy 804921231 G62 .9 Essential hypertension 53771940 I10 Hypothyroidism 05039915 E03.9 [id number] MD [facility] (Adult Med) [address] [place] [address] [phone] 01/20/2019 12:20:18 01/21/2019 11:50:14 Essential hypertension 57886080 I10 Hypothyroidism 53571834 E03.9 Type 2 shair betes mellitus 82261464 E11.42 Accucheck Glucometer Hyperlipidemia 15997129 E78.5 Insomnia 697918998 G47.0 0 Neuropathy 715994351 G62 .9 Hammer toe 960594672 M20 .40 Spasm of back muscles 20 6955817 M62.830 Low back pain 337313937 M54.5 [id number] MD [facility] (Adult Med) [address] [place] [address] [id number] 07/01/2019 14:11:36 07/02/2019 12:15:56 Type 2 diabetes mellitus 29394610 E11.40 Diabetic diet, excercise and lose weight. Has enough medication s refill. She will see a ophthalmol ogit in the near future. Dyslipidem ia due to type 2 diabetes mellitus 7455940363 02 E78.5 Will change to atorvastat in jennifer anayavastati n. She agreed. Diabetic p eripheral neuropathy 764655269 E11.40 lyrica not working, she stopped. Essential hypertension 70059903 I10 Low salt dist. On amlodipine . [id number] ARTIE DUFF (Adult Med) [address] [place] [address] 03/03/2020 09:13:50 03/06/2020 12:29:50 Essential hypertension 46069627 I10 BP Today: 128/60c/w amlodipine 5 mg Discussed DASH diet Advised 30 minutes of exercise minimum daily Advised tobacco, alcohol, caffeine all increase BP Advised goal for BP is <140/90 Contact office if BP is > 140/90 consistent ly DIscussed consequenc es of HTN including kidney, eye, heart damage, stroke, and even - RTC 6 months for BP check Type 2 shari betes mellitus 68221791 E11.21 Last A1C: 11.1% today in the [...] gradually increase Spasm of back muscles 20 5513179 M62.830 C/w cyclobenza rosa daily for back spasms Hypothyroidism 34519227 E03.9 Hx of hypothyroi dismCurren tly taking levothyrox ine 137 mcg- will check levels Hyperlipidemia 78442836 E78.5 - c/w statin therapy Adult heal th examination 880421558 Z00.00 Body mass index 30+ - obesity 582986481 Z68.38 BMI 38.1- Advised decreased portion sizes, good food choices, limited eating out or fast food and eliminate soda and juice from diet. Advised physical activity daily and offered encouragem ent to continue with positive changes made so far. Screening for malignant neoplasm of breast 150723960 Z12.39 No prior mammograms - discussed the importance of breast cancer screenings - Provided patient with mammogram order, she understand s she needs to call and schedule appointmen t Screening for malignant neoplasm of colon 979227623 Z12.11 Due for repeat colonoscop y- encouraged her to f/u with GI once COVID-19 crisis has calmed down Screening for malignant neoplasm of cervix 661632475 Z12.4 It has been many many years since I have completed my last pap smear- encouraged patient to make f/u visit with me or OBGYN for screening [id number] MD [facility] (Adult Med) [address] [place] [address] [phone] 10/17/2020 16:16:22 10/18/2020 14:20:27 Acute respiratory infections 804041713 J22 Discussed with patient, she agreed to try antibiotic s as ordered. [id number] [facility] [address] [place] [address] [phone] 02/05/2021 08:16:20 02/06/2021 11:36:11 Essential hypertension 37403309 I10 Low salt dist. On amlodipine . Hyperlipidemia 59569479 E78.5 Low animal fat diet. and atorvastat in Hypothyroidism 70601998 E03.9 On thyroid hormone. Insomnia 972303834 G47.0 0 On cyclobenza prin. Microalbuminuria 4862333 06 R80.9 On amlodipine . Neuropathy 637891250 G62 .9 Stable. Type 2 shari betes mellitus 21331379 E11.40 Diabetic diet, exercise and lose weight. Has enough medication s refill. She will see a ophthalmol ogit in the near future. Increase levemir to 30 units./day . Amputee 20841645 Z89.9 Toes of right foot. amputated. Under the care of her podiatry. [id number] MD [facility] (Adult Med) [address] [place] [address] [phone] 03/27/2021 15:58:09 03/29/2021 10:14:21 Type 2 diabetes mellitus 92167198 E11.40 Diabetic diet, exercise and lose weight. Has enough medication s refill. She will see a ophthalmol ogist in the near future. Increase levemir to 30 units./day . Wants diabetic shoes. Cellulitis of foot 87773 6007 L03.119 Under the care of here baked and graphite inspector . Peripheral arterial occlusive disease 252655604 I73.9 impalpable pulses of dorsalis and posterior tibalis. Will do the arterial dupple. Dyslipidem ia due to type 2 diabetes mellitus 0705931363 02 E78.5 Will change to atorvastat in for praja pathak. She agreed. [id number] MD [facility] (Adult Med) [address] [place] [address] [phone] 0 08/30/2021 15:14:41 09/05/2021 13:26:22 Type 2 diabetes mellitus 44667983 E11.40 Diabetic diet, exercise and lose weight. Has enough medication s refill. She will see a ophthalmol ogist in the near future. Increase levemir to 30 units./day . Wants diabetic shoes. Diabetic p eripheral neuropathy 669897388 E11.40 lyrica not working, she stopped. Screening mammography 24 677914 Z12.31 Wants mammogram. Administra tion of influenza vaccine 51278443 Z23 Patient tolerated shot well. Amputee 86666434 Z89.9 Toes of right foot. amputated. Under the care of her podiatry. 4 toes are gone, wound well healed. [id number] Martín Esparza MD [facility]Adult [facility] [address] [place] [address] [phone] 0 12/20/2021 12:07:13 12/21/2021 11:28:40 Essential hypertension 49065591 I10 Low salt dist. On amlodipine . blood pressure is well controlled . Hyperlipidemia 68240769 E78.5 Low animal fat diet. and atorvastat in Hypothyroidism 40272973 E03.9 On thyroid hormone. Insomnia 275144060 G47.0 0 On cyclobenza prin. Microalbuminuria 1865755 06 R80.9 On amlodipine . Neuropathy 002457158 G62 .9 Stable. Type 2 shari betes mellitus 26956314 E11.40 Diabetic diet, exercise and lose weight. Has enough medication s refill. She will see a ophthalmol ogist in the near future. Increase levemir to 30 units./day . Wants diabetic shoes. History of angioedema 63 46839435 108 Z86.79 Stable. Diabetic p eripheral neuropathy 658183758 E11.40 lyrica not working, she stopped. Renewal of prescription 013757741 Z76.0 Will increase levemir and will renew. Spasm of back muscles 20 5066882 M62.830 Controlled with cyclobenza prim. Unsteady w hen standing 014483455 R26.81 Due to amputee of right foot, first , second , 3rd and 4th toes. [id number] [facility] [address] [place] [address] [phone] 0 02/28/2022 09:58:08 03/01/2022 13:04:50 Essential hypertension 42280266 I10 Low salt dist. On amlodipine . blood pressure is well controlled . 114/70 mm HG today 02-28-2022 . Hyperlipidemia 34637868 E78.5 Low animal fat diet. and atorvastat in Insomnia 040724184 G47.0 0 On cyclobenza prin. Microalbuminuria 6626124 06 R80.9 On amlodipine . Neuropathy 356828744 G62 .9 Stable. Type 2 shari betes mellitus 57543292 E11.40 Diabetic diet, exercise and lose weight. Has enough medication s refill. She will see a ophthalmol ogist in the near future. Increase levemir to 30 units./day . Wants diabetic shoes. [id number] MD [facility] (Adult Med) [address] [place] [address] [phone] 06/06/2022 11:05:09 06/07/2022 14:53:12 Type 2 diabetes mellitus 65715476 E11.40 patient needs new glucometer . Edema of l ower extremity 638443745 R60.0 Will chek renal functions. 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 Under the care of her retina specialist , Amputated toe of right foot 159700602 Z89.421 Wounds healed. [id number] Martín Esparza MD [facility] (Adult Med) [address] [place] [address] [phone] 0 12/09/2022 12:46:04 12/10/2022 14:23:30 Obesity 596943848 E66.9 Last BMI is 37.5, diabetic diet, exercise and keep the weight down. Type 2 shari betes mellitus 47367083 E11.40 patient needs new glucometer . Done. Diabetic diet, exercise and keep the weight down. )n glimepirid e, januvia, jardiance and levemir insulin shot. and nesina . Amputated toe of right foot 301382847 Z89.421 Wounds healed. Acquired p tosis of left eyelid 5000039641 4352237 H02.402 She is concering the myasthenia gravis, appointmen t with ophthalmol ogist made. Dyslipidem ia due to type 2 diabetes mellitus 4895424029 02 E78.5 Will change to atorvastat in for pravastati n. She agreed. Hypothyroidism 48165626 E03.9 On thyroid hormone. [id number] Martín Esparza MD [facility] (Adult Med) [address] [place] [address] [phone] 0 03/03/2023 16:39:03 03/04/2023 11:40:21 Administration of diphtheria, pertussis, and tetanus vaccine 018595104 Z23 She tolerated shot well. Type 2 shari betes mellitus 43677130 E11.40 patient needs new glucometer . Done. Diabetic diet, exercise and keep the weight down. )n glimepirid e, januvia, jardiance and levemir insulin shot. and nesina . Bilateral lower leg edema 752946712 R60.0 She agreed for the furosemide . Acute resp iratory infections 202509240 J22 Discussed with patient, she agreed to try antibiotic s as ordered. [id number] MD [facility] (Adult Med) [address] [place] [address] 11/18/2023 16:27:10 11/20/2023 12:11:29 Chronic abdominal pain 165912048 R10.9 Will refer to to her GI specialist , she agreed. Right and left upper quadrants. Will refer to Her GI to evaluate. She agreed. Adenomatou s polyp of colon 706806045 D12.6 Had colonoscop ic ex about 5 years ago. needs to be repeat, Dr Mallory. Chronic insomnia 8841536 04 F51.04 She wants to try OTC benadryl to go to sleep. Screening mammography 24 117808 Z12.31 Wants mammogram. Uncontroll ed type 2 diabetes mellitus 606830771 E11.65 Out of all med for one month. Essential hypertension 90763645 I10 Low salt dist. On amlodipine . blood pressure is well controlled . 114/70 mm HG today 02-28-2022 . Hyperlipidemia 85004151 E78.5 Low animal fat diet. and atorvastat in History of angioedema 63 21202241 108 Z86.79 Stable.. SHE HAS NOT REFILL FOR ONE YEAR. Bilateral lower leg edema 209185764 R60.0 She agreed for the furosemide . Type 2 shari betes mellitus 05941199 E11.40 patient needs new glucometer . Done. Diabetic diet, exercise and keep the weight down. )n glimepirid e, januvia, jardiance and levemir insulin shot. and nesina . Renewal of prescription 702757468 Z76.0 Will increase levemir and will renew. Hypothyroidism 88665600 E03.9 On thyroid hormone. Amputated toe of right foot 503059320 Z89.421 Wounds healed. [id number] Terra Franz MD [facility] (Adult Med) [address] [place] [address] 02/17/2024 14:00:50 02/19/2024 09:55:51 Type 2 diabetes mellitus 29098788 E11.40 Last A1C:Today 9.7 (02/17/24)Go al A1C less than:7.0%C urrent Therapy:gl imepiride 4mg, januvia 100mg, jardiance 25mg, Victoza/Oz empic (insurance stopped paying for victoza and switched patient to ozempic)St atin: Atorvastat in 40mgACE/AR B:noFoot Exam: Completed 11/18/23Neph ropathy Screening: due ordered todayPneum ovax 23:Not givenEye Exam:compl eted in the last 12 months- positive due ati ent Education: healthy diet:yesex ercise:yes [...] yearsee dentist every 6 months Next Visit: 3 month(s)C/ W glimepirid e 4mg, januvia 100mg, jardiance 25mg, OzempicPat ient to get labs today- will call with results Body mass index 30+ - obesity 366277941 Z68.37 BMI 37.6 Depression screening 171 417200 Z13.31 PHQ9- Negative (2 out of 27) Mental [facility] screening 604536100 Z13.39 GAD7- Negative (0 out of 21) Essential hypertension 81633171 I10 BP today 128/76 BP Goal: Less than 140/90BP Controlled : yesHealthy Weight: 5'7= 121-158 lbsDiscuss ed: Low sodium balanced diet, moderate exercise at [...] year see dentist every 6 monthsNext Visit: 3month(s)C /W amlodipine 5mg Hyperlipidemia 96090795 E78.5 C/w atorvastat in 40mg dailyLabs today Hypothyroidism 57926868 E03.9 labs todayC/w levothyrox ine 150mcg [id number] Terra Franz MD [facility] (Adult Med) [address] [place] [address] [phone] 08/03/2024 14:28:36 08/06/2024 15:26:12 Type 2 diabetes mellitus 94668976 E11.40 Last A1C:Today 10.6 (08/03/24). 9.7 (02/17/24)Go al A1C less than:7.0%C urrent Therapy:gl imepiride 4mg, januvia 100mg, jardiance 25mg, OzempicSta tin: Atorvastat in 40mgACE/AR B:Losartan 25mgFoot Exam: Completed 11/18/23Neph ropathy Screening: completed in the past 12 months- positive 02/17/24Pneu movax 23:Not givenEye Exam:compl eted in the last 12 months- positive due ati ent Education: healthy diet:yesex ercise:yes [...] yearsee dentist every 6 months Next Visit: 3 month(s)C/ W glimepirid e 4mgC/W januvia 100mgC/W jardiance 25mgIncrea se Ozempic to 0.5mg weekly x 4 weeks then to 1mg weekly Essential hypertension 66326458 I10 BP today 122/68 BP Goal: Less than 140/90BP Controlled : yesHealthy Weight: 5'7= 121-158 lbsDiscuss ed: Low sodium balanced diet, moderate exercise at [...] year see dentist every 6 monthsNext Visit: 3month(s)C /W amlodipine 5mg Hyperlipidemia 40816499 E78.5 C/w atorvastat in 40mg daily Hypothyroidism 34463607 E03.9 C/w levothyrox ine 150mcg Body mass index 30+ - obesity 010622599 Z68.37 BMI 37.7 Depression screening 171 668409 Z13.31 PHQ9- Negative (2 out of 27) Mental hea lth screening 872785979 Z13.39 GAD7- Negative (0 out of 21) Administra tion of influenza vaccine 48405680 Z23 Microalbuminuria 4535896 06 R80.9 Advised patient to increase water intake and to have better control of DM and HTN Bilateral lower leg edema 859987045 R60.0 [id number] Terra Franz MD [facility] (Adult Med) [address] [place] [address] [phone] 12/06/2024 14:30:56 12/09/2024 09:56:46 Type 2 diabetes mellitus 61215754 E11.40 Last A1C:Today 11.1 (12/06/24) 10.6 (08/03/24). 9.7 (02/17/24)Go al A1C less than:7.0%C urrent Therapy:gl imepiride 4mg, januvia 100mg, jardiance 25mg, OzempicSta tin: Atorvastat in 40mgACE/AR B:Losartan 25mgFoot Exam: Completed 12/06/24Nep hropathy Screening: completed in the past 12 months- positive 02/17/24Pneu movax 23:Prevnar 20 09/02/24Ey e Exam:compl eted in the last 12 months- positive due ati ent Education: healthy diet:yesex ercise:yes [...] yearsee dentist every 6 months Next Visit: 3 month(s)C/ W glimepirid e 4mgC/W januvia 100mgC/W jardiance 25mgIncrea se Ozempic from 1mg weekly to 2mg weekly Essential hypertension 68437493 I10 BP today 126/64 BP Goal: Less than 140/90BP Controlled : yesHealthy Weight: 5'7= 121-158 lbsDiscuss ed: Low sodium balanced diet, moderate exercise at [...] year see dentist every 6 monthsNext Visit: 3month(s)C /W amlodipine 5mg Hyperlipidemia 50839563 E78.5 C/w atorvastat in 40mg daily Hypothyroidism 72044206 E03.9 Labs 02/17/24: TSH 5.130, T4 1.20, T3 2.3C/w levothyrox ine 150mcgrepe at labs today Microalbuminuria 8725768 06 R80.9 Advised patient to increase water intake and to have better control of DM and HTN Depression screening 171 039968 Z13.31 PHQ9- Negative (2 out of 27) Mental [facility] screening 829514299 Z13.39 GAD7- Negative (0 out of 21) Bilateral lower leg edema 760497758 R60.0 Intolerant of cold 09132 000 R68.89 Obesity 537430069 E66.9 BMI 38.8 [id number] Terra Franz MD [facility] (Adult Med) [address] [place] [address] [phone] 01/06/2025 15:38:27 01/07/2025 12:02:29 Type 2 diabetes mellitus 62164714 E11.40 Last A1C:11.1 (12/06/24) 10.6 (08/03/24). 9.7 (02/17/24)Go al A1C less than:7.0%C urrent Therapy:gl imepiride 4mg, januvia 100mg, jardiance 25mg, OzempicSta tin: Atorvastat in 40mgACE/AR B:Losartan 25mgFoot Exam: Completed 12/06/24Nep hropathy Screening: completed in the past 12 months- positive 02/17/24Pneu movax 23:Prevnar 20 09/02/24Ey e Exam:compl eted in the last 12 months- positive due ati ent Education: healthy diet:yesex ercise:yes [...] yearsee dentist every 6 months Next Visit: 3 month(s)C/ W glimepirid e 4mgd/c januvia 100mg d/t priced/c jardiance 25mg d/t priced/c Ozempic d/t adverse reactionHa s appt with endocrinol oglise on Februarytart pioglitazo ne 15mg x 30 days then increase to 30mg after Adverse re action to drug 82668777 T50.905A D/c Ozempic Fatigue 11405353 R53.83 B12 injection 1 mL today Nausea 500710260 R11.0 BRAT diet Obesity 015224539 E66.9 BMI 37.3 [id number] Terra Franz MD [facility] (Adult Med) [address] [place] [address] [phone] 03/09/2025 14:31:52 03/11/2025 15:03:12 Type 2 diabetes mellitus 51511403 E11.40 Last A1C:10.0 (03/09/25), 11.1 (12/06/24) 10.6 (08/03/24). 9.7 (02/17/24)Go al A1C less than:7.0%C urrent Therapy:In sulins from endocrinol ogist (obtaining records to get names and dosages), jayy pioglitazo ne 30mg dailyStati n:Atorvast atin 40mgACE/AR B:Losartan 25mgFoot Exam:Compl eted 12/06/24Nep hropathy Screening: completed in the past 12 months- positive 02/17/24Pneu movax 23:Prevnar 20 09/02/24Ey e Exam:compl eted in the last 12 months- positive due 4Pati ent Education: healthy diet:yesex ercise:yes weight loss:yesfo [...] yearsee dentist every 6 months Next Visit: 3 month(s)Pt had appt with endocrinol neo- per pt she was taken off meds and put on insulin (short and long acting)Pt is needing refills on pioglitazo ne 30mg Essential hypertension 69502103 I10 BP today 140/72 BP Goal: Less than 140/90BP Controlled : yesHealthy Weight: 5'7= 121-158 lbsDiscuss ed: Low sodium balanced diet, moderate exercise at [...] year see dentist every 6 monthsNext Visit: 3month(s)C /W amlodipine 5mgc/w medication from cardiologi st Hyperlipidemia 34873104 E78.5 C/w atorvastat in 40mg daily Hypothyroidism 13047541 E03.9 Labs 02/17/24: TSH 5.130, T4 1.20, T3 2.3Labs : TSH 10.30, T4 0.87. T3 2.5C/w levothyrox ine 150mcgrepe at labs today Microalbuminuria 8840749 06 R80.9 Advised patient to increase water intake and to have better control of DM and HTN Bilateral lower leg edema 561786615 R60.0 Depression screening 171 123523 Z13.31 PHQ9- Negative (2 out of 27) Mental [facility] screening 975859921 Z13.39 GAD7- Negative (0 out of 21) Obesity 357817600 E66.9 BMI 38.8 Bilateral proliferative retinopathy due to diabetes mellitus type 2 3534229634 2252421 E11.3593 Pt has surgery scheduled for 03/30/25 [id number] MD [facility] (Adult Med) [address] [place] [address] [phone] 04/12/2025 15:01:13 04/13/2025 10:31:36 Essential hypertension 35079208 I10 BP today 140/68 BP Goal: Less than 140/90BP Controlled : noHealthy Weight: 5'7= 121-158 lbsDiscuss ed: Low sodium balanced diet, moderate exercise at [...] year see dentist every 6 monthsNext Visit: 3month(s)C /W amlodipine 5mgc/w medication from cardiologi st and nephrology Hypothyroidism 25528724 E03.9 Labs 02/17/24: TSH 5.130, T4 1.20, T3 2.3Labs : TSH 10.30, T4 0.87. T3 2.5Labs 03/09/25: TSH 1.560, T4 1.27, T3 2.2C/w levothyrox ine 150mcg Microalbuminuria 6581461 06 R80.9 Labs 03/09/25: alb/creat ratio 1246Advise d patient to increase water intake and to have better control of DM and HTNHad labs done by nephrology - will get DELLA for results Bilateral lower leg edema 603664388 R60.0 Nephrology increased furosemide to 40mgAdvise d pt to elevate legs as much as possible when restingWea r compressio n stocking- ordered for patient today Bilateral proliferative retinopathy due to diabetes mellitus type 2 [id number] 1310941 E11.3593 Pt has surgery 03/30/25- healing well Depression screening 171 421905 Z13.31 PHQ9- Negative (0 out of 27) [facility] screening 224033105 Z13.39 GAD7- Negative (1 out of 21) Obese class III 77548863 5 E66.813 BMI 41.8 Health Concerns Section Related Observation LastModified by Organization Detai ls LastModified Time None Recorded Concern Status LastModified by Organization Details LastModified Time None Recorded Advance Directives Directive N: Payers Insurance Date Sequence Insurance Name Policy Number Policy Akins Covered Member ID Akins Member ID Guarantor Name 09/10/2018 1 *SELF PAY* Gail Porter Emerita 08/31/2018 SLIDING FEE SCHEDULE - DISCOUNT Monica Porter Emerita 03/09/2025 1 [place] [id number] Monica Porter Emerita [id number] Monica Porter Emerita 03/09/2025 1 [employer] - ALLIED BENEFITS - OPEN ACCESS Monica Porter Emerita [id number] Monica Porter Emerita 03/09/2025 1 [place] [facility] (MEDICAID REPLACEMENT - HMO) [id number] Monica German Felder [id number] Monica German Felder 03/09/2025 1 [place] [id number] Monicalyla Felder [id number] Monicalyla Felder 04/10/2025 1 [facility] (MEDICARE REPLACEMENT/A DVANTAGE - HMO) [id number] Monica Felder [id number] Monica Felder Notes Date Note Type Note Provider Name and Address Organization Details Recorded Time 08/03/2024 text/html Diabetes F/URepo rted bypatient.Labs:last A1C [...] mckenzie. JERROD BARLOW PA-C Attn: Accounting,[address] [facility], [place], [address], [facility] 08/03/2024 17:16:13 12/06/2024 text/html Diabetes F/URepo rted [...] blood sugar is high a lot. Denies SOB, LAZO, CP. Does admit that she has been very cold recently. JERROD BARLOW PA-C Attn: Accounting,[address] [facility], [place], [address], [facility] 12/06/2024 15:21:50 01/06/2025 text/html 59-year-old Cauc female here for ER follow-up. Patient started Ozempic 2 mg and had severe nausea and vomiting. Patient was in the hospital and a half days. Patient states she is still feeling weak fatigued. Patient does not want to take that medication anymore. Pt states that while vomiting has subsided, she has still been nauseous a lot. Patient also states that she stopped Jardiance and Januvia due to medication being $800 dollars and she can not afford it. JERROD BRALOW PA-C Attn: Accounting,[address] [facility], [place], [address], [facility] 01/06/2025 16:38:40 03/09/2025 text/html Diabetes F/URepo rted bypatient.Labs:last A1C result: 10 Context:normal range of home blood sugars (in the low 100s); seeing eye doctor regularly; checking feet regularly Associated Symptoms:no weight gain; no weight loss; no dizziness; no sweats; no headaches; no confusion; no increased thirst; no increased appetite; no increased urination; no blurred vision; no numbness of feet; no calluses on feet Patient is a 59 year old female her for a DM F/U. She states that she is doing well with her medications and that her progress man has prescribed her long acting insulin, 48 units, and a short- acting insulin. She states she saw an opthamologist two days ago and will be getting bilateral eye surgery to correct her vision in March.She states that she needs refills on her medications.She denies any fatigue, dizziness or chest pain. JERROD BARLOW PA-C Attn: Accounting, [facility], [place], [address], [facility] 03/09/2025 15:31:07 04/12/2025 text/html 59 y/o F here for f/u appt. Pt saw nephrology last Friday and had medication changes. Pt had not picked up medication until just now before her appointment so has not started it. Pt states she had a lot of labs drawn at appointment with nephrology and would like to get those to us instead of us getting labs here. Pt had surgery for eyes done and had f/u appt- was told she is healing well. Pt denies any SOB, CP, LAZO, N/V/D at this time. JERROD BARLOW PA-C Attn: Accounting,[address] [facility], [place], [address], [facility] 04/12/2025 17:29:08 OBGyn Episode No OBEpisode recorded.
[2025-05-23 16:12] LABS: Uric Acid 8.8 mg/dL (2.5-7.5)
[2025-05-23 16:13] LABS: Alanine Aminotransferase 29 U/L (6-35); Albumin Level 4.0 g/dL (3.5-5.1); Alkaline Phosphatase 100 U/L (38-126); Anion Gap 7 mmol/L (4-12); Aspartate Amino Transferase 30 U/L (14-36); Bilirubin,Total 0.5 mg/dL (0.2-1.3); Blood Urea Nitrogen 36 mg/dL (7-17); Calcium 9.3 mg/dL (8.4-10.2); Carbon Dioxide 32 mmol/L (22-30); Chloride 99 mmol/L (98-107); Cholesterol 141 mg/dL (0-200); Estimated Glomerular Filt Rate 52; Glucose 99 mg/dL (65-110); HDL Direct 32 mg/dL; Potassium 4.4 mmol/L (3.4-5.0); Sodium 138 mmol/L (137-145); Total Protein 7.5 g/dL (6.3-8.2); Triglycerides 69 mg/dL (<150)
[2025-05-23 16:17] LABS: INR 1.0; Prothrombin Time 13.8 Seconds (11.1-14.7)
[2025-05-23 16:45] LABS: Hemoglobin A1C 8.2 % (<5.7)
[2025-05-23 17:05] LABS: Total Protein Urine Random 74 mg/dL; Ur Ttl Prot Creatinine Ratio 0.95 mg/mg (0-0.20)
[2025-05-23 17:24] LABS: MALB Creatinine Ratio 473.3 mg/g (0-30)
[2025-05-23 19:01] LABS: Add Urine Microscopic? YES; Appearance Urine Clear (Clear); Glucose Urine UA Negative (Negative); Leukocyte Esterase Ur 1+ LEU/UL (Negative); Nitrate Urine Negative (Negative); Non Pathogenic Casts 0-2; Specific Grav Ur 1.014 (1.001-1.035)
== END 2025-05-23 14:15 | disposition home or self-care (01) ==
PROVIDERS: PCP Physician Assistant Medical; Referring Provider Specialist; Visit Provider Internal Medicine Cardiovascular Disease
DX: E11.22 Type 2 diabetes mellitus with diabetic chronic kidney disease (principal); I12.9 Hypertensive chronic kidney disease with stage 1 through stage 4 chronic kidney disease, or unspecified chronic kidney disease; N18.30 Chronic kidney disease, stage 3 unspecified; E11.65 Type 2 diabetes mellitus with hyperglycemia; E21.3 Hyperparathyroidism, unspecified; E55.9 Vitamin D deficiency, unspecified; E78.41 Elevated Lipoprotein(a); R82.90 Unspecified abnormal findings in urine; N39.0 Urinary tract infection, site not specified; R35.0 Frequency of micturition; R07.9 Chest pain, unspecified; Z13.1 Encounter for screening for diabetes mellitus
CPT/HCPCS: 36415; 80053; 80061; 81001; 82043; 82306; 82570; 83036; 83970; 84156; 84443; 84480; 84550; 85610; 87086

== ENCOUNTER 2025-09-02 12:30 | Outpatient (CLI) | payer MEDICARE, SELFPAY ==
--- OUTSIDE RECORDS SUMMARY | 2024-03-17 10:45 | XMS_ITS ---
Author Organization [facility] Office Address [address] [place] [address] Care Team Providers Care Chief Internal Auditor Name Role Phone Ronny Mathew Unavailable [phone] Social History Sex Assigned At : Social History Observation Description Sex Assigned At Female Problems Problem Type SNOMED Code ICD Code Onset Dates Problem Status W/U Status Risk Notes Problem Anxiety disorder (849920101) Anxiety disorder, unspecified (F41.9) Active confirmed Problem Obesity (985376200) Obesity, unspecified (E66.9) Active confirmed Problem Edema (49624322) Edema, unspecified (R60.9) Active confirmed Problem Essential hypertension (75217360) Essential (primary) hypertension (I10) Active confirmed Encounters Encounter Location Date Provider Diagnosis [place] [facility] [address] [facility] [address] [place] [address] 03/17/2024 Ronny Mathew Chronic kidney disease, stage 3a N18.31 ; Anxiety disorder, unspecified F41.9 ; Obesity, unspecified E66.9 ; Edema, unspecified R60.9 and Essential (primary) hypertension I10 Assessments Encounter Date Diagnosis (ICD Code) Assessment Notes Treatment Notes Treatment Clinical Notes Section Notes 03/17/2024 Chronic kidney disease, stage 3a (ICD-10 - N18.31) 03/17/2024 Anxiety disorder, unspecified (ICD-10 - F41.9) 03/17/2024 Obesity, unspecified (ICD-10 - E66.9) 03/17/2024 Edema, unspecified (ICD-10 - R60.9) 03/17/2024 Essential (primary) hypertension (ICD-10 - I10) Plan Of Treatment Next Appt Details Provider Name:Ronny Mathew , 09/09/2025 02:00:00 PM, [address] [facility], [facility] [address], [place], [address], Progress Notes * Hiedi FELDER: [birth year] (59 yo F)Acc No.[id number]:03/17/2024 Progress Notes Patient: Monica MORA Provider: Lynette WILDE MD, F.Marko.C.P, F.A.S.N. :1965 A ge:58 Y S ex:Female Date:03/17/2024 Address:[address] [place] [address] Subjective: * Chief Complaints: * * Medical History: Objective: * Vitals: Assessment: * Assessment: 1. C hronic kidney disease, stage 3a - N18.31 2 . A nxiety disorder, unspecified - F41.9 3 . O besity, unspecified - E66.9 4 . E willard, unspecified - R60.9 5 . E ssential (primary) hypertension - I10 Plan: * Treatment: * Billing Information: * Visit Code: 15633 Office Visit, New Pt., Level 5. * Procedure Codes: * Electronic signature of Kylee Mathew MD on 09/02/2025 at 12:36 PM CDT Sign off status: Pending * Provider: Lynette WILDE MD, F.A.C.P, F.A.S.N. Date: 0 03/17/2024 Generated for Printing/Faxing/eTransmitting on: 1 12:36 PM CDT
--- OUTSIDE RECORDS SUMMARY | 2024-04-02 10:15 | XMS_ITS ---
Author Organization [facility] Address [address] [address] [place] [address] Care Team Providers Care Guest Relations Associate Name Role Phone Lorene Mathewt Unavailable [phone] Social History Sex Assigned At : Social History Observation Description Sex Assigned At Female Encounters Encounter Location Date Provider Diagnosis [place] [facility] [address] [facility] [address] [place] [address] 04/02/2024 Ronny Mathew Chronic kidney disease, stage [...] Next Appt Details Provider Name:Ronny Quincy , 09/09/2025 02:00:00 PM, [address] [facility], [facility] [address], [place], [address], Progress Notes * Clifford CHANDRAAnnamarieB: 9[birth year] (59 yo F)Acc No.[id number]:04/02/2024 Progress Notes Patient: Monica MORA Provider: Lynette WILDE MD, F.A.C.P, F.A.S.N. :1965 A ge:58 Y S ex:Female Date:04/02/2024 [facility] Subjective: * Chief Complaints: * * Medical History: Objective: * Vitals: Assessment: * Assessment: 1. C hronic kidney disease, stage 3a - N18.31 (Primary) 2 . A nxiety disorder, unspecified - F41.9 3 . O besity, unspecified - E66.9 4 .?Edema, unspecified - R60.9 5 . E ssential (primary) hypertension - I10 ? Plan: * Treatment: * Billing Information: * Visit Code: 85567 Office Visit, Est Pt., Level 4. * Procedure Codes: * Electronic signature of Kylee Mathew MD on 09/02/2025 at 12:35 PM CDT Sign off status: Pending * Provider: Lynette WILDE MD, F.A.C.P, F.A.S.N. Date: 0 04/02/2024 Generated for Printing/Faxing/eTransmitting on: 12:35 PM CDT
--- OUTSIDE RECORDS SUMMARY | 2024-06-25 09:00 | XMS_ITS ---
Author Organization [facility] Address [address] [address] [place] [address] Care Team Providers Care Cad Developer Name Role Phone Ronny Mathew Unavailable [phone] Medications Medication SIG (Take, Route, Frequency, Duration) Notes Start Date End Date Status Ergocalciferol 1.25 MG (51870 UT) 1 capsule Orally Once a week; [...] Hyperglycemia due to type 2 diabetes mellitus (959625565037326) Type 2 diabetes mellitus with hyperglycemia (E11.65) Active confirmed Problem Renal osteodystrophy (02169819) Renal osteodystrophy (N25.0) Active confirmed Encounters Encounter Location Date Provider Diagnosis [place] [facility] 2043 [facility] 15 [place] [address] 06/25/2024 oRnny Mathew Chronic kidney disea se, stage 3 [...] Name:Ronny Quincy , 09/09/2025 02:00:00 PM, 2043 [facility], [facility] 15, [place], [address], Progress Notes * José Miguel FELDERB: 965 (59 yo F)Acc No.[id number]:06/25/2024 Progress Notes Patient: Monica MORA Provider: Lynette WILDE MD, F.A.C.P, F.A.S.N. :1965 A ge:58 Y S ex:Female Date:06/25/2024 Address:[address] [place] [address] Subjective: * Chief Complaints: * * Medical History: * Medications: T aking Ergocalciferol 1.25 MG (50958 UT) Capsule 1 capsule Orally Once a [...] Treatment: * Billing Information: * Visit Code: 74343 Office Visit, Est Pt., Level 4. * Procedure Codes: * Electronic signature of Kylee Mathew MD on 09/02/2025 at 12:35 PM CDT Sign off status: Pending * Provider: Lynette WILDE MD, F.A.C.P, F.A.S.N. Date: 0 06/25/2024 Generated for Printing/Faxing/eTransmitting on: 1 12:35 PM CDT
--- OUTSIDE RECORDS SUMMARY | 2024-08-27 08:30 | XMS_ITS ---
Author Organization [facility] Address 1400 [facility] 61 [facility] [address] [place] [address] Care Team Providers Care Densitometer Reader Name Role Phone Efren Mathewerjit Unavailable [phone] Social History Sex Assigned At : Social History Observation Description Sex Assigned At Female Encounters Encounter Location Date Provider Diagnosis [place] [facility] [address] [place] [address] 08/27/2024 Ronny Mathew Plan Of Treatment Next Appt Details Provider Name:Ronny Mathew , 09/09/2025 02:00:00 PM, [address], [facility], Progress Notes * José Miguel FELDERB: [birth year] (59 yo F)Acc No.[id number]:08/27/2024 Progress Notes Patient: Monica MORA Provider: Lynette WILDE MD, Ulysses.Marko.C.P, F.A.S.N. :1965 A ge:58 Y S ex:Female Date:08/27/2024 Address:[address] [place] [address] Subjective: * Chief Complaints: * * Medical History: Objective: * Vitals: Assessment: Plan: * Treatment: * Billing Information: * Visit Code: * Procedure Codes: * Electronic signature of Kylee Mathew MD on 09/02/2025 at 12:36 PM CDT Sign off status: Pending * Provider: Lynette WILDE MD, F.Marko.C.P, F.A.S.N. Date: Generated for Printing/Faxing/eTransmitting on: 12:36 PM CDT
--- OUTSIDE RECORDS SUMMARY | 2025-04-08 09:15 | XMS_ITS ---
Author Organization [facility] Address [id number] [place] [address] Care Team Providers Care Gauger Chief Name Role Phone Sg Mathewjit Unavailable [phone] Social History Sex Assigned At : Social History Observation Description Sex Assigned At Female Encounters Encounter Location Date Provider Diagnosis [place] [facility] 2043 [facility] 15 [place] [address] 04/08/2025 Ronny Mathew Chronic kidney disea se, [...] Name:Ronny Mathew , 09/09/2025 02:00:00 PM, 2043 [facility], [facility], [place], [address], Progress Notes * Clifford FELDERaDOB: [birth year] (59 yo F)Acc No.[id number]:04/08/2025 Progress Notes Patient: Monica MORA Provider: Lynette WILDE MD, Ulysses.Marko.C.P, F.A.S.N. :1965 A ge:59 Y S ex:Female Date:04/08/2025 Address:[address] [place] [address] Subjective: * Chief Complaints: * * Medical [...] Treatment: * Billing Information: * Visit Code: 28325 Office Visit, Est Pt., Level 4. * Procedure Codes: * Electronic signature of Kylee Mathew MD on 09/02/2025 at 12:35 PM CDT Sign off status: Pending * Provider: Lynette WILDE MD, F.Marko.C.P, F.A.S.N. Date: 0 04/08/2025 Generated for Printing/Faxing/eTransmitting on: 1 12:35 PM CDT
--- OUTSIDE RECORDS SUMMARY | 2025-05-11 10:15 | XMS_ITS ---
Author Organization [facility] Address 1400 [facility] 61 [facility] [address] [place] [address] Care Team Providers Care Dipper Operator Name Role Phone Mathew Ronny Unavailable [phone] Social History Sex Assigned At : Social History Observation Description Sex Assigned At Female Problems Problem Type SNOMED Code ICD Code Onset Dates Problem Status W/U Status Risk Notes Problem Chronic kidney disease stage 3A (disorder) (436734983) Chronic kidney disease, stage 3a (N18.31) Active confirmed Problem Metabolic disorder (75016235) Metabolic disorder, unspecified (E88.9) Active confirmed Encounters Encounter Location Date Provider Diagnosis [place] [facility] [address] [place] [address] 05/11/2025 Ronny Mathew Plan Of Treatment Next Appt Details Provider Name:Ronny Mathew , 09/09/2025 02:00:00 PM, [address] [place] [address], [place], [place], [facility], Progress Notes * José Miguel FELDERB: [birth year] (59 yo F)Acc No.[id number]:05/11/2025 Progress Notes Patient: Monica MORA Provider: Lynette WILDE MD, F.A.C.P, F.A.S.N. :1965 A ge:59 Y S ex:Female Date:05/11/2025 Address:[address] [place] [address] Subjective: * Chief Complaints: * * Medical History: Objective: * Vitals: Assessment: Plan: * Treatment: * Billing Information: * Visit Code: 79428 Office Visit, Est Pt., Level 4. * Procedure Codes: * Electronic signature of Kylee Mathew MD on 09/02/2025 at 12:35 PM CDT Sign off status: Pending * Provider: Lynette WILDE MD, F.A.C.P, F.A.S.N. Date: 0 05/11/2025 Generated for Printing/Faxing/eTransmitting on: 1 12:35 PM CDT
--- OUTSIDE RECORDS SUMMARY | 2025-06-15 10:45 | XMS_ITS ---
Author Organization [facility] Address [address] [address] [place] [address] Care Team Providers Care Certified Breastfeeding Educator Name Role Phone Quincy Ronny Unavailable [phone] Social History Sex Assigned At : Social History Observation Description Sex Assigned At Female Problems Problem Type SNOMED Code ICD Code Onset Dates Problem Status W/U Status Risk Notes Problem Vitamin D deficiency (90658227) Vitamin D deficiency, unspecified (E55.9) Active confirmed Encounters Encounter Location Date Provider Diagnosis [place] [facility] [address] [facility] 15 [place] [address] 06/15/2025 Ronny Mathew Chronic kidney disea se, [...] Name:Ronny Quincy , 09/09/2025 02:00:00 PM, [address] [facility], [facility] [address], [place], [address], Progress Notes * José Miguel FELDERB: 965 (59 yo F)Acc No.[id number]:06/15/2025 Progress Notes Patient: Monica MORA Provider: Lynette WILDE MD, F.A.C.P, F.A.S.N. :1965 A ge:59 Y S ex:Female Date:06/15/2025 Address:[address] [place] [address] Subjective: * Chief Complaints: * * Medical [...] Treatment: * Billing Information: * Visit Code: 76416 Office Visit, Est Pt., Level 4. * Procedure Codes: * Electronic signature of Kylee Mathew MD on 09/02/2025 at 12:35 PM CDT Sign off status: Pending * Provider: Lynette WILDE MD, F.A.C.P, F.A.S.N. Date: 0 06/15/2025 Generated for Printing/Faxing/eTransmitting on: 1 12:35 PM CDT
--- OUTSIDE RECORDS SUMMARY | 2025-08-17 13:45 | XMS_ITS ---
Author Organization [facility] Address [address] [facility] 61 [facility] [address] [place] [address] Care Team Providers Care Shuttle Spotter Name Role Phone Efren Mathewerjit Unavailable [phone] Social History Sex Assigned At : Social History Observation Description Sex Assigned At Female Encounters Encounter Location Date Provider Diagnosis [place] [facility] [address] [place] [address] 08/17/2025 Ronny Mathew Plan Of Treatment Next Appt Details Provider Name:Ronny Quincy , 09/09/2025 02:00:00 PM, [address], [facility], Progress Notes * Clifford FELDERAnnamarieB: 965 (59 yo F)Acc No.[id number]:08/17/2025 Progress Notes Patient: Monica MORA Provider: Lynette WILDE MD, Ulysses.Marko.C.P, F.A.S.N. :1965 A ge:59 Y S ex:Female Date:08/17/2025 Address:[address] [place] [address] Subjective: * Chief Complaints: Objective: Assessment: Plan: * Billing Information: * Visit Code: * Procedure Codes: * Electronic signature of Kylee Mathew MD on 09/02/2025 at 12:35 PM CDT Sign off status: Pending * Provider: Lynette WILDE MD, F.Marko.C.P, F.A.S.N. Date: Generated for Printing/Faxing/eTransmitting on: 12:35 PM CDT
--- OUTSIDE RECORDS SUMMARY | 2025-09-02 12:35 | XMS_ITS | Encounter Summary ---
Author Organization [facility] Address [address] [place] [address] Care Team Providers Care Clerical Clerk Name Role Phone Unavailable Primary Care Provider Unavailabl e Encounter Details Date Type Department Care Team (Latest Contact Info) Description 02/21/1998 Outpatient Historical HIS ELZBIETA & Jorge A Gomes MD NO ADDRESS ON FILE Unspecified hypothyroidism (Primary Dx) Social History Tobacco Use Types Packs/Day Years Used Date Smoking Tobacco: Never Assessed Comments Unknown Sex and Gender Information Value Date Recorded Sex Assigned at Not on file Legal Sex Female 4:32 AM REMITTANCE CLERK Gender Identity Not on file Sexual Orientation Not on file documented as of this encounter Plan of Treatment Not on file documented as of this encounter Visit Diagnoses Diagnosis Unspecified hypothyroidism- Primary documented in this encounter
--- OUTSIDE RECORDS SUMMARY | 2025-09-02 12:35 | XMS_ITS | Patient Health Record ---
Author Organization [facility] Address [address] [facility] [address] [place] [address] Care Team Providers Care Director Of Community Life Name Role Phone Ronny Mathew Unavailable [phone] Reason For Referral No Information Medications Medication SIG (Take, Route, Frequency, Duration) Notes Start Date End Date Status Losartan Potassium 25 mg TAKE ONE TABLET BY MOUTH EVERY DAY EVERY NIGHT AT BEDTIME FOR BLOOD PRESSURE; Duration: 90 Active Calcitriol 0.25 mcg TAKE ONE CAPSULE BY MOUTH EVERY DAY IN THE MORNING; Duration: 90 Active Losartan Potassium 100 MG 1 tablet Orall y Once a day; Duration: 90 days 08/11/2025 Active Ergocalciferol 1.25 MG (29732 UT) 1 capsule Orally twice a week; Duration: 30 days 08/11/2025 12/08/2025 Active Allopurinol 100 MG 1 tablet Orally Once a day; Duration: 90 days 08/11/2025 08/06/2026 Active Vitamin D (Ergocalciferol) 1.25 MG (55716 UT) TAKE ONE CAPSULE BY MOUTH EVERY WEEK FOR VITAMIN DEFICIANCY; Duration: 90 Active Social History Sex Assigned At : Social History Observation Description Sex Assigned At Female Problems Problem Type SNOMED Code ICD Code Onset Dates Problem Status W/U Status Risk Notes Problem Hyperglycemia due to type 2 diabetes mellitus (152185161288643) Type 2 diabetes mellitus with hyperglycemia (E11.65) Active confirmed Problem Vitamin D deficiency (61235253) Vitamin D deficiency, unspecified (E55.9) Active confirmed Problem Obesity (769473626) Obesity, unspecified (E66.9) Active confirmed Problem Metabolic disorder (04192232) Metabolic disorder, unspecified (E88.9) Active confirmed Problem Anxiety disorder (527531809) Anxiety disorder, unspecified (F41.9) Active confirmed Problem Essential hypertension (09386603) Essential (primary) hypertension (I10) Active confirmed Problem Renal osteodystrophy (69931957) Renal osteodystrophy (N25.0) Active confirmed Problem Edema (45557017) Edema, unspecified (R60.9) Active confirmed Problem Chronic kidney disease stage 3A (disorder) (137996389) Chronic kidney disease, stage 3a (N18.31) Active confirmed Encounters Encounter Location Date Provider Diagnosis [facility] [address] [address] 04/08/2025 Ronny Mathew Chronic kidney disea se, stage 3a N18.31 ; Anxiety disorder, unspecified F41.9 ; Obesity, unspecified E66.9 ; Edema, unspecified R60.9 ; Essential (primary) hypertension I10 ; Chronic kidney disease, stage 3 unspecified N18.30 ; Type 2 diabetes mellitus with hyperglycemia E11.65 and Renal osteodystrophy N25.0 [facility] [address] [address] 05/11/2025 Ronny Mathew [facility] [address] [address] 06/15/2025 Ronny Mathew Chronic kidney disea se, stage 3a N18.31 ; Anxiety disorder, unspecified F41.9 ; Obesity, unspecified E66.9 ; Edema, unspecified R60.9 ; Essential (primary) hypertension I10 ; Type 2 diabetes mellitus with hyperglycemia E11.65 ; Renal osteodystrophy N25.0 ; Metabolic disorder, unspecified E88.9 ; Vitamin D deficiency, unspecified E55.9 and Hyperuricemia without signs of inflammatory arthritis and tophaceous disease E79.0 [facility] [address] [place] [address] 08/11/2025 Ronny Mathew Assessments Encounter Date Diagnosis (ICD Code) Assessment Notes Treatment Notes Treatment Clinical Notes Section Notes 04/08/2025 Chronic kidney disease, stage 3a (ICD-10 - N18.31) 06/15/2025 Anxiety disorder, unspecified (ICD-10 - F41.9) 06/15/2025 Chronic kidney disease, stage 3a (ICD-10 - N18.31) 06/15/2025 Obesity, unspecified (ICD-10 - E66.9) 04/08/2025 Anxiety disorder, unspecified (ICD-10 - F41.9) 06/15/2025 Edema, unspecified (ICD-10 - R60.9) 04/08/2025 Obesity, unspecified (ICD-10 - E66.9) 06/15/2025 Essential (primary) hypertension (ICD-10 - I10) 04/08/2025 Edema, unspecified (ICD-10 - R60.9) 04/08/2025 Essential (primary) hypertension (ICD-10 - I10) 06/15/2025 Type 2 diabetes mellitus with hyperglycemia (ICD-10 - E11.65) 04/08/2025 Chronic kidney disease, stage 3 unspecified (ICD-10 - N18.30) 06/15/2025 Renal osteodystrophy (ICD-10 - N25.0) 04/08/2025 Type 2 diabetes mellitus with hyperglycemia (ICD-10 - E11.65) 06/15/2025 Metabolic disorder, unspecified (ICD-10 - E88.9) 04/08/2025 Renal osteodystrophy (ICD-10 - N25.0) 06/15/2025 Vitamin D deficiency, unspecified (ICD-10 - E55.9) 06/15/2025 Hyperuricemia without signs of inflammatory arthritis and tophaceous disease (ICD-10 - E79.0) Plan Of Treatment Next Appt Details Provider Name:Ronny Mathew , 09/09/2025 02:00:00 PM, [address] [facility], [facility] [address], [place], [address],
--- OUTSIDE RECORDS SUMMARY | 2025-09-02 12:35 | XMS_ITS | Encounter Summary ---
Author Organization [facility] Address [address] [facility] [place] [address] Care Team Providers Care Laser Machine Operator Name Role Phone Martín Gusman MD Primary Care Provider [phone] Reason for Referral * Consultation (Routine) - Closed Specialty Diagnoses / Procedures Referred By Contac t Referred To Contact Endocrinology Diagnoses Type 2 diabetes mellitus with hyperglycemia, unspecified whether terminal worker insulin use (HCC) Unknown, Provider [facility] - Endocrinology [address] [place] [address] Phone: tel: fax: Referral ID Status Reason Start Date Expiration Date V isits Requested Visits Authorized [id number] Closed Specialty Services Required 09/20/2024 09/20/2025 1 1 [facility] NURSING DIRECTOR Encounter Details Date Type Department Care Team (Latest Contact Info) Description 09/20/2024 Transcribe Orders [facility] - Centralized Scheduling formerly [facility] [place] [id number] Donte Landaverde [address] [place] [address] Type 2 diabetes mellitus with hyperglycemia, unspecified whether terminal worker insulin use Social History Tobacco Use Types [...] on file Legal Sex Female 5:06 AM [facility] NURSING DIRECTOR Gender Identity Not on file Sexual Orientation Not on file documented as of this encounter Plan of Treatment Scheduled Referrals Name Type Priority Associated Diagnoses Order Schedule AMB REFERRAL TO ENDOCRINOLOGY Outpatient Referral Routine Type 2 diabetes mellitus with hyperglycemia, unspecified whether senior care insulin use 1 Occurrences starting 09/20/2024 until 09/20/2025 documented as of this encounter Visit Diagnoses Diagnosis Type 2 diabetes mellitus with hyperglycemia, unspecified whether senior care insulin use (HCC)- Primary documented in this encounter Care Teams Laser Machine Operator Relationship Specialty Start Date End Date Martín Gusman MD [address] [place] [address] PCP - General Internal Medicine 08/18/19 documented as of this encounter
--- OUTSIDE RECORDS SUMMARY | 2025-09-02 12:35 | XMS_ITS | Clinical Summary ---
Author Organization [employer] [facility] Address [address] [facility] [address] Galvez: Epic Prelude ADT [place] [address] Care Team Providers Care Assistant Professor Of Mathematics Name Role Phone Unavailable Primary Care Provider Unavailabl e Social History Tobacco Use Types Packs/Day Years Used Date Smoking Tobacco: Never Assessed Comments Unknown Sex and Gender Information Value Date Recorded Sex Assigned at Not on file Legal Sex Female 4:32 AM MEDICAL RECEPTIONIST ASSISTANT Gender Identity Not on file Sexual [...]
--- OUTSIDE RECORDS SUMMARY | 2025-09-02 12:35 | XMS_ITS | Encounter Summary ---
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
--- OUTSIDE RECORDS SUMMARY | 2025-09-02 12:35 | XMS_ITS | Clinical Summary ---
Author Organization [facility] Address [address] [place] [address] Care Team Providers Care Forensic Investigator Name Role Phone Martín Gusman MD Primary Care Provider [phone] [facility],non-owned Affiliates and Associated Physician Practices is amultiple site organization consisting of ambulatory clinics and hospital sitesin [place], [place], [place] and [place]. This disclosure is being madepursuant to the Care Everywhere program and may not contain all information available regarding this patient. 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
--- OUTSIDE RECORDS SUMMARY | 2025-09-02 12:36 | XMS_ITS | Clinical Summary ---
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 Gender Identity Not on file Sexual Orientation Not on file Plan of Treatment Health Maintenance Due Date Last Done Comments Hepatitis C Virus (HCV) Screening 1965 TdaP Immunization 1965 Hepatitis B Immunization (1 of 3 - 19+ 3-dose series) 1984 Pap Smear 1986 Cervical Cancer Screening (CCS) 1995 HPV/Cotest 1995 Cologuard 2010 Colonoscopy 2010 Colorectal Cancer Screening 2010 Immunochemical Fecal Occult Blood 2010 Pneumococcal Immunization (5 0+ years) (1 of 1 - PCV) 2015 Zoster Immunization (1 of 2) 2015 Influenza Immunization (#1) 2025 SARS-COV-2 Immunization ( season) 2025 Respiratory Syncytial Virus (RSV) Immunization (Adult) (1 - 1-dose 75+ series) 2040 Human Papillomavirus (HPV) Immunization Aged Out No longer eligible b ased on patient's age to complete this topic Meningococcal Immunization (ACWY) Aged Out No longer eligible based on patient's age to complete this topic Rotavirus Immunization Aged Out No lo nger eligible based on patient's age to complete this topic
[2025-09-02 13:07] LABS: Hematocrit 32.7 % (37.0-47.0); Hemoglobin 10.8 g/dL (12.0-15.0); Immature Granulocyte Percent A 0.6 % (0-0.5); Lymphocytes Absolute Auto 1.76 K/mm3 (0.9-3.2); Mean Corpuscular HGB Conc 33.0 g/dl (32-36); Mean Corpuscular Hemoglobin 31.4 pg (26-34); Mean Corpuscular Volume 95.1 fl (80-100); Nucleated Red Blood Cells Absolute Auto 0.000 K/mm3 (0.0-0.012); Nucleated Red Blood Cells Perc 0.0 % (0.0-0.2); Platelet Count Result 192 k/mm3 (150-375); Red Blood Count 3.44 M/mm3 (4.2-5.4); White Blood Count 6.9 K/mm3 (4.5-10.0)
[2025-09-02 13:29] LABS: Add Urine Microscopic? YES; Appearance Urine Cloudy (Clear); Glucose Urine UA Negative (Negative); Leukocyte Esterase Ur 2+ LEU/UL (Negative); Need Manual Microscopic Reviewed; Nitrate Urine Negative (Negative); Specific Grav Ur 1.014 (1.001-1.035)
[2025-09-02 13:31] LABS: Hemoglobin A1C 8.0 % (<5.7)
[2025-09-02 13:43] LABS: Parathyroid Intact 32.2 pg/mL (14.5-75.2)
[2025-09-02 15:04] LABS: Total Protein Urine Random 79 mg/dL; Ur Ttl Prot Creatinine Ratio 0.67 mg/mg (0-0.20)
[2025-09-02 15:17] LABS: Uric Acid 8.5 mg/dL (2.5-7.5)
[2025-09-02 15:38] LABS: MALB Creatinine Ratio 343.7 mg/g (0-30)
== END 2025-09-02 12:31 | disposition home or self-care (01) ==
PROVIDERS: PCP Physician Assistant Medical; Visit Provider Specialist
DX: I12.9 Hypertensive chronic kidney disease with stage 1 through stage 4 chronic kidney disease, or unspecified chronic kidney disease (principal); N18.4 Chronic kidney disease, stage 4 (severe); E11.22 Type 2 diabetes mellitus with diabetic chronic kidney disease; E11.65 Type 2 diabetes mellitus with hyperglycemia; N39.0 Urinary tract infection, site not specified; R60.9 Edema, unspecified; E21.3 Hyperparathyroidism, unspecified; E55.9 Vitamin D deficiency, unspecified
CPT/HCPCS: 36415; 81001; 82043; 82306; 82570; 83036; 83970; 84156; 84550; 85025; 87086

== ENCOUNTER 2025-09-21 10:49 | Outpatient (CLI) | payer MEDICARE, SELFPAY ==
[2025-09-21 11:42] LABS: Hematocrit 29.4 % (37.0-47.0); Hemoglobin 9.6 g/dL (12.0-15.0); Immature Granulocyte Percent A 0.2 % (0-0.5); Lymphocytes Absolute Auto 1.49 K/mm3 (0.9-3.2); Mean Corpuscular HGB Conc 32.7 g/dl (32-36); Mean Corpuscular Hemoglobin 31.8 pg (26-34); Mean Corpuscular Volume 97.4 fl (80-100); Nucleated Red Blood Cells Absolute Auto 0.000 K/mm3 (0.0-0.012); Nucleated Red Blood Cells Perc 0.0 % (0.0-0.2); Platelet Count Result 168 k/mm3 (150-375); Red Blood Count 3.02 M/mm3 (4.2-5.4); White Blood Count 4.7 K/mm3 (4.5-10.0)
[2025-09-21 11:45] LABS: Add Urine Microscopic? YES; Appearance Urine Clear (Clear); Glucose Urine UA Negative (Negative); Leukocyte Esterase Ur Trace LEU/UL (Negative); Nitrate Urine Negative (Negative); Non Pathogenic Casts 0-2; Specific Grav Ur 1.011 (1.001-1.035)
[2025-09-21 11:53] LABS: Total Protein Urine Random 33 mg/dL; Ur Ttl Prot Creatinine Ratio 0.54 mg/mg (0-0.20)
[2025-09-21 12:05] LABS: Alanine Aminotransferase 18 U/L (6-35); Albumin Level 3.7 g/dL (3.5-5.1); Alkaline Phosphatase 90 U/L (38-126); Anion Gap 4 mmol/L (4-12); Aspartate Amino Transferase 27 U/L (14-36); Bilirubin,Total 0.5 mg/dL (0.2-1.3); Blood Urea Nitrogen 39 mg/dL (7-17); Calcium 9.1 mg/dL (8.4-10.2); Carbon Dioxide 32 mmol/L (22-30); Chloride 101 mmol/L (98-107); Estimated Glomerular Filt Rate 46; Glucose 92 mg/dL (65-110); Magnesium 2.0 mg/dL (1.6-2.3); Potassium 4.2 mmol/L (3.4-5.0); Sodium 137 mmol/L (137-145); Total Protein 6.9 g/dL (6.3-8.2); Uric Acid 8.0 mg/dL (2.5-7.5)
[2025-09-21 12:21] LABS: Free T4 Free Thyroxine 1.34 ng/dL (0.78-2.19)
[2025-09-21 12:23] LABS: Parathyroid Intact 29.3 pg/mL (14.5-75.2)
[2025-09-21 12:24] LABS: MALB Creatinine Ratio 281.1 mg/g (0-30)
--- OUTSIDE RECORDS SUMMARY | 2025-09-21 12:30 | XMS_ITS | Encounter Summary ---
Author Organization [facility] Address [address] [facility] [place] [address] Care Team Providers Care Lever Tender Name Role Phone Martín Gusman MD Primary Care Provider [phone] Reason for Referral * Consultation (Routine) - Closed Specialty Diagnoses / Procedures Referred By Contac t Referred To Contact Endocrinology Diagnoses Type 2 diabetes mellitus with hyperglycemia, unspecified whether terminal gauger insulin use (HCC) Unknown, Provider [facility] - Endocrinology [address] [place] [address] Phone: tel: fax: Referral ID Status Reason Start Date Expiration Date V isits Requested Visits Authorized [id number] Closed Specialty Services Required 09/20/2024 09/20/2025 1 1 ON MACHINE OPERATOR Encounter Details Date Type Department Care Team (Latest Contact Info) Description 09/20/2024 Transcribe Orders [facility] - Centralized Scheduling Counts include 234 beds at the [facility] [place] [address] Donte Landaverde PA-C [address] [place] [address] Type 2 diabetes mellitus with hyperglycemia, unspecified whether terminal gauger insulin use Social History Tobacco Use Types [...] on file 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 Gender Identity Not on file Sexual Orientation Not on file documented as of this encounter Plan of Treatment Scheduled Referrals Name Type Priority Associated Diagnoses Order Schedule AMB REFERRAL TO ENDOCRINOLOGY Outpatient Referral Routine Type 2 diabetes mellitus with hyperglycemia, unspecified whether detention insulin use 1 Occurrences starting 09/20/2024 until 09/20/2025 documented as of this encounter Visit Diagnoses Diagnosis Type 2 diabetes mellitus with hyperglycemia, unspecified whether terminal gauger insulin use (HCC)- Primary documented in this encounter Care Teams Lever Tender Relationship Specialty Start Date End Date Martín Gusman MD [address] [place] [address] PCP - General Internal Medicine 08/18/19 documented as of this encounter
--- OUTSIDE RECORDS SUMMARY | 2025-09-21 12:30 | XMS_ITS | Encounter Summary ---
Author Organization [facility] Address 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
--- OUTSIDE RECORDS SUMMARY | 2025-09-21 12:30 | XMS_ITS | Encounter Summary ---
Author Organization [employer] [facility] Address [address] [place] [address] Care Team Providers Care Maintenance Trainer Name Role Phone Unavailable Primary Care Provider Unavailabl e Encounter Details Date Type Department Care Team (Latest Contact Info) Description 01/05/1998 Outpatient Historical [facility] Jorge A Gomes MD NO ADDRESS ON FILE Unspecified hypothyroidism (Primary Dx) Social History Tobacco Use Types Packs/Day Years Used Date Smoking Tobacco: Never Assessed Comments Unknown Sex and Gender Information Value Date Recorded Sex Assigned at Not on file 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
--- OUTSIDE RECORDS SUMMARY | 2025-09-21 12:30 | XMS_ITS | Encounter Summary ---
Author Organization [facility] Address [address] [place] [address] Care Team Providers Care Car Unloader Helper Name Role Phone Carlos Eduardo Chase Primary Care Provider Unavailabl e Encounter Details Date Type Department Care Team (Late st Contact Info) Description 02/11/2000 Emergency [facility] Srinivasa Graham MD 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
--- OUTSIDE RECORDS SUMMARY | 2025-09-21 12:30 | XMS_ITS | Clinical Summary ---
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
--- OUTSIDE RECORDS SUMMARY | 2025-09-21 12:30 | XMS_ITS | Encounter Summary ---
Author Organization [facility] Address 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
--- OUTSIDE RECORDS SUMMARY | 2025-09-21 12:30 | XMS_ITS | Data Portability ---
Author Organization [place] - [facility] [employer], Main Office Address [address] [place] [address] Assessment No assessment recorded. Plan of Treatment [...] Name and Address Organization Details Recorded Time Benign essential hypertens ion 6393115 Active Not Available [facility] 3 00:54:47 Pure hyperchol esterolem ia 739149907 Active Not Available [facility] 3 00:54:47 Migraine 71523590 Active Not Available [facility] 3 00:54:48 Adhesive capsuliti s of shoulder 879260749 Active Not Available [facility] 3 00:54:48 Hypothyro idism 65980211 Active Not Available [facility] 3 00:54:48 Angioedem a 94121239 Active Not Available [facility] 3 00:54:48 Obesity 087399740 Active Not Available [facility] 3 00:54:48 Type 2 diabetes mellitus 69586300 Active Not Available [facility] 3 00:54:48 Uncontrol led type 2 diabetes mellitus 676368409 Active Not Available [facility] 3 00:54:48 Diabetes mellitus 38755305 Active Not Available [facility] 3 00:54:48 Celluliti s of foot 877107200 Completed 201902/14/2021 Not Available [facility] 3 00:54:47 Osteomyel itis of ankle AND/OR foot 28022048 Active 2019 Not Available [facility] 3 00:54:47 Diabetic foot ulcer 004885814 Active 2019 Not Available [facility] 3 00:54:48 Diabetic periphera l neuropath y 992022374 Active 2019 Not Available [facility] 3 00:54:48 Ulcer of toe 292215195 Active 2020 Not Available [facility] 3 00:54:48 Postopera tive visit 115542983 Active 2020 Not Available [facility] 3 00:54:47 Celluliti s of toe 14059821 Active 2020 Not Available [facility] 3 00:54:48 Paronychi a of toe of left foot [id number] 987701 Active 2020 Not Available [facility] 3 00:54:47 Problem Notes None recorded. Medical Equipment None Reported. Allergies Allergen ID Allergen Name Allergen Category Reaction Reaction Severity Criticality Documentation Date Start Date Code Code System Note Provider Name and Address Organization Details Recorded Time 1207 thimerosa l medicatio n Not available Not available Not available 01/08/2023 67518 RxNorm Not Available [facility] 3 01:01:19 1208 tetracycl ine medicatio n other Not available Not available 01/08/2023 46945 RxNorm Not Available [facility] 3 01:01:19 1209 metformin medicatio n vomiting severe Not available 01/08/2023 6809 RxNorm Not Available [facility] 3 01:01:19 1210 lisinopri l medicatio n Not available Not available Not available 01/08/2023 58889 RxNorm Not Available [facility] 3 01:01:19 1211 erythromy norbert medicatio n Not available Not available Not available 01/08/2023 4053 RxNorm Not Available [facility] 3 01:01:19 Medications Name Sig Start Date [...] LAYER TO ENTIRE wound AREA BY TOPICALRO SHOSHONE-PAIUTE 2 TIMES PER DAY 10/30 completed Not [...] cm 88 /min 137/76 mm[Hg] Not Available [facility] 01/08/2023 00:52:37 Date Recorded Body height Heart rate Systolic And Diastolic Provider Name and Address Organization Details Last Updated DateTime 04/26/2021 175.26 cm 85 /min 129/92 mm[Hg] Not Available [facility] 01/08/2023 00:52:38 Date Recorded Body height Heart rate Systolic And Diastolic Provider Name and Address Organization Details Last Updated DateTime 06/28/2021 175.26 cm 80 /min 134/89 mm[Hg] Not Available [facility] 01/08/2023 00:52:38 Date Recorded Body height Heart rate Systolic And Diastolic Provider Name and Address Organization Details Last Updated DateTime 08/31/2021 175.26 cm 80 /min 109/81 mm[Hg] Not Available [facility] 01/08/2023 00:52:38 Date Recorded Body height Heart rate Systolic And Diastolic Provider Name and Address Organization Details Last Updated DateTime 10/08/2021 175.26 cm 78 /min 153/94 mm[Hg] Not Available [facility] 01/08/2023 00:52:38 Social History None recorded. [...] virus, trivalent, preservative 4 completed Not Available [facility] 01/08/2023 01:01:09 Past Encounters Encounter ID Performer Location Encounter Start Date Encounter Closed Date Diagnosis/Indication Diagnosis SNOMED-CT Code Diagnosis ICD10 Code Diagnosis IMO Codes Diagnosis Note [id number] Alfredito Muse DPM [facility] [address] [place] [address] 01/17/2021 00:00:00 01/17/2021 15:12:48 [id number] Alfredito Muse DPM [facility] [address] [place] [address] 01/24/2021 00:00:00 01/24/2021 16:16:00 [id number] Alfredito Muse DPM [facility] [address] [place] [id number] 01/31/2021 00:00:00 01/31/2021 09:44:47 [id number] Alfredito Muse DPM [facility] [address] [place] [address] 02/14/2021 00:00:00 02/14/2021 15:32:55 [id number] Alfredito Muse DPM [facility] [address] [place] [address] 02/21/2021 00:00:00 02/21/2021 15:04:55 [id number] Alfredito Muse DPM [facility] [address] [place] [address] 02/28/2021 00:00:00 02/28/2021 16:02:56 [id number] Alfredito Muse DPM [facility] [address] [place] [id number] 03/15/2021 00:00:00 03/15/2021 16:30:24 [id number] Alfredito Muse DPM [facility] [address] [place] [address] 03/21/2021 00:00:00 03/21/2021 14:38:02 [id number] Alfredito Muse DPM [facility] [address] [place] [address] 04/04/2021 00:00:00 04/04/2021 14:17:18 [id number] Alfredito Muse DPM [facility] [address] [place] [id number] 04/12/2021 00:00:00 04/12/2021 14:28:08 [id number] Alfredito Muse DPM [facility] [place] [address] [place] [id number] 04/19/2021 00:00:00 04/20/2021 13:41:29 [id number] Alfredito Muse DPM [facility] [address] [place] [id number] 04/26/2021 00:00:00 04/26/2021 10:58:31 [id number] Alfredito Muse DPM [facility] [place] [address] [place] [id number] 06/28/2021 00:00:00 06/28/2021 10:59:03 [id number] Alfredito Muse DPM [facility] [place] [address] [place] [id number] 08/31/2021 00:00:00 09/06/2021 09:09:58 [id number] Alfredito Muse DPM [facility] [place] [address] [place] [id number] 10/08/2021 00:00:00 10/08/2021 10:28:54 Health Concerns Section Related Observation LastModified by Organization Detai ls LastModified Time None Recorded Concern Status LastModified by Organization Details LastModified Time None Recorded Advance Directives Directive None Recorded Payers Insurance Date Sequence Insurance Name Policy Number Policy Akins Covered Member ID Akins Member ID Guarantor Name 01/08/[address] [facility] PRIOR TO 06/10/2025 (MEDICAID REPLACEMENT - HMO) [id number] Monica Felder [id number] Monica Felder OBGyn Episode No OBEpisode recorded.
--- OUTSIDE RECORDS SUMMARY | 2025-09-21 12:30 | XMS_ITS | Encounter Summary ---
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
--- OUTSIDE RECORDS SUMMARY | 2025-09-21 12:30 | XMS_ITS | Encounter Summary ---
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
--- OUTSIDE RECORDS SUMMARY | 2025-09-21 12:30 | XMS_ITS | Encounter Summary ---
Author Organization [employer] [facility] Address [address] [place] [address] Care Team Providers Care Windows Systems Administrator Name Role Phone Unavailable Primary Care Provider [...] on file Legal Sex Female 4:32 AM MOTION PICTURE OPERATOR Gender Identity Not on file Sexual Orientation Not on file documented as of this encounter Plan of Treatment Not on file documented as of this encounter Visit Diagnoses Diagnosis Unspecified hypothyroidism- Primary documented in this encounter
--- OUTSIDE RECORDS SUMMARY | 2025-09-21 12:30 | XMS_ITS | Encounter Summary ---
Author Organization [facility] Address 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
--- OUTSIDE RECORDS SUMMARY | 2025-09-21 12:30 | XMS_ITS | Encounter Summary ---
Author Organization [facility] Address [address] [place] [address] Care Team Providers Care Dairy Inspector Name Role Phone Carlos Eduardo Chase Primary Care Provider Unavailabl e Encounter Details Date Type Department Care Team (Late st Contact Info) Description 09/30/2001 Emergency [facility] Bj Ayala MD [facility] [place] [address] Er, Authorized P NO ADDRESS ON FILE [place] (Primary Dx) Social History Tobacco Use Types Packs/Day Years Used Date Smoking Tobacco: Never Assessed Comments Unknown Sex and Gender Information Value Date Recorded Sex Assigned at Not on file Legal Sex Female 5:17 AM TRAPEZE PERFORMER Gender Identity Not on file Sexual Orientation Not on file documented as of this encounter Plan of Treatment Not on file documented as of this encounter Visit Diagnoses Diagnosis Sprain of thoracic region- Primary documented in this encounter Care Teams Dairy Inspector Relationship Specialty Start Date End Date Carlos Eduardo Chase PCP - General 09/30/01 documented as of this encounter
--- OUTSIDE RECORDS SUMMARY | 2025-09-21 12:30 | XMS_ITS | Clinical Summary ---
Author Organization [employer] [facility] Address [address] 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
--- OUTSIDE RECORDS SUMMARY | 2025-09-21 12:31 | XMS_ITS | Encounter Summary ---
Author Organization [facility] Address 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
--- OUTSIDE RECORDS SUMMARY | 2025-09-21 12:31 | XMS_ITS | Clinical Summary ---
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
--- OUTSIDE RECORDS SUMMARY | 2025-09-21 12:31 | XMS_ITS | Data Portability ---
Author Organization [facility] Address [address] [place] [address] Care Team Providers Care Colorist Photography Name Role Phone MARTÍN ESPARZA Primary Care Provider [phone] Assessment Encounter Date Assessment Date Assessment LastModified by Organization Details LastModified Time 03/09/2025 03/09/2025 JOVANNI Glez Not available 03/09/2025 15:25:49 Plan of Treatment Reminders Order Date Submit Date Provider Last Modified By Organization Details Last Modified Time Details Appointments None recorded . Lab HbA1c (hemoglo bin A1c), blood 2024 025 [email or web address] In-Office Order, Internal Use Only DO Not Attach Compendium DO Not Attach Compendium, Do Not Delete/merge, [id number] 16:02:28 albumin/ creatini ne, mass ratio, urine 2024 025 [facility], [address], [address], [place], [address], 13:27:25 HbA1c (hemoglo bin A1c), blood 2024 025 [email or web address] In-Office Order, Internal Use Only DO Not Attach Compendium DO Not Attach Compendium, Do Not Delete/merge, [id number] 15:24:14 TSH + free T4, serum 2024 025 [employer] [facility], [address], [address], [place], [address], 5 13:27:26 T3, free, serum or plasma 2024 025 [facility], [address], [address], [place], [address], 5 13:27:27 HbA1c (hemoglo bin A1c), blood 2024 025 In-Office Order, Internal Use Only DO Not Attach Compendium DO Not Attach Compendium, Do Not Delete/merge, [id number] 5 15:21:06 CBC w/ auto diff 2024 025 [facility], [address] [facility], [address], [place], [address], 5 09:15:26 iron + total iron-bin ding capacity (TIBC), serum 2024 025 [facility], [address] [facility] [address], [address], [place], [address], 5 09:15:23 cobalami n and folate panel, serum 2024 025 [facility], [address] [facility], [address], [place], [address], 5 09:15:21 ferritin , serum or plasma 2024 025 [facility], [address] [facility] [address], [address], [place], [address], 5 09:15:25 albumin/ creatini ne, mass ratio, urine 2024 025 [email or web address], [address] [place], [place] [address], [address], [place], [address], 11:40:02 TSH + free T4, serum 2024 025 [facility], [address], [address], [place], [address], 5 09:15:20 T3, free, serum or plasma 2024 025 [facility], [address], [address], [place], [address], 09:15:28 Referral None recorded . Procedures None recorded . Surgeries None recorded . Imaging None recorded . Medication Orders pioglita zone 30 mg tablet 2024 025 [facility], [address] [place] [address], [id number], 13:05:22 amlodipi ne 10 mg tablet 2024 025 [facility], [address] [place] [address], [id number], 13:05:27 levothyr oxine 150 mcg tablet 2024 025 [facility], [address] [place] [address], [id number], 13:05:23 atorvast atin 40 mg tablet 2024 025 [facility], [address] [place] [address], [id number], 13:05:25 amlodipi ne 5 mg tablet 2024 025 [facility], [address] [place] [address], [id number], 5 16:45:37 levothyr oxine 150 mcg tablet 2024 025 [facility], [address] [place] [address], [id number], 5 16:45:36 pioglita zone 30 mg tablet 2024 025 [facility], [address] [place] [address], [id number], 5 15:05:32 amlodipi ne 5 mg tablet 2024 025 [facility], [address] [place] [address], [id number], 5 15:35:56 levothyr oxine 150 mcg tablet 2024 025 [facility], [address] [place] [address], [id number], 5 15:35:58 atorvast atin 40 mg tablet 2024 025 [facility], [address] [place] [address], [id number], 5 15:35:56 furosemi de 20 mg tablet 2024 025 [facility], [address] [place] [address], [id number], 5 15:50:19 pioglita zone 15 mg tablet 2024 025 [facility], [address] [place] [address], [id number], 5 14:32:28 pioglita zone 30 mg tablet [address], [address] [place] [address], [id number], 5 14:46:09 cyanocob alamin (vit B-12) 1,000 mcg/mL injectio n solution 2024 025 [email or web address] Not available 5 16:44:53 glimepir valerio 4 mg tablet 2024 025 [facility], [address] [place] [address], [id number], 5 15:05:33 Januvia 100 mg tablet 2024 025 [facility], [address] [place] [address], [id number], 5 16:38:19 Jardianc e 25 mg tablet 2024 025 [facility], [address] [place] [address], [id number], 5 16:38:19 Ozempic 2 mg/dose (8 mg/3 mL) subcutan eous pen injector 2024 025 [facility], [address] [place] [address], [id number], 5 16:41:30 atorvast atin 40 mg tablet 2024 025 [facility], [address] [place] [address], [id number], 5 11:19:11 amlodipi ne 5 mg tablet 2024 025 [facility], [address] [place] [address], [id number], 5 12:42:51 levothyr oxine 150 mcg tablet 2024 025 [facility], [address] [place] [address], [id number], 5 11:19:12 furosemi de 20 mg tablet [facility]24 [facility], [address] [place] [address], [id number], 15:25:57 Patient TargetsNo targets recorded. Patient Instructions Encounter Date Encounter Id Patient Instructions Last Modified By Organization Details Last Modified Time 12/06/2024 [id number] learning about type 2 diabetes [email or web address] Not available 12/06/2024 15:21:06 type 2 diabetes: care instructions [email or web address] Not available 12/06/2024 15:21:07 A healthy lifestyle: care instructions [email or web address] Not available 12/06/2024 15:21:07 albumin-creatini n e ratio: about this test [email or web address] Not available 12/06/2024 15:21:07 01/06/2025 [id number] A healthy lifestyle: care instructions [email or web address] Not available 01/06/2025 16:38:12 nausea and vomiting: care instructions [email or web address] Not available 01/06/2025 16:38:12 03/09/2025 [id number] A healthy lifestyle: care instructions Not available 03/09/2025 15:24:15 albumin-creatini n e ratio: about this test [email or web address] Not available 03/09/2025 15:24:15 learning about type 2 diabetes [email or web address] Not available 03/09/2025 15:24:15 type 2 diabetes: care instructions [email or web address] Not available 03/09/2025 15:24:15 04/12/2025 [id number] albumin-creatini n e ratio: about this test [email or web address] Not available 04/12/2025 16:08:10 learning about high blood pressure [email or web address] Not available 04/12/2025 16:08:10 A healthy lifestyle: care instructions Not available 04/12/2025 16:08:10 06/08/2025 [id number] albumin-creatini n e ratio: about this test [email or web address] Not available 06/08/2025 16:02:28 learning about type 2 diabetes [email or web address] Not available 06/08/2025 16:02:28 type 2 diabetes: care instructions [email or web address] Not available 06/08/2025 16:02:27 A healthy lifestyle: care instructions [email or web address] Not available 06/08/2025 16:02:28 Reason for Referral None Reported. Results Created Date Observation Date Name Description Value Unit Range Abnormal Flag Note LastModifiedBy Organization Detail LastModifiedTime 12/06/19 25 12/06/2024 HbA1c (hemo globi n A1c), blood HbA1c 11.1 Not Available In-Office Order Internal Use Only DO Not Attach Compendium DO Not Attach Compendium, Do Not Delete/merge, [id number] 12/06/2024 14:53:20 12/27/19 25 12/28/2024 TSH+F REE T4 TSH 10.300 uIU/m L 0.450- 4.500 above high normal Not Available [facility]) [address], [place], [address], 12/28/2024 09:15:20 12/27/19 25 12/28/2024 TSH+F REE T4 T4,free(dire ct) 0.87 NG/dL 0.82-1 .77 Not Available [facility] ([facility]) [address], [place], [address], 12/28/2024 09:15:20 12/27/19 25 12/28/2024 VITAM IN B12 AND FOLAT E vitamin B12 487 pg/mL 232-12 45 Not Available [facility] ([facility]) [address], [place], [address], 12/28/2024 09:15:21 12/27/19 25 12/28/2024 VITAM IN B12 AND FOLAT E folate (folic acid), serum 9.8 NG/mL >3.0 A serum folat e david ntrat ion of less than 3.1 ng/mL is consi dered to repre sent clini maurisio defic iency . Not Available [facility] ([facility]) [address], [place], [address], 12/28/2024 09:15:21 12/27/19 25 12/28/2024 IRON AND TIBC iron bind.cap.(TI BC) 235 ug/dL 250-45 0 below low normal Not Available [facility] ([facility]) [address] [place], [address], 12/28/2024 09:15:23 12/27/19 25 12/28/2024 IRON AND TIBC UIBC 170 ug/dL 131-42 5 Not Available [facility] ([facility]) [address] [place], [address], 12/28/2024 09:15:23 12/27/19 25 12/28/2024 IRON AND TIBC iron 65 ug/dL 27-159 Not Available [facility] ([facility]) [address] [place], [address], 12/28/2024 09:15:23 12/27/19 25 12/28/2024 IRON AND TIBC iron saturation 28 % 15-55 Not Available [facility]) [address] [place], [address], 12/28/2024 09:15:23 12/27/19 25 12/28/2024 HEMOG LOBIN A1C hemoglobin A1C 10.5 % 4.8-5. 6 above high normal Predi abete s: 5.7 - 6.4 Diabe alin: >6.4 Glyce rob contr ol for adult s with diabe alin: <7.0 Not Available [facility] ([facility]) [address] [place], [address], 12/28/2024 09:15:24 12/27/19 25 12/28/2024 ALFIE TIN ferritin 677 NG/mL 15-150 above high normal Not Available [facility] ([facility]) [address] [place], [address], 12/28/2024 09:15:25 12/27/19 25 12/28/2024 CBC WITH DIFFE RENTI AL/PL ATELE T WBC 6.9 x10e3 /uL 3.4-10 .8 Not Available [facility] ([facility]) [address] [place], [address], 12/28/2024 09:15:26 12/27/19 25 12/28/2024 CBC WITH DIFFE RENTI AL/PL ATELE T RBC 4.42 x10e6 /uL 3.77-5 .28 Not Available [facility]) [address], [place], [address], 12/28/2024 09:15:26 12/27/1912/28/2024 CBC WITH DIFFE RENTI AL/PL ATELE T hemoglobin 13.5 g/dL 11.1-1 5.9 Not Available [facility] ([facility]) [address] [place], [address], 12/28/2024 09:15:26 12/27/1912/28/2024 CBC WITH DIFFE RENTI AL/PL ATELE T hematocrit 41.1 % 34.0-4 6.6 Not Available [facility] ([facility]) [address] [place], [address], 12/28/2024 09:15:26 12/27/1912/28/2024 CBC WITH DIFFE RENTI AL/PL ATELE T MCV 93 fL 79-97 Not Available [facility]) [address] [place], [address], 12/28/2024 09:15:26 12/27/1912/28/2024 CBC WITH DIFFE RENTI AL/PL ATELE T MCH 30.5 pg 26.6-3 3.0 Not Available [facility] ([facility]) [address] [place], [address], 12/28/2024 09:15:26 12/27/1912/28/2024 CBC WITH DIFFE RENTI AL/PL ATELE T MCHC 32.8 g/dL 31.5-3 5.7 Not Available [facility]) [address] [place], [address], 12/28/2024 09:15:26 12/27/19 25 12/28/2024 CBC WITH DIFFE RENTI AL/PL ATELE T RDW 12.8 % 11.7-1 5.4 Not Available [facility]) [address], [place], [address], 12/28/2024 09:15:26 12/27/19 25 12/28/2024 CBC WITH DIFFE RENTI AL/PL ATELE T platelets 320 x10e3 /uL 150-45 0 Not Available [facility]) [address], [place], [address], 12/28/2024 09:15:26 12/27/19 25 12/28/2024 CBC WITH DIFFE RENTI AL/PL ATELE T neutrophils 61 % notest ab. Not Available [facility]) [address], [place], [address], 12/28/2024 09:15:26 12/27/19 25 12/28/2024 CBC WITH DIFFE RENTI AL/PL ATELE T lymphs 29 % notest ab. Not Available [facility]) [address], [place], [address], 12/28/2024 09:15:26 12/27/19 25 12/28/2024 CBC WITH DIFFE RENTI AL/PL ATELE T monocytes 8 % notest ab. Not Available [facility]) [address], [place], [address], 12/28/2024 09:15:26 12/27/19 25 12/28/2024 CBC WITH DIFFE RENTI AL/PL ATELE T eos 2 % notest ab. Not Available [facility]) [address], [place], [address], 12/28/2024 09:15:26 12/27/19 25 12/28/2024 CBC WITH DIFFE RENTI AL/PL ATELE T basos 0 % notest ab. Not Available [facility]) [address] [address], [place], [address], 12/28/2024 09:15:26 12/27/19 25 12/28/2024 CBC WITH DIFFE RENTI AL/PL ATELE T neutrophils (absolute) 4.1 x10e3 /uL 1.4-7. 0 Not Available [facility]) [address] [address], [place], [address], 12/28/2024 09:15:26 12/27/19 25 12/28/2024 CBC WITH DIFFE RENTI AL/PL ATELE T lymphs (absolute) 2.0 x10e3 /uL 0.7-3. 1 Not Available [facility]) [address], [place], [address], 12/28/2024 09:15:26 12/27/19 25 12/28/2024 CBC WITH DIFFE RENTI AL/PL ATELE T monocytes(ab solute) 0.5 x10e3 /uL 0.1-0. 9 Not Available [facility]) [address] [facility], [place], [address], 12/28/2024 09:15:26 12/27/19 25 12/28/2024 CBC WITH DIFFE RENTI AL/PL ATELE T eos (absolute) 0.2 x10e3 /uL 0.0-0. 4 Not Available [facility] [address] [place], [address], 12/28/2024 09:15:26 12/27/19 25 12/28/2024 CBC WITH DIFFE RENTI AL/PL ATELE T baso (absolute) 0.0 x10e3 /uL 0.0-0. 2 Not Available [facility] ([facility]) [address] [place], [address], 12/28/2024 09:15:26 12/27/19 25 12/28/2024 CBC WITH DIFFE RENTI AL/PL ATELE T immature granulocytes 0 % notest ab. Not Available [facility]) [address] [facility], [place], [address], 12/28/2024 09:15:26 12/27/19 25 12/28/2024 CBC WITH DIFFE RENTI AL/PL ATELE T immature grans (abs) 0.0 x10e3 /uL 0.0-0. 1 Not Available [facility]) [address] [address], [place], [address], 12/28/2024 09:15:26 12/27/19 25 12/28/2024 TRIIO DOTHY ROCK E (T3), FREE triiodothyro nine (T3), free 2.5 pg/mL 2.0-4. 4 Not Available [facility]) [address] [facility], [place], [address], 12/28/2024 09:15:28 03/09/20 25 03/10/2025 ALBUM IN/CR EATIN INE RATIO ,URIN E creatinine, urine 58.8 mg/dL notest ab. Not Available [facility]) [address], [place], [address], 03/10/2025 13:27:24 03/09/20 25 03/10/2025 ALBUM IN/CR EATIN INE RATIO ,URIN E albumin, urine 732.4 ug/mL notest ab. Resul ts confi rmed on dilut ion. Not Available [facility]) [address] [place], [address], 03/10/2025 13:27:24 03/09/20 25 03/10/2025 ALBUM IN/CR EATIN INE RATIO ,URIN E alb/creat ratio 1246 mg/g_ creat 0-29 above high normal Maria Del Rosario l: 0 - 29 Moder ately incre ased: 30 - 300 Sever tee incre ased: >300 Not Available [facility]) [address] [facility], [place], [address], 03/10/2025 13:27:24 03/09/20 25 03/10/2025 TSH+F REE T4 TSH 1.560 uIU/m L 0.450- 4.500 Not Available [facility]) [address] [place], [address], 03/10/2025 13:27:26 03/09/20 25 03/10/2025 TSH+F REE T4 T4,free(dire ct) 1.27 NG/dL 0.82-1 .77 Not Available [facility]) [address] [facility], [place], [address], 03/10/2025 13:27:26 03/09/20 25 03/10/2025 TRIIO DOTHY ROCK E (T3), FREE triiodothyro nine (T3), free 2.2 pg/mL 2.0-4. 4 Not Available [facility]) [address] [place], [address], 03/10/2025 13:27:27 03/09/20 25 03/09/2025 HbA1c (hemo globi n A1c), blood HbA1c 10.0% Not Available In-Office Order Internal Use Only DO Not Attach Compendium DO Not Attach Compendium, Do Not Delete/merge, [id number] 03/09/2025 15:01:35 06/08/20 25 06/08/2025 HbA1c (hemo globi n A1c), blood HbA1C 7.8 % Not Available In-Office Order Internal Use Only DO Not Attach Compendium DO Not Attach Compendium, Do Not Delete/merge, [id number] 06/08/2025 15:46:46 12/17/19 25 12/17/2024 US, abdom en No observ ation record ed. [address], [place], [address], 01/06/2025 16:38:33 12/18/19 25 12/18/2024 MRI, kidne y, w/wo contr ast No observ ation record ed. [address], [place], [address], 01/06/2025 16:38:33 12/21/19 25 12/17/2024 CT, abdom en + pelvi s, w/ contr ast No observ ation record ed. [address], [place], [address], 01/06/2025 16:38:33 12/21/19 25 12/18/2024 imagi ng/di agnos tic resul t No observ ation record ed. [address] [address], [place], [address], 01/06/2025 16:38:33 12/21/19 25 12/17/2024 US, abdom en No observ ation record ed. [address], [place], [address], 01/06/2025 16:38:33 Result Notes None recorded. Problems Name Problem SNOMED Code Status Onset Date Resolution Date Notes Provider Name and Address Organization Details Recorded Time Acute folliculi tis 833116313 Completed 201703/03/2020 ARTIE DUFF Attn: Accounting ,[address] [place], [address] , [facility] 0 09:19:10 Type 2 diabetes mellitus 92733787 Active 2017 JERROD BARLOW PA-C Attn: Accounting ,[address] [place], [address] , [facility] 4 15:52:38 Hypothyro idism 77945552 Active 2017 JERROD BARLOW PA-C Attn: Accounting ,[address] [facility], [place], [address] , [facility] 4 15:51:49 Essential hypertens ion 81534545 Active 2017 JERROD BARLOW PA-C Attn: Accounting ,[address] [facility], [place], [address] , [facility] 4 14:50:34 History of angioedem a 00658289170 08 Active 2017 Not Available [facility] 3 21:30:28 Adult health examinati on Active 2017 Not Available [facility] 3 21:30:28 Hyperlipi demia 82659435 Active 2017 JERROD BARLOW PA-C Attn: Accounting ,[address] [facility], [place], [address] , [facility] 4 15:51:46 Insomnia 795195134 Active 2017 Not Available [facility] 3 21:30:27 Neuropath y 347701281 Active 2017 Not Available [facility] 3 21:30:28 Spasm of back muscles 078961829 Active 2017 Not Available [facility] 3 21:30:27 Hammer toe 522400478 Active 2018 Not Available [facility] 3 21:30:27 Contact dermatiti s 92944585 Active 2018 Not Available [facility] 3 21:30:28 Microalbu minuria 736153890 Active 2019 Not Available [facility] 3 21:30:28 Uncontrol led type 2 diabetes mellitus 401329106 Active 2023 JERROD BARLOW PA-C Attn: Accounting ,[address] [facility], [place], [address] , [facility] 4 15:33:10 Notes:Some problems listed i n Documents: #[id number], #[id number] could not be added to this patient's chart. Please review these documents and add these problems to the patient's chart manually as needed. Problem Notes None recorded. Procedures Surgical History Date Name Laterality Status Provider Name and Address Organization Details Recorded Time 02/09/20 20 amputation of toe completed [facility], [facility] 03/03/2023 17:00:13 01/09/20 20 amputation of toe completed [facility], [facility] 03/03/2023 16:59:57 11/10/19 20 amputation of toe completed [facility], [facility] 03/03/2023 16:59:30 10/10/20 19 amputation of toe completed [facility], [facility] 03/03/2023 16:59:14 11/10/18 83 Dilation and Curettage completed Ushabrett Beck[place] [facility] 08/26/2018 11:02:35 11/10/18 72 Tonsillectomy completed Usha Beckwith [facility] 08/26/2018 11:01:36 Imaging Results None recorded. Procedure Notes None recorded. Medical Equipment None Reported. Allergies Allergen ID Allergen Name Allergen Category Reaction Reaction Severity Criticality Documentation Date Start Date Code Code System Note Provider Name and Address Organization Details Recorded Time 673421 erythromy norbert medicatio n Not available Not available Not available 08/26/2018 4053 RxNorm Other react ions and sever ities : 'Adve rse react ion to subst ance' . JERROD BARLOW PA-C Attn: Accountin g,[address] [place], [address], [facility] 4 15:32:22 [id number] lisinopri l medicatio n Not available Not available Not available 08/26/2018 94809 RxNorm Other react ions and sever ities : 'Adve rse react ion to subst ance - Sever e'. JERROD BARLOW PA-C Attn: Accountin g,[address] [place], [address], [facility] 4 15:32:22 [id number] metformin medicatio n Not available Not available Not available 08/26/2018 6809 RxNorm Other react ions and sever ities : 'Drug -conrad destiney nause a and vomit ing - Sever e', and 'Adve rse react ion to subst ance' . JERROD BARLOW PA-C Attn: Accountin g,[address], [place], [address], [facility] 4 15:32:22 [id number] thimerosa l medicatio n Not available Not available Not available 08/26/2018 56096 RxNorm Other react ions and sever ities : 'Adve rse react ion to subst ance' . JERROD BARLOW PA-C Attn: Accountin g,[address], [place], [address], [place] [facility] 4 15:32:22 [id number] tetracycl ine medicatio n Not available Not available Not available 09/07/2025 34580 RxNorm Not Available [facility] - External Data Service - prod 5 12:49:46 Medications Name Sig Start Date Stop Date Status Note LastModified by Organization Details LastModified Time losartan 50 mg tablet TAKE ONE TABLET BY MOUTH EVERY MORNING FOR BLOOD PRESSURE active Not Available Not Available No t Available cyclobenzap rine 10 mg tablet TAKE ONE TABLET BY MOUTH AT BEDTIME NEEDED FOR MUSCLE SPASMS 03/03 completed Not Available Not Available Not Available furosemide 40 mg tablet TAKE ONE TABLET BY MOUTH TWICE DAILY EVERY MORNING & EVENING FOR FLUID RETENTION active Not Available Not Available No t Available pioglitazon e 15 mg tablet Take 1 tablet every day by oral route for 30 days. 2024 active Not Available Not Available Not Avai lable atorvastati n 40 mg tablet TAKE ONE [...] No t Available amlodipine 5 mg tablet TAKE ONE TABLET BY MOUTH EVERY EVENING FOR BLOOD PRESSURE active Not Available Not Available No t Available allopurinol 100 mg tablet TAKE 1 TABLET BY MOUTH ONCE DAILY FOR GOUT active Not Available Not Available [...] Not Available Not Available Not Available amlodipine 10 mg tablet TAKE ONE TABLET BY MOUTH EVERY EVENING FOR BLOOD PRESSURE active Not Available Not Available No t Available cephalexin 500 mg capsule 02/05 completed [...] Not Available levothyroxi ne 150 mcg tablet TAKE ONE TABLET BY MOUTH EVERY MORNING 30 MINUTES BEFORE BREAKFAST FOR THYROID active Not Available Not Available No t Available losartan 25 mg tablet TAKE ONE TABLET [...] D2) 1,250 mcg (50,000 unit) capsule TAKE TWO CAPSULES BY MOUTH EVERY WEEK FOR VITAMIN DEFICIANC [...] Available pioglitazon e 30 mg tablet TAKE ONE TABLET BY MOUTH EVERY MORNING FOR DIABETES active Not Available Not Available No t Available losartan 100 mg tablet TAKE 1 TABLET BY MOUTH ONCE DAILY FOR BLOOD PRESSURE active Not Available Not Available No t Available calcitriol 0.25 mcg capsule TAKE ONE CAPSULE BY MOUTH EVERY MORNING FOR KIDNEY active Not Available Not Available No t Available Microlet Lancet USE TO CHECK BLOOD SUGAR THREE TIMES [...] completed Not Available Not Available Not Available cholecalcif shyam (vitamin D3) 1,250 mcg (50,000 unit) capsule TAKE 1 CAPSULE BY MOUTH EVERY WEEK FOR VITAMIN DEFICIENC Y active Not Available Not Available No t Available Lantus Solostar U-100 Insulin 100 unit/mL [...] Not Available Not Available Not Avai lable Contour Plus Blue Meter USE DIRECTED active Not Available Not Available No t Available Vitals Date Recorded Body height Body mass index (BMI) Body weight Body temperature Oxygen saturation Oxygen saturation in Arterial blood by Pulse oximetry Heart rate Systolic And Diastolic Provider Name and Address Organization Details Last Updated DateTime 5 170.82 cm 38.8 kg/m2 874747. 73 g 97.9 [degF] 95 % 95 % 77 /min 126/64 mm[Hg] Kath Tuttle MA [facility] 5 14:47:12 Date Recorded Body height Body mass index (BMI) Body weight Body temperature Oxygen saturation Oxygen saturation in Arterial blood by Pulse oximetry Heart rate Systolic And Diastolic Provider Name and Address Organization Details Last Updated DateTime 5 170.82 cm 37.3 kg/m2 721050. 17 g 98 [degF] 98 % 98 % 88 /min 124/62 mm[Hg] Kath Tuttle MA [facility] 5 15:56:23 Date Recorded Body height Body mass index (BMI) Body weight Oxygen saturation Oxygen saturation in Arterial blood by Pulse oximetry Heart rate Systolic And Diastolic Provider Name and Address Organization Details Last Updated DateTime 5 170.82 cm 38.1 kg/m2 508104. 13 g 97 % 97 % 72 /min 140/72 mm[Hg] Usha Beckwith MA [facility] 5 14:45:41 Date Recorded Body height Body mass index (BMI) Body weight Oxygen saturation Oxygen saturation in Arterial blood by Pulse oximetry Heart rate Systolic And Diastolic Provider Name and Address Organization Details Last Updated DateTime 5 170.82 cm 41.8 kg/m2 325140. 35 g 97 % 97 % 74 /min 140/68 mm[Hg] Usha Beckwith MA [facility] 5 15:31:39 Date Recorded Body height Body mass index (BMI) Body weight Oxygen saturation Oxygen saturation in Arterial blood by Pulse oximetry Heart rate Systolic And Diastolic Provider Name and Address Organization Details Last Updated DateTime 5 170.82 cm 43.5 kg/m2 655321. 86 g 96 % 96 % 89 /min 164/70 mm[Hg] Zulema Knox MA [facility] 5 15:40:26 Social History Question Answer Notes LastModified by [employer] ion Details LastModified Time Tobacco Smoking Status Never Smoker Usha Beckwith MA [facility] 08/26/2018 11:01:13 Do You Have An Advance [...] Or The Highest Degree You Have Received? [id number] Information not available 11/18/2023 What Was The Date Of Your Most Recent Tobacco Screening? 06/08/2025 Information not available 06/08/2025 What Is Your Relationship Status? Single Information not available 11/18/2023 Do You Use Your Seat Belt Or Car Seat Routinely? Yes Information not available 11/18/2023 Has Tobacco Cessation Counseling Been Provided? Yes Information not available 06/08/2025 On What Date Was Tobacco Cessation Counseling Provided? 06/08/2025 Information not available 06/08/2025 Sex: Female Functional Status Question Answer Note LastModified by Organizat ion Details LastModified Time Do you use any illicit or recreational drugs? No Information not available 11/18/2023 What is your level of alcohol consumption? None Information not available 11/18/2023 Are you currently employed? No Information not available 11/18/2023 Are you able to care for yourself independently? Yes Information not available 11/18/2023 What is your exercise level? None Information not available 11/18/2023 Mental Status Question Answer Note LastModified by Organization D etails LastModified Time Do you feel stressed (tense, restless, nervous, or anxious, or unable to sleep at night)? [id number] Information not available 11/18/2023 Family History Nothing Reported. Medical History Condition Response Coronary Artery Disease N High Blood Pressure Y Atrial Fibrillation N Kidney or Bladder Problems N Thyroid Problems Y GI Problems N Depression Y COPD N Blood Clots N Skin Problems N Anemia N Heart Attack (ME) N Anxiety Disorder N Diabetes Y Muscle, [...] PF, 0.5 mL 1 completed Not Available [facility] 10/27/2023 21:30:28 COVID-19 vaccine, vector-nr, rS-Ad26, PF, 0.5 mL 1 completed Not Available [facility] 10/27/2023 21:30:28 Influenza, split virus, quadrivalent, PF 0 completed Not Available [facility] 10/27/2023 21:30:28 Pneumococcal conjugate PCV20, polysaccharide HFE146 conjugate, adjuvant, PF 4 completed Kath Tuttle [place] null, [place] [facility] 12/06/2024 14:43:09 Influenza, split virus, quadrivalent, PF 3 completed Not Available [facility] 06/08/2025 15:32:26 Pneumococcal conjugate PCV20, polysaccharide VAK618 conjugate, adjuvant, PF 3 completed Not Available [facility] 06/08/2025 15:32:26 Influenza, split virus, quadrivalent, preservative 1 completed Martín Esparza MD Attn: Accounting[address] [place], [address], [place] [facility] 08/30/2021 18:05:17 Tdap 3 completed Kath Tuttle [place], [place] [facility] 03/04/2023 12:01:30 Influenza, split virus, trivalent, preservative 4 completed JERROD BARLOW PA-C Attn: Accounting[address] [place], [address], [place] [facility] 08/03/2024 17:15:01 Past Encounters Encounter ID Performer Location Encounter Start Date Encounter Closed Date Diagnosis/Indication Diagnosis SNOMED-CT Code Diagnosis ICD10 Code Diagnosis IMO Codes Diagnosis Note [id number] Martín Esparza MD [facility] (Adult Med) [address] [place] [address] [phone] 08/26/2018 10:46:47 08/26/2018 11:22:44 Acute folliculitis 441714401 L73.9 Type 2 shari betes mellitus 36642774 E11.42 [id number] [facility] [address] [place] [address] [id number] 10/20/2018 15:39:23 10/21/2018 10:20:17 Type 2 diabetes mellitus 09720185 E11.42 Hyperlipidemia 28449752 E78.5 Insomnia 930045331 G47.0 0 Neuropathy 256648626 G62 .9 Essential hypertension 37178555 I10 Hypothyroidism 12569123 E03.9 [id number] [facility] [address] [place] [address] [phone] 0 01/20/2019 12:20:18 01/21/2019 11:50:14 Essential hypertension 67381740 I10 Hypothyroidism 33303483 E03.9 Type 2 shari betes mellitus 03654106 E11.42 Accucheck Glucometer Hyperlipidemia 34135180 E78.5 Insomnia 768288218 G47.0 0 Neuropathy 910982069 G62 .9 Hammer toe 219452718 M20 .40 Spasm of back muscles 20 2770524 M62.830 Low back pain 551751507 M54.5 [id number] Martín Esparza MD [facility] (Adult Med) [address] [place] [address] [phone] 07/01/2019 14:11:36 07/02/2019 12:15:56 Type 2 diabetes mellitus 02994857 E11.40 Diabetic diet, excercise and lose weight. Has enough medication s refill. She will see a ophthalmol ogit in the near future. Dyslipidem ia due to type 2 diabetes mellitus 6870443743 02 E78.5 [facility] She agreed. Diabetic p eripheral neuropathy 836513235 E11.40 lyrica not working, she stopped. Essential hypertension 47839258 I10 Low salt dist. On amlodipine . [id number] ARTIE DUFF [facility] (Adult Med) [address] [place] [address] [id number] 0 03/03/2020 09:13:50 03/06/2020 12:29:50 Essential hypertension 09839975 I10 BP Today: 128/60c/w amlodipine 5 mg [...] BP check Type 2 shari betes mellitus 66437296 E11.21 Last A1C: 11.1% today in the [...] gradually increase Spasm of back muscles 20 6064050 M62.830 C/w cyclobenza rosa daily for back spasms Hypothyroidism 68638843 E03.9 Hx of hypothyroi dismCurren tly taking levothyrox ine 137 mcg- will check levels Hyperlipidemia 16125375 E78.5 - c/w statin therapy Adult heal th examination 647595121 Z00.00 Body mass index 30+ - obesity 606687378 Z68.38 BMI 38.1- Advised decreased portion sizes, good food choices, limited eating out or fast food and eliminate soda and juice from diet. Advised physical activity daily and offered encouragem ent to continue with positive changes made so far. Screening for malignant neoplasm of breast 312813833 Z12.39 No prior mammograms - discussed the importance of breast cancer screenings - Provided patient with mammogram order, she understand s she needs to call and schedule appointmen t Screening for malignant neoplasm of colon 207423574 Z12.11 Due for repeat colonoscop y- encouraged her to f/u with GI once COVID-19 crisis has calmed down Screening for malignant neoplasm of cervix 610931204 Z12.4 It has been many many years since I have completed my last pap smear- encouraged patient to make f/u visit with me or OBGYN for screening [id number] MD [facility] (Adult Med) [address] [place] [address] [id number] 10/17/2020 16:16:22 10/18/2020 14:20:27 Acute respiratory infections 156128716 J22 Discussed with patient, she agreed to try antibiotic s as ordered. [id number] MD [facility] (Adult Med) [address] [place] [address] [phone] 02/05/2021 08:16:20 02/06/2021 11:36:11 Essential hypertension 72225690 I10 Low salt dist. On amlodipine . Hyperlipidemia 37182594 E78.5 Low animal fat diet. and atorvastat in Hypothyroidism 29869435 E03.9 On thyroid hormone. Insomnia 894551700 G47.0 0 On cyclobenza prin. Microalbuminuria 7917788 06 R80.9 On amlodipine . Neuropathy 845922351 G62 .9 Stable. Type 2 shari betes mellitus 91781374 E11.40 Diabetic diet, exercise and lose weight. Has enough medication s refill. She will see a ophthalmol ogit in the near future. Increase levemir to 30 units./day . Amputee 47100261 Z89.9 Toes of right foot. amputated. Under the care of her podiatry. [id number] MD [facility] (Adult Med) [address] [place] [address] [id number] 0 03/27/2021 15:58:09 03/29/2021 10:14:21 Type 2 diabetes mellitus 93447447 E11.40 Diabetic diet, exercise and lose weight. Has enough medication s refill. She will see a ophthalmol ogist in the near future. Increase levemir to 30 units./day . Wants diabetic shoes. Cellulitis of foot 52771 6007 L03.119 Under the care of here cell operation supervisor . Peripheral arterial occlusive disease 473060882 I73.9 impalpable pulses of dorsalis and posterior tibalis. Will do the arterial dupple. Dyslipidem ia due to type 2 diabetes mellitus 4494960022 02 E78.5 Will change to atorvastat in for pravastati n. She agreed. [id number] MD [facility] (Adult Med) [address] [place] [address] [phone] 08/30/2021 15:14:41 09/05/2021 13:26:22 Type 2 diabetes mellitus 65029779 E11.40 Diabetic diet, exercise and lose weight. Has enough medication s refill. She will see a ophthalmol ogist in the near future. Increase levemir to 30 units./day . Wants diabetic shoes. Diabetic p eripheral neuropathy 137759130 E11.40 lyrica not working, she stopped. Screening mammography 24 957517 Z12.31 Wants mammogram. Administra tion of influenza vaccine 98395576 Z23 Patient tolerated shot well. Amputee 07639998 Z89.9 Toes of right foot. amputated. Under the care of her podiatry. 4 toes are gone, wound well healed. [id number] [facility] [address] [place] [address] [phone] 0 12/20/2021 12:07:13 12/21/2021 11:28:40 Essential hypertension 28074988 I10 Low salt dist. On amlodipine . blood pressure is well controlled . Hyperlipidemia 59587424 E78.5 Low animal fat diet. and atorvastat in Hypothyroidism 52352133 E03.9 On thyroid hormone. Insomnia 306776065 G47.0 0 On cyclobenza prin. Microalbuminuria 6113224 06 R80.9 On amlodipine . Neuropathy 891008623 G62 .9 Stable. Type 2 shari betes mellitus 97502416 E11.40 Diabetic diet, exercise and lose weight. Has enough medication s refill. She will see a ophthalmol ogist in the near future. Increase levemir to 30 units./day . Wants diabetic shoes. History of angioedema 63 08583869 108 Z86.79 Stable. Diabetic p eripheral neuropathy 602396252 E11.40 lyrica not working, she stopped. Renewal of prescription 303461093 Z76.0 Will increase levemir and will renew. Spasm of back muscles 20 8893885 M62.830 Controlled with cyclobenza prim. Unsteady w hen standing 958017744 R26.81 Due to amputee of right foot, first , second , 3rd and 4th toes. [id number] MD [facility] (Adult Med) [address] [place] [address] [phone] 02/28/2022 09:58:08 03/01/2022 13:04:50 Essential hypertension 82120030 I10 Low salt dist. On amlodipine . blood pressure is well controlled . 114/70 mm HG today 02-28-2022 . Hyperlipidemia 80475809 E78.5 Low animal fat diet. and atorvastat in Insomnia 786827921 G47.0 0 On cyclobenza prin. Microalbuminuria 2979591 06 R80.9 On amlodipine . Neuropathy 069790316 G62 .9 Stable. Type 2 shari betes mellitus 12261704 E11.40 Diabetic diet, exercise and lose weight. Has enough medication s refill. She will see a ophthalmol ogist in the near future. Increase levemir to 30 units./day . Wants diabetic shoes. [id number] MD [facility] (Adult Med) [address] [place] [address] [phone] 0 06/06/2022 11:05:09 06/07/2022 14:53:12 Type 2 diabetes mellitus 71954218 E11.40 patient needs new glucometer . Edema of l ower extremity 464695266 R60.0 Will chek renal functions. Retinopath y due to type 2 diabetes mellitus 816995830 E11.319 Microvascu lopathy, with edema, will check renal function. Under the care of her retina specialist , Amputated toe of right foot 887553406 Z89.421 Wounds healed. [id number] [facility] [address] [place] [address] [phone] 12/09/2022 12:46:04 12/10/2022 14:23:30 Obesity 780580728 E66.9 Last BMI is 37.5, diabetic diet, exercise and keep the weight down. Type 2 shari betes mellitus 03736953 E11.40 patient needs new glucometer . Done. Diabetic diet, exercise and keep the weight down. )n glimepirid e, januvia, jardiance and levemir insulin shot. and nesina . Amputated toe of right foot 959240069 Z89.421 Wounds healed. Acquired p tosis of left eyelid 0203586695 6276906 H02.402 She is concering the myasthenia gravis, appointmen t with ophthalmol ogist made. Dyslipidem ia due to type 2 diabetes mellitus 2037487512 02 E78.5 Will change to atorvastat in for pravastati n. She agreed. Hypothyroidism 31677859 E03.9 On thyroid hormone. [id number] Martín Esparza MD [facility] (Adult Med) [address] [place] [address] [phone] 0 03/03/2023 16:39:03 03/04/2023 11:40:21 Administration of diphtheria, pertussis, and tetanus vaccine 255707737 Z23 She tolerated shot well. Type 2 shari betes mellitus 61997501 E11.40 patient needs new glucometer . Done. Diabetic diet, exercise and keep the weight down. )n glimepirid e, januvia, jardiance and levemir insulin shot. and nesina . Bilateral lower leg edema 052404524 R60.0 She agreed for the furosemide . Acute resp iratory infections 555770266 J22 Discussed with patient, she agreed to try antibiotic s as ordered. [id number] Martín Esparza MD [facility] (Adult Med) [address] [place] [address] [phone] 11/18/2023 16:27:10 11/20/2023 12:11:29 Chronic abdominal pain 000038135 R10.9 Will refer to to her GI specialist , she agreed. Right and left upper quadrants. Will refer to Her GI to evaluate. She agreed. Adenomatou s polyp of colon 807566972 D12.6 Had colonoscop ic ex about 5 years ago. needs to be repeat, Dr Mallory. Chronic insomnia 2107996 04 F51.04 She wants to try OTC benadryl to go to sleep. Screening mammography 24 507932 Z12.31 Wants mammogram. Uncontroll ed type 2 diabetes mellitus 649009266 E11.65 Out of all med for one month. Essential hypertension 82984074 I10 Low salt dist. On amlodipine . blood pressure is well controlled . 114/70 mm HG today 02-28-2022 . Hyperlipidemia 33787806 E78.5 Low animal fat diet. and atorvastat in History of angioedema 63 89412801 108 Z86.79 Stable.. SHE HAS NOT REFILL FOR ONE YEAR. Bilateral lower leg edema 872898766 R60.0 She agreed for the furosemide . Type 2 shari betes mellitus 95214992 E11.40 patient needs new glucometer . Done. Diabetic diet, exercise and keep the weight down. )n glimepirid e, januvia, jardiance and levemir insulin shot. and nesina . Renewal of prescription 802698570 Z76.0 Will increase levemir and will renew. Hypothyroidism 13560711 E03.9 On thyroid hormone. Amputated toe of right foot 403757074 Z89.421 Wounds healed. [id number] Terra Franz MD [facility] (Adult Med) [address] [place] [address] [id number] 02/17/2024 14:00:50 02/19/2024 09:55:51 Type 2 diabetes mellitus 56615888 E11.40 Last A1C:Today 9.7 (02/17/24)Go al A1C [...] results Body mass index 30+ - obesity 726095944 Z68.37 BMI 37.6 Depression screening 171 408489 Z13.31 PHQ9- Negative (2 out of 27) [facility] screening 654692364 Z13.39 GAD7- Negative (0 out of 21) Essential hypertension 87154198 I10 BP today 128/76 BP Goal: Less [...] monthsNext Visit: 3month(s)C /W amlodipine 5mg Hyperlipidemia 96104439 E78.5 C/w atorvastat in 40mg dailyLabs today Hypothyroidism 87315129 E03.9 labs todayC/w levothyrox ine 150mcg [id number] Terra Franz MD [facility] (Adult Med) [address] [place] [address] [phone] 08/03/2024 14:28:36 08/06/2024 15:26:12 Type 2 diabetes mellitus 06022428 E11.40 Last A1C:Today 10.6 (08/03/24). 9.7 (02/17/24)Go [...] weeks then to 1mg weekly Essential hypertension 45911274 I10 BP today 122/68 BP Goal: Less [...] monthsNext Visit: 3month(s)C /W amlodipine 5mg Hyperlipidemia 72658692 E78.5 C/w atorvastat in 40mg daily Hypothyroidism 44223804 E03.9 C/w levothyrox ine 150mcg Body mass index 30+ - obesity 128373483 Z68.37 BMI 37.7 Depression screening 171 391393 Z13.31 PHQ9- Negative (2 out of 27) [facility] screening 585589574 Z13.39 GAD7- Negative (0 out of 21) Administra tion of influenza vaccine 11140750 Z23 Microalbuminuria 7548440 06 R80.9 Advised patient to increase water intake and to have better control of DM and HTN Bilateral lower leg edema 742352724 R60.0 [id number] Terra Franz MD [facility] (Adult Med) [address] [place] [address] [phone] 12/06/2024 14:30:56 12/09/2024 09:56:46 Type 2 diabetes mellitus 01818361 E11.40 Last A1C:Today 11.1 (12/06/24) 10.6 (08/03/24). [...] 1mg weekly to 2mg weekly Essential hypertension 36172883 I10 BP today 126/64 BP Goal: Less [...] monthsNext Visit: 3month(s)C /W amlodipine 5mg Hyperlipidemia 39829119 E78.5 C/w atorvastat in 40mg daily Hypothyroidism 87452948 E03.9 Labs 02/17/24: TSH 5.130, T4 1.20, T3 2.3C/w levothyrox ine 150mcgrepe at labs today Microalbuminuria 9960826 06 R80.9 Advised patient to increase water intake and to have better control of DM and HTN Depression screening 171 551771 Z13.31 PHQ9- Negative (2 out of 27) [facility] screening 641257550 Z13.39 GAD7- Negative (0 out of 21) Bilateral lower leg edema 636947046 R60.0 Intolerant of cold 62688 000 R68.89 Obesity 315723744 E66.9 BMI 38.8 [id number] Terra Franz MD [facility] (Adult Med) [address] [place] [address] [phone] 0 01/06/2025 15:38:27 01/07/2025 12:02:29 Type 2 diabetes mellitus 16869230 E11.40 Last A1C:11.1 (12/06/24) 10.6 (08/03/24). 9.7 [...] d/t adverse reactionHa s appt with endocrinol neo on Februarytart pioglitazo ne 15mg x 30 days then increase to 30mg after Adverse re action to drug 56891250 T50.905A D/c Ozempic Fatigue 25135525 R53.83 B12 injection 1 mL today Nausea 500105733 R11.0 BRAT diet Obesity 824626413 E66.9 BMI 37.3 [id number] Terra Franz MD [facility] (Adult Med) [address] [place] [address] [phone] 0 03/09/2025 14:31:52 03/11/2025 15:03:12 Type 2 diabetes mellitus 95651473 E11.40 Last A1C:10.0 (03/09/25), 11.1 (12/06/24) 10.6 [...] Next Visit: 3 month(s)Pt had appt with endocrinemerson larson- per pt she was taken off meds and put on insulin (short and long acting)Pt is needing refills on pioglitazo ne 30mg Essential hypertension 37971489 I10 BP today 140/72 BP Goal: Less [...] amlodipine 5mgc/w medication from cardiologi st Hyperlipidemia 02166414 E78.5 C/w atorvastat in 40mg daily Hypothyroidism 71305434 E03.9 Labs 02/17/24: TSH 5.130, T4 1.20, T3 2.3Labs : TSH 10.30, T4 0.87. T3 2.5C/w levothyrox ine 150mcgrepe at labs today Microalbuminuria 9564550 06 R80.9 Advised patient to increase water intake and to have better control of DM and HTN Bilateral lower leg edema 941879522 R60.0 Depression screening 171 567285 Z13.31 PHQ9- Negative (2 out of 27) [facility] screening 090933679 Z13.39 GAD7- Negative (0 out of 21) Obesity 983959181 E66.9 BMI 38.8 Bilateral proliferative retinopathy due to diabetes mellitus type 2 0538954907 3120430 E11.3593 [id number] Pt has surgery scheduled for 03/30/25 [id number] MD [facility] (Adult Med) [address] [place] [address] [phone] 0 04/12/2025 15:01:13 04/13/2025 10:31:36 Essential hypertension 24616704 I10 BP today 140/68 BP Goal: Less [...] medication from cardiologi st and nephrology Hypothyroidism 65986570 E03.9 Labs 02/17/24: TSH 5.130, T4 1.20, T3 2.3Labs : TSH 10.30, T4 0.87. T3 2.5Labs 03/09/25: TSH 1.560, T4 1.27, T3 2.2C/w levothyrox ine 150mcg Microalbuminuria 0099261 06 R80.9 Labs 03/09/25: alb/creat ratio 1246Advise d patient to increase water intake and to have better control of DM and HTNHad labs done by nephrology - will get DELLA for results Bilateral lower leg edema 222083519 R60.0 Nephrology increased furosemide to 40mgAdvise d pt to elevate legs as much as possible when restingWea r compressio n stocking- ordered for patient today Bilateral proliferative retinopathy due to diabetes mellitus type 2 4815948330 0515932 E11.3593 [id number] Pt has surgery 03/30/25- healing well Depression screening 171 415700 Z13.31 PHQ9- Negative (0 out of 27) [facility] screening 161138767 Z13.39 GAD7- Negative (1 out of 21) Obese class III 98163785 5 E66.813 9388769459 BMI 41.8 [id number] Terra Franz MD [facility] (Adult Med) [address] [place] [address] [phone] 0 06/08/2025 15:30:43 06/08/2025 16:15:41 Type 2 diabetes mellitus 19995880 E11.40 Last A1C:7.8 (06/08/25), 10.0 (03/09/25), 11.1 (12/06/24) 10.6 (08/03/24). 9.7 (02/17/24)Go al A1C less than:7.0%C urrent Therapy:In sulins from endocrinol ogist (obtaining records to get names and dosages), jose hopeoglitazo ne 30mg dailyStati n:Atorvast atin 40mgACE/AR B:Losartan 25mgFoot Exam:Compl eted 12/06/24Nep hropathy Screening: completed in the past 12 months- positive 03/09/25Pne umovax 23:Prevnar 20 09/02/24Ey e Exam:compl eted in [...] refills on pioglitazo ne 30mg Essential hypertension 54905266 I10 BP today 164/70BP Goal: Less than 140/90BP Controlled : yesHealthy [...] year see dentist every 6 monthsNext Visit: 3month(s)I ncrease amlodipine to 10mgc/w medication from cardiologi st Hyperlipidemia 49071841 E78.5 C/w atorvastat in 40mg daily Hypothyroidism 52530375 E03.9 Labs 02/17/24: TSH 5.130, T4 1.20, T3 2.3Labs 12/27/24: TSH 10.30, T4 0.87. T3 2.54/ : TSH: 1.560, T4 1.27, T3 2.2C/w levothyrox ine 150mcg Microalbuminuria 7910760 06 R80.9 Advised patient to increase water intake and to have better control of DM and HTN Bilateral lower leg edema 089857482 R60.0 Nephrology increased furosemide to 40mg BIDAdvised pt to elevate legs as much as possible when restingWea r compressio n stocking- ordered for patient today Bilateral proliferative retinopathy due to diabetes mellitus type 2 4141461420 3263009 E11.3593 [id number] Pt has surgery scheduled for 03/30/25 Depression screening 171 451653 Z13.31 PHQ9- Negative (1 out of 27) Mental hea lt screening 391237688 Z13.39 GAD7- Negative (0 out of 21) Obese class III 39956191 5 E66.813 E66.3 1294085171 BMI 43.5 Screening for malignant neoplasm of cervix declined 708415722 Z53.20 7926161272 Health Concerns Section Related Observation LastModified by Organization Detai ls LastModified Time None Recorded Concern Status LastModified by Organization Details LastModified Time None Recorded Advance Directives Directive N: Payers Insurance Date Sequence Insurance Name Policy Number Policy Akins Covered Member ID Akins Member ID Guarantor Name 09/10/2018 1 *SELF PAY* Gail Felder 08/31/2018 SLIDING FEE SCHEDULE - DISCOUNT Monica Felder 03/09/2025 1 [place] [id number] Monica Felder [id number] Monica Felder 03/09/2025 1 [employer] - ALLIED BENEFITS - OPEN ACCESS Monica Felder [id number] Monica Felder 03/09/2025 1 [place] [facility] - DOS PRIOR TO 2025 (MEDICAID REPLACEMENT - HMO) [id number] Monica Felder [id number] Monica Felder 03/09/2025 1 [place] [id number] Monica Felder [id number] Monica Felder 09/05/2025 1 [facility] (MEDICARE REPLACEMENT/A DVANTAGE - HMO) [id number] Monica Felder [id number] Monica Felder Notes Date Note Type Note Provider Name and Address Organization Details Recorded Time 12/06/2024 text/html Diabetes F/URepo rted by PatientHPIFor context, patient reportsmissing doses of medication. For labs, patient reportslast a1c result: 11.1. For associated symptoms, patient reportsno weight gain,no weight loss,no dizziness,no sweats,no headaches,no confusion,no increased thirst,no increased appetite,no increased urination,no blurred vision,no numbness of feet, andno calluses on feet. Hypertension F/UReported by PatientHPIFor associated symptoms, patient reportsno dizziness,no lightheadedness,no chest pain,no shortness of breath,no palpitations,no edema, andno calf pain with exertion. For lifestyle, patient reportsregular exerciseandlimiting/a voiding salt. For medications, patient reportstaking medications as directedandno side effects from medication.ROS as noted in the [facility] 59-year-old female here for follow-up chronic conditions. Patient admits to not taking medication daily, misses dosages sometimes. Patient also states she has not been doing well with diet. States blood sugar is high a lot. Denies FRANCOISE, LAZO, CP. Does admit that she has been very cold recently. JERROD BARLOW PA-C Attn: Accounting,[address] [facility], [place], [address], [facility] 12/06/2024 15:21:50 01/06/2025 text/html ROS as noted in the [facility] 59-year-old female here for ER follow-up. Patient started [...] and she can not afford it. JERROD BARLOW PA-C Attn: Accounting,[address] [facility], [place], [address], [facility] 01/06/2025 16:38:40 03/09/2025 text/html Diabetes F/URepo rted by PatientIFor labs, patient reportslast a1c result: 10. For context, patient reportsnormal range of home blood sugars (in the low 100s),seeing eye doctor regularly, andchecking feet regularly. For associated symptoms, patient reportsno weight gain,no weight loss,no dizziness,no sweats,no headaches,no confusion,no increased thirst,no increased appetite,no increased urination,no blurred vision,no numbness of feet, andno calluses on feet.ROS as noted in the HPI Patient is a 59 year old female her for a DM F/U. She states that she is doing well with her medications and that her curriculum development specialist has prescribed her long acting insulin, 48 units, and a short- acting insulin. She states she saw an opthamologist two days ago and will be getting bilateral eye surgery to correct her vision in March.She states that she needs refills on her medications.She denies any fatigue, dizziness or chest pain. JERROD BARLOW PA-C Attn: Accounting,[address] [facility], [place], [address], [facility] 03/09/2025 15:31:07 04/12/2025 text/html ROS as noted in the HPI 59 y/o F here for f/u appt. [...] at this time. JERROD BARLOW PA-C Attn: Accounting,[address] [facility], [place], [address], [place] [facility] 04/12/2025 17:29:08 06/08/2025 text/html Diabetes F/URepo rted by PatientHPIFor associated symptoms, patient reportsweight gain (11 lbs)but reportsno weight loss,no dizziness,no sweats,no headaches,no confusion,no increased thirst,no increased appetite,no increased urination,no blurred vision,no numbness of feet, andno calluses on feet. For labs, patient reportslast a1c result: 7.8. Hypertension F/UReported by PatientHPIFor associated symptoms, patient reportsno dizziness,no lightheadedness,no chest pain,no shortness of breath,no palpitations,no edema, andno calf pain with exertion. For lifestyle, patient reportsregular exerciseandlimiting/a voiding salt. For medications, patient reportstaking medications as directedandno side effects from medication.ROS as noted in the HPI 59 y/o F here for f/u chronic conditions. pt states she has seen [facility] and nephrology. Still having edema BLE. Pt states is compliant with all medications but her BP is elevated d/t stress. JERROD BARLOW PA-C Attn: Accounting,[address] [facility], [place], [address], [place] [facility] [place] 06/08/2025 16:05:05 OBGyn Episode No OBEpisode recorded.
--- OUTSIDE RECORDS SUMMARY | 2025-09-21 12:31 | XMS_ITS | Encounter Summary ---
Author Organization [facility] Address 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
--- OUTSIDE RECORDS SUMMARY | 2025-09-21 12:31 | XMS_ITS | Clinical Summary ---
Author Organization [facility] Address [address] [place] [address] Care Team Providers Care Repairer Veneer Sheet Name Role Phone Martín Gusman MD Primary Care Provider [phone] Source Comments [facility],non-owned Affiliates and Associated Physician Practices is amultiple site organization consisting of ambulatory clinics and hospital sitesin [place], [place], [place] and [place]. This disclosure is being madepursuant to the Care Everywhere program and may not contain all information available regarding this patient. 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
[2025-09-21 12:32] LABS: Thyroid Stimulating Hormone 6.050 uIU/mL (0.465-4.680)
[2025-09-21 13:54] LABS: Vitamin B12 455.0 pg/mL (239-931)
[2025-09-22 06:07] LABS: eGFR 34 (>59)
== END 2025-09-21 10:50 | disposition home or self-care (01) ==
PROVIDERS: PCP Physician Assistant Medical; Referring Provider Specialist; Visit Provider Nurse Practitioner Family
DX: E11.22 Type 2 diabetes mellitus with diabetic chronic kidney disease (principal); I12.9 Hypertensive chronic kidney disease with stage 1 through stage 4 chronic kidney disease, or unspecified chronic kidney disease; N18.30 Chronic kidney disease, stage 3 unspecified; E78.5 Hyperlipidemia, unspecified; E03.9 Hypothyroidism, unspecified; E21.3 Hyperparathyroidism, unspecified; E55.9 Vitamin D deficiency, unspecified; R82.90 Unspecified abnormal findings in urine; N39.0 Urinary tract infection, site not specified; R35.0 Frequency of micturition
CPT/HCPCS: 36415; 80053; 81001; 82043; 82306; 82570; 82607; 82610; 83735; 83970; 84156; 84439; 84443; 84550; 85025

== ENCOUNTER 2025-09-22 11:45 | Outpatient (CLI) | payer MEDICARE, SELFPAY ==
--- OUTSIDE RECORDS SUMMARY | 2024-04-02 09:15 | XMS_ITS ---
Author Organization [facility] Address [address] [address] [place] [address] Care Team Providers Care Forge Heater Name Role Phone Sg Mathewjit Unavailable [phone] Social History Sex Assigned At : Social History Observation Description Sex Assigned At Female Encounters Encounter Location Date Provider Diagnosis [place] [facility] [address] [facility] [address] [place] [address] 04/02/2024 Ronny Mathew Chronic kidney disease, stage 3a N18.31 ; Anxiety disorder, unspecified F41.9 ; Obesity, unspecified E66.9 ; Edema, unspecified R60.9 and Essential (primary) hypertension I10 Assessments Encounter Date Diagnosis (ICD Code) Assessment Notes Treatment Notes Treatment Clinical Notes Section Notes 04/02/2024 Chronic kidney disease, stage 3a (ICD-10 - N18.31) 04/02/2024 Anxiety disorder, unspecified (ICD-10 - F41.9) 04/02/2024 Obesity, unspecified (ICD-10 - E66.9) 04/02/2024 Edema, unspecified (ICD-10 - R60.9) 04/02/2024 Essential (primary) hypertension (ICD-10 - I10) Plan Of Treatment Next Appt Details Provider Name:Ronny Quincy , 09/30/2025 04:15:00 PM, [address] [facility], [facility] [address], [place], [address], Progress Notes * Clifford CHANDRAAnnamarieB: [birth year] (59 yo F)Acc No.[id number]:04/02/2024 Progress Notes Patient: Monica MORA Provider: Lynette WILDE MD, F.A.C.P, F.A.S.N. :1965 A ge:58 Y S ex:Female Date:04/02/2024 [facility] Subjective: * Chief Complaints: * * Medical History: Objective: * Vitals: Assessment: * Assessment: 1. C hronic kidney disease, stage 3a - N18.31 (Primary) 2 . A nxiety disorder, unspecified - F41.9 3 . O besity, unspecified - E66.9 4 .?Edema, unspecified - R60.9 5 . E ssential (primary) hypertension - I10 ? Plan: * Treatment: * Billing Information: * Visit Code: 71693 Office Visit, Est Pt., Level 4. * Procedure Codes: * Electronic signature of Kylee Mathew MD on 09/22/2025 at 12:50 PM REFINERY PROCESS ENGINEER Sign off status: Pending * Provider: Lynette WILDE MD, F.A.C.P, F.A.S.N. Date: 0 04/02/2024 Generated for Printing/Faxing/eTransmitting on: 11/22/2024 12:50 PM REFINERY PROCESS ENGINEER
--- OUTSIDE RECORDS SUMMARY | 2024-06-25 08:00 | XMS_ITS ---
Author Organization [facility] Address [address] [address] [place] [address] Care Team Providers Care Speech Language Specialist Name Role Phone Ronny Mathew Unavailable [phone] Medications Medication SIG (Take, Route, Frequency, Duration) Notes Start Date End Date Status Ergocalciferol 1.25 MG (04267 UT) 1 capsule Orally Once a week; Duration: 90 day(s) 04/02/2024 12/27/2024 Active Calcitriol 0.25 MCG 1 capsule Orally Onc e a day; Duration: 90 day(s) 04/02/2024 12/27/2024 Active Losartan Potassium 25 MG 1 tablet Orally Once a day; Duration: 90 day(s) 04/02/2024 Active Social History Sex Assigned At : Social History Observation Description Sex Assigned At Female Problems Problem Type SNOMED Code ICD Code Onset Dates Problem Status W/U Status Risk Notes Problem Hyperglycemia due to type 2 diabetes mellitus (878781654682003) Type 2 diabetes mellitus with hyperglycemia (E11.65) Active confirmed Problem Renal osteodystrophy (67641826) Renal osteodystrophy (N25.0) Active confirmed Encounters Encounter Location Date Provider Diagnosis [facility] [address] [facility] [address] [place] [address] 06/25/2024 Ronny Mathew Chronic kidney disea se, stage 3 unspecified N18.30 ; Essential (primary) hypertension I10 ; Type 2 diabetes mellitus with hyperglycemia E11.65 ; Renal osteodystrophy N25.0 ; Anxiety disorder, unspecified F41.9 ; Obesity, unspecified E66.9 and Edema, unspecified R60.9 Assessments Encounter Date Diagnosis (ICD Code) Assessment Notes Treatment Notes Treatment Clinical Notes Section Notes 06/25/2024 Chronic kidney disease, stage 3 unspecified (ICD-10 - N18.30) 06/25/2024 Essential (primary) hypertension (ICD-10 - I10) 06/25/2024 Type 2 diabetes mellitus with hyperglycemia (ICD-10 - E11.65) 06/25/2024 Renal osteodystrophy (ICD-10 - N25.0) 06/25/2024 Anxiety disorder, unspecified (ICD-10 - F41.9) 06/25/2024 Obesity, unspecified (ICD-10 - E66.9) 06/25/2024 Edema, unspecified (ICD-10 - R60.9) Plan Of Treatment Next Appt Details Provider Name:Ronny Quincy , 09/30/2025 04:15:00 PM, [address] [facility], [facility] 15, [place], [address], Progress Notes * José Miguel FELDERB: 9[birth year] (59 yo F)Acc No.[id number]:06/25/2024 Progress Notes Patient: Monica MORA Provider: Lynette WILDE MD, F.A.C.P, F.A.S.N. :1965 A ge:58 Y S ex:Female Date:06/25/2024 Address:[address] [place] [address] Subjective: * Chief Complaints: * * Medical History: * Medications: T aking Ergocalciferol 1.25 MG (83275 UT) Capsule 1 capsule Orally Once a week , stop date 12/27/2024, Taking Losartan Potassium 25 MG Tablet 1 tablet Orally Once a day , Taking Calcitriol 0.25 MCG Capsule 1 capsule Orally Once a day , stop date 12/27/2024 Objective: * Vitals: Assessment: * Assessment: 1. C hronic kidney disease, stage 3 unspecified - N18.30 2 . E ssential (primary) hypertension - I10 3 . T ype 2 diabetes mellitus with hyperglycemia - E11.65 4 . R enal osteodystrophy - N25.0 5 . A nxiety disorder, unspecified - F41.9 6 . O besity, unspecified - E66.9 7 . E willard, unspecified - R60.9 Plan: * Treatment: * Billing Information: * Visit Code: 39993 Office Visit, Est Pt., Level 4. * Procedure Codes: * Electronic signature of Kylee Mathew MD on 09/22/2025 at 12:49 PM BOOMBOAT OPERATOR Sign off status: Pending * Provider: Lynette WILDE MD, F.A.C.P, F.A.S.N. Date: 0 06/25/2024 Generated for Printing/Faxing/eTransmitting on: 1 11/22/2024 12:49 PM BOOMBOAT OPERATOR
--- OUTSIDE RECORDS SUMMARY | 2024-08-27 07:30 | XMS_ITS ---
Author Organization [facility] Address [address] [facility] 61 [facility] [address] [place] [address] Care Team Providers Care Retread Supervisor Name Role Phone Quincy Ronny Unavailable [phone] Social History Sex Assigned At : Social History Observation Description Sex Assigned At Female Encounters Encounter Location Date Provider Diagnosis [facility] 2043 [place] [address] 08/27/2024 Ronny Mathew Plan Of Treatment Next Appt Details Provider Name:Ronny Quincy , 09/30/2025 04:15:00 PM, [address], [facility], Progress Notes * José Miguel FELDERB: 965 (59 yo F)Acc No.[id number]:08/27/2024 Progress Notes Patient: Monica MORA Provider: Lynette WILDE MD, Ulysses.Marko.C.P, F.A.S.N. :1965 A ge:58 Y S ex:Female Date:08/27/2024 Address:[address] [place] [address] Subjective: * Chief Complaints: * * Medical History: Objective: * Vitals: Assessment: Plan: * Treatment: * Billing Information: * Visit Code: * Procedure Codes: * Electronic signature of Kylee Mathew MD on 09/22/2025 at 12:49 PM CABANA ATTENDANT Sign off status: Pending * Provider: Lynette WILDE MD, F.Marko.C.P, F.A.S.N. Date: Generated for Printing/Faxing/eTransmitting on: 11/22/2024 12:49 PM CABANA ATTENDANT
--- OUTSIDE RECORDS SUMMARY | 2025-04-08 08:15 | XMS_ITS ---
Author Organization [facility] Address [address] [place] [address] Care Team Providers Care Printed Circuit Board Panels Deburrer Name Role Phone Mathew Ronny Unavailable [phone] Social History Sex Assigned At : Social History Observation Description Sex Assigned At Female Encounters Encounter Location Date Provider Diagnosis [place] [facility] 2043 [facility] 15 [place] [address] 04/08/2025 Ronny Mathew Chronic kidney disea se, stage 3a N18.31 ; Anxiety disorder, unspecified F41.9 ; Obesity, unspecified E66.9 ; Edema, unspecified R60.9 ; Essential (primary) hypertension I10 ; Chronic kidney disease, stage 3 unspecified N18.30 ; Type 2 diabetes mellitus with hyperglycemia E11.65 and Renal osteodystrophy N25.0 Assessments Encounter Date Diagnosis (ICD Code) Assessment Notes Treatment Notes Treatment Clinical Notes Section Notes 04/08/2025 Chronic kidney disease, stage 3a (ICD-10 - N18.31) 04/08/2025 Anxiety disorder, unspecified (ICD-10 - F41.9) 04/08/2025 Obesity, unspecified (ICD-10 - E66.9) 04/08/2025 Edema, unspecified (ICD-10 - R60.9) 04/08/2025 Essential (primary) hypertension (ICD-10 - I10) 04/08/2025 Chronic kidney disease, stage 3 unspecified (ICD-10 - N18.30) 04/08/2025 Type 2 diabetes mellitus with hyperglycemia (ICD-10 - E11.65) 04/08/2025 Renal osteodystrophy (ICD-10 - N25.0) Plan Of Treatment Next Appt Details Provider Name:Ronny Mathew , 09/30/2025 04:15:00 PM, 2043 [facility], [facility], [place], [address], Progress Notes * Clifford FELDERaDOB: [birth year] (59 yo F)Acc No.[id number]:04/08/2025 Progress Notes Patient: Monica MORA Provider: Lynette WILDE MD, Ulysses.Marko.C.P, F.A.S.N. :1965 A ge:59 Y S ex:Female Date:04/08/2025 Address:[address] [place] [address] Subjective: * Chief Complaints: * * Medical History: Objective: * Vitals: Assessment: * Assessment: 1. C hronic kidney disease, stage 3a - N18.31 (Primary) 2 . A nxiety disorder, unspecified - F41.9 3 . O besity, unspecified - E66.9 4 .?Edema, unspecified - R60.9 5 . E ssential (primary) hypertension - I10 & #160; 6 . C hronic kidney disease, stage 3 unspecified - N18.30 7 . T ype 2 diabetes mellitus with hyperglycemia - E11.65 8 . R enal osteodystrophy - N25.0 Plan: * Treatment: * Billing Information: * Visit Code: 02873 Office Visit, Est Pt., Level 4. * Procedure Codes: * Electronic signature of Kylee Mathew MD on 09/22/2025 at 12:48 PM API ARCHITECT Sign off status: Pending * Provider: Lynette WILDE MD, F.Marko.C.P, F.A.S.N. Date: 0 04/08/2025 Generated for Printing/Faxing/eTransmitting on: 11/22/2024 12:48 PM API ARCHITECT
--- OUTSIDE RECORDS SUMMARY | 2025-05-11 09:15 | XMS_ITS ---
Author Organization [facility] Address 1400 [facility] 61 [facility] [[email or web address]] [address] [place] [address] Care Team Providers Care Rn Residential Name Role Phone Mathew Ronny Unavailable [phone] Social History Sex Assigned At : Social History Observation Description Sex Assigned At Female Problems Problem Type SNOMED Code ICD Code Onset Dates Problem Status W/U Status Risk Notes Problem Chronic kidney disease stage 3A (disorder) (473399118) Chronic kidney disease, stage 3a (N18.31) Active confirmed Problem Metabolic disorder (14733833) Metabolic disorder, unspecified (E88.9) Active confirmed Encounters Encounter Location Date Provider Diagnosis [place] [facility] [address] [place] [address] 05/11/2025 Ronny Mathew Plan Of Treatment Next Appt Details Provider Name:Ronny Mathew , 09/30/2025 04:15:00 PM, [address] [address], [place], [place], [facility], Progress Notes * José Miguel FELDERB: [birth year] (59 yo F)Acc No.[id number]:05/11/2025 Progress Notes Patient: Monica MORA Provider: Lynette WILDE MD, F.A.C.P, F.A.S.N. :1965 A ge:59 Y S ex:Female Date:05/11/2025 Address:[address] [place] [address] Subjective: * Chief Complaints: * * Medical History: Objective: * Vitals: Assessment: Plan: * Treatment: * Billing Information: * Visit Code: 32471 Office Visit, Est Pt., Level 4. * Procedure Codes: * Electronic signature of Kylee Mathew MD on 09/22/2025 at 12:49 PM OUTREACH AND EDUCATION SOCIAL WORKER Sign off status: Pending * Provider: Lynette WILDE MD, F.A.C.P, F.A.S.N. Date: 0 05/11/2025 Generated for Printing/Faxing/eTransmitting on: 11/22/2024 12:49 PM OUTREACH AND EDUCATION SOCIAL WORKER
--- OUTSIDE RECORDS SUMMARY | 2025-06-15 09:45 | XMS_ITS ---
Author Organization [facility] Address [address] [address] [place] [address] Care Team Providers Care Bottom Crane Operator Name Role Phone Quincy Ronny Unavailable [phone] Social History Sex Assigned At : Social History Observation Description Sex Assigned At Female Problems Problem Type SNOMED Code ICD Code Onset Dates Problem Status W/U Status Risk Notes Problem Vitamin D deficiency (91780772) Vitamin D deficiency, unspecified (E55.9) Active confirmed Encounters Encounter Location Date Provider Diagnosis [place] [facility] [address] [facility] 15 [place] [address] 06/15/2025 Ronny Mathew Chronic kidney disea se, stage 3a N18.31 ; Anxiety disorder, unspecified F41.9 ; Obesity, unspecified E66.9 ; Edema, unspecified R60.9 ; Essential (primary) hypertension I10 ; Type 2 diabetes mellitus with hyperglycemia E11.65 ; Renal osteodystrophy N25.0 ; Metabolic disorder, unspecified E88.9 ; Vitamin D deficiency, unspecified E55.9 and Hyperuricemia without signs of inflammatory arthritis and tophaceous disease E79.0 Assessments Encounter Date Diagnosis (ICD Code) Assessment Notes Treatment Notes Treatment Clinical Notes Section Notes 06/15/2025 Chronic kidney disease, stage 3a (ICD-10 - N18.31) 06/15/2025 Anxiety disorder, unspecified (ICD-10 - F41.9) 06/15/2025 Obesity, unspecified (ICD-10 - E66.9) 06/15/2025 Edema, unspecified (ICD-10 - R60.9) 06/15/2025 Essential (primary) hypertension (ICD-10 - I10) 06/15/2025 Type 2 diabetes mellitus with hyperglycemia (ICD-10 - E11.65) 06/15/2025 Renal osteodystrophy (ICD-10 - N25.0) 06/15/2025 Metabolic disorder, unspecified (ICD-10 - E88.9) 06/15/2025 Vitamin D deficiency, unspecified (ICD-10 - E55.9) 06/15/2025 Hyperuricemia without signs of inflammatory arthritis and tophaceous disease (ICD-10 - E79.0) Plan Of Treatment Next Appt Details Provider Name:Ronny Quincy , 09/30/2025 04:15:00 PM, [address] [facility], [facility], [place], [address], Progress Notes * José Miguel FELDERB: 965 (59 yo F)Acc No.[id number]:06/15/2025 Progress Notes Patient: Monica MORA Provider: Lynette WILDE MD, F.A.C.P, F.A.S.N. :1965 A ge:59 Y S ex:Female Date:06/15/2025 Address:[address] [place] [address] Subjective: * Chief Complaints: * * Medical History: Objective: * Vitals: Assessment: * Assessment: 1. C hronic kidney disease, stage 3a - N18.31 (Primary) 2 . A nxiety disorder, unspecified - F41.9 3 . O besity, unspecified - E66.9 4 .?Edema, unspecified - R60.9 5 . E ssential (primary) hypertension - I10 & #160; 6 . T ype 2 diabetes mellitus with hyperglycemia - E11.65 7 . R enal osteodystrophy - N25.0 8 . M etabolic disorder, unspecified - E88.9 ? 9 . V itamin D deficiency, unspecified - E55.9 1 0. H yperuricemia without signs of inflammatory arthritis and tophaceous disease - E79.0 Plan: * Treatment: * Billing Information: * Visit Code: 29999 Office Visit, Est Pt., Level 4. * Procedure Codes: * Electronic signature of Kylee Mathew MD on 09/22/2025 at 12:48 PM UTILITY WORKER FORGE Sign off status: Pending * Provider: Lynette WILDE MD, F.A.C.P, F.A.S.N. Date: 0 06/15/2025 Generated for Printing/Faxing/eTransmitting on: 1 11/22/2024 12:48 PM UTILITY WORKER FORGE
--- OUTSIDE RECORDS SUMMARY | 2025-08-17 12:45 | XMS_ITS ---
Author Organization [facility] Address [address] [facility] [address] [facility] [address] [place] [address] Care Team Providers Care Consulting Hr Professional Name Role Phone Quincy Ronny Unavailable [phone] Social History Sex Assigned At : Social History Observation Description Sex Assigned At Female Encounters Encounter Location Date Provider Diagnosis [place] [facility] 2043 [facility] 15 [place] [address] 08/17/2025 Ronny Mathew Plan Of Treatment Next Appt Details Provider Name:Ronny Quincy , 09/30/2025 04:15:00 PM, [address] [address], [place], [place], [facility], Progress Notes * Clifford FELDERAnnamarieB: 965 (59 yo F)Acc No.[id number]:08/17/2025 Progress Notes Patient: Monica MORA Provider: Lynette WILDE MD, F.Marko.C.P, F.A.S.N. :1965 A ge:59 Y S ex:Female Date:08/17/2025 Address:[address] [place] [address] Subjective: * Chief Complaints: Objective: Assessment: Plan: * Billing Information: * Visit Code: * Procedure Codes: * Electronic signature of Kylee Mathew MD on 09/22/2025 at 12:49 PM LICENSED PRACTICAL NURSE INSTRUCTOR Sign off status: Pending * Provider: Lynette WILDE MD, F.Marko.C.P, F.A.S.N. Date: Generated for Printing/Faxing/eTransmitting on: 11/22/2024 12:49 PM LICENSED PRACTICAL NURSE INSTRUCTOR
--- OUTSIDE RECORDS SUMMARY | 2025-09-02 08:15 | XMS_ITS ---
Author Organization [facility] Address [address] [facility] 61 [facility] [address] [place] [address] Care Team Providers Care Dump Motor Operator Name Role Phone Efren Mathewerjit Unavailable [phone] Social History Sex Assigned At : Social History Observation Description Sex Assigned At Female Encounters Encounter Location Date Provider Diagnosis [place] [facility] [address]43 [facility] 15 [place] [address] 09/02/2025 Ronny Mathew Plan Of Treatment Next Appt Details Provider Name:Ronny Quincy , 09/30/2025 04:15:00 PM, [address] [address], [place], [place], [facility], Progress Notes * Clifford FELDERAnnamarieB: 965 (59 yo F)Acc No.[id number]:09/02/2025 Progress Notes Patient: Monica MORA Provider: Lynette WILDE MD, Ulysses.Marko.C.P, F.A.S.N. :1965 A ge:59 Y S ex:Female Date:09/02/2025 Address:[address] [place] [address] Subjective: * Chief Complaints: Objective: Assessment: Plan: * Billing Information: * Visit Code: * Procedure Codes: * Electronic signature of Kylee Mathew MD on 09/22/2025 at 12:50 PM PATTERN SHOP SUPERVISOR Sign off status: Pending * Provider: Lynette WILDE MD, F.Marko.C.P, F.A.S.N. Date: Generated for Printing/Faxing/eTransmitting on: 11/22/2024 12:50 PM PATTERN SHOP SUPERVISOR
--- OUTSIDE RECORDS SUMMARY | 2025-09-09 10:00 | XMS_ITS ---
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 Encounters Encounter Location Date Provider Diagnosis [facility] [address] [facility] [address] [place] [address] 09/09/2025 Ronny Mathew Chronic kidney disea se, stage 3a N18.31 ; Anxiety disorder, unspecified F41.9 ; Obesity, unspecified E66.9 ; Edema, unspecified R60.9 ; Essential (primary) hypertension I10 ; Type 2 diabetes mellitus with hyperglycemia E11.65 ; Renal osteodystrophy N25.0 ; Metabolic disorder, unspecified E88.9 ; Vitamin D deficiency, unspecified E55.9 and Unspecified nephritic syndrome with minor glomerular abnormality N05.0 Assessments Encounter Date Diagnosis (ICD Code) Assessment Notes Treatment Notes Treatment Clinical Notes Section Notes 09/09/2025 Chronic kidney disease, stage 3a (ICD-10 - N18.31) 09/09/2025 Anxiety disorder, unspecified (ICD-10 - F41.9) 09/09/2025 Obesity, unspecified (ICD-10 - E66.9) 09/09/2025 Edema, unspecified (ICD-10 - R60.9) 09/09/2025 Essential (primary) hypertension (ICD-10 - I10) 09/09/2025 Type 2 diabetes mellitus with hyperglycemia (ICD-10 - E11.65) 09/09/2025 Renal osteodystrophy (ICD-10 - N25.0) 09/09/2025 Metabolic disorder, unspecified (ICD-10 - E88.9) 09/09/2025 Vitamin D deficiency, unspecified (ICD-10 - E55.9) 09/09/2025 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 :1965 A ge:59 Y S ex:Female Date:09/09/2025 Address:[address] [place] [address] Subjective: * Chief Complaints: Objective: Assessment: * Assessment: 1. C hronic kidney [...] D deficiency, unspecified - E55.9 1 0. U nspecified nephritic syndrome with minor glomerular abnormality - N05.0 Plan: * Billing Information: * Visit Code: 56705 Office Visit, Est Pt., Level 4. * Procedure Codes: * Electronic signature of Kylee Mathew MD on 09/22/2025 at 12:48 PM LINE LEAD Sign off status: Pending * Provider: Lynette WILDE MD, F.Marko.C.P, F.A.S.N. Date: Generated for Printing/Faxing/eTransmitting on: 11/22/2024 12:48 PM LINE LEAD
--- OUTSIDE RECORDS SUMMARY | 2025-09-22 12:48 | XMS_ITS | Patient Health Record ---
Author Organization [facility] Address [address] [place] [address] Care Team Providers Care Weaver Wire Loom Name Role Phone Ronny Mathew Unavailable [phone] Reason For Referral No Information Medications Medication [...] 90 days 08/11/2025 Active Ergocalciferol 1.25 MG (62768 UT) 1 capsule Orally twice a week; Duration: 30 days 08/11/2025 12/08/2025 Active Allopurinol 100 MG 1 tablet Orally Once a day; Duration: 90 days 08/11/2025 08/06/2026 Active Vitamin D (Ergocalciferol) 1.25 MG (27678 UT) TAKE ONE CAPSULE BY MOUTH EVERY WEEK FOR VITAMIN DEFICIANCY; Duration: 90 Active Social History Sex Assigned At : Social History Observation Description Sex Assigned At Female Problems Problem Type SNOMED Code ICD Code Onset Dates Problem Status W/U Status Risk Notes Problem Hyperglycemia due to type 2 diabetes mellitus (050735607855070) Type 2 diabetes mellitus with hyperglycemia (E11.65) Active confirmed Problem Vitamin D deficiency (40844019) Vitamin D deficiency, unspecified (E55.9) Active confirmed Problem Obesity (965074970) Obesity, unspecified (E66.9) Active confirmed Problem Metabolic disorder (80211749) Metabolic disorder, unspecified (E88.9) Active confirmed Problem Anxiety disorder (078332890) Anxiety disorder, unspecified (F41.9) Active confirmed Problem Essential hypertension (07235755) Essential (primary) hypertension (I10) Active confirmed Problem 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) Active confirmed Problem Renal osteodystrophy (25607917) Renal osteodystrophy (N25.0) Active confirmed Problem Edema (55539365) Edema, unspecified (R60.9) Active confirmed Problem Chronic kidney disease stage 3A (disorder) (925671317) Chronic kidney disease, stage 3a (N18.31) Active confirmed Encounters Encounter Location Date Provider Diagnosis [facility] [address] [place] [address] 04/08/2025 Ronny Mathew Chronic kidney disea se, stage 3a N18.31 ; Anxiety disorder, unspecified F41.9 ; Obesity, unspecified E66.9 ; Edema, unspecified R60.9 ; Essential (primary) hypertension I10 ; Chronic kidney disease, stage 3 unspecified N18.30 ; Type 2 diabetes mellitus with hyperglycemia E11.65 and Renal osteodystrophy N25.0 [facility] [address] [place] [address] [facility] [address] [place] [address] 06/15/2025 Ronny Mathew Chronic kidney disea se, stage 3a N18.31 ; Anxiety disorder, unspecified F41.9 ; Obesity, unspecified E66.9 ; Edema, unspecified R60.9 ; Essential (primary) hypertension I10 ; Type 2 diabetes mellitus with hyperglycemia E11.65 ; Renal osteodystrophy N25.0 ; Metabolic disorder, unspecified E88.9 ; Vitamin D deficiency, unspecified E55.9 and Hyperuricemia without signs of inflammatory arthritis and tophaceous disease E79.0 [facility] [address] [address] 09/09/2025 Ronny Mathew Chronic kidney disea se, stage 3a N18.31 ; Anxiety disorder, unspecified F41.9 ; Obesity, unspecified E66.9 ; Edema, unspecified R60.9 ; Essential (primary) hypertension I10 ; Type 2 diabetes mellitus with hyperglycemia E11.65 ; Renal osteodystrophy N25.0 ; Metabolic disorder, unspecified E88.9 ; Vitamin D deficiency, unspecified E55.9 and Unspecified nephritic syndrome with minor glomerular abnormality N05.0 [facility] [address] [place] [address] 08/11/2025 Ronny Mathew Assessments Encounter Date Diagnosis (ICD Code) Assessment Notes Treatment Notes Treatment Clinical Notes Section Notes 04/08/2025 Chronic kidney disease, stage 3a (ICD-10 - N18.31) 06/15/2025 Anxiety disorder, unspecified (ICD-10 - F41.9) 06/15/2025 Chronic kidney disease, stage 3a (ICD-10 - N18.31) 09/09/2025 Chronic kidney disease, stage 3a (ICD-10 - N18.31) 09/09/2025 Anxiety disorder, unspecified (ICD-10 - F41.9) 06/15/2025 Obesity, unspecified (ICD-10 - E66.9) 04/08/2025 Anxiety disorder, unspecified (ICD-10 - F41.9) 09/09/2025 Obesity, unspecified (ICD-10 - E66.9) 04/08/2025 Obesity, unspecified (ICD-10 - E66.9) 06/15/2025 Edema, unspecified (ICD-10 - R60.9) 09/09/2025 Edema, unspecified (ICD-10 - R60.9) 06/15/2025 Essential (primary) hypertension (ICD-10 - I10) 04/08/2025 Edema, unspecified (ICD-10 - R60.9) 04/08/2025 Essential (primary) hypertension (ICD-10 - I10) 06/15/2025 Type 2 diabetes mellitus with hyperglycemia (ICD-10 - E11.65) 09/09/2025 Essential (primary) hypertension (ICD-10 - I10) 04/08/2025 Chronic kidney disease, stage 3 unspecified (ICD-10 - N18.30) 06/15/2025 Renal osteodystrophy (ICD-10 - N25.0) 09/09/2025 Type 2 diabetes mellitus with hyperglycemia (ICD-10 - E11.65) 04/08/2025 Type 2 diabetes mellitus with hyperglycemia (ICD-10 - E11.65) 06/15/2025 Metabolic disorder, unspecified (ICD-10 - E88.9) 09/09/2025 Renal osteodystrophy (ICD-10 - N25.0) 09/09/2025 Metabolic disorder, unspecified (ICD-10 - E88.9) 04/08/2025 Renal osteodystrophy (ICD-10 - N25.0) 06/15/2025 Vitamin D deficiency, unspecified (ICD-10 - E55.9) 06/15/2025 Hyperuricemia without signs of inflammatory arthritis and tophaceous disease (ICD-10 - E79.0) 09/09/2025 Vitamin D deficiency, unspecified (ICD-10 - E55.9) 09/09/2025 Unspecified nephritic syndrome with minor glomerular abnormality (ICD-10 - N05.0) Plan Of Treatment Next Appt Details Provider Name:Ronny Mathew , 09/30/2025 04:15:00 PM, [address] [facility] [address], [address],
--- OUTSIDE RECORDS SUMMARY | 2025-09-22 12:48 | XMS_ITS | Encounter Summary ---
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
--- OUTSIDE RECORDS SUMMARY | 2025-09-22 12:48 | XMS_ITS | Encounter Summary ---
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
--- OUTSIDE RECORDS SUMMARY | 2025-09-22 12:49 | XMS_ITS | Encounter Summary ---
Author Organization [facility] Address [address] [place] [address] Care Team Providers Care Steam Station Supervisor Name Role Phone Carlos Eduardo Chase Primary Care Provider Unavailabl e Encounter Details Date Type Department Care Team (Late st Contact Info) Description 09/30/2001 Emergency [facility] Bj Ayala MD [facility] [place] [address] Er, Authorized P NO ADDRESS ON FILE [place] (Primary Dx) Social History Tobacco Use Types Packs/Day Years Used Date Smoking Tobacco: Never Assessed Comments Unknown Sex and Gender Information Value Date Recorded Sex Assigned at Not on file Legal Sex Female 5:17 AM AGRICULTURAL AGENT Gender Identity Not on file Sexual Orientation Not on file documented as of this encounter Plan of Treatment Not on file documented as of this encounter Visit Diagnoses Diagnosis Sprain of thoracic region- Primary documented in this encounter Care Teams Steam Station Supervisor Relationship Specialty Start Date End Date Carlos Eduardo Chase PCP - General 09/30/01 documented as of this encounter
--- OUTSIDE RECORDS SUMMARY | 2025-09-22 12:49 | XMS_ITS | Encounter Summary ---
Author Organization [facility] Address [address] [place] [address] Care Team Providers Care Senior Php Developer Name Role Phone Carlos Eduardo Chase Primary [...] on file Legal Sex Female 5:17 AM TEACHING AIDE Gender Identity Not on file Sexual Orientation Not on file documented as of this encounter Plan of Treatment Not on file documented as of this encounter Visit Diagnoses Diagnosis Sprain of hand, unspecified site- Primary documented in this encounter Care Teams Senior Php Developer Relationship Specialty Start Date End Date Carlos Eduardo Chase PCP - General 09/30/01 documented as of this encounter
--- OUTSIDE RECORDS SUMMARY | 2025-09-22 12:49 | XMS_ITS | Clinical Summary ---
Author Organization [facility] Address [address] [facility] Attn: Epic Prelude ADT [place] [address] Care Team Providers Care Parts Counter Specialist Name Role Phone Carlos Eduardo Chase Primary Care Provider Unavailabl e Social History Tobacco Use Types Packs/Day Years Used Date Smoking Tobacco: Never Assessed Comments Unknown Sex and Gender Information Value Date Recorded Sex Assigned at Not on file Legal Sex Female 5:17 AM NUT GRADER Gender Identity Not on file Sexual Orientation [...] 2015 INFLUENZA VACCINE (#1) 2025 Care Teams Parts Counter Specialist Relationship Specialty Start Date End Date Carlos Eduardo Chase PCP - General 09/30/01
--- OUTSIDE RECORDS SUMMARY | 2025-09-22 12:49 | XMS_ITS | Clinical Summary ---
Author Organization [employer] [facility] Address [address] 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
--- OUTSIDE RECORDS SUMMARY | 2025-09-22 12:49 | XMS_ITS | Encounter Summary ---
Author Organization [facility] Address [address] [place] [address] Care Team Providers Care Skull Splitter Name Role Phone Carlos Eduardo Chase Primary Care Provider Unavailabl e Encounter Details Date Type Department Care Team (Late st Contact Info) Description 12/17/2000 Outpatient Historical [facility], [address] Social History Tobacco Use Types Packs/Day Years Used Date Smoking Tobacco: Never Assessed Comments Unknown Sex and Gender Information Value Date Recorded Sex Assigned at Not on file Legal Sex Female 5:17 AM PLAN REP Gender Identity Not on file Sexual Orientation Not on file documented as of this encounter Plan of Treatment Not on file documented as of this encounter Visit Diagnoses Not on filedocumented in this encounter Care Teams Skull Splitter Relationship Specialty Start Date End Date Carlos Eduardo Chase PCP - General 09/30/01 documented as of this encounter
--- OUTSIDE RECORDS SUMMARY | 2025-09-22 12:49 | XMS_ITS | Encounter Summary ---
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 Social History Tobacco Use Types [...] on file Legal Sex Female 5:06 AM REAL ESTATE INSTRUCTOR Gender Identity Not on file Sexual Orientation Not on file documented as of this encounter Plan of Treatment Scheduled Referrals Name Type Priority Associated Diagnoses Order Schedule AMB REFERRAL TO ENDOCRINOLOGY Outpatient Referral Routine Type 2 diabetes mellitus with hyperglycemia, unspecified whether [facility] insulin use 1 Occurrences starting 09/20/2024 until 09/20/2025 documented as of this encounter Visit Diagnoses Diagnosis Type 2 diabetes mellitus with hyperglycemia, unspecified whether 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
--- OUTSIDE RECORDS SUMMARY | 2025-09-22 12:50 | XMS_ITS | Encounter Summary ---
Author Organization [facility] Address 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
--- OUTSIDE RECORDS SUMMARY | 2025-09-22 12:50 | XMS_ITS | Encounter Summary ---
Author Organization [facility] Address 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
--- OUTSIDE RECORDS SUMMARY | 2025-09-22 12:50 | XMS_ITS | Encounter Summary ---
Author Organization [facility] Address [address] [place] [address] Care Team Providers Care Frame Stylist Name Role Phone Carlos Eduardo Chase Primary Care Provider Unavailabl e Encounter Details Date Type Department Care Team (Late st Contact Info) Description 02/11/2000 Emergency [facility] RO[facility] Srinivasa Graham [place] [facility] [place] [address] Er, Authorized P NO ADDRESS ON FILE Other specified noninflammatory disorder of vagina (Primary Dx) Social History Tobacco Use Types Packs/Day Years Used Date Smoking Tobacco: Never Assessed Comments Unknown Sex and Gender Information Value Date Recorded Sex Assigned at Not on file 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
--- OUTSIDE RECORDS SUMMARY | 2025-09-22 12:50 | XMS_ITS | Clinical Summary ---
Author Organization [facility] Address [address] [facility] [place] [address] Care Team Providers Care Technical Applications Scientist Name Role Phone Martín Gusman MD Primary Care Provider [phone] Source Comments [facility],non-owned Affiliates and Associated Physician Practices is amultiple site organization consisting of ambulatory clinics and hospital sitesin [place], [place], [place] and [place]. This disclosure is being madepursuant to the Care Everywhere program and may not contain all information available regarding this patient. Last updated 18.[facility] [employer] Allergies Active Allergy Reactions Criticality Noted Date [...] on file Legal Sex Female 5:06 AM CONTACT CLERK Gender Identity Not on file Sexual [...] patient's age to complete this topic Insurance [facility] MANAGED MEDICARE [place] [id number] [place] [id number] [place] [id number] Care Teams Technical Applications Scientist Relationship Specialty Start Date End Date Martín Gusman MD [address] [place] [address] PCP - General Internal Medicine 08/18/19
--- OUTSIDE RECORDS SUMMARY | 2025-09-22 12:50 | XMS_ITS | Clinical Summary ---
Author Organization [facility] Address [address] [place] [address] Care Team Providers Care Cutter Gas Name Role Phone Unavailable Primary Care Provider Unavailabl e Social History Tobacco Use Types Packs/Day Years Used Date Smoking Tobacco: Never Assessed Comments Unknown Sex and Gender Information Value Date Recorded Sex Assigned at Not on file Legal Sex Female 12:08 PM LADLER Gender Identity Not on file Sexual Orientation [...]
--- OUTSIDE RECORDS SUMMARY | 2025-09-22 12:50 | XMS_ITS | Encounter Summary ---
Author Organization 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
--- OUTSIDE RECORDS SUMMARY | 2025-09-22 12:50 | XMS_ITS | Encounter Summary ---
Author Organization [facility] Address [address] [place] [address] Care Team Providers Care Surgical Supplies Sterilizer Name Role Phone Carlos Eduardo Chase Primary [...] on file Legal Sex Female 5:[address] Gender Identity Not on file Sexual Orientation Not on file documented as of this encounter Plan of Treatment Not on file documented as of this encounter Visit Diagnoses Diagnosis Excessive or frequent menstruation- Primary documented in this encounter Care Teams Surgical Supplies Sterilizer Relationship Specialty Start Date End Date Carlos Eduardo Chase PCP - General 09/30/01 documented as of this encounter
--- OUTSIDE RECORDS SUMMARY | 2025-09-22 12:50 | XMS_ITS | Encounter Summary ---
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
== END 2025-09-22 11:46 | disposition home or self-care (01) ==
PROVIDERS: PCP Physician Assistant Medical; Visit Provider Specialist
DX: N18.30 Chronic kidney disease, stage 3 unspecified (principal); E21.3 Hyperparathyroidism, unspecified; E55.9 Vitamin D deficiency, unspecified; R82.90 Unspecified abnormal findings in urine; N39.0 Urinary tract infection, site not specified; R35.0 Frequency of micturition
CPT/HCPCS: 36415; 85652

== ENCOUNTER 2025-10-05 10:45 | Outpatient (CLI) | payer MEDICARE, SELFPAY ==
--- OUTSIDE RECORDS SUMMARY | 2025-10-05 11:36 | XMS_ITS | Clinical Summary ---
Author Organization [facility] Address [address] [place] [address] Care Team Providers Care Hand Tacker Name Role Phone Martín Gusman MD Primary Care Provider [phone] Source Comments [facility],non-owned Affiliates and Associated Physician Practices is amultiple site organization consisting of ambulatory clinics and hospital sitesin [place], [place], [place] and [place]. This disclosure is being madepursuant to the Care Everywhere program and may not contain all information available regarding this patient. Last updated 18.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
--- OUTSIDE RECORDS SUMMARY | 2025-10-05 11:36 | XMS_ITS | Clinical Summary ---
Author Organization [facility] Address [address] [place] [address] Care Team Providers Care Heat Treat Worker Name Role Phone Unavailable Primary Care Provider Unavailabl e Social History Tobacco Use Types Packs/Day Years Used Date Smoking Tobacco: Never Assessed Comments Unknown Sex and Gender Information Value Date Recorded Sex Assigned at Not on file Legal Sex Female 12:08 PM CANOE INSPECTOR Gender Identity Not on file Sexual Orientation [...]
--- OUTSIDE RECORDS SUMMARY | 2025-10-05 11:36 | XMS_ITS | Encounter Summary ---
Author Organization [facility] Address [address] [place] [address] Care Team Providers Care Concession Manager Name Role Phone Carlos Eduardo Chase Primary Care Provider Unavailabl e Encounter Details Date Type Department Care Team (Late st Contact Info) Description 02/11/2000 Emergency [facility] Srinivasa Graham MD [facility] [place] [address] Er, Authorized P NO ADDRESS ON FILE Other specified noninflammatory disorder of vagina (Primary Dx) Social History Tobacco Use Types Packs/Day Years Used Date Smoking Tobacco: Never Assessed Comments Unknown Sex and Gender Information Value Date Recorded Sex Assigned at Not on file 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
--- OUTSIDE RECORDS SUMMARY | 2025-10-05 11:36 | XMS_ITS | Encounter Summary ---
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
--- OUTSIDE RECORDS SUMMARY | 2025-10-05 11:36 | XMS_ITS | Encounter Summary ---
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
--- OUTSIDE RECORDS SUMMARY | 2025-10-05 11:36 | XMS_ITS | Encounter Summary ---
Author Organization [facility] Address [address] [place] [address] Care Team Providers Care Group Insurance Specialist Name Role Phone Martín Gusman MD Primary Care Provider [phone] Reason for Referral * Consultation (Routine) - Closed Specialty Diagnoses / Procedures Referred By Contac t Referred To Contact Endocrinology Diagnoses Type 2 diabetes mellitus with hyperglycemia, unspecified whether technician terminal and repeater insulin use (HCC) Unknown, Provider [facility] - Endocrinology [address] [place] [address] Phone: tel: fax: Referral ID Status Reason Start Date Expiration Date V isits Requested Visits Authorized [id number] Closed Specialty Services Required 09/20/2024 09/20/2025 1 1 D ADMINISTRATOR Encounter Details Date Type Department Care Team (Latest Contact Info) Description 09/20/2024 Transcribe Orders [facility] - Centralized Scheduling [facility] [place] [address] Donte Landaverde PA-C [address] [place] [address] Type 2 diabetes mellitus with hyperglycemia, unspecified whether technician terminal and repeater insulin use Social History Tobacco Use Types [...] on file Legal Sex Female 5:06 AM CLOUD ADMINISTRATOR Gender Identity Not on file Sexual Orientation Not on file documented as of this encounter Plan of Treatment Scheduled Referrals Name Type Priority Associated Diagnoses Order Schedule AMB REFERRAL TO ENDOCRINOLOGY Outpatient Referral Routine Type 2 diabetes mellitus with hyperglycemia, unspecified whether residential insulin use 1 Occurrences starting 09/20/2024 until 09/20/2025 documented as of this encounter Visit Diagnoses Diagnosis Type 2 diabetes mellitus with hyperglycemia, unspecified whether technician terminal and repeater insulin use (HCC)- Primary documented in this encounter Care Teams Group Insurance Specialist Relationship Specialty Start Date End Date Martín Gusman MD [address] [place] [address] PCP - General Internal Medicine 08/18/19 documented as of this encounter
--- OUTSIDE RECORDS SUMMARY | 2025-10-05 11:36 | XMS_ITS | Encounter Summary ---
Author Organization [facility] Address 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
--- OUTSIDE RECORDS SUMMARY | 2025-10-05 11:36 | XMS_ITS | Encounter Summary ---
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
--- OUTSIDE RECORDS SUMMARY | 2025-10-05 11:36 | XMS_ITS | Encounter Summary ---
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
--- OUTSIDE RECORDS SUMMARY | 2025-10-05 11:36 | XMS_ITS | Encounter Summary ---
Author Organization [facility] Address 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
--- OUTSIDE RECORDS SUMMARY | 2025-10-05 11:36 | XMS_ITS | Clinical Summary ---
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
--- OUTSIDE RECORDS SUMMARY | 2025-10-05 11:36 | XMS_ITS | Encounter Summary ---
Author Organization [facility] Address 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
--- OUTSIDE RECORDS SUMMARY | 2025-10-05 11:36 | XMS_ITS | Encounter Summary ---
Author Organization [facility] Address 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
--- OUTSIDE RECORDS SUMMARY | 2025-10-05 11:36 | XMS_ITS | Clinical Summary ---
Author Organization [facility] Address [address] 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
--- OUTSIDE RECORDS SUMMARY | 2025-10-05 11:36 | XMS_ITS | Encounter Summary ---
Author Organization [facility] Address 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
--- OUTSIDE RECORDS SUMMARY | 2025-10-05 11:36 | XMS_ITS | Encounter Summary ---
Author Organization [facility] Address 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
[2025-10-05 12:13] LABS: Hematocrit 34.5 % (37.0-47.0); Hemoglobin 11.6 g/dL (12.0-15.0); Immature Granulocyte Percent A 0.3 % (0-0.5); Lymphocytes Absolute Auto 1.64 K/mm3 (0.9-3.2); Mean Corpuscular HGB Conc 33.6 g/dl (32-36); Mean Corpuscular Hemoglobin 31.8 pg (26-34); Mean Corpuscular Volume 94.5 fl (80-100); Nucleated Red Blood Cells Absolute Auto 0.000 K/mm3 (0.0-0.012); Nucleated Red Blood Cells Perc 0.0 % (0.0-0.2); Platelet Count Result 215 k/mm3 (150-375); Red Blood Count 3.65 M/mm3 (4.2-5.4); White Blood Count 6.0 K/mm3 (4.5-10.0)
[2025-10-05 12:22] LABS: Add Urine Microscopic? YES; Appearance Urine Clear (Clear); Glucose Urine UA Negative (Negative); Leukocyte Esterase Ur Trace LEU/UL (Negative); Nitrate Urine Negative (Negative); Specific Grav Ur 1.012 (1.001-1.035)
[2025-10-05 12:43] LABS: Alanine Aminotransferase 24 U/L (6-35); Albumin Level 4.3 g/dL (3.5-5.1); Alkaline Phosphatase 109 U/L (38-126); Anion Gap 6 mmol/L (4-12); Aspartate Amino Transferase 32 U/L (14-36); Bilirubin,Total 0.7 mg/dL (0.2-1.3); Blood Urea Nitrogen 34 mg/dL (7-17); Calcium 9.9 mg/dL (8.4-10.2); Carbon Dioxide 37 mmol/L (22-30); Chloride 95 mmol/L (98-107); Estimated Glomerular Filt Rate 43; Glucose 136 mg/dL (65-110); Magnesium 1.9 mg/dL (1.6-2.3); Potassium 3.7 mmol/L (3.4-5.0); Sodium 138 mmol/L (137-145); Total Protein 7.7 g/dL (6.3-8.2); Uric Acid 10.9 mg/dL (2.5-7.5)
[2025-10-05 12:44] LABS: Total Protein Urine Random 86 mg/dL; Ur Ttl Prot Creatinine Ratio 1.04 mg/mg (0-0.20)
[2025-10-05 12:52] LABS: Parathyroid Intact 29.4 pg/mL (14.5-75.2)
[2025-10-05 13:19] LABS: Thyroid Stimulating Hormone 3.750 uIU/mL (0.465-4.680)
[2025-10-05 13:32] LABS: MALB Creatinine Ratio 579.7 mg/g (0-30)
[2025-10-06 08:08] LABS: Chloride, Urine 95 mmol/L (Not Estab.)
[2025-10-06 08:08] LABS: eGFR 31 (>59)
[2025-10-06 13:43] LABS: Hemoglobin A1C 7.8 % (<5.7)
[2025-10-09 01:07] LABS: Osmolality, Urine 520 mOsmol/kg (.)
== END 2025-10-05 10:46 | disposition home or self-care (01) ==
PROVIDERS: PCP Physician Assistant Medical; Referring Provider Nurse Practitioner Family; Visit Provider Specialist
DX: D64.9 Anemia, unspecified (principal); E11.65 Type 2 diabetes mellitus with hyperglycemia; E21.3 Hyperparathyroidism, unspecified; E55.9 Vitamin D deficiency, unspecified; R82.90 Unspecified abnormal findings in urine; N39.0 Urinary tract infection, site not specified; R35.0 Frequency of micturition; I12.9 Hypertensive chronic kidney disease with stage 1 through stage 4 chronic kidney disease, or unspecified chronic kidney disease; N18.30 Chronic kidney disease, stage 3 unspecified
CPT/HCPCS: 36415; 80053; 81001; 82043; 82306; 82436; 82570; 82610; 83036; 83735; 83935; 83970; 84133; 84156; 84300; 84443; 84550; 85025; 87086